=== PATIENT | male | born 1985 | race Caucasian/White ===

== ENCOUNTER 2022-04-02 19:27 | Emergency (ER) | payer MEDICARE, MEDICAID, SELFPAY ==
--- NOTE | ~2022-04-02 | XR_ITS ---
EXAMINATION: XR CHEST CLINICAL INFORMATION: Cough COMPARISON: None TECHNIQUE: 2 views of the chest were obtained. FINDINGS: No significant abnormality is noted involving the heart, lungs, mediastinum, bony thorax or soft tissues. XR/XR chest 2V IMPRESSION: Unremarkable examination.
[2022-04-02 19:56] VITALS: BP 114/71; BP 122/68; PULSE 102; PULSE 94; RESP 18; TEMP 37.6; O2SAT 18; O2SAT 97; BMI 21.6
[2022-04-02] MEDS: Acetaminophen 325 MG TABLET 975 MG PO (20:39)
[2022-04-02 21:24] LABS: Influenza A PCR NEGATIVE (Negative); Influenza B PCR NEGATIVE (Negative); Resp Syncy Virus RNA Qual PCR NEGATIVE (Negative); SARS COV2 PCR INHOUSE NEGATIVE (Negative)
[2022-04-02 22:37] LABS: Hemoglobin 14.8 g/dl (14.0-18.0); Imm Gran Abs Auto 0.01 X10*3/uL (0.00-0.03); Imm Gran Pct Auto 0.3 % (0.0-0.4); MANUAL DIFF FLAG SCAN; PLT CLUMP 1; SCAN SMEAR FLAG 1
[2022-04-02 22:38] LABS: Basophils Percent Auto 0.3 % (0-2); Hematocrit 40.9 % (42.0-52.0); Lymphocytes Percent Auto 28.1 % (20-40); Mean Corpuscular HGB Conc 36.2 g/dl (31.0-36.0); Mean Corpuscular Hemoglobin 28.1 pg (27.0-33.0); Mean Corpuscular Volume 77.6 fL (80.0-98.0); Monocytes Absolute Auto 0.2 X10*3/uL (0.1-1.2); Monocytes Percent Auto 6.9 % (2-11); Neutrophils Absolute Auto 2.3 x10*3/uL (2.0-8.3); Neutrophils Percent Auto 64.4 % (45-73); Red Blood Count 5.27 X10*6/uL (4.60-5.80); Red Cell Distribution Width 12.4 % (11.0-16.0)
[2022-04-02 22:45] LABS: Platelet Count 108 X10*3/uL (160-400); White Blood Count 3.5 X10*3/uL (4.8-10.8)
[2022-04-02 22:46] LABS: Lactic Acid 0.6 mmol/L (0.5-2.0)
[2022-04-02 22:48] VITALS: TEMP 37
[2022-04-02 22:55] LABS: Alanine Aminotransferase 54 U/L (0-40); Albumin Level 4.3 g/dL (3.5-5.0); Alkaline Phosphatase 61 U/L (39-117); Anion Gap 18 (12-20); Aspartate Amino Transferase 44 U/L (5-37); Bilirubin Total 0.4 mg/dL (0.0-1.0); Blood Urea Nitrogen 15 mg/dL (9-16); Calcium 8.8 mg/dL (8.4-10.2); Carbon Dioxide 26 mmol/L (22-29); Chloride 97 mmol/L (96-108); Creatinine Clr Calc Pharmacy 86.8; Estimated Glomerular Filt Rate > 60; Glucose Random 90 mg/dL (60-115); Potassium 4.7 mmol/L (3.3-5.1); Sodium 136 mmol/L (135-145); Total Protein 6.5 g/dL (6.5-8.0)
[2022-04-02 22:56] LABS: SLIDE REVIEW VERIFIED
--- NOTE | 2022-04-03 00:47 | ED.FEVER ---
HPI - Fever General Chief Complaint: Fever Stated Complaint: fever detoxing Time Seen by Provider: 04/02/22 20:04 Source: patient and sign language interpreter Mode of arrival: EMS History of Present Illness HPI Narrative: 36-year-old male who has recently arrived from [place] and is brought in by EMS from [facility] with a notable past medical history of depression (currently on sertraline/trazodone) as well as cannabis/crack cocaine abuse. Patient states he has not consumed alcohol in over 4 months and denies any injection drug use. Patient states he has received his TB vaccination in [place] and otherwise states that he has had waxing and waning episodes chills, nausea but otherwise denies vomiting, diarrhea, shortness of breath/chest pain/palpitations. Related Data Allergies Allergy/AdvReac Type Severity Reaction Status Date / Time aspirin Allergy Unknown Unknown Verified 04/02/22 19:55 seafood Allergy Unknown Unknown Verified 04/02/22 19:55 Review of Systems Review of Systems: Pertinent positives and negatives as stated in HPI 10 point review of systems is otherwise negative. PMFSH Past Medical History Source: nursing notes reviewed Social History Social History Advance Directives: No Advance Directives Information Provided: No Physical Exam Vital Signs: Vital Signs: Last Vital Signs Temp 98.8 F 04/03/22 02:20 Pulse 98 04/03/22 02:20 Resp 16 04/03/22 02:20 BP 110/72 04/03/22 02:20 Pulse Ox 96 04/03/22 02:20 O2 Del Method 04/03/22 02:20 BMI result Body Mass Index 21.6 VITAL SIGNS: Reviewed. GENERAL: Well developed, well nourished, in no acute distress. HEAD: Normocephalic/atraumatic EYES: PERRLA, EOMI EARS: Ext canals without abnormality, TMs non-bulging and non-erythematous NOSE: Nares patent bilateral OROPHARYNX: no oral lesions noted, posterior pharynx clear and non-erythematous without noted tonsillar enlargement/erythema/exudates NECK: Supple, no adenopathy LUNGS: Normal breath sounds. No adventitious sounds or accessory muscle use. SpO2<97> CARDIOVASCULAR: Regular rate and rhythm without noted murmurs ABDOMEN: Soft, non-tender, non-distended with bowel sounds. MUSCULOSKELETAL: No tenderness, deformities, or effusions noted on gross inspection. EXTREMITIES: No cyanosis, clubbing or edema. SKIN: Inspection of the skin reveals no rashes NEUROLOGIC: Alert and oriented x 4. Strength and sensation to light touch were grossly intact x 4. Course Course Course Narrative: 36-year-old male with history and clinical presentation consistent with possible viral illness although on review of SARS panel there are no acute findings. Chest x-ray is negative for any occult infection and abdominal exam is benign in nature. Patient denies any suicidal ideation. Review of all investigations negative for evidence of viral COVID/influenza/RSV and no evidence to suggest intra-abdominal pathology, chest x-ray is without acute findings patient is no longer febrile and is resting comfortably denying any SI/HI and is stable for discharge back to [facility]. Medications Administered Discontinued Medications Generic Name Dose Route Start Last Admin Trade Name Freq PRN Reason Stop Dose Admin Acetaminophen 975 mg 04/02/22 20:26 04/02/22 20:39 Acetaminophen 325 Mg Tablet PO 04/02/22 20:27 975 mg ONCE ONE Administration MDM - Fever Lab Data Result diagrams: 04/02/22 22:27 04/02/22 22:27 Labs: Lab Results 04/02/22 04/02/22 04/02/22 Range/Units 20:41 22:27 22:27 WBC 3.5 L (4.8-10.8) X10*3/uL RBC 5.27 (4.60-5.80) X10*6/uL Hgb 14.8 (14.0-18.0) g/dl Hct 40.9 L (42.0-52.0) % MCV 77.6 L (80.0-98.0) fL MCH 28.1 (27.0-33.0) pg MCHC 36.2 H (31.0-36.0) g/dl RDW 12.4 (11.0-16.0) % Plt Count 108 L (160-400) X10*3/uL MPV 10.0 (9.4-12.4) fL Immature Gran % (Auto) 0.3 (0.0-0.4) % Neut % (Auto) 64.4 (45-73) % Lymph % (Auto) 28.1 (20-40) % [place] % (Auto) 6.9 (2-11) % Eos % (Auto) 0.0 (0-4) % Baso % (Auto) 0.3 (0-2) % Lymph # (Auto) 1.0 L (1.2-4.9) X10*3/uL [place] # (Auto) 0.2 (0.1-1.2) X10*3/uL Eos # (Auto) 0.0 (0.0-0.4) X10*3/uL Baso # (Auto) 0.0 (0.0-0.2) X10*3/uL Abs Immat Gran (auto) 0.01 (0.00-0.03) X10*3/uL Absolute Neuts (auto) 2.3 (2.0-8.3) x10*3/uL Absolute Nucleated RBC 0.000 (0.0-0.012) X10*3/uL Nucleated RBC % (auto) 0.0 (0.0-0.2) /100WBC Smear Tech's Comments VERIFIED Sodium 136 (135-145) mmol/L Potassium 4.7 (3.3-5.1) mmol/L Chloride 97 (96-108) mmol/L Carbon Dioxide 26 (22-29) mmol/L Anion Gap 18 (12-20) BUN 15 (9-16) mg/dL Creatinine 1.03 (0.5-1.4) mg/dL Estim Creat Clear Calc 86.8 Estimated GFR > 60 Random Glucose 90 (60-115) mg/dL Lactic Acid (0.5-2.0) mmol/L Calcium 8.8 (8.4-10.2) mg/dL Total Bilirubin 0.4 (0.0-1.0) mg/dL AST 44 H (5-37) U/L ALT 54 H (0-40) U/L Alkaline Phosphatase 61 (39-117) U/L Total Protein 6.5 (6.5-8.0) g/dL Albumin 4.3 (3.5-5.0) g/dL Urine Color Urine Appearance Urine pH (5.0-9.0) Ur Specific [place] (1.005-1.025) Urine Protein (Neg-Trace) mg/dL Urine Glucose (UA) (Negative) mg/dL Urine Ketones (Negative) mg/dL Urine Blood (Negative) Urine Nitrite (Negative) Ur Leukocyte Esterase (Negative) Monoscreen (Negative) Influenza Type A (PCR) NEGATIVE (Negative) Influenza Type B (PCR) NEGATIVE (Negative) RSV RNA Qual (PCR) NEGATIVE (Negative) SARS-CoV-2 RNA (RT-PCR) NEGATIVE (Negative) 04/02/22 04/02/22 04/03/22 Range/Units 22:27 22:27 01:44 WBC (4.8-10.8) X10*3/uL RBC (4.60-5.80) X10*6/uL Hgb (14.0-18.0) g/dl Hct (42.0-52.0) % MCV (80.0-98.0) fL MCH (27.0-33.0) pg MCHC (31.0-36.0) g/dl RDW (11.0-16.0) % Plt Count (160-400) X10*3/uL MPV (9.4-12.4) fL Immature Gran % (Auto) (0.0-0.4) % Neut % (Auto) (45-73) % Lymph % (Auto) (20-40) % [place] % (Auto) (2-11) % Eos % (Auto) (0-4) % Baso % (Auto) (0-2) % Lymph # (Auto) (1.2-4.9) X10*3/uL [place] # (Auto) (0.1-1.2) X10*3/uL Eos # (Auto) (0.0-0.4) X10*3/uL Baso # (Auto) (0.0-0.2) X10*3/uL Abs Immat Gran (auto) (0.00-0.03) X10*3/uL Absolute Neuts (auto) (2.0-8.3) x10*3/uL Absolute Nucleated RBC (0.0-0.012) X10*3/uL Nucleated RBC % (auto) (0.0-0.2) /100WBC Smear Tech's Comments Sodium (135-145) mmol/L Potassium (3.3-5.1) mmol/L Chloride (96-108) mmol/L Carbon Dioxide (22-29) mmol/L Anion Gap (12-20) BUN (9-16) mg/dL Creatinine (0.5-1.4) mg/dL Estim Creat Clear Calc Estimated GFR Random Glucose (60-115) mg/dL Lactic Acid 0.6 (0.5-2.0) mmol/L Calcium (8.4-10.2) mg/dL Total Bilirubin (0.0-1.0) mg/dL AST (5-37) U/L ALT (0-40) U/L Alkaline Phosphatase (39-117) U/L Total Protein (6.5-8.0) g/dL Albumin (3.5-5.0) g/dL Urine Color Yellow Urine Appearance Clear Urine pH 5.5 (5.0-9.0) Ur Specific [place] 1.020 (1.005-1.025) Urine Protein Trace (Neg-Trace) mg/dL Urine Glucose (UA) Negative (Negative) mg/dL Urine Ketones Trace (Negative) mg/dL Urine Blood Negative (Negative) Urine Nitrite Negative (Negative) Ur Leukocyte Esterase Negative (Negative) Monoscreen Negative (Negative) Influenza Type A (PCR) (Negative) Influenza Type B (PCR) (Negative) RSV RNA Qual (PCR) (Negative) SARS-CoV-2 RNA (RT-PCR) (Negative) Discharge Plan Discharge Clinical Impression: Viral syndrome Patient Disposition: Xfer Other Instructions: Viral Syndrome (ED) Additional Instructions: 1. Reanudar todos los medicamentos caseros seg?n lo prescrito. 2. Trate los mahamed corporales y la fiebre de m?s de 100.4 con Tylenol de venta faina. 3. Seguimiento con el proveedor de atenci?n primaria para la reevaluaci?n. Regrese a la marvin de emergencias si los s?ntomas empeoran. Print Language: Ukrainian
[2022-04-03 01:11] LABS: Monotest Negative (Negative)
[2022-04-03 01:55] LABS: Appearance Urine Clear; Color Urine Yellow; Glucose Urine UA Negative (Negative); Leukocyte Esterase Urine Negative (Negative); Nitrite Urine Negative (Negative); PH 5.5 (5.0-9.0); Urine Blood Negative (Negative); Urine Ketones Trace mg/dL (Negative); Urine Protein Trace mg/dL (Neg-Trace)
[2022-04-03 02:20] VITALS: BP 110/72; PULSE 98; RESP 16; TEMP 37.1; O2SAT 96
[2022-04-03 04:03] LABS: Amphetamine Screen Urine Not Detected (Not Detect); Barbiturates, Urine Not Detected (Not Detect); Benzodiazepines Screen Urine Not Detected (Not Detect); Cannabinoid Screen Urine Not Detected (Not Detect); Cocaine Screen Urine Not Detected (Not Detect); Fentanyl, urine Not Detected (Not Detect); Opiate Screen Urine Not Detected (Not Detect); Phencyclidine Screen Urine Not Detected (Not Detect)
--- NOTE | 2022-04-03 08:54 | MHC.RECOVRN ---
Spoke with Susu at [facility], pts ED paperwork has been sent for review. Once reviewed by nursing at , pt will be able to return. Awaiting call back.
--- NOTE | 2022-04-03 08:59 | PC.NURSE ---
attempted to call sudhakar colby multiple times to give nurse to nurse report but the phone line was busy
== END 2022-04-03 09:02 | disposition other institution (70) ==
PROVIDERS: Student in an Organized Health Care Education/Training Program; Emergency Provider Internal Medicine
DX: B34.9 Viral infection, unspecified (principal); R50.9 Fever, unspecified; Z20.822 Contact with and (suspected) exposure to COVID-19; F14.10 Cocaine abuse, uncomplicated; F12.10 Cannabis abuse, uncomplicated
CPT/HCPCS: 0241U; 36415; 71046; 80053; 80307; 81003; 83605; 85025; 86308; 87040; 99283; 99284

== ENCOUNTER 2022-05-13 18:02 | Inpatient (IN) | payer MEDICARE, MEDICAID, SELFPAY ==
--- NOTE | ~2022-05-13 | XR_ITS ---
EXAMINATION: XR CHEST CLINICAL INFORMATION: Post-Covid. Continued shortness of breath. COMPARISON: 05/26/2022. TECHNIQUE: 2 views of the chest were obtained. FINDINGS: No significant abnormality is noted involving the heart, lungs, mediastinum, bony thorax or soft tissues. XR/XR chest 2V IMPRESSION: Unremarkable examination.
--- NOTE | ~2022-05-13 | XR_ITS ---
EXAMINATION: XR CHEST CLINICAL INFORMATION: Covid with question of pneumonia COMPARISON: 04/02/2022 TECHNIQUE: 2 views of the chest were obtained. FINDINGS: No significant abnormality is noted involving the heart, lungs, mediastinum, bony thorax or soft tissues. XR/XR chest 2V IMPRESSION: Unremarkable examination.
[2022-05-13 18:08] VITALS: BP 140/88; BP 144/80; PULSE 90; RESP 16; TEMP 37; O2SAT 98; O2SAT 99; BMI 23.3
--- NOTE | 2022-05-13 18:32 | ED.PSYCH ---
HPI - Psych General Chief Complaint: Psychiatric Symptoms Stated Complaint: SI/HI Time Seen by Provider: 05/13/22 18:08 Source: patient and EMS Mode of arrival: EMS Limitations: other (Patient appears to be manic) History of Present Illness HPI Narrative: This is a 37-year-old male history of schizophrenia, major depression coming from [facility] via ambulance for suicidal and homicidal ideation x1 day. According to EMS he was making SI and HI statements towards other staff members and peers at the facility. Patient denied SI and HI to the nurse in the Psychiatric pod however patient has intermittent suicidal thoughts with no particular plan. He denied HI to myself. Patient tells me he is having racing thoughts and is hearing things talking to him however unable to tell me what exactly his hearing. Patient appears paranoid and manic upon history taking. Denies medical complaints. Reports history of med compliance. Related Data Home Medications Medication Instructions Recorded Confirmed hydroxyzine HCl 50 mg tablet 50 mg PO TID 05/13/22 05/13/22 quetiapine 100 mg tablet 100 mg PO DAILY 05/13/22 05/13/22 quetiapine 200 mg tablet 200 mg PO BEDTIME 05/13/22 05/13/22 trazodone 100 mg tablet 100 mg PO BEDTIME 05/13/22 05/13/22 venlafaxine 75 mg capsule,extended 75 mg PO DAILY 05/13/22 05/13/22 release 24 hr Allergies Allergy/AdvReac Type Severity Reaction Status Date / Time aspirin Allergy Unknown Unknown Verified 04/02/22 19:55 seafood Allergy Unknown Unknown Verified 04/02/22 19:55 Review of Systems Review of Systems: Constitutional : No Weight loss, No Fever, No Chills, No Fatigue, No Malaise ENT/Mouth : No sore throat, No Rhinorrhea Eyes: No Eye Pain, No Swelling, No Redness Cardiovascular : No Chest Pain, No SOB, No Dyspnea on Exertion, No Orthopnea, No Edema, No Palpitations Respiratory : No Cough, No Sputum, No Wheezing Gastrointestinal : No Nausea, No Vomiting, No Diarrhea, No Constipation, No abdominal Pain, No Hematochezia, No Melena Genitourinary : No Dysuria, No Urinary Frequency, No Hematuria, Musculoskeletal : No joint pain, No Myalgias, No Joint Swelling Skin : No Skin Lesions, No rash Neuro : No Weakness, No Numbness, No Dizziness, No Headache Psych : + Anxiety/Panic, + , + Depression, + SI, No HI All other systems reviewed and are negative Yes all other systems are reviewed and are negative [facility] Past Medical History Attestation statement: The following information was validated with the patient. Source: old records reviewed and nursing notes reviewed Social History Social History Advance Directives: No Advance Directives Information Provided: Yes Physical Exam Vital Signs: Vital Signs: Last Vital Signs Temp 98.6 F 05/13/22 18:08 Pulse 90 05/13/22 18:08 Resp 16 05/13/22 18:08 BP 140/88 H 05/13/22 18:08 Pulse Ox 99 05/13/22 18:08 O2 Del Method 05/13/22 18:08 BMI result Body Mass Index 23.3 vss Appearance: Alert.? Oriented X3.? No acute distress.? Patient appears paranoid and very anxious upon history taking and physical exam Head: Normocephalic, atraumatic, no step-offs or deformities Eyes: Pupils equal, round and reactive to light.? ENT: Pharynx normal.? Neck: Normal inspection.? Neck supple.? CVS: Normal heart rate and rhythm.? Pulses normal.? Respiratory: No respiratory distress.? Breath sounds normal.? Abdomen: Soft and nontender.? Skin: Skin warm and dry.? Normal skin color.? Normal skin turgor.? Extremities: No lower extremity edema.? No calf ttp. 5/5 strength to bilateral upper and lower extremities Neuro: Oriented X 3.? No motor deficit.? No sensory deficit. CN 2-12 intact . Ambulating with steady gait normal coordination. Course Reevaluation(s) Reevaluation #1: CBC appears to be within normal limits. Chemistry with no acute findings requiring intervention. Transaminases elevated in the 2-1 fashion likely secondary to alcohol abuse. UA negative. Salicylates, acetaminophen, ethanol negative. COVID negative. At this time patient will be placed into physician observation to allow more time to be evaluated by the behavioral health team. At time observation was started patient common cooperative no acute distress will continue to monitor. Time: 19:38 Medical Decision Making Medical Decision Making [facility] Narrative: 1834 37-year-old male presents with acute paranoia, hallucinations coming from [place] also vague complaints of SI. No particular plan. Physical examination significant for patient appears anxious and paranoid. Regular rate and rhythm. Lungs clear. Abdomen soft nontender nondistended. Plan at this time medical clearance evaluation by the behavioral health team. Will place patient on a Section 12 for suicidal ideation, paranoia, manic behavior Lab Data Result Diagrams: 05/13/22 18:55 05/13/22 18:55 Labs: Lab Results 05/13/22 05/13/22 05/13/22 Range/Units 18:28 18:28 18:28 WBC (4.8-10.8) X10*3/uL RBC (4.60-5.80) X10*6/uL Hgb (14.0-18.0) g/dl Hct (42.0-52.0) % MCV (80.0-98.0) fL MCH (27.0-33.0) pg MCHC (31.0-36.0) g/dl RDW (11.0-16.0) % Plt Count (160-400) X10*3/uL MPV (9.4-12.4) fL Immature Gran % (Auto) (0.0-0.4) % Neut % (Auto) (45-73) % Lymph % (Auto) (20-40) % [place] % (Auto) (2-11) % Eos % (Auto) (0-4) % Baso % (Auto) (0-2) % Lymph # (Auto) (1.2-4.9) X10*3/uL [place] # (Auto) (0.1-1.2) X10*3/uL Eos # (Auto) (0.0-0.4) X10*3/uL Baso # (Auto) (0.0-0.2) X10*3/uL Abs Immat Gran (auto) (0.00-0.03) X10*3/uL Absolute Neuts (auto) (2.0-8.3) x10*3/uL Absolute Nucleated RBC (0.0-0.012) X10*3/uL Nucleated RBC % (auto) (0.0-0.2) /100WBC Sodium (135-145) mmol/L Potassium (3.3-5.1) mmol/L Chloride (96-108) mmol/L Carbon Dioxide (22-29) mmol/L Anion Gap (12-20) BUN (9-16) mg/dL Creatinine (0.5-1.4) mg/dL Estim Creat Clear Calc Estimated GFR Random Glucose (60-115) mg/dL Calcium (8.4-10.2) mg/dL Magnesium (1.6-2.6) mg/dL Total Bilirubin (0.0-1.0) mg/dL AST (5-37) U/L ALT (0-40) U/L Alkaline Phosphatase (39-117) U/L Total Protein (6.5-8.0) g/dL Albumin (3.5-5.0) g/dL Urine Color Yellow Urine Appearance Clear Urine pH 7.0 (5.0-9.0) Ur Specific [place] 1.020 (1.005-1.025) Urine Protein Negative (Neg-Trace) mg/dL Urine Glucose (UA) Negative (Negative) mg/dL Urine Ketones Negative (Negative) mg/dL Urine Blood Negative (Negative) Urine Nitrite Negative (Negative) Ur Leukocyte Esterase Negative (Negative) Salicylates (15-30) mg/dL Urine Opiates Screen Not Detected (Not Detect) Urine Fentanyl Screen Not Detected (Not Detect) Ur Barbiturates Screen Not Detected (Not Detect) Ur Phencyclidine Scrn Not Detected (Not Detect) Ur Amphetamines Screen Not Detected (Not Detect) U Benzodiazepines Scrn Not Detected (Not Detect) Urine Cocaine Screen Not Detected (Not Detect) U Marijuana (THC) Screen Not Detected (Not Detect) Ethyl Alcohol mg/dL COVID-19 ([facility]) Negative (Negative) COVID-19 Clin Com See Note 05/13/22 05/13/22 05/13/22 Range/Units 18:55 18:55 18:55 WBC 10.7 (4.8-10.8) X10*3/uL RBC 5.16 (4.60-5.80) X10*6/uL Hgb 14.8 (14.0-18.0) g/dl Hct 41.1 L (42.0-52.0) % MCV 79.7 L (80.0-98.0) fL MCH 28.7 (27.0-33.0) pg MCHC 36.0 (31.0-36.0) g/dl RDW 14.1 (11.0-16.0) % Plt Count 307 D (160-400) X10*3/uL MPV 9.4 (9.4-12.4) fL Immature Gran % (Auto) 0.4 (0.0-0.4) % Neut % (Auto) 61.0 (45-73) % Lymph % (Auto) 29.0 (20-40) % [place] % (Auto) 8.5 (2-11) % Eos % (Auto) 0.7 (0-4) % Baso % (Auto) 0.4 (0-2) % Lymph # (Auto) 3.1 (1.2-4.9) X10*3/uL [place] # (Auto) 0.9 (0.1-1.2) X10*3/uL Eos # (Auto) 0.1 (0.0-0.4) X10*3/uL Baso # (Auto) 0.0 (0.0-0.2) X10*3/uL Abs Immat Gran (auto) 0.04 H (0.00-0.03) X10*3/uL Absolute Neuts (auto) 6.5 (2.0-8.3) x10*3/uL Absolute Nucleated RBC 0.000 (0.0-0.012) X10*3/uL Nucleated RBC % (auto) 0.0 (0.0-0.2) /100WBC Sodium 140 (135-145) mmol/L Potassium 4.8 (3.3-5.1) mmol/L Chloride 100 (96-108) mmol/L Carbon Dioxide 31 H (22-29) mmol/L Anion Gap 14 (12-20) BUN 11 (9-16) mg/dL Creatinine 0.78 (0.5-1.4) mg/dL Estim Creat Clear Calc 119.2 Estimated GFR > 60 Random Glucose 99 (60-115) mg/dL Calcium 9.6 D (8.4-10.2) mg/dL Magnesium 2.1 (1.6-2.6) mg/dL Total Bilirubin 0.4 (0.0-1.0) mg/dL AST 52 H (5-37) U/L ALT 151 H (0-40) U/L Alkaline Phosphatase 73 (39-117) U/L Total Protein 7.1 (6.5-8.0) g/dL Albumin 4.6 (3.5-5.0) g/dL Urine Color Urine Appearance Urine pH (5.0-9.0) Ur Specific [place] (1.005-1.025) Urine Protein (Neg-Trace) mg/dL Urine Glucose (UA) (Negative) mg/dL Urine Ketones (Negative) mg/dL Urine Blood (Negative) Urine Nitrite (Negative) Ur Leukocyte Esterase (Negative) Salicylates < 5.0 L (15-30) mg/dL Urine Opiates Screen (Not Detect) Urine Fentanyl Screen (Not Detect) Ur Barbiturates Screen (Not Detect) Ur Phencyclidine Scrn (Not Detect) Ur Amphetamines Screen (Not Detect) U Benzodiazepines Scrn (Not Detect) Urine Cocaine Screen (Not Detect) U Marijuana (THC) Screen (Not Detect) Ethyl Alcohol < 10 mg/dL COVID-19 ([facility]) (Negative) COVID-19 Clin Com Critical Care Time Critical Care Time Critical Care Time: No Discharge Plan Discharge Clinical Impression: Depression, [place] Patient Disposition: Still a Patient Prescriptions: No Action venlafaxine 75 mg Capsule,Extended Release 24hr 75 mg PO DAILY trazodone 100 mg Tablet 100 mg PO BEDTIME quetiapine 200 mg Tablet 200 mg PO BEDTIME quetiapine 100 mg Tablet 100 mg PO DAILY hydroxyzine HCl 50 mg Tablet 50 mg PO TID
[2022-05-13 18:40] LABS: Appearance Urine Clear; Color Urine Yellow; Glucose Urine UA Negative (Negative); Leukocyte Esterase Urine Negative (Negative); Nitrite Urine Negative (Negative); Urine Blood Negative (Negative); Urine Ketones Negative (Negative); Urine Protein Negative (Neg-Trace)
[2022-05-13 18:52] LABS: COVID-19 Test Negative (Negative)
[2022-05-13 18:57] LABS: Amphetamine Screen Urine Not Detected (Not Detect); Barbiturates, Urine Not Detected (Not Detect); Benzodiazepines Screen Urine Not Detected (Not Detect); Cannabinoid Screen Urine Not Detected (Not Detect); Cocaine Screen Urine Not Detected (Not Detect); Fentanyl, urine Not Detected (Not Detect); Opiate Screen Urine Not Detected (Not Detect); Phencyclidine Screen Urine Not Detected (Not Detect)
[2022-05-13 19:02] LABS: MANUAL DIFF FLAG NO
[2022-05-13 19:15] LABS: Basophils Percent Auto 0.4 % (0-2); Eosinophils Absolute Auto 0.1 X10*3/uL (0.0-0.4); Eosinophils Percent Auto 0.7 % (0-4); Hematocrit 41.1 % (42.0-52.0); Hemoglobin 14.8 g/dl (14.0-18.0); Imm Gran Abs Auto 0.04 X10*3/uL (0.00-0.03); Imm Gran Pct Auto 0.4 % (0.0-0.4); Lymphocytes Absolute Auto 3.1 X10*3/uL (1.2-4.9); Mean Corpuscular Hemoglobin 28.7 pg (27.0-33.0); Mean Corpuscular Volume 79.7 fL (80.0-98.0); Mean Platelet Volume 9.4 fL (9.4-12.4); Monocytes Absolute Auto 0.9 X10*3/uL (0.1-1.2); Monocytes Percent Auto 8.5 % (2-11); Neutrophils Absolute Auto 6.5 x10*3/uL (2.0-8.3); Platelet Count 307 X10*3/uL (160-400); Red Blood Count 5.16 X10*6/uL (4.60-5.80); Red Cell Distribution Width 14.1 % (11.0-16.0); White Blood Count 10.7 X10*3/uL (4.8-10.8)
[2022-05-13 19:26] LABS: Ethanol < 10 mg/dL
[2022-05-13 19:30] LABS: Alanine Aminotransferase 151 U/L (0-40); Albumin Level 4.6 g/dL (3.5-5.0); Alkaline Phosphatase 73 U/L (39-117); Anion Gap 14 (12-20); Aspartate Amino Transferase 52 U/L (5-37); Bilirubin Total 0.4 mg/dL (0.0-1.0); Blood Urea Nitrogen 11 mg/dL (9-16); Calcium 9.6 mg/dL (8.4-10.2); Carbon Dioxide 31 mmol/L (22-29); Chloride 100 mmol/L (96-108); Creatinine Clr Calc Pharmacy 119.2; Estimated Glomerular Filt Rate > 60; Glucose Random 99 mg/dL (60-115); Magnesium 2.1 mg/dL (1.6-2.6); Potassium 4.8 mmol/L (3.3-5.1); Salicylate < 5.0 mg/dL (15-30); Sodium 140 mmol/L (135-145); Total Protein 7.1 g/dL (6.5-8.0)
[2022-05-13 19:40] LABS: Acetaminophen LAB 1 mcg/mL (<30)
--- NOTE | 2022-05-13 19:43 | PHA.MEDREC ---
Pharmacy Consult ? Medication Reconciliation Pharmacy has completed the medication reconciliation. Nikolas faxed up med list, entered by RN and reviewed by pharmacy.
--- NOTE | 2022-05-13 22:02 | MHC.CARE ---
CARE team met with Pt. and helper animal laboratory, [facility], in [facility]. Pt.'s hospital gown was unbuttoned and he appeared disheveled. Pt. had disorganized thoughts and was responding to internal stimuli. Pt. kept inquiring about his luggage and lab results. Pt. reported he moved here from [place] on 03/24/22 and is living at [facility]. He said she is planning on transitioning to [facility] in May. Pt. reported he has no family or friends in the area, one paternal uncle in [place]. Pt. reported SI/HI/AH/VH. Pt. reported he uses marijuana, cocaine, and crack. Per Pt. he has no PCP, therapist or psychiatrist. Pt will be evaluated by N.
--- NOTE | 2022-05-14 | ECG_ITS ---
Test Reason : MED CLEARANCE Blood Pressure : / mmHG Vent. Rate : 099 BPM Atrial Rate : 099 BPM P-R Int : 124 ms QRS Dur : 072 ms QT Int : 334 ms P-R-T Axes : 062 079 055 degrees QTc Int : 428 ms Normal sinus rhythm Normal ECG No previous ECGs available Referred By: Stanford Sahu Electronically Signed By:Anuj Pritchett
[2022-05-14 02:34] VITALS: BP 125/84; PULSE 82; RESP 15; TEMP 36.6; O2SAT 98
[2022-05-14] MEDS: traZODone HCL 100 MG TABLET PO ×2 (03:22→22:25)
[2022-05-14] MEDS: QUEtiapine Fumarate 200 MG TABLET PO ×2 (03:23→22:24)
[2022-05-14] MEDS: LORazepam 1 MG TABLET 2 MG PO (04:41)
[2022-05-14] MEDS: OLANZapine 5 MG TABLET PO (04:41)
--- NOTE | 2022-05-14 04:52 | PC.NURSE ---
Patient was up most part of the night, restlessness, unscheduled Seroquel 200 mg and Trazodone 100 mg administered at 0322 with no effect, patient engaged well with [facility], disposition per [facility] is section 12 inpatient bed search, patient continues exhibit restlessness Ativan 2 mg PO and Olanzapine 5 mg po administered 044 pending effect, VSS, patient is Icelandic speaking only, behavior appropriate and non concerning, appetite good, VSS, will continue to monitor.
--- NOTE | 2022-05-14 10:56 | PC.NURSE ---
pt accepted at [facility] for 1300 and transportation secured, pt has slept all morning and currently awaiting med delivery from the pharmacy
[2022-05-14] MEDS: hydrOXYzine HCL 50 MG TABLET PO ×3 (11:40→22:24)
[2022-05-14] MEDS: QUEtiapine Fumarate 100 MG TABLET PO (11:40)
--- NOTE | 2022-05-14 13:53 | PC.NURSE ---
Nurse to Nurse given to m5
[2022-05-14 18:00] VITALS: BP 125/78; PULSE 113; TEMP 36.5; O2SAT 95
--- NOTE | 2022-05-14 19:36 | PC.ADMIT ---
pt is a 37 year old dominican speaking only male who represent to [facility] after leaving [facility] before finishing treatment earlier this week, according to the patient. pt PMH includes ADHD, alcohol and cocaine use disorder, and schizophrenia. during admission, patient would go off on tangents or be worried about something not related to admission. pt repeated himself often. pt has poor impulse control. pt reports hearing AH( beeps and horns, people screaming) and seeing VH in the form of shadows. pt reports not being to sleep at night. pt wants to go to [email or web address] or back to his [facility] program. pt is easily angered when told not to do certain things. pt reports feeling sick, but no discharge or redness was there. start treatment plan and promote safety.
[2022-05-14] MEDS: Nicotine Polacrilex 2 MG GUM BUCCAL ×2 (22:34→23:51)
[2022-05-15 08:50] VITALS: BP 129/73; PULSE 97; TEMP 36.7
[2022-05-15 09:06] LABS: Estimated Average Glucose 94 mg/dL; Hemoglobin A1c % 4.9 %
[2022-05-15] MEDS: hydrOXYzine HCL 50 MG TABLET PO ×3 (09:40→22:48)
[2022-05-15] MEDS: Venlafaxine HCl ER 75 MG CAP.ER.24H PO (09:41)
[2022-05-15] MEDS: QUEtiapine Fumarate 100 MG TABLET PO (09:41)
[2022-05-15] MEDS: Nicotine Polacrilex 2 MG GUM BUCCAL (09:56)
[2022-05-15] MEDS: Nicotine 14 MG PATCH.TD24 TRANSDERMA (11:43)
[2022-05-15 12:18] LABS: Cholesterol 184 mg/dL; Free T4 (Free Thyroxine) 0.78 ng/dL (0.71-1.85); HDL Cholesterol 35 mg/dL; LDL Cholesterol Calculated 129 mg/dl; Magnesium 2.3 mg/dL (1.6-2.6); Thyroid Stimulating Hormone 2.17 uIU/mL (0.32-4.0); Triglycerides 101 mg/dL
[2022-05-15 12:36] LABS: Folate 17.4 ng/mL (> or = 4.0); Vitamin B12 275 pg/mL (200-900)
[2022-05-15 16:25] VITALS: BP 118/73; PULSE 99; TEMP 36.4
--- NOTE | 2022-05-15 16:27 | P.HPPS_ITS ---
HPI Date of Service: 05/15/22 Chief Complaint: Schizophrenia Sources of Information: patient interviewed, chart reviewed and crisis/core team assessment reviewed HPI Subjective Notes: Guerra Warning and Conditional Voluntary Healthcare Proxy: No Guardianship: No Medical Problems Affecting Mental Status: No Narrative: 36 yo Chinese speaking male, hx of schizophrenia and addiction, admitted to re- establish medication regime after decompensating in the community. Initially presents with lability, physical agitation, aggression to self. Denies SI, HI. Pt had been living at [facility]. Today, with forming machine adjuster, met with team and reviewed a reasonable plan to get back into treatment, have medication assessment and return to [facility] level of care. Able to review his history thoroughly and in organized detail. Past Psychiatric History: IP: Mar 2022-[facility] [place] OP: Hx of care in [place] [id number] Detox Mar 2022 [facility] [place] Trials: Not known ADHD diagnosed in childhood Schizophrenia diagnosed 2008 Medical Evaluation Reviewed: Yes [facility] Medical History (Updated 05/15/22 @ 17:35 by Betzaida Perales, SUPERVISOR PURIFICATION) Polysubstance use disorder Schizophrenia Family History: None known Social History: Born and raised in [place] by both parents One younger brother Completed High School 04/14. Moved to [place] Mar 2022-went into detox Substance History: Alcohol, Opiates, Cocaine, Cannabis, Nicotine Trauma History: Hx of bullying Diagnostics Vital Signs (24Hr): Vital Signs - 24 hr 05/14/22 18:00 05/15/22 08:50 Temperature 97.7 F 98.1 F Pulse Rate 113 H 97 Blood Pressure 125/78 129/73 Pulse Oximetry 95 Oxygen Delivery Method Room Air BMI result Body Mass Index 23.3 Labs Results: 05/13/22 18:55 05/13/22 18:55 Labs: Laboratory Results - last 48 hr 05/13/22 05/13/22 05/13/22 18:28 18:28 18:28 WBC RBC Hgb Hct MCV MCH MCHC RDW Plt Count MPV Immature Gran % (Auto) Neut % (Auto) Lymph % (Auto) [place] % (Auto) Eos % (Auto) Baso % (Auto) Lymph # (Auto) [place] # (Auto) Eos # (Auto) Baso # (Auto) Abs Immat Gran (auto) Absolute Neuts (auto) Absolute Nucleated RBC Nucleated RBC % (auto) Sodium Potassium Chloride Carbon Dioxide Anion Gap BUN Creatinine Estim Creat Clear Calc Estimated GFR Random Glucose Estimat Average Glucose Hemoglobin A1c % Calcium Magnesium Total Bilirubin AST ALT Alkaline Phosphatase Total Protein Albumin Triglycerides Cholesterol LDL Cholesterol, Calc HDL Cholesterol Vitamin B12 Folate TSH Free T4 Urine Color Yellow Urine Appearance Clear Urine pH 7.0 Ur Specific [place] 1.020 Urine Protein Negative Urine Glucose (UA) Negative Urine Ketones Negative Urine Blood Negative Urine Nitrite Negative Ur Leukocyte Esterase Negative Salicylates Urine Opiates Screen Not Detected Urine Fentanyl Screen Not Detected Acetaminophen Ur Barbiturates Screen Not Detected Ur Phencyclidine Scrn Not Detected Ur Amphetamines Screen Not Detected U Benzodiazepines Scrn Not Detected Urine Cocaine Screen Not Detected U Marijuana (THC) Screen Not Detected Ethyl Alcohol COVID-19 ([facility]) Negative COVID-19 Clin Com See Note 05/13/22 05/13/22 05/13/22 18:55 18:55 18:55 WBC 10.7 RBC 5.16 Hgb 14.8 Hct 41.1 L MCV 79.7 L MCH 28.7 MCHC 36.0 RDW 14.1 Plt Count 307 D MPV 9.4 Immature Gran % (Auto) 0.4 Neut % (Auto) 61.0 Lymph % (Auto) 29.0 [place] % (Auto) 8.5 Eos % (Auto) 0.7 Baso % (Auto) 0.4 Lymph # (Auto) 3.1 [place] # (Auto) 0.9 Eos # (Auto) 0.1 Baso # (Auto) 0.0 Abs Immat Gran (auto) 0.04 H Absolute Neuts (auto) 6.5 Absolute Nucleated RBC 0.000 Nucleated RBC % (auto) 0.0 Sodium 140 Potassium 4.8 Chloride 100 Carbon Dioxide 31 H Anion Gap 14 BUN 11 Creatinine 0.78 Estim Creat Clear Calc 119.2 Estimated GFR > 60 Random Glucose 99 Estimat Average Glucose Hemoglobin A1c % Calcium 9.6 D Magnesium 2.1 Total Bilirubin 0.4 AST 52 H ALT 151 H Alkaline Phosphatase 73 Total Protein 7.1 Albumin 4.6 Triglycerides Cholesterol LDL Cholesterol, Calc HDL Cholesterol Vitamin B12 Folate TSH Free T4 Urine Color Urine Appearance Urine pH Ur Specific [place] Urine Protein Urine Glucose (UA) Urine Ketones Urine Blood Urine Nitrite Ur Leukocyte Esterase Salicylates < 5.0 L Urine Opiates Screen Urine Fentanyl Screen Acetaminophen 1 Ur Barbiturates Screen Ur Phencyclidine Scrn Ur Amphetamines Screen U Benzodiazepines Scrn Urine Cocaine Screen U Marijuana (THC) Screen Ethyl Alcohol < 10 COVID-19 ([facility]) COVID-19 x.ai 05/15/22 05/15/22 05/15/22 08:21 08:21 08:21 WBC RBC Hgb Hct MCV MCH MCHC RDW Plt Count MPV Immature Gran % (Auto) Neut % (Auto) Lymph % (Auto) [place] % (Auto) Eos % (Auto) Baso % (Auto) Lymph # (Auto) [place] # (Auto) Eos # (Auto) Baso # (Auto) Abs Immat Gran (auto) Absolute Neuts (auto) Absolute Nucleated RBC Nucleated RBC % (auto) Sodium Potassium Chloride Carbon Dioxide Anion Gap BUN Creatinine Estim Creat Clear Calc Estimated GFR Random Glucose Estimat Average Glucose 94 Hemoglobin A1c % 4.9 Calcium Magnesium 2.3 Total Bilirubin AST ALT Alkaline Phosphatase Total Protein Albumin Triglycerides 101 Cholesterol 184 LDL Cholesterol, Calc 129 HDL Cholesterol 35 Vitamin B12 275 Folate 17.4 TSH 2.17 Free T4 0.78 Urine Color Urine Appearance Urine pH Ur Specific [place] Urine Protein Urine Glucose (UA) Urine Ketones Urine Blood Urine Nitrite Ur Leukocyte Esterase Salicylates Urine Opiates Screen Urine Fentanyl Screen Acetaminophen Ur Barbiturates Screen Ur Phencyclidine Scrn Ur Amphetamines Screen U Benzodiazepines Scrn Urine Cocaine Screen U Marijuana (THC) Screen Ethyl Alcohol COVID-19 ([facility]) COVID-19 x.ai Meds/Allergies Meds Home Medications Medication Instructions Recorded Confirmed Type hydroxyzine HCl 50 mg tablet 50 mg PO TID 05/13/22 05/13/22 History quetiapine 100 mg tablet 100 mg PO DAILY 05/13/22 05/13/22 History quetiapine 200 mg tablet 200 mg PO BEDTIME 05/13/22 05/13/22 History trazodone 100 mg tablet 100 mg PO BEDTIME 05/13/22 05/13/22 History venlafaxine 75 mg capsule,extended 75 mg PO DAILY 05/13/22 05/13/22 History release 24 hr Allergies Allergies Allergy/AdvReac Type Severity Reaction Status Date / Time aspirin Allergy Unknown Unknown Verified 04/02/22 19:55 seafood Allergy Unknown Unknown Verified 04/02/22 19:55 Mental Status Exam Mental Status Exam Patient Appearance: Appropriate Patient Orientation: Person, Place, Time and Situation Level of Consciousness: Alert Patient Behavior: Talkative and Good Eye Contact Mood Description: Appropriate Affect Description: Appropriate Patient Cognition Impaired: No Ability to Follow Directions: Good Speech Pattern: Spontaneous Speech Memory Description: Intact Hallucinations: None Delusions: Not Present Thought Process: Intact Thought Content: positive for Intact Judgement: Fair Assessment & Plan Assessment & Plan (1) Schizophrenia: Status: Acute Code(s): F20.9 - Schizophrenia, unspecified (2) Polysubstance use disorder: Status: Acute Code(s): F19.90 - Other psychoactive substance use, unspecified, uncomplicated Plan 37 yo male, history of schizophrenia, polysubstance use presents with request to re-stabilize on medications and return to addictions CSS treatment. Continue current regime. Monitor mood/behaviors Referrals for CSS placement. Patient educated on: medication risk/benefits, therapeutic strategies and medical condition Informed Consent: understands and further education needed Reason for continued inpatient stay Substantial Risk for: rapid decompensation Statement Statement: I have reviewed the history and physical and performed a pertinent examination on my patient. No changes have occurred unless specified. If the History and Physical was not performed prior to admission, the Hospitalist's service will be consulted for completing the admission physical. Time Spent With Patient Time: Total time managing care of this patient today __45__ minutes.
[2022-05-15] MEDS: Acetaminophen 325 MG TABLET 650 MG PO (16:47)
[2022-05-15] MEDS: traZODone HCL 100 MG TABLET PO (22:48)
[2022-05-15] MEDS: QUEtiapine Fumarate 200 MG TABLET PO (22:48)
[2022-05-16] MEDS: hydrOXYzine HCL 50 MG TABLET PO ×3 (08:09→22:06)
[2022-05-16] MEDS: QUEtiapine Fumarate 100 MG TABLET PO (08:09)
[2022-05-16] MEDS: Venlafaxine HCl ER 75 MG CAP.ER.24H PO (08:09)
[2022-05-16] MEDS: Nicotine Polacrilex 2 MG GUM BUCCAL (08:11)
[2022-05-16] MEDS: Nicotine 14 MG PATCH.TD24 TRANSDERMA (08:18)
[2022-05-16 09:05] VITALS: BP 138/85; PULSE 75; RESP 20; TEMP 36.4; O2SAT 99
--- NOTE | 2022-05-16 09:12 | HO.PSYCHPN ---
Subjective Subjective Date of Service: 05/16/22 Reason For Visit: Schizophrenia Subjective Notes: Conditional Voluntary Healthcare Proxy: No Guardianship: No Medical Problems Affecting Mental Status: No Interim History: Patient was seen and discussed in rounds today. Records and plans were reviewed. He was seen with the help of an filament tester. He has not been taking medications. Poor sleep. No safety concerns with no suicidal ideations. Moderate anxiety and pacing has been observed. He is mostly withdrawn and isolative. Medication Compliance: No Attending Groups: No Review of Systems Constitutional: Reports no additional constitutional complaints Eyes: Reports no additional eye complaints Reports Normal hearing present (asks for a hearing assessment to be scheduled) Cardiovascular: Reports no additional cardiovascular complaints Respiratory: Reports no additional respiratory complaints Gastrointestinal: Reports no additional gastrointestinal complaints Genitourinary: Reports no additional male genitourinary complaints Musculoskeletal: Reports no additional musculoskeletal complaints Skin/Breast: Reports system reviewed and no additional complaints, except as docu Reports Normal hearing present (asks for a hearing assessment to be scheduled) and Reports behavioral changes Psychiatric: Reports anxiety, Reports behavioral changes, Reports difficulty concentrating, Reports irritability, Reports anhedonia, Reports mood swings, Reports paranoia and Reports suicidal ideation (denies) Endocrine: Reports no additional endocrine complaints Hematologic/Lymphatic: Reports no additional hematologic/lymphatic complaints Allergic/Immunologic: Reports no additional allergic/immunologic complaints Mental Status Exam Mental Status Exam Narrative: In today's visit he is alert, mostly pleasant and interactive with the filament tester. Speech is pressured. Little to no eye contact. Affect is appropriate and tense. He denies any auditory or visual hallucinations. He denies any suicidal ideations. Cognitively he appears to be somewhat disorganized, tangential. He could not be tested formally. Judgment could not be assessed Diagnostics Vital Signs (24Hr): Vital Signs - 24 hr 05/15/22 16:25 05/16/22 09:05 Temperature 97.5 F 97.6 F Pulse Rate 99 75 Respiratory Rate 20 Blood Pressure 118/73 138/85 Pulse Oximetry 99 Oxygen Delivery Method Room Air BMI result Body Mass Index 23.3 Labs Results: 05/13/22 18:55 05/13/22 18:55 Labs: Laboratory Results - last 48 hr 05/15/22 05/15/22 05/15/22 08:21 08:21 08:21 Estimat Average Glucose 94 Hemoglobin A1c % 4.9 Magnesium 2.3 Triglycerides 101 Cholesterol 184 LDL Cholesterol, Calc 129 HDL Cholesterol 35 Vitamin B12 275 Folate 17.4 TSH 2.17 Free T4 0.78 Medications Medications Current Medications Acetaminophen (Acetaminophen 325 Mg Tablet) 650 mg PO Q6H PRN PRN Reason: Headache/Pain Mild Scale (1-3) Last Admin: 05/15/22 16:47 Dose: 650 mg Al Hydroxide/Mg Hydroxide (Magnesium Hydrox/Alum Hydrox 30 Ml Oral.Susp) 30 ml PO Q6H PRN PRN Reason: Heartburn/Nausea Hydroxyzine HCl (Hydroxyzine Hcl 50 Mg Tablet) 50 mg PO TID [facility] Last Admin: 05/16/22 08:09 Dose: 50 mg Magnesium Hydroxide (Milk Of Magnesia 30 Ml Oral.Susp) 30 ml PO DAILY PRN PRN Reason: Constipation Nicotine (Nicotine 14 Mg Patch.Td24) 14 mg TRANSDERMA DAILY [facility] Last Admin: 05/16/22 08:18 Dose: 14 mg Nicotine Polacrilex (Nicotine Polacrilex 2 Mg Gum) 2 mg BUCCAL Q2H PRN PRN Reason: Nicotine Cravings Last Admin: 05/16/22 08:11 Dose: 2 mg Quetiapine Fumarate (Quetiapine Fumarate 100 Mg Tablet) 100 mg PO DAILY [facility] Last Admin: 05/16/22 08:09 Dose: 100 mg Quetiapine Fumarate (Quetiapine Fumarate 200 Mg Tablet) 200 mg PO BEDTIME [facility] Last Admin: 05/15/22 22:48 Dose: 200 mg Trazodone HCl (Trazodone Hcl 100 Mg Tablet) 100 mg PO BEDTIME [facility] Last Admin: 05/15/22 22:48 Dose: 100 mg Venlafaxine HCl (Venlafaxine Hcl Er 75 Mg Cap.Er.24h) 75 mg PO DAILY [facility] Last Admin: 05/16/22 08:09 Dose: 75 mg Allergies Allergies Allergy/AdvReac Type Severity Reaction Status Date / Time aspirin Allergy Unknown Unknown Verified 04/02/22 19:55 seafood Allergy Unknown Unknown Verified 04/02/22 19:55 Assessment & Plan Assessment & Plan (1) Schizophrenia: Status: Acute Code(s): F20.9 - Schizophrenia, unspecified (2) Polysubstance use disorder: Status: Acute Code(s): F19.90 - Other psychoactive substance use, unspecified, uncomplicated Plan 37 yo male, history of schizophrenia, polysubstance use presents with request to re-stabilize on medications and return to addictions CSS treatment. Continue current regime. Monitor mood/behaviors Referrals for CSS placement. 05/15: Continue current regimen and encouraged to take medications. Nursing requested the p.r.n. in case he agrees to take something during the day and Seroquel 25 mg q.4 hours p.r.n. was ordered. Patient educated on: medication risk/benefits Reason for contiued inpatient stay Substantial Risk for: med/psych decompensation Time Spent With Patient Time: Total time managing care of this patient today ____ minutes.
[2022-05-16 21:54] VITALS: BP 141/84; PULSE 82; RESP 16; TEMP 36.8; O2SAT 97
[2022-05-16] MEDS: QUEtiapine Fumarate 200 MG TABLET PO (22:06)
[2022-05-16] MEDS: traZODone HCL 100 MG TABLET PO (22:06)
[2022-05-17] MEDS: Venlafaxine HCl ER 75 MG CAP.ER.24H PO (09:35)
[2022-05-17] MEDS: hydrOXYzine HCL 50 MG TABLET PO ×3 (09:35→21:32)
[2022-05-17] MEDS: QUEtiapine Fumarate 100 MG TABLET PO (09:35)
[2022-05-17] MEDS: Nicotine 14 MG PATCH.TD24 TRANSDERMA (09:36)
[2022-05-17 09:41] VITALS: BP 145/82; PULSE 96; RESP 18; TEMP 36.6; O2SAT 97
[2022-05-17] MEDS: Nicotine Polacrilex 2 MG GUM BUCCAL ×2 (09:55→14:20)
--- NOTE | 2022-05-17 10:24 | HO.PSYCHPN ---
Subjective Subjective Date of Service: 05/17/22 Reason For Visit: Schizophrenia Subjective Notes: Conditional Voluntary Healthcare Proxy: No Guardianship: No Medical Problems Affecting Mental Status: No Interim History: Patient was seen and discussed in rounds today. Records and plans were reviewed. He continues to be disorganized, having psychotic symptoms. He denies any auditory or visual hallucinations but appears to be responding to internal stimuli. He is compliant with treatment, meals. Sleeping adequately. No complaints. No changes were made today Medication Compliance: No Attending Groups: No Review of Systems Review of Systems Yes Unobtainable due to mental status Mental Status Exam Mental Status Exam Narrative: In today's visit he is alert, mostly pleasant and interactive with the embryology professor. Speech is pressured. Little to no eye contact. Affect is appropriate and tense. He denies any auditory or visual hallucinations. He denies any suicidal ideations. Cognitively he appears to be somewhat disorganized, tangential. He could not be tested formally. Judgment could not be assessed Diagnostics Vital Signs (24Hr): Vital Signs - 24 hr 05/16/22 21:54 05/17/22 09:41 Temperature 98.2 F 97.8 F Pulse Rate 82 96 Respiratory Rate 16 18 Blood Pressure 141/84 H 145/82 H Pulse Oximetry 97 97 Oxygen Delivery Method Room Air Room Air BMI result Body Mass Index 23.3 Labs Results: 05/13/22 18:55 05/13/22 18:55 Labs: Laboratory Results - last 48 hr 05/15/22 05/15/22 08:21 08:21 Magnesium 2.3 Triglycerides 101 Cholesterol 184 LDL Cholesterol, Calc 129 HDL Cholesterol 35 Vitamin B12 275 Folate 17.4 TSH 2.17 Free T4 0.78 Medications Medications Current Medications Acetaminophen (Acetaminophen 325 Mg Tablet) 650 mg PO Q6H PRN PRN Reason: Headache/Pain Mild Scale (1-3) Last Admin: 05/15/22 16:47 Dose: 650 mg Al Hydroxide/Mg Hydroxide (Magnesium Hydrox/Alum Hydrox 30 Ml Oral.Susp) 30 ml PO Q6H PRN PRN Reason: Heartburn/Nausea Hydroxyzine HCl (Hydroxyzine Hcl 50 Mg Tablet) 50 mg PO TID [facility] Last Admin: 05/17/22 09:35 Dose: 50 mg Magnesium Hydroxide (Milk Of Magnesia 30 Ml Oral.Susp) 30 ml PO DAILY PRN PRN Reason: Constipation Nicotine (Nicotine 14 Mg Patch.Td24) 14 mg TRANSDERMA DAILY [facility] Last Admin: 05/17/22 09:36 Dose: 14 mg Nicotine Polacrilex (Nicotine Polacrilex 2 Mg Gum) 2 mg BUCCAL Q2H PRN PRN Reason: Nicotine Cravings Last Admin: 05/17/22 09:55 Dose: 2 mg Quetiapine Fumarate (Quetiapine Fumarate 100 Mg Tablet) 100 mg PO DAILY [facility] Last Admin: 05/17/22 09:35 Dose: 100 mg Quetiapine Fumarate (Quetiapine Fumarate 200 Mg Tablet) 200 mg PO BEDTIME [facility] Last Admin: 05/16/22 22:06 Dose: 200 mg Quetiapine Fumarate (Quetiapine Fumarate 25 Mg Tablet) 25 mg PO Q4H PRN PRN Reason: Anxiety Trazodone HCl (Trazodone Hcl 100 Mg Tablet) 100 mg PO BEDTIME [facility] Last Admin: 05/16/22 22:06 Dose: 100 mg Venlafaxine HCl (Venlafaxine Hcl Er 75 Mg Cap.Er.24h) 75 mg PO DAILY [facility] Last Admin: 05/17/22 09:35 Dose: 75 mg Allergies Allergies Allergy/AdvReac Type Severity Reaction Status Date / Time aspirin Allergy Unknown Unknown Verified 04/02/22 19:55 seafood Allergy Unknown Unknown Verified 04/02/22 19:55 Assessment & Plan Assessment & Plan (1) Schizophrenia: Status: Acute Code(s): F20.9 - Schizophrenia, unspecified (2) Polysubstance use disorder: Status: Acute Code(s): F19.90 - Other psychoactive substance use, unspecified, uncomplicated Plan 37 yo male, history of schizophrenia, polysubstance use presents with request to re-stabilize on medications and return to addictions CSS treatment. Continue current regime. Monitor mood/behaviors Referrals for CSS placement. 05/15: Continue current regimen and encouraged to take medications. Nursing requested the p.r.n. in case he agrees to take something during the day and Seroquel 25 mg q.4 hours p.r.n. was ordered. 05/17: Continue current plans and regimen Reason for contiued inpatient stay Substantial Risk for: med/psych decompensation Time Spent With Patient Time: Total time managing care of this patient today ____ minutes.
[2022-05-17 17:15] VITALS: BP 132/69; PULSE 98; RESP 18; TEMP 36.9; O2SAT 98
[2022-05-17] MEDS: QUEtiapine Fumarate 200 MG TABLET PO (21:32)
[2022-05-17] MEDS: traZODone HCL 100 MG TABLET PO (21:32)
[2022-05-18 08:20] VITALS: BP 134/74; PULSE 109; RESP 18; TEMP 37.2; O2SAT 100
[2022-05-18] MEDS: Nicotine 14 MG PATCH.TD24 TRANSDERMA (08:22)
[2022-05-18] MEDS: QUEtiapine Fumarate 100 MG TABLET PO (08:23)
[2022-05-18] MEDS: hydrOXYzine HCL 50 MG TABLET PO ×2 (08:23→20:59)
[2022-05-18] MEDS: Venlafaxine HCl ER 75 MG CAP.ER.24H PO (08:23)
[2022-05-18] MEDS: Nicotine Polacrilex 2 MG GUM BUCCAL ×2 (08:38→13:54)
--- NOTE | 2022-05-18 11:09 | HO.PSYCHPN ---
Subjective Subjective Date of Service: 05/18/22 Reason For Visit: Schizophrenia Subjective Notes: Conditional Voluntary Healthcare Proxy: No Guardianship: No Medical Problems Affecting Mental Status: No Interim History: Patient was seen and discussed in rounds today. Records and plans were reviewed. He appears to be doing a little better but continues to be disorganized with thought blocking. He has been perseverative and mostly isolative. No complaints or side effects reported. No changes were made today. Eating and sleeping adequately Medication Compliance: No Attending Groups: No Review of Systems Review of Systems Yes Unobtainable due to mental status Mental Status Exam Mental Status Exam Narrative: In today's visit he is alert, mostly pleasant and interactive with the historical interpreter. Speech is pressured. Little to no eye contact. Affect is appropriate and tense. He denies any auditory or visual hallucinations. He denies any suicidal ideations. Cognitively he appears to be somewhat disorganized, tangential. He could not be tested formally. Judgment could not be assessed Diagnostics Vital Signs (24Hr): Vital Signs - 24 hr 05/17/22 17:15 05/18/22 08:20 Temperature 98.4 F 99 F Pulse Rate 98 109 H Respiratory Rate 18 18 Blood Pressure 132/69 134/74 Pulse Oximetry 98 100 Oxygen Delivery Method Room Air Room Air BMI result Body Mass Index 23.3 Labs Results: 05/13/22 18:55 05/13/22 18:55 Medications Medications Current Medications Acetaminophen (Acetaminophen 325 Mg Tablet) 650 mg PO Q6H PRN PRN Reason: Headache/Pain Mild Scale (1-3) Last Admin: 05/15/22 16:47 Dose: 650 mg Al Hydroxide/Mg Hydroxide (Magnesium Hydrox/Alum Hydrox 30 Ml Oral.Susp) 30 ml PO Q6H PRN PRN Reason: Heartburn/Nausea Hydroxyzine HCl (Hydroxyzine Hcl 50 Mg Tablet) 50 mg PO TID COUNTS INCLUDE 234 BEDS AT THE [facility] Last Admin: 05/18/22 08:23 Dose: 50 mg Magnesium Hydroxide (Milk Of Magnesia 30 Ml Oral.Susp) 30 ml PO DAILY PRN PRN Reason: Constipation Nicotine (Nicotine 14 Mg Patch.Td24) 14 mg TRANSDERMA DAILY COUNTS INCLUDE 234 BEDS AT THE [facility] Last Admin: 05/18/22 08:22 Dose: 14 mg Nicotine Polacrilex (Nicotine Polacrilex 2 Mg Gum) 2 mg BUCCAL Q2H PRN PRN Reason: Nicotine Cravings Last Admin: 05/18/22 08:38 Dose: 2 mg Quetiapine Fumarate (Quetiapine Fumarate 100 Mg Tablet) 100 mg PO DAILY COUNTS INCLUDE 234 BEDS AT THE [facility] Last Admin: 05/18/22 08:23 Dose: 100 mg Quetiapine Fumarate (Quetiapine Fumarate 200 Mg Tablet) 200 mg PO BEDTIME COUNTS INCLUDE 234 BEDS AT THE [facility] Last Admin: 05/17/22 21:32 Dose: 200 mg Quetiapine Fumarate (Quetiapine Fumarate 25 Mg Tablet) 25 mg PO Q4H PRN PRN Reason: Anxiety Trazodone HCl (Trazodone Hcl 100 Mg Tablet) 100 mg PO BEDTIME COUNTS INCLUDE 234 BEDS AT THE [facility] Last Admin: 05/17/22 21:32 Dose: 100 mg Venlafaxine HCl (Venlafaxine Hcl Er 75 Mg Cap.Er.24h) 75 mg PO DAILY COUNTS INCLUDE 234 BEDS AT THE [facility] Last Admin: 05/18/22 08:23 Dose: 75 mg Allergies Allergies Allergy/AdvReac Type Severity Reaction Status Date / Time aspirin Allergy Unknown Unknown Verified 04/02/22 19:55 seafood Allergy Unknown Unknown Verified 04/02/22 19:55 Assessment & Plan Assessment & Plan (1) Schizophrenia: Status: Acute Code(s): F20.9 - Schizophrenia, unspecified (2) Polysubstance use disorder: Status: Acute Code(s): F19.90 - Other psychoactive substance use, unspecified, uncomplicated Plan 37 yo male, history of schizophrenia, polysubstance use presents with request to re-stabilize on medications and return to addictions CSS treatment. Continue current regime. Monitor mood/behaviors Referrals for CSS placement. 05/15: Continue current regimen and encouraged to take medications. Nursing requested the p.r.n. in case he agrees to take something during the day and Seroquel 25 mg q.4 hours p.r.n. was ordered. 05/17: Continue current plans and regimen 05/18: Continue plans and regimen Reason for contiued inpatient stay Substantial Risk for: med/psych decompensation Time Spent With Patient Time: Total time managing care of this patient today ____ minutes.
[2022-05-18 16:56] VITALS: BP 150/70; PULSE 102; TEMP 36.6
[2022-05-18] MEDS: QUEtiapine Fumarate 200 MG TABLET PO (20:58)
[2022-05-18] MEDS: traZODone HCL 100 MG TABLET PO (20:58)
[2022-05-19] MEDS: Nicotine 14 MG PATCH.TD24 TRANSDERMA (08:58)
[2022-05-19] MEDS: hydrOXYzine HCL 50 MG TABLET PO ×3 (08:59→21:06)
[2022-05-19] MEDS: QUEtiapine Fumarate 100 MG TABLET PO (09:00)
[2022-05-19] MEDS: Venlafaxine HCl ER 75 MG CAP.ER.24H PO (09:00)
[2022-05-19] MEDS: Nicotine Polacrilex 2 MG GUM BUCCAL ×2 (09:38→21:18)
[2022-05-19 09:49] VITALS: BP 118/65; PULSE 114; RESP 18; TEMP 36.9; O2SAT 97
--- NOTE | 2022-05-19 12:37 | HO.PSYCHPN ---
Subjective Subjective Date of Service: 05/19/22 Reason For Visit: Schizophrenia Subjective Notes: Conditional Voluntary Healthcare Proxy: No Guardianship: No Medical Problems Affecting Mental Status: No Interim History: Anxious today. Reports he awoke sad, angry. Team reports hitting doors over the weekend to express frustration due to communication barriers. Rejected by [facility] due to language barrier. Team applying to [facility]. Declines mood stabilizer at this time-agrees to Venlafaxine and Quetiapine titration, however, pt may need more mood stabilization to manage current sx. Medication Compliance: Yes Side effects from medications: No Attending Groups: Intermittent Review of Systems Acute medical concerns: No Medical Review of Systems: unchanged Mental Status Exam Mental Status Exam Patient Appearance: Appropriate Patient Orientation: Person, Place, Time and Situation Level of Consciousness: Alert Patient Behavior: Talkative, Cooperative, Distractible, Isolative and Good Eye Contact Mood Description: Withdrawn, Labile, Angry, Nervous and Apprehensive Affect Description: Constricted Patient Cognition Impaired: No Ability to Follow Directions: Good Speech Pattern: Spontaneous Speech Memory Description: Intact Hallucinations: None Delusions: Not Present Perceptual Disturbances: Derealization Thought Process: Distracted Thought Content: positive for Perseveration and positive for Suicidal Ideation (denies) Depressive Symptoms: Increased Anxiety, Increased Irritability and Difficulty Concentrating Abnormal Motor Activity Signs and Symptoms: Restlessness Judgement: Fair Diagnostics Vital Signs (24Hr): Vital Signs - 24 hr 05/18/22 16:56 05/19/22 09:49 Temperature 98 F 98.5 F Pulse Rate 102 H 114 H Respiratory Rate 18 Blood Pressure 150/70 H 118/65 Pulse Oximetry 97 Oxygen Delivery Method Room Air BMI result Body Mass Index 23.3 Labs Results: 05/13/22 18:55 05/13/22 18:55 Medications Medications Current Medications Acetaminophen (Acetaminophen 325 Mg Tablet) 650 mg PO Q6H PRN PRN Reason: Headache/Pain Mild Scale (1-3) Last Admin: 05/15/22 16:47 Dose: 650 mg Al Hydroxide/Mg Hydroxide (Magnesium Hydrox/Alum Hydrox 30 Ml Oral.Susp) 30 ml PO Q6H PRN PRN Reason: Heartburn/Nausea Hydroxyzine HCl (Hydroxyzine Hcl 50 Mg Tablet) 50 mg PO TID [facility] Last Admin: 05/19/22 08:59 Dose: 50 mg Magnesium Hydroxide (Milk Of Magnesia 30 Ml Oral.Susp) 30 ml PO DAILY PRN PRN Reason: Constipation Nicotine (Nicotine 14 Mg Patch.Td24) 14 mg TRANSDERMA DAILY [facility] Last Admin: 05/19/22 08:58 Dose: 14 mg Nicotine Polacrilex (Nicotine Polacrilex 2 Mg Gum) 2 mg BUCCAL Q2H PRN PRN Reason: Nicotine Cravings Last Admin: 05/19/22 09:38 Dose: 2 mg Quetiapine Fumarate (Quetiapine Fumarate 100 Mg Tablet) 100 mg PO DAILY [facility] Last Admin: 05/19/22 09:00 Dose: 100 mg Quetiapine Fumarate (Quetiapine Fumarate 200 Mg Tablet) 200 mg PO BEDTIME [facility] Last Admin: 05/18/22 20:58 Dose: 200 mg Quetiapine Fumarate (Quetiapine Fumarate 25 Mg Tablet) 25 mg PO Q4H PRN PRN Reason: Anxiety Trazodone HCl (Trazodone Hcl 100 Mg Tablet) 100 mg PO BEDTIME [facility] Last Admin: 05/18/22 20:58 Dose: 100 mg Venlafaxine HCl (Venlafaxine Hcl Er 75 Mg Cap.Er.24h) 75 mg PO DAILY [facility] Last Admin: 05/19/22 09:00 Dose: 75 mg Allergies Allergies Allergy/AdvReac Type Severity Reaction Status Date / Time aspirin Allergy Unknown Unknown Verified 04/02/22 19:55 seafood Allergy Unknown Unknown Verified 04/02/22 19:55 Assessment & Plan Assessment & Plan (1) Schizophrenia: Status: Acute Code(s): F20.9 - Schizophrenia, unspecified (2) Polysubstance use disorder: Status: Acute Code(s): F19.90 - Other psychoactive substance use, unspecified, uncomplicated Plan 37 yo male, history of schizophrenia, polysubstance use presents with request to re-stabilize on medications and return to addictions CSS treatment. Continue current regime. Monitor mood/behaviors Referrals for CSS placement. 05/15: Continue current regimen and encouraged to take medications. Nursing requested the p.r.n. in case he agrees to take something during the day and Seroquel 25 mg q.4 hours p.r.n. was ordered. 05/17: Continue current plans and regimen 05/18: Continue plans and regimen 05/19/22: Increase Venlafaxine to 112.5 mg daily Increase Seroquel to 150 mg a.m. and 250 mg h.s., a total increase of 100 mg per day. Pt may need a mood stabilizer-he declines at this time. Patient educated on: medication risk/benefits and therapeutic strategies Informed Consent: understands and further education needed Reason for contiued inpatient stay Substantial Risk for: rapid decompensation Time Spent With Patient Time: Total time managing care of this patient today 20____ minutes.
[2022-05-19 18:00] VITALS: BP 135/82; PULSE 100; RESP 18; TEMP 36.5; O2SAT 96
[2022-05-19] MEDS: QUEtiapine Fumarate 50 MG TABLET 250 MG PO (21:06)
[2022-05-19] MEDS: traZODone HCL 100 MG TABLET PO (21:07)
[2022-05-20] MEDS: QUEtiapine Fumarate 50 MG TABLET 150 MG PO (08:48)
[2022-05-20] MEDS: Nicotine 14 MG PATCH.TD24 TRANSDERMA (08:48)
[2022-05-20] MEDS: Venlafaxine HCl ER 37.5 MG CAP.ER.24H 112.5 MG PO (08:49)
[2022-05-20] MEDS: hydrOXYzine HCL 50 MG TABLET PO ×3 (08:49→21:48)
[2022-05-20 10:05] VITALS: BP 116/79; PULSE 94; RESP 16; TEMP 36.2; O2SAT 98
[2022-05-20 14:21] LABS: COVID-19 Test Negative (Negative)
--- NOTE | 2022-05-20 17:25 | HO.PSYCHPN ---
Subjective Subjective Date of Service: 05/20/22 Reason For Visit: Schizophrenia Subjective Notes: Conditional Voluntary Healthcare Proxy: No Guardianship: No Medical Problems Affecting Mental Status: No Interim History: Reports not doing too well-feeling tired, with AH, VH, the enemy wants to destroy me . Reports a loss of interest in being alive, feels hatred against the people who have made fun of his feelings, (the enemy). States the enemy in his opinion has power and he is feeling offended. Anxious to meet with Luis Eduardo [facility] m[facility] rn on 05/21. Discussed making med changes-pt agrees this is appropriate. Medication Compliance: Yes Side effects from medications: No Attending Groups: No Review of Systems Acute medical concerns: No Medical Review of Systems: unchanged Mental Status Exam Mental Status Exam Patient Appearance: Appropriate Patient Orientation: Person, Place, Time and Situation Level of Consciousness: Alert Patient Behavior: Talkative, Cooperative, Distractible, Isolative and Good Eye Contact Mood Description: Withdrawn, Labile, Nervous and Apprehensive Affect Description: Constricted Patient Cognition Impaired: No Ability to Follow Directions: Good Speech Pattern: Spontaneous Speech Memory Description: Intact Hallucinations: None, Auditory and Visual Delusions: Not Present and Paranoid Ideation Perceptual Disturbances: Derealization Thought Process: Distracted Thought Content: positive for Perseveration and positive for Suicidal Ideation (denies) Depressive Symptoms: Increased Anxiety, Increased Irritability and Difficulty Concentrating Abnormal Motor Activity Signs and Symptoms: Restlessness Judgement: Fair Diagnostics Vital Signs (24Hr): Vital Signs - 24 hr 05/19/22 18:00 05/20/22 10:05 Temperature 97.7 F 97.2 F Pulse Rate 100 94 Respiratory Rate 18 16 Blood Pressure 135/82 116/79 Pulse Oximetry 96 98 Oxygen Delivery Method Room Air Room Air BMI result Body Mass Index 23.3 Labs Results: 05/13/22 18:55 05/13/22 18:55 Labs: Laboratory Results - last 48 hr 05/20/22 13:42 COVID-19 ([facility]) Negative COVID-19 Clin Com See Note Medications Medications Current Medications Acetaminophen (Acetaminophen 325 Mg Tablet) 650 mg PO Q6H PRN PRN Reason: Headache/Pain Mild Scale (1-3) Last Admin: 05/15/22 16:47 Dose: 650 mg Al Hydroxide/Mg Hydroxide (Magnesium Hydrox/Alum Hydrox 30 Ml Oral.Susp) 30 ml PO Q6H PRN PRN Reason: Heartburn/Nausea Hydroxyzine HCl (Hydroxyzine Hcl 50 Mg Tablet) 50 mg PO TID [facility] Last Admin: 05/20/22 14:18 Dose: 50 mg Magnesium Hydroxide (Milk Of Magnesia 30 Ml Oral.Susp) 30 ml PO DAILY PRN PRN Reason: Constipation Nicotine (Nicotine 14 Mg Patch.Td24) 14 mg TRANSDERMA DAILY [facility] Last Admin: 05/20/22 08:48 Dose: 14 mg Nicotine Polacrilex (Nicotine Polacrilex 2 Mg Gum) 2 mg BUCCAL Q2H PRN PRN Reason: Nicotine Cravings Last Admin: 05/19/22 21:18 Dose: 2 mg Quetiapine Fumarate (Quetiapine Fumarate 25 Mg Tablet) 25 mg PO Q4H PRN PRN Reason: Anxiety Quetiapine Fumarate (Quetiapine Fumarate 50 Mg Tablet) 150 mg PO DAILY [facility] Last Admin: 05/20/22 08:48 Dose: 150 mg Quetiapine Fumarate (Quetiapine Fumarate 50 Mg Tablet) 250 mg PO BEDTIME [facility] Last Admin: 05/19/22 21:06 Dose: 250 mg Trazodone HCl (Trazodone Hcl 100 Mg Tablet) 100 mg PO BEDTIME [facility] Last Admin: 05/19/22 21:07 Dose: 100 mg Venlafaxine HCl (Venlafaxine Hcl Er 37.5 Mg Cap.Er.24h) 112.5 mg PO DAILY [facility] Last Admin: 05/20/22 08:49 Dose: 112.5 mg Allergies Allergies Allergy/AdvReac Type Severity Reaction Status Date / Time aspirin Allergy Unknown Unknown Verified 04/02/22 19:55 seafood Allergy Unknown Unknown Verified 04/02/22 19:55 Assessment & Plan Assessment & Plan (1) Schizophrenia: Status: Acute Code(s): F20.9 - Schizophrenia, unspecified (2) Polysubstance use disorder: Status: Acute Code(s): F19.90 - Other psychoactive substance use, unspecified, uncomplicated Plan 37 yo male, history of schizophrenia, polysubstance use presents with request to re-stabilize on medications and return to addictions CSS treatment. Continue current regime. Monitor mood/behaviors Referrals for CSS placement. 05/15: Continue current regimen and encouraged to take medications. Nursing requested the p.r.n. in case he agrees to take something during the day and Seroquel 25 mg q.4 hours p.r.n. was ordered. 05/17: Continue current plans and regimen 05/18: Continue plans and regimen 05/19/22: Increase Venlafaxine to 112.5 mg daily Increase Seroquel to 150 mg a.m. and 250 mg h.s., a total increase of 100 mg per day. Pt may need a mood stabilizer-he declines at this time. 05/20/22: Decrease Venlafaxine to 75 mg daily Discontinue Seroquel Risperdal 2 mg hs. Patient educated on: therapeutic strategies Informed Consent: further education needed Reason for contiued inpatient stay Substantial Risk for: rapid decompensation Time Spent With Patient Time: Total time managing care of this patient today _20___ minutes.
[2022-05-20] MEDS: risperiDONE 2 MG TABLET PO (21:48)
[2022-05-20] MEDS: traZODone HCL 100 MG TABLET PO (21:48)
[2022-05-21 06:00] VITALS: BP 122/72; PULSE 97; RESP 14; TEMP 36.5; O2SAT 97
[2022-05-21 07:00] VITALS: BMI 23.8
[2022-05-21] MEDS: Nicotine 14 MG PATCH.TD24 TRANSDERMA (07:52)
[2022-05-21] MEDS: hydrOXYzine HCL 50 MG TABLET PO ×3 (07:52→20:45)
[2022-05-21] MEDS: Venlafaxine HCl ER 75 MG CAP.ER.24H PO (07:52)
[2022-05-21] MEDS: Nicotine Polacrilex 2 MG GUM BUCCAL (08:27)
[2022-05-21 17:04] VITALS: BP 144/85; PULSE 92; RESP 16; TEMP 36.6; O2SAT 97
--- NOTE | 2022-05-21 17:35 | HO.PSYCHPN ---
Subjective Subjective Date of Service: 05/21/22 Reason For Visit: Schizophrenia Subjective Notes: Conditional Voluntary Interim History: When awake, I have episodes of sadness and happiness. Discussed feeling improved with medicine change. Discussed plans for his discharge-[facility], hoping to feel well, have a clear mind and to go to [facility]. Reports Risperdal is helping with sleep and clarity. Review of B12 level. Will allow supplementation. Medication Compliance: Yes Side effects from medications: No Attending Groups: No Review of Systems Acute medical concerns: No Medical Review of Systems: unchanged Mental Status Exam Mental Status Exam Patient Appearance: Appropriate Patient Orientation: Person, Place, Time and Situation Level of Consciousness: Alert Patient Behavior: Talkative, Cooperative, Isolative and Good Eye Contact Mood Description: Constricted Affect Description: Constricted Patient Cognition Impaired: No Ability to Follow Directions: Good Speech Pattern: Spontaneous Speech Memory Description: Intact Hallucinations: None, Auditory and Visual Delusions: Not Present Thought Content: positive for Perseveration and positive for Suicidal Ideation (denies) Depressive Symptoms: Increased Anxiety and Difficulty Concentrating Judgement: Fair Diagnostics Vital Signs (24Hr): Vital Signs - 24 hr 05/21/22 06:00 05/21/22 17:04 Temperature 97.7 F 97.8 F Pulse Rate 97 92 Respiratory Rate 14 16 Blood Pressure 122/72 144/85 H Pulse Oximetry 97 97 Oxygen Delivery Method Room Air Room Air BMI result Body Mass Index 23.8 Labs Results: 05/13/22 18:55 05/13/22 18:55 Labs: Laboratory Results - last 48 hr 05/20/22 13:42 COVID-19 ([facility]) Negative COVID-19 Clin Com See Note Medications Medications Current Medications Acetaminophen (Acetaminophen 325 Mg Tablet) 650 mg PO Q6H PRN PRN Reason: Headache/Pain Mild Scale (1-3) Last Admin: 05/15/22 16:47 Dose: 650 mg Al Hydroxide/Mg Hydroxide (Magnesium Hydrox/Alum Hydrox 30 Ml Oral.Susp) 30 ml PO Q6H PRN PRN Reason: Heartburn/Nausea Hydroxyzine HCl (Hydroxyzine Hcl 50 Mg Tablet) 50 mg PO TID [facility] Last Admin: 05/21/22 14:15 Dose: 50 mg Magnesium Hydroxide (Milk Of Magnesia 30 Ml Oral.Susp) 30 ml PO DAILY PRN PRN Reason: Constipation Nicotine (Nicotine 14 Mg Patch.Td24) 14 mg TRANSDERMA DAILY [facility] Last Admin: 05/21/22 07:52 Dose: 14 mg Nicotine Polacrilex (Nicotine Polacrilex 2 Mg Gum) 2 mg BUCCAL Q2H PRN PRN Reason: Nicotine Cravings Last Admin: 05/21/22 08:27 Dose: 2 mg Quetiapine Fumarate (Quetiapine Fumarate 25 Mg Tablet) 25 mg PO Q4H PRN PRN Reason: Anxiety Risperidone (Risperidone 2 Mg Tablet) 2 mg PO BEDTIME [facility] Last Admin: 05/20/22 21:48 Dose: 2 mg Trazodone HCl (Trazodone Hcl 100 Mg Tablet) 100 mg PO BEDTIME [facility] Last Admin: 05/20/22 21:48 Dose: 100 mg Venlafaxine HCl (Venlafaxine Hcl Er 75 Mg Cap.Er.24h) 75 mg PO DAILY [facility] Last Admin: 05/21/22 07:52 Dose: 75 mg Allergies Allergies Allergy/AdvReac Type Severity Reaction Status Date / Time aspirin Allergy Unknown Unknown Verified 04/02/22 19:55 seafood Allergy Unknown Unknown Verified 04/02/22 19:55 Assessment & Plan Assessment & Plan (1) Schizophrenia: Status: Acute Code(s): F20.9 - Schizophrenia, unspecified (2) Polysubstance use disorder: Status: Acute Code(s): F19.90 - Other psychoactive substance use, unspecified, uncomplicated Plan 37 yo male, history of schizophrenia, polysubstance use presents with request to re-stabilize on medications and return to addictions CSS treatment. Continue current regime. Monitor mood/behaviors Referrals for CSS placement. 05/15: Continue current regimen and encouraged to take medications. Nursing requested the p.r.n. in case he agrees to take something during the day and Seroquel 25 mg q.4 hours p.r.n. was ordered. 05/17: Continue current plans and regimen 05/18: Continue plans and regimen 05/19/22: Increase Venlafaxine to 112.5 mg daily Increase Seroquel to 150 mg a.m. and 250 mg h.s., a total increase of 100 mg per day. Pt may need a mood stabilizer-he declines at this time. 05/20/22: Decrease Venlafaxine to 75 mg daily Discontinue Seroquel Risperdal 2 mg hs. 05/21/22 Continue current regime and plan. Patient educated on: therapeutic strategies Informed Consent: understands and further education needed Reason for contiued inpatient stay Substantial Risk for: rapid decompensation Time Spent With Patient Time: Total time managing care of this patient today 20____ minutes.
[2022-05-21] MEDS: traZODone HCL 100 MG TABLET PO (20:45)
[2022-05-21] MEDS: risperiDONE 2 MG TABLET PO (20:45)
[2022-05-22 06:00] VITALS: BP 130/77; PULSE 97; RESP 14; TEMP 36.6; O2SAT 97
[2022-05-22] MEDS: Venlafaxine HCl ER 75 MG CAP.ER.24H PO (08:23)
[2022-05-22] MEDS: Thiamine HCL 100 MG TABLET PO (08:23)
[2022-05-22] MEDS: hydrOXYzine HCL 50 MG TABLET PO ×3 (08:23→19:27)
[2022-05-22] MEDS: Nicotine 14 MG PATCH.TD24 TRANSDERMA (08:23)
[2022-05-22] MEDS: Nicotine Polacrilex 2 MG GUM BUCCAL ×2 (11:23→19:27)
[2022-05-22 13:15] LABS: COVID-19 Test Positive (Negative); IDNOW Serial# 55D5AD1C
--- NOTE | 2022-05-22 13:36 | PC.NURSE ---
pt positive for covid. md's/admin aware. pt moved into covid room.
[2022-05-22 18:00] VITALS: BP 126/74; PULSE 97; RESP 16; TEMP 37; O2SAT 98
[2022-05-22] MEDS: traZODone HCL 100 MG TABLET PO (19:27)
[2022-05-22] MEDS: risperiDONE 2 MG TABLET PO (19:27)
--- NOTE | 2022-05-22 21:01 | P.PNPSI_ITS ---
Subjective Subjective Date of Service: 05/22/22 Reason For Visit: Schizophrenia Subjective Notes: Conditional Voluntary Healthcare Proxy: No Guardianship: No Medical Problems Affecting Mental Status: No Interim History: Latrell has tested positive for COVID. He reports some sx of headache and back ache. Team reports he was found kissing another patient last evening. Discussed, boundaries education discussed. Discussed medical plan of care. Continues to report benefit from Risperdal use. Medication Compliance: Yes Side effects from medications: No Attending Groups: No Review of Systems Acute medical concerns: No Medical Review of Systems: changed Review of Systems: COVID+ Mental Status Exam Mental Status Exam Patient Appearance: Appropriate Patient Orientation: Person, Place, Time and Situation Level of Consciousness: Alert Patient Behavior: Talkative, Cooperative, Isolative and Good Eye Contact Mood Description: Constricted Affect Description: Constricted Patient Cognition Impaired: No Ability to Follow Directions: Good Speech Pattern: Spontaneous Speech Memory Description: Intact Hallucinations: None Delusions: Not Present Thought Content: positive for Perseveration and positive for Suicidal Ideation ( denies) Depressive Symptoms: Increased Anxiety, Increased Fatigue and Difficulty Concentrating Judgement: Fair Diagnostics Vital Signs (24Hr): Vital Signs - 24 hr 05/22/22 18:00 05/22/22 06:00 Temperature 98.6 F 98 F Pulse Rate 97 97 Respiratory Rate 16 14 Blood Pressure 126/74 130/77 Pulse Oximetry 98 97 Oxygen Delivery Method Room Air Room Air BMI result Body Mass Index 23.8 Labs Results: 05/13/22 18:55 05/13/22 18:55 Labs: Laboratory Results - last 48 hr 05/22/22 12:31 COVID-19 ([facility]) Positive A COVID-19 Clin Com See Note Medications Medications Current Medications Acetaminophen (Acetaminophen 325 Mg Tablet) 650 mg PO Q6H PRN PRN Reason: Headache/Pain Mild Scale (1-3) Last Admin: 05/15/22 16:47 Dose: 650 mg Al Hydroxide/Mg Hydroxide (Magnesium Hydrox/Alum Hydrox 30 Ml Oral.Susp) 30 ml PO Q6H PRN PRN Reason: Heartburn/Nausea Guaifenesin (Guaifenesin La 600 Mg Tab.Er.12h) 600 mg PO BID PRN PRN Reason: congestion Hydroxyzine HCl (Hydroxyzine Hcl 50 Mg Tablet) 50 mg PO TID [facility] Last Admin: 12/30/22 19:27 Dose: 50 mg Magnesium Hydroxide (Milk Of Magnesia 30 Ml Oral.Susp) 30 ml PO DAILY PRN PRN Reason: Constipation Nicotine (Nicotine 14 Mg Patch.Td24) 14 mg TRANSDERMA DAILY [facility] Last Admin: 05/22/22 08:23 Dose: 14 mg Nicotine Polacrilex (Nicotine Polacrilex 2 Mg Gum) 2 mg BUCCAL Q2H PRN PRN Reason: Nicotine Cravings Last Admin: 05/22/22 19:27 Dose: 2 mg Quetiapine Fumarate (Quetiapine Fumarate 25 Mg Tablet) 25 mg PO Q4H PRN PRN Reason: Anxiety Risperidone (Risperidone 2 Mg Tablet) 2 mg PO BEDTIME [facility] Last Admin: 05/22/22 19:27 Dose: 2 mg Thiamine HCl (Thiamine Hcl 100 Mg Tablet) 100 mg PO DAILY [facility] Last Admin: 05/22/22 08:23 Dose: 100 mg Trazodone HCl (Trazodone Hcl 100 Mg Tablet) 100 mg PO BEDTIME [facility] Last Admin: 05/22/22 19:27 Dose: 100 mg Venlafaxine HCl (Venlafaxine Hcl Er 75 Mg Cap.Er.24h) 75 mg PO DAILY [facility] Last Admin: 05/22/22 08:23 Dose: 75 mg Allergies Allergies Allergy/AdvReac Type Severity Reaction Status Date / Time aspirin Allergy Unknown Unknown Verified 04/02/22 19:55 seafood Allergy Unknown Unknown Verified 04/02/22 19:55 Assessment & Plan Assessment & Plan (1) Schizophrenia: Status: Acute Code(s): F20.9 - Schizophrenia, unspecified (2) Polysubstance use disorder: Status: Acute Code(s): F19.90 - Other psychoactive substance use, unspecified, uncomplicated Plan 37 yo male, history of schizophrenia, polysubstance use presents with request to re-stabilize on medications and return to addictions CSS treatment. Continue current regime. Monitor mood/behaviors Referrals for CSS placement. 05/15: Continue current regimen and encouraged to take medications. Nursing requested the p.r.n. in case he agrees to take something during the day and Seroquel 25 mg q.4 hours p.r.n. was ordered. 05/17: Continue current plans and regimen 05/18: Continue plans and regimen 05/19/22: Increase Venlafaxine to 112.5 mg daily Increase Seroquel to 150 mg a.m. and 250 mg h.s., a total increase of 100 mg per day. Pt may need a mood stabilizer-he declines at this time. 05/20/22: Decrease Venlafaxine to 75 mg daily Discontinue Seroquel Risperdal 2 mg hs. 05/21/22 Continue current regime and plan. 05/22/22 Monitor sx of COVID Monitor for increase sx as pt will be on isolation Patient educated on: therapeutic strategies and medical condition Informed Consent: understands Reason for contiued inpatient stay Substantial Risk for: med/psych decompensation Time Spent With Patient Time: Total time managing care of this patient today __20__ minutes.
[2022-05-23 09:00] VITALS: BP 113/74; PULSE 84; TEMP 36.8
[2022-05-23] MEDS: Thiamine HCL 100 MG TABLET PO (10:41)
[2022-05-23] MEDS: hydrOXYzine HCL 50 MG TABLET PO ×3 (10:41→21:24)
[2022-05-23] MEDS: Nicotine 14 MG PATCH.TD24 TRANSDERMA (10:42)
[2022-05-23] MEDS: Venlafaxine HCl ER 75 MG CAP.ER.24H PO (10:42)
[2022-05-23] MEDS: Nicotine Polacrilex 2 MG GUM BUCCAL (16:18)
[2022-05-23] MEDS: Acetaminophen 325 MG TABLET 650 MG PO (16:33)
[2022-05-23 18:00] VITALS: BP 140/70; PULSE 82; TEMP 36.8; O2SAT 97
--- NOTE | 2022-05-23 19:35 | P.PNPSI_ITS ---
Subjective Subjective Date of Service: 05/23/22 Reason For Visit: Schizophrenia Subjective Notes: Conditional Voluntary Healthcare Proxy: No Guardianship: No Medical Problems Affecting Mental Status: No Interim History: Uatsdin reports medications are helpful. Denies any new COVID sx of distress. Reports he is feeling well. No questions or concerns raised in our meeting today. Sleep and appetite are intact he reports. Medication Compliance: Yes Side effects from medications: No Attending Groups: No Review of Systems Acute medical concerns: No Medical Review of Systems: unchanged Mental Status Exam Mental Status Exam Patient Appearance: Appropriate Patient Orientation: Person, Place, Time and Situation Level of Consciousness: Alert Patient Behavior: Talkative, Cooperative, Isolative and Good Eye Contact Mood Description: Constricted Affect Description: Constricted Patient Cognition Impaired: No Ability to Follow Directions: Good Speech Pattern: Spontaneous Speech Memory Description: Intact Hallucinations: None Delusions: Not Present Thought Content: positive for Perseveration and positive for Suicidal Ideation (denies) Depressive Symptoms: Increased Anxiety, Increased Fatigue and Difficulty Concentrating Judgement: Fair Diagnostics Vital Signs (24Hr): Vital Signs - 24 hr 05/23/22 09:00 Temperature 98.2 F Pulse Rate 84 Blood Pressure 113/74 BMI result Body Mass Index 23.8 Labs Results: 05/13/22 18:55 05/13/22 18:55 Labs: Laboratory Results - last 48 hr 05/22/22 12:31 COVID-19 ([facility]) Positive A COVID-19 Clin Com See Note Medications Medications Current Medications Acetaminophen (Acetaminophen 325 Mg Tablet) 650 mg PO Q6H PRN PRN Reason: Headache/Pain Mild Scale (1-3) Last Admin: 05/23/22 16:33 Dose: 650 mg Al Hydroxide/Mg Hydroxide (Magnesium Hydrox/Alum Hydrox 30 Ml Oral.Susp) 30 ml PO Q6H PRN PRN Reason: Heartburn/Nausea Guaifenesin (Guaifenesin La 600 Mg Tab.Er.12h) 600 mg PO BID PRN PRN Reason: congestion Hydroxyzine HCl (Hydroxyzine Hcl 50 Mg Tablet) 50 mg PO TID [facility] Last Admin: 05/23/22 15:05 Dose: 50 mg Magnesium Hydroxide (Milk Of Magnesia 30 Ml Oral.Susp) 30 ml PO DAILY PRN PRN Reason: Constipation Nicotine (Nicotine 14 Mg Patch.Td24) 14 mg TRANSDERMA DAILY [facility] Last Admin: 05/23/22 10:42 Dose: 14 mg Nicotine Polacrilex (Nicotine Polacrilex 2 Mg Gum) 2 mg BUCCAL Q2H PRN PRN Reason: Nicotine Cravings Last Admin: 05/23/22 16:18 Dose: 2 mg Quetiapine Fumarate (Quetiapine Fumarate 25 Mg Tablet) 25 mg PO Q4H PRN PRN Reason: Anxiety Risperidone (Risperidone 2 Mg Tablet) 2 mg PO BEDTIME [facility] Last Admin: 05/22/22 19:27 Dose: 2 mg Thiamine HCl (Thiamine Hcl 100 Mg Tablet) 100 mg PO DAILY [facility] Last Admin: 05/23/22 10:41 Dose: 100 mg Trazodone HCl (Trazodone Hcl 100 Mg Tablet) 100 mg PO BEDTIME [facility] Last Admin: 05/22/22 19:27 Dose: 100 mg Venlafaxine HCl (Venlafaxine Hcl Er 75 Mg Cap.Er.24h) 75 mg PO DAILY [facility] Last Admin: 05/23/22 10:42 Dose: 75 mg Allergies Allergies Allergy/AdvReac Type Severity Reaction Status Date / Time aspirin Allergy Unknown Unknown Verified 04/02/22 19:55 seafood Allergy Unknown Unknown Verified 04/02/22 19:55 Assessment & Plan Assessment & Plan (1) Schizophrenia: Status: Acute Code(s): F20.9 - Schizophrenia, unspecified (2) Polysubstance use disorder: Status: Acute Code(s): F19.90 - Other psychoactive substance use, unspecified, uncomplicated Plan 37 yo male, history of schizophrenia, polysubstance use presents with request to re-stabilize on medications and return to addictions CSS treatment. Continue current regime. Monitor mood/behaviors Referrals for CSS placement. 05/15: Continue current regimen and encouraged to take medications. Nursing requested the p.r.n. in case he agrees to take something during the day and Seroquel 25 mg q.4 hours p.r.n. was ordered. 05/17: Continue current plans and regimen 05/18: Continue plans and regimen 05/19/22: Increase Venlafaxine to 112.5 mg daily Increase Seroquel to 150 mg a.m. and 250 mg h.s., a total increase of 100 mg per day. Pt may need a mood stabilizer-he declines at this time. 05/20/22: Decrease Venlafaxine to 75 mg daily Discontinue Seroquel Risperdal 2 mg hs. 05/21/22 Continue current regime and plan. 05/22/22 Monitor sx of COVID Monitor for increase sx as pt will be on isolation 05/23/22 Continue to monitor for sx of COVID No changes to current regime today Informed Consent: understands Reason for contiued inpatient stay Substantial Risk for: rapid decompensation Time Spent With Patient Time: Total time managing care of this patient today _15___ minutes.
[2022-05-23] MEDS: traZODone HCL 100 MG TABLET PO (21:24)
[2022-05-23] MEDS: risperiDONE 2 MG TABLET PO (21:24)
[2022-05-24 08:30] VITALS: BP 111/58; PULSE 97; TEMP 37.4
[2022-05-24] MEDS: Thiamine HCL 100 MG TABLET PO (09:00)
[2022-05-24] MEDS: Venlafaxine HCl ER 75 MG CAP.ER.24H PO (09:01)
[2022-05-24] MEDS: hydrOXYzine HCL 50 MG TABLET PO ×3 (09:01→20:47)
[2022-05-24] MEDS: Acetaminophen 325 MG TABLET 650 MG PO (09:02)
[2022-05-24] MEDS: Nicotine 14 MG PATCH.TD24 TRANSDERMA (09:31)
[2022-05-24 14:12] VITALS: TEMP 36.8
--- NOTE | 2022-05-24 15:16 | P.PNPSI_ITS ---
Subjective Subjective Date of Service: 05/24/22 Reason For Visit: Schizophrenia Subjective Notes: Conditional Voluntary Healthcare Proxy: No Guardianship: No Medical Problems Affecting Mental Status: No Interim History: Pt reports chills, head ache, back ache, body aches with COVID. T 99.3 Team notes an increase in OCD sx (handwashing) Discussed with pt making a change in Effexor to address this-he declines this as a sx at this time. Will continue with education as COVID sx decrease. Medication Compliance: Yes Side effects from medications: No Attending Groups: No Review of Systems Acute medical concerns: No covid sx Medical Review of Systems: unchanged Mental Status Exam Mental Status Exam Patient Appearance: Appropriate Patient Orientation: Person, Place, Time and Situation Level of Consciousness: Alert Patient Behavior: Talkative, Cooperative, Isolative and Good Eye Contact Mood Description: Constricted Affect Description: Constricted Patient Cognition Impaired: No Ability to Follow Directions: Good Speech Pattern: Spontaneous Speech Memory Description: Intact Hallucinations: None Delusions: Not Present Thought Content: positive for Perseveration and positive for Suicidal Ideation (denies) Depressive Symptoms: Increased Anxiety, Increased Fatigue and Difficulty Concentrating Judgement: Fair Diagnostics Vital Signs (24Hr): Vital Signs - 24 hr 05/23/22 18:00 05/24/22 08:30 05/24/22 14:12 Temperature 98.2 F 99.3 F 98.3 F Pulse Rate 82 97 Blood Pressure 140/70 H 111/58 L Pulse Oximetry 97 Oxygen Delivery Method Room Air BMI result Body Mass Index 23.8 Labs Results: 05/13/22 18:55 05/13/22 18:55 Medications Medications Current Medications Acetaminophen (Acetaminophen 325 Mg Tablet) 650 mg PO Q6H PRN PRN Reason: Headache/Pain Mild Scale (1-3) Last Admin: 05/24/22 09:02 Dose: 650 mg Al Hydroxide/Mg Hydroxide (Magnesium Hydrox/Alum Hydrox 30 Ml Oral.Susp) 30 ml PO Q6H PRN PRN Reason: Heartburn/Nausea Guaifenesin (Guaifenesin La 600 Mg Tab.Er.12h) 600 mg PO BID PRN PRN Reason: congestion Hydroxyzine HCl (Hydroxyzine Hcl 50 Mg Tablet) 50 mg PO TID [facility] Last Admin: 05/24/22 14:52 Dose: 50 mg Magnesium Hydroxide (Milk Of Magnesia 30 Ml Oral.Susp) 30 ml PO DAILY PRN PRN Reason: Constipation Nicotine (Nicotine 14 Mg Patch.Td24) 14 mg TRANSDERMA DAILY [facility] Last Admin: 05/24/22 09:31 Dose: 14 mg Nicotine Polacrilex (Nicotine Polacrilex 2 Mg Gum) 2 mg BUCCAL Q2H PRN PRN Reason: Nicotine Cravings Last Admin: 05/23/22 16:18 Dose: 2 mg Quetiapine Fumarate (Quetiapine Fumarate 25 Mg Tablet) 25 mg PO Q4H PRN PRN Reason: Anxiety Risperidone (Risperidone 2 Mg Tablet) 2 mg PO BEDTIME [facility] Last Admin: 05/23/22 21:24 Dose: 2 mg Thiamine HCl (Thiamine Hcl 100 Mg Tablet) 100 mg PO DAILY [facility] Last Admin: 05/24/22 09:00 Dose: 100 mg Trazodone HCl (Trazodone Hcl 100 Mg Tablet) 100 mg PO BEDTIME [facility] Last Admin: 05/23/22 21:24 Dose: 100 mg Venlafaxine HCl (Venlafaxine Hcl Er 75 Mg Cap.Er.24h) 75 mg PO DAILY [facility] Last Admin: 05/24/22 09:01 Dose: 75 mg Allergies Allergies Allergy/AdvReac Type Severity Reaction Status Date / Time aspirin Allergy Unknown Unknown Verified 04/02/22 19:55 seafood Allergy Unknown Unknown Verified 04/02/22 19:55 Assessment & Plan Assessment & Plan (1) Schizophrenia: Status: Acute Code(s): F20.9 - Schizophrenia, unspecified (2) Polysubstance use disorder: Status: Acute Code(s): F19.90 - Other psychoactive substance use, unspecified, uncomplicated Plan 37 yo male, history of schizophrenia, polysubstance use presents with request to re-stabilize on medications and return to addictions CSS treatment. Continue current regime. Monitor mood/behaviors Referrals for CSS placement. 05/15: Continue current regimen and encouraged to take medications. Nursing requested the p.r.n. in case he agrees to take something during the day and Seroquel 25 mg q.4 hours p.r.n. was ordered. 05/17: Continue current plans and regimen 05/18: Continue plans and regimen 05/19/22: Increase Venlafaxine to 112.5 mg daily Increase Seroquel to 150 mg a.m. and 250 mg h.s., a total increase of 100 mg per day. Pt may need a mood stabilizer-he declines at this time. 05/20/22: Decrease Venlafaxine to 75 mg daily Discontinue Seroquel Risperdal 2 mg hs. 05/21/22 Continue current regime and plan. 05/22/22 Monitor sx of COVID Monitor for increase sx as pt will be on isolation 05/23/22 Continue to monitor for sx of COVID No changes to current regime today 05/24/22: Team note an increase in OCD sx presentation. Pt at this time asks for no medication changes. Will continue to educate. Informed Consent: further education needed Reason for contiued inpatient stay Substantial Risk for: med/psych decompensation Time Spent With Patient Time: Total time managing care of this patient today _20___ minutes.
[2022-05-24 17:29] VITALS: BP 122/73; PULSE 97; RESP 16; TEMP 36.6; O2SAT 100
[2022-05-24] MEDS: Nicotine Polacrilex 2 MG GUM BUCCAL (18:22)
[2022-05-24] MEDS: traZODone HCL 100 MG TABLET PO (20:47)
[2022-05-24] MEDS: risperiDONE 2 MG TABLET PO (20:47)
[2022-05-25 08:30] VITALS: BP 129/63; PULSE 100
[2022-05-25] MEDS: Acetaminophen 325 MG TABLET 650 MG PO (09:49)
[2022-05-25] MEDS: Venlafaxine HCl ER 75 MG CAP.ER.24H PO (09:50)
[2022-05-25] MEDS: Thiamine HCL 100 MG TABLET PO (09:50)
[2022-05-25] MEDS: hydrOXYzine HCL 50 MG TABLET PO ×3 (09:50→23:00)
[2022-05-25] MEDS: Nicotine 14 MG PATCH.TD24 TRANSDERMA (09:50)
[2022-05-25] MEDS: Nicotine Polacrilex 2 MG GUM BUCCAL (10:01)
[2022-05-25 18:00] VITALS: BP 125/79; PULSE 72; TEMP 36.3; O2SAT 97
--- NOTE | 2022-05-25 19:30 | P.PNPSI_ITS ---
Subjective Subjective Date of Service: 05/25/22 Reason For Visit: Schizophrenia Subjective Notes: Conditional Voluntary Healthcare Proxy: No Guardianship: No Medical Problems Affecting Mental Status: No Interim History: Reports he is feeling better. Ready to increase Risperdal. Mild headache, some chest and mid back aching Will get chest xray. Discussed OP ENT referral, asks for a hearing eval Sleeping well he reports, Appetite is adequate. States he feels as if he is in a perea with God, however will not elaborate on this. Medication Compliance: Yes Side effects from medications: No Attending Groups: No Review of Systems Acute medical concerns: No Medical Review of Systems: unchanged Mental Status Exam Mental Status Exam Patient Appearance: Appropriate Patient Orientation: Person, Place, Time and Situation Level of Consciousness: Alert Patient Behavior: Talkative, Cooperative, Isolative and Good Eye Contact Mood Description: Constricted Affect Description: Constricted Patient Cognition Impaired: No Ability to Follow Directions: Good Speech Pattern: Spontaneous Speech Memory Description: Intact Hallucinations: Auditory Delusions: Not Present, Being Controlled, Paranoid Ideation and Present Thought Content: positive for Perseveration and positive for Suicidal Ideation (denies) Depressive Symptoms: Increased Anxiety, Increased Fatigue and Difficulty Concentrating Judgement: Fair Diagnostics Vital Signs (24Hr): Vital Signs - 24 hr 05/25/22 08:30 Pulse Rate 100 Blood Pressure 129/63 BMI result Body Mass Index 23.8 Labs Results: 05/13/22 18:55 05/13/22 18:55 Medications Medications Current Medications Acetaminophen (Acetaminophen 325 Mg Tablet) 650 mg PO Q6H PRN PRN Reason: Headache/Pain Mild Scale (1-3) Last Admin: 05/25/22 09:49 Dose: 650 mg Al Hydroxide/Mg Hydroxide (Magnesium Hydrox/Alum Hydrox 30 Ml Oral.Susp) 30 ml PO Q6H PRN PRN Reason: Heartburn/Nausea Guaifenesin (Guaifenesin La 600 Mg Tab.Er.12h) 600 mg PO BID PRN PRN Reason: congestion Hydroxyzine HCl (Hydroxyzine Hcl 50 Mg Tablet) 50 mg PO TID [facility] Last Admin: 05/25/22 14:47 Dose: 50 mg Magnesium Hydroxide (Milk Of Magnesia 30 Ml Oral.Susp) 30 ml PO DAILY PRN PRN Reason: Constipation Nicotine (Nicotine 14 Mg Patch.Td24) 14 mg TRANSDERMA DAILY [facility] Last Admin: 05/25/22 09:50 Dose: 14 mg Nicotine Polacrilex (Nicotine Polacrilex 2 Mg Gum) 2 mg BUCCAL Q2H PRN PRN Reason: Nicotine Cravings Last Admin: 05/25/22 10:01 Dose: 2 mg Quetiapine Fumarate (Quetiapine Fumarate 25 Mg Tablet) 25 mg PO Q4H PRN PRN Reason: Anxiety Risperidone (Risperidone 2 Mg Tablet) 2 mg PO BEDTIME [facility] Last Admin: 05/24/22 20:47 Dose: 2 mg Risperidone (Risperidone 0.5 Mg Tablet) 0.5 mg PO DAILY [facility] Thiamine HCl (Thiamine Hcl 100 Mg Tablet) 100 mg PO DAILY [facility] Last Admin: 05/25/22 09:50 Dose: 100 mg Trazodone HCl (Trazodone Hcl 100 Mg Tablet) 100 mg PO BEDTIME [facility] Last Admin: 05/24/22 20:47 Dose: 100 mg Venlafaxine HCl (Venlafaxine Hcl Er 75 Mg Cap.Er.24h) 75 mg PO DAILY [facility] Last Admin: 05/25/22 09:50 Dose: 75 mg Allergies Allergies Allergy/AdvReac Type Severity Reaction Status Date / Time aspirin Allergy Unknown Unknown Verified 04/02/22 19:55 seafood Allergy Unknown Unknown Verified 04/02/22 19:55 Assessment & Plan Assessment & Plan (1) Schizophrenia: Status: Acute Code(s): F20.9 - Schizophrenia, unspecified (2) Polysubstance use disorder: Status: Acute Code(s): F19.90 - Other psychoactive substance use, unspecified, uncomplicated Plan 37 yo male, history of schizophrenia, polysubstance use presents with request to re-stabilize on medications and return to addictions CSS treatment. Continue current regime. Monitor mood/behaviors Referrals for CSS placement. 05/15: Continue current regimen and encouraged to take medications. Nursing requested the p.r.n. in case he agrees to take something during the day and Seroquel 25 mg q.4 hours p.r.n. was ordered. 05/17: Continue current plans and regimen 05/18: Continue plans and regimen 05/19/22: Increase Venlafaxine to 112.5 mg daily Increase Seroquel to 150 mg a.m. and 250 mg h.s., a total increase of 100 mg per day. Pt may need a mood stabilizer-he declines at this time. 05/20/22: Decrease Venlafaxine to 75 mg daily Discontinue Seroquel Risperdal 2 mg hs. 05/21/22 Continue current regime and plan. 05/22/22 Monitor sx of COVID Monitor for increase sx as pt will be on isolation 05/23/22 Continue to monitor for sx of COVID No changes to current regime today 05/24/22: Team note an increase in OCD sx presentation. Pt at this time asks for no medication changes. Will continue to educate. 05/25/22: Risperdal 0.5 mg a.m. Chest xray Informed Consent: understands and further education needed Reason for contiued inpatient stay Substantial Risk for: med/psych decompensation Time Spent With Patient Time: Total time managing care of this patient today _25___ minutes.
[2022-05-25] MEDS: risperiDONE 2 MG TABLET PO (23:00)
[2022-05-25] MEDS: traZODone HCL 100 MG TABLET PO (23:00)
[2022-05-26 06:00] VITALS: BP 128/72; PULSE 70; RESP 16; TEMP 36.7; O2SAT 98
[2022-05-26] MEDS: Thiamine HCL 100 MG TABLET PO (10:10)
[2022-05-26] MEDS: Venlafaxine HCl ER 75 MG CAP.ER.24H PO (10:10)
[2022-05-26] MEDS: Nicotine 14 MG PATCH.TD24 TRANSDERMA (10:10)
[2022-05-26] MEDS: hydrOXYzine HCL 50 MG TABLET PO ×3 (10:10→20:53)
[2022-05-26] MEDS: risperiDONE 0.5 MG TABLET PO (10:10)
[2022-05-26] MEDS: Acetaminophen 325 MG TABLET 650 MG PO (10:10)
--- NOTE | 2022-05-26 12:18 | HO.PSYCHPN ---
Subjective Subjective Date of Service: 05/26/22 Reason For Visit: Schizophrenia Subjective Notes: Conditional Voluntary Healthcare Proxy: No Guardianship: No Medical Problems Affecting Mental Status: No Interim History: Pt has agreed to a referral to a program in [facility]. He reports using his time in quarantine to focus on 12 step reading. Reports ongoing sadness, finds Risperdal helpful, not ready to make antidepressant changes to help focus on OCD sx. Physically, reports some headache and back pain. Chest xray is negative per team. Medication Compliance: Yes Side effects from medications: No Attending Groups: No Review of Systems Acute medical concerns: No COVID-19 recovery Medical Review of Systems: unchanged Mental Status Exam Mental Status Exam Patient Appearance: Appropriate Patient Orientation: Person, Place, Time and Situation Level of Consciousness: Alert Patient Behavior: Talkative, Cooperative, Isolative and Good Eye Contact Mood Description: Constricted Affect Description: Constricted Patient Cognition Impaired: No Ability to Follow Directions: Good Speech Pattern: Spontaneous Speech Memory Description: Intact Hallucinations: Auditory Delusions: Not Present Thought Content: positive for Perseveration and positive for Suicidal Ideation (denies) Depressive Symptoms: Increased Anxiety, Increased Fatigue and Difficulty Concentrating Judgement: Fair Diagnostics Vital Signs (24Hr): Vital Signs - 24 hr 05/25/22 18:00 05/26/22 06:00 05/26/22 06:00 Temperature 97.4 F 98.1 F 98.1 F Pulse Rate 72 70 70 Respiratory Rate 16 16 Blood Pressure 125/79 128/72 128/72 Pulse Oximetry 97 98 98 Oxygen Delivery Method Room Air Room Air Room Air BMI result Body Mass Index 23.8 Labs Results: 05/27/22 08:21 05/27/22 08:21 Medications Medications Current Medications Acetaminophen (Acetaminophen 325 Mg Tablet) 650 mg PO Q6H PRN PRN Reason: Headache/Pain Mild Scale (1-3) Last Admin: 05/26/22 10:10 Dose: 650 mg Al Hydroxide/Mg Hydroxide (Magnesium Hydrox/Alum Hydrox 30 Ml Oral.Susp) 30 ml PO Q6H PRN PRN Reason: Heartburn/Nausea Guaifenesin (Guaifenesin La 600 Mg Tab.Er.12h) 600 mg PO BID PRN PRN Reason: congestion Hydroxyzine HCl (Hydroxyzine Hcl 50 Mg Tablet) 50 mg PO TID [facility] Last Admin: 05/26/22 10:10 Dose: 50 mg Magnesium Hydroxide (Milk Of Magnesia 30 Ml Oral.Susp) 30 ml PO DAILY PRN PRN Reason: Constipation Nicotine (Nicotine 14 Mg Patch.Td24) 14 mg TRANSDERMA DAILY [facility] Last Admin: 05/26/22 10:10 Dose: 14 mg Nicotine Polacrilex (Nicotine Polacrilex 2 Mg Gum) 2 mg BUCCAL Q2H PRN PRN Reason: Nicotine Cravings Last Admin: 05/25/22 10:01 Dose: 2 mg Quetiapine Fumarate (Quetiapine Fumarate 25 Mg Tablet) 25 mg PO Q4H PRN PRN Reason: Anxiety Risperidone (Risperidone 2 Mg Tablet) 2 mg PO BEDTIME [facility] Last Admin: 05/25/22 23:00 Dose: 2 mg Risperidone (Risperidone 0.5 Mg Tablet) 0.5 mg PO DAILY [facility] Last Admin: 05/26/22 10:10 Dose: 0.5 mg Thiamine HCl (Thiamine Hcl 100 Mg Tablet) 100 mg PO DAILY [facility] Last Admin: 05/26/22 10:10 Dose: 100 mg Trazodone HCl (Trazodone Hcl 100 Mg Tablet) 100 mg PO BEDTIME [facility] Last Admin: 05/25/22 23:00 Dose: 100 mg Venlafaxine HCl (Venlafaxine Hcl Er 75 Mg Cap.Er.24h) 75 mg PO DAILY [facility] Last Admin: 05/26/22 10:10 Dose: 75 mg Allergies Allergies Allergy/AdvReac Type Severity Reaction Status Date / Time aspirin Allergy Unknown Unknown Verified 04/02/22 19:55 seafood Allergy Unknown Unknown Verified 04/02/22 19:55 Assessment & Plan Assessment & Plan (1) Schizophrenia: Status: Acute Code(s): F20.9 - Schizophrenia, unspecified (2) Polysubstance use disorder: Status: Acute Code(s): F19.90 - Other psychoactive substance use, unspecified, uncomplicated Plan 37 yo male, history of schizophrenia, polysubstance use presents with request to re-stabilize on medications and return to addictions CSS treatment. Continue current regime. Monitor mood/behaviors Referrals for CSS placement. 05/15: Continue current regimen and encouraged to take medications. Nursing requested the p.r.n. in case he agrees to take something during the day and Seroquel 25 mg q.4 hours p.r.n. was ordered. 05/17: Continue current plans and regimen 05/18: Continue plans and regimen 05/19/22: Increase Venlafaxine to 112.5 mg daily Increase Seroquel to 150 mg a.m. and 250 mg h.s., a total increase of 100 mg per day. Pt may need a mood stabilizer-he declines at this time. 05/20/22: Decrease Venlafaxine to 75 mg daily Discontinue Seroquel Risperdal 2 mg hs. 05/21/22 Continue current regime and plan. 05/22/22 Monitor sx of COVID Monitor for increase sx as pt will be on isolation 05/23/22 Continue to monitor for sx of COVID No changes to current regime today 05/24/22: Team note an increase in OCD sx presentation. Pt at this time asks for no medication changes. Will continue to educate. 05/25/22: Risperdal 0.5 mg a.m. Chest xray 05/26/21: Chest xray negative. Continue current plan. Patient educated on: therapeutic strategies and other Informed Consent: further education needed Reason for contiued inpatient stay Substantial Risk for: rapid decompensation Time Spent With Patient Time: Total time managing care of this patient today _20___ minutes.
[2022-05-26 18:00] VITALS: BP 122/76; PULSE 68; RESP 16; TEMP 36.4; O2SAT 98
[2022-05-26] MEDS: traZODone HCL 100 MG TABLET PO (20:52)
[2022-05-26] MEDS: risperiDONE 2 MG TABLET PO (20:52)
[2022-05-26] MEDS: Nicotine Polacrilex 2 MG GUM BUCCAL (20:56)
[2022-05-27 06:00] VITALS: BP 141/67; PULSE 87; RESP 18; TEMP 36.9; O2SAT 99
[2022-05-27 09:08] LABS: MANUAL DIFF FLAG NO
[2022-05-27 09:20] LABS: Basophils Percent Auto 0.5 % (0-2); Eosinophils Absolute Auto 0.2 X10*3/uL (0.0-0.4); Eosinophils Percent Auto 2.8 % (0-4); Hematocrit 36.9 % (42.0-52.0); Hemoglobin 13.1 g/dl (14.0-18.0); Imm Gran Abs Auto 0.02 X10*3/uL (0.00-0.03); Imm Gran Pct Auto 0.3 % (0.0-0.4); Lymphocytes Absolute Auto 3.3 X10*3/uL (1.2-4.9); Lymphocytes Percent Auto 42.7 % (20-40); Mean Corpuscular HGB Conc 35.5 g/dl (31.0-36.0); Mean Corpuscular Hemoglobin 28.3 pg (27.0-33.0); Mean Corpuscular Volume 79.7 fL (80.0-98.0); Mean Platelet Volume 9.7 fL (9.4-12.4); Monocytes Absolute Auto 0.6 X10*3/uL (0.1-1.2); Monocytes Percent Auto 7.6 % (2-11); Neutrophils Absolute Auto 3.6 x10*3/uL (2.0-8.3); Neutrophils Percent Auto 46.1 % (45-73); Platelet Count 242 X10*3/uL (160-400); Red Blood Count 4.63 X10*6/uL (4.60-5.80); Red Cell Distribution Width 13.4 % (11.0-16.0); White Blood Count 7.8 X10*3/uL (4.8-10.8)
[2022-05-27 09:43] LABS: Alanine Aminotransferase 19 U/L (0-40); Alkaline Phosphatase 67 U/L (39-117); Anion Gap 9 (12-20); Aspartate Amino Transferase 20 U/L (5-37); Bilirubin Total 0.3 mg/dL (0.0-1.0); Blood Urea Nitrogen 12 mg/dL (9-16); Calcium 8.8 mg/dL (8.4-10.2); Carbon Dioxide 28 mmol/L (22-29); Chloride 105 mmol/L (96-108); Creatinine Clr Calc Pharmacy 125.7; Estimated Glomerular Filt Rate > 60; Glucose Random 77 mg/dL (60-115); Potassium 4.4 mmol/L (3.3-5.1); Sodium 138 mmol/L (135-145); Total Protein 6.1 g/dL (6.5-8.0)
[2022-05-27] MEDS: Nicotine 14 MG PATCH.TD24 TRANSDERMA (09:58)
[2022-05-27] MEDS: QUEtiapine Fumarate 25 MG TABLET PO (09:59)
[2022-05-27] MEDS: risperiDONE 0.5 MG TABLET PO (09:59)
[2022-05-27] MEDS: Venlafaxine HCl ER 75 MG CAP.ER.24H PO (09:59)
[2022-05-27] MEDS: Thiamine HCL 100 MG TABLET PO (09:59)
[2022-05-27] MEDS: Nicotine Polacrilex 2 MG GUM BUCCAL (09:59)
[2022-05-27] MEDS: hydrOXYzine HCL 50 MG TABLET PO ×3 (09:59→22:02)
[2022-05-27 10:06] LABS: Vitamin B12 174 pg/mL (200-900)
--- NOTE | 2022-05-27 17:30 | P.PNPSI_ITS ---
Subjective Subjective Date of Service: 05/27/22 Reason For Visit: Schizophrenia Subjective Notes: Conditional Voluntary Healthcare Proxy: No Guardianship: No Medical Problems Affecting Mental Status: No Interim History: Pt will end quarantine tomorrow. Reports mild back pain, no headache, no overt covid sx Reports regime to be working Medication Compliance: Yes Side effects from medications: No Attending Groups: No Review of Systems Acute medical concerns: No Medical Review of Systems: unchanged Mental Status Exam Mental Status Exam Patient Appearance: Appropriate Patient Orientation: Person, Place, Time and Situation Level of Consciousness: Alert Patient Behavior: Talkative, Cooperative, Isolative and Good Eye Contact Mood Description: Constricted Affect Description: Constricted Patient Cognition Impaired: No Ability to Follow Directions: Good Speech Pattern: Spontaneous Speech Memory Description: Intact Hallucinations: Auditory Delusions: Not Present Thought Content: positive for Perseveration and positive for Suicidal Ideation (denies) Depressive Symptoms: Increased Anxiety, Increased Fatigue and Difficulty Concentrating Judgement: Fair Diagnostics Vital Signs (24Hr): Vital Signs - 24 hr 05/26/22 18:00 05/27/22 06:00 Temperature 97.6 F 98.4 F Pulse Rate 68 87 Respiratory Rate 16 18 Blood Pressure 122/76 141/67 H Pulse Oximetry 98 99 Oxygen Delivery Method Room Air Room Air BMI result Body Mass Index 23.8 Labs Results: 05/27/22 08:21 05/27/22 08:21 Labs: Laboratory Results - last 48 hr 05/27/22 05/27/22 05/27/22 08:21 08:21 08:21 WBC 7.8 RBC 4.63 Hgb 13.1 L Hct 36.9 L MCV 79.7 L MCH 28.3 MCHC 35.5 RDW 13.4 Plt Count 242 MPV 9.7 Immature Gran % (Auto) 0.3 Neut % (Auto) 46.1 Lymph % (Auto) 42.7 H Braxton % (Auto) 7.6 Eos % (Auto) 2.8 Baso % (Auto) 0.5 Lymph # (Auto) 3.3 Braxton # (Auto) 0.6 Eos # (Auto) 0.2 Baso # (Auto) 0.0 Abs Immat Gran (auto) 0.02 Absolute Neuts (auto) 3.6 Absolute Nucleated RBC 0.000 Nucleated RBC % (auto) 0.0 Sodium 138 Potassium 4.4 Chloride 105 Carbon Dioxide 28 Anion Gap 9 L BUN 12 Creatinine 0.74 Estim Creat Clear Calc 125.7 Estimated GFR > 60 Random Glucose 77 Calcium 8.8 D Total Bilirubin 0.3 AST 20 ALT 19 Alkaline Phosphatase 67 Total Protein 6.1 L Albumin 4.0 Vitamin B12 174 L Imaging Radiology Impressions: ITS Impressions Chest X-Ray 05/26/22 09:40 IMPRESSION: Unremarkable examination. Medications Medications Current Medications Acetaminophen (Acetaminophen 325 Mg Tablet) 650 mg PO Q6H PRN PRN Reason: Headache/Pain Mild Scale (1-3) Last Admin: 05/26/22 10:10 Dose: 650 mg Al Hydroxide/Mg Hydroxide (Magnesium Hydrox/Alum Hydrox 30 Ml Oral.Susp) 30 ml PO Q6H PRN PRN Reason: Heartburn/Nausea Guaifenesin (Guaifenesin La 600 Mg Tab.Er.12h) 600 mg PO BID PRN PRN Reason: congestion Hydroxyzine HCl (Hydroxyzine Hcl 50 Mg Tablet) 50 mg PO TID [facility] Last Admin: 05/27/22 14:51 Dose: 50 mg Magnesium Hydroxide (Milk Of Magnesia 30 Ml Oral.Susp) 30 ml PO DAILY PRN PRN Reason: Constipation Nicotine (Nicotine 14 Mg Patch.Td24) 14 mg TRANSDERMA DAILY [facility] Last Admin: 05/27/22 09:58 Dose: 14 mg Nicotine Polacrilex (Nicotine Polacrilex 2 Mg Gum) 2 mg BUCCAL Q2H PRN PRN Reason: Nicotine Cravings Last Admin: 05/27/22 09:59 Dose: 2 mg Quetiapine Fumarate (Quetiapine Fumarate 25 Mg Tablet) 25 mg PO Q4H PRN PRN Reason: Anxiety Last Admin: 05/27/22 09:59 Dose: 25 mg Risperidone (Risperidone 2 Mg Tablet) 2 mg PO BEDTIME [facility] Last Admin: 05/26/22 20:52 Dose: 2 mg Risperidone (Risperidone 0.5 Mg Tablet) 0.5 mg PO DAILY [facility] Last Admin: 05/27/22 09:59 Dose: 0.5 mg Thiamine HCl (Thiamine Hcl 100 Mg Tablet) 100 mg PO DAILY [facility] Last Admin: 05/27/22 09:59 Dose: 100 mg Trazodone HCl (Trazodone Hcl 100 Mg Tablet) 100 mg PO BEDTIME [facility] Last Admin: 05/26/22 20:52 Dose: 100 mg Venlafaxine HCl (Venlafaxine Hcl Er 75 Mg Cap.Er.24h) 75 mg PO DAILY [facility] Last Admin: 05/27/22 09:59 Dose: 75 mg Allergies Allergies Allergy/AdvReac Type Severity Reaction Status Date / Time aspirin Allergy Unknown Unknown Verified 04/02/22 19:55 seafood Allergy Unknown Unknown Verified 04/02/22 19:55 Assessment & Plan Assessment & Plan (1) Schizophrenia: Status: Acute Code(s): F20.9 - Schizophrenia, unspecified (2) Polysubstance use disorder: Status: Acute Code(s): F19.90 - Other psychoactive substance use, unspecified, uncomplicated Plan 37 yo male, history of schizophrenia, polysubstance use presents with request to re-stabilize on medications and return to addictions CSS treatment. Continue current regime. Monitor mood/behaviors Referrals for CSS placement. 05/15: Continue current regimen and encouraged to take medications. Nursing requested the p.r.n. in case he agrees to take something during the day and Seroquel 25 mg q.4 hours p.r.n. was ordered. 05/17: Continue current plans and regimen 05/18: Continue plans and regimen 05/19/22: Increase Venlafaxine to 112.5 mg daily Increase Seroquel to 150 mg a.m. and 250 mg h.s., a total increase of 100 mg per day. Pt may need a mood stabilizer-he declines at this time. 05/20/22: Decrease Venlafaxine to 75 mg daily Discontinue Seroquel Risperdal 2 mg hs. 05/21/22 Continue current regime and plan. 05/22/22 Monitor sx of COVID Monitor for increase sx as pt will be on isolation 05/23/22 Continue to monitor for sx of COVID No changes to current regime today 05/24/22: Team note an increase in OCD sx presentation. Pt at this time asks for no medication changes. Will continue to educate. 05/25/22: Risperdal 0.5 mg a.m. Chest xray 05/26/22: Chest xray negative. Continue current plan. 05/27/22: Quarantine will end 05/28/22. Decrease of physical sx Pt not wanting to change Effexor to Luvox to address OCD sx at this time Continue to assess and encourage focus on target sx. Patient educated on: medication risk/benefits Informed Consent: further education needed Reason for contiued inpatient stay Substantial Risk for: inability to function and rapid decompensation Time Spent With Patient Time: Total time managing care of this patient today __15__ minutes.
[2022-05-27] MEDS: risperiDONE 2 MG TABLET PO (22:02)
[2022-05-27] MEDS: traZODone HCL 100 MG TABLET PO (22:02)
[2022-05-27 22:04] VITALS: BP 130/76; PULSE 78; RESP 16; TEMP 37.1; O2SAT 99
[2022-05-28 08:30] VITALS: BP 139/74; PULSE 114; TEMP 37.2
[2022-05-28] MEDS: Venlafaxine HCl ER 75 MG CAP.ER.24H PO (09:09)
[2022-05-28] MEDS: Thiamine HCL 100 MG TABLET PO (09:09)
[2022-05-28] MEDS: risperiDONE 0.5 MG TABLET PO (09:09)
[2022-05-28] MEDS: Nicotine 14 MG PATCH.TD24 TRANSDERMA (09:09)
[2022-05-28] MEDS: hydrOXYzine HCL 50 MG TABLET PO ×3 (09:09→20:54)
--- NOTE | 2022-05-28 14:35 | HO.PSYCHPN ---
Subjective Subjective Date of Service: 05/28/22 Reason For Visit: Schizophrenia Subjective Notes: Conditional Voluntary Interim History: Met with pt and KENZIE Suarez. Pt presents as future oriented in that he reports he is motivated to continue substance use treatment for cocaine and alcohol use. Pt reports intermittent suicidal ideation but denies any plan or intent. He reports he is better than when he came in. He reports he is sleeping and eating well. He reports seeing some black shadows at night. No voices. No concerns with current medications. Hopes he can go from unit to a residential program. Per nursing, no behavioral concerns. Pt does report some cravings to use but states these are manageable. Medication Compliance: Yes Side effects from medications: No Attending Groups: Intermittent Review of Systems Acute medical concerns: No Review of Systems Review of Systems Constitutional : No Weight loss, No Fever, No Chills, No Fatigue, No Malaise ENT/Mouth : No sore throat, No Rhinorrhea Eyes: No Eye Pain, No Swelling, No Redness Cardiovascular : No Chest Pain, No SOB, No Dyspnea on Exertion, No Orthopnea, No Edema, No Palpitations Respiratory : No Cough, No Sputum, No Wheezing Gastrointestinal : No Nausea, No Vomiting, No Diarrhea, No Constipation, No abdominal Pain, No Hematochezia, No Melena Genitourinary : No Dysuria, No Urinary Frequency, No Hematuria, Musculoskeletal : No joint pain, No Myalgias, No Joint Swelling Skin : No Skin Lesions, No rash Neuro : No Weakness, No Numbness, No Dizziness, No Headache Psych : + Anxiety/Panic, + , + Depression, + SI, No HI All other systems reviewed and are negative Yes all other systems are reviewed and are negative and Unobtainable due to mental status Constitutional: Reports no additional constitutional complaints Eyes: Reports no additional eye complaints Reports Normal hearing present (asks for a hearing assessment to be scheduled) Cardiovascular: Reports no additional cardiovascular complaints Respiratory: Reports no additional respiratory complaints Gastrointestinal: Reports no additional gastrointestinal complaints Genitourinary: Reports no additional male genitourinary complaints Musculoskeletal: Reports no additional musculoskeletal complaints Skin/Breast: Reports system reviewed and no additional complaints, except as docu Reports Normal hearing present (asks for a hearing assessment to be scheduled) and Reports behavioral changes Psychiatric: Reports anxiety, Reports behavioral changes, Reports difficulty concentrating, Reports irritability, Reports anhedonia, Reports mood swings, Reports paranoia and Reports suicidal ideation (denies) Endocrine: Reports no additional endocrine complaints Hematologic/Lymphatic: Reports no additional hematologic/lymphatic complaints Allergic/Immunologic: Reports no additional allergic/immunologic complaints Mental Status Exam Mental Status Exam Patient Appearance: Appropriate Patient Orientation: Person, Place, Time and Situation Level of Consciousness: Alert Patient Behavior: Talkative, Cooperative, Isolative and Good Eye Contact Mood Description: Constricted Affect Description: Constricted Patient Cognition Impaired: No Ability to Follow Directions: Good Speech Pattern: Spontaneous Speech Memory Description: Intact Diagnostics Vital Signs (24Hr): Vital Signs - 24 hr 05/27/22 22:04 05/28/22 08:30 Temperature 98.7 F 98.9 F Pulse Rate 78 114 H Respiratory Rate 16 Blood Pressure 130/76 139/74 Pulse Oximetry 99 Oxygen Delivery Method Room Air BMI result Body Mass Index 23.8 Labs Results: 05/27/22 08:21 05/27/22 08:21 Labs: Laboratory Results - last 48 hr 05/27/22 05/27/22 05/27/22 08:21 08:21 08:21 WBC 7.8 RBC 4.63 Hgb 13.1 L Hct 36.9 L MCV 79.7 L MCH 28.3 MCHC 35.5 RDW 13.4 Plt Count 242 MPV 9.7 Immature Gran % (Auto) 0.3 Neut % (Auto) 46.1 Lymph % (Auto) 42.7 H Levy % (Auto) 7.6 Eos % (Auto) 2.8 Baso % (Auto) 0.5 Lymph # (Auto) 3.3 Levy # (Auto) 0.6 Eos # (Auto) 0.2 Baso # (Auto) 0.0 Abs Immat Gran (auto) 0.02 Absolute Neuts (auto) 3.6 Absolute Nucleated RBC 0.000 Nucleated RBC % (auto) 0.0 Sodium 138 Potassium 4.4 Chloride 105 Carbon Dioxide 28 Anion Gap 9 L BUN 12 Creatinine 0.74 Estim Creat Clear Calc 125.7 Estimated GFR > 60 Random Glucose 77 Calcium 8.8 D Total Bilirubin 0.3 AST 20 ALT 19 Alkaline Phosphatase 67 Total Protein 6.1 L Albumin 4.0 Vitamin B12 174 L Imaging Radiology Impressions: ITS Impressions Chest X-Ray 05/26/22 09:40 IMPRESSION: Unremarkable examination. Medications Medications Current Medications Acetaminophen (Acetaminophen 325 Mg Tablet) 650 mg PO Q6H PRN PRN Reason: Headache/Pain Mild Scale (1-3) Last Admin: 05/26/22 10:10 Dose: 650 mg Al Hydroxide/Mg Hydroxide (Magnesium Hydrox/Alum Hydrox 30 Ml Oral.Susp) 30 ml PO Q6H PRN PRN Reason: Heartburn/Nausea Guaifenesin (Guaifenesin La 600 Mg Tab.Er.12h) 600 mg PO BID PRN PRN Reason: congestion Hydroxyzine HCl (Hydroxyzine Hcl 50 Mg Tablet) 50 mg PO TID [facility] Last Admin: 05/28/22 09:09 Dose: 50 mg Magnesium Hydroxide (Milk Of Magnesia 30 Ml Oral.Susp) 30 ml PO DAILY PRN PRN Reason: Constipation Nicotine (Nicotine 14 Mg Patch.Td24) 14 mg TRANSDERMA DAILY [facility] Last Admin: 05/28/22 09:09 Dose: 14 mg Nicotine Polacrilex (Nicotine Polacrilex 2 Mg Gum) 2 mg BUCCAL Q2H PRN PRN Reason: Nicotine Cravings Last Admin: 05/27/22 09:59 Dose: 2 mg Quetiapine Fumarate (Quetiapine Fumarate 25 Mg Tablet) 25 mg PO Q4H PRN PRN Reason: Anxiety Last Admin: 05/27/22 09:59 Dose: 25 mg Risperidone (Risperidone 2 Mg Tablet) 2 mg PO BEDTIME [facility] Last Admin: 05/27/22 22:02 Dose: 2 mg Risperidone (Risperidone 0.5 Mg Tablet) 0.5 mg PO DAILY [facility] Last Admin: 05/28/22 09:09 Dose: 0.5 mg Thiamine HCl (Thiamine Hcl 100 Mg Tablet) 100 mg PO DAILY [facility] Last Admin: 05/28/22 09:09 Dose: 100 mg Trazodone HCl (Trazodone Hcl 100 Mg Tablet) 100 mg PO BEDTIME [facility] Last Admin: 05/27/22 22:02 Dose: 100 mg Venlafaxine HCl (Venlafaxine Hcl Er 75 Mg Cap.Er.24h) 75 mg PO DAILY [facility] Last Admin: 05/28/22 09:09 Dose: 75 mg Allergies Allergies Allergy/AdvReac Type Severity Reaction Status Date / Time aspirin Allergy Unknown Unknown Verified 04/02/22 19:55 seafood Allergy Unknown Unknown Verified 04/02/22 19:55 Assessment & Plan Assessment & Plan (1) MDD (major depressive disorder), recurrent, severe, with psychosis: Status: Acute Code(s): F33.3 - Major depressive disorder, recurrent, severe with psychotic symptoms (2) Moderate cocaine use disorder: Status: Acute Code(s): F14.20 - Cocaine dependence, uncomplicated Plan 37 yo male, history of schizophrenia, polysubstance use presents with request to re-stabilize on medications and return to addictions CSS treatment. Continue current regime. Monitor mood/behaviors Referrals for CSS placement. 05/15: Continue current regimen and encouraged to take medications. Nursing requested the p.r.n. in case he agrees to take something during the day and Seroquel 25 mg q.4 hours p.r.n. was ordered. 05/17: Continue current plans and regimen 05/18: Continue plans and regimen 05/19/22: Increase Venlafaxine to 112.5 mg daily Increase Seroquel to 150 mg a.m. and 250 mg h.s., a total increase of 100 mg per day. Pt may need a mood stabilizer-he declines at this time. 05/20/22: Decrease Venlafaxine to 75 mg daily Discontinue Seroquel Risperdal 2 mg hs. 05/21/22 Continue current regime and plan. 05/22/22 Monitor sx of COVID Monitor for increase sx as pt will be on isolation 05/23/22 Continue to monitor for sx of COVID No changes to current regime today 05/24/22: Team note an increase in OCD sx presentation. Pt at this time asks for no medication changes. Will continue to educate. 05/25/22: Risperdal 0.5 mg a.m. Chest xray 05/26/22: Chest xray negative. Continue current plan. 05/27/22: Quarantine will end 05/28/22. Decrease of physical sx Pt not wanting to change Effexor to Luvox to address OCD sx at this time Continue to assess and encourage focus on target sx. 05/28/22 continue current medications. Reason for contiued inpatient stay Substantial Risk for: harm to self Time Spent With Patient Time: Total time managing care of this patient today ____ minutes.
[2022-05-28 19:45] VITALS: BP 136/84; PULSE 86; TEMP 37
[2022-05-28] MEDS: traZODone HCL 100 MG TABLET PO (20:54)
[2022-05-28] MEDS: risperiDONE 2 MG TABLET PO (20:54)
[2022-05-28] MEDS: Nicotine Polacrilex 2 MG GUM BUCCAL (20:58)
[2022-05-29 08:30] VITALS: BP 140/74; PULSE 87; TEMP 36.9
[2022-05-29] MEDS: Nicotine 14 MG PATCH.TD24 TRANSDERMA (09:50)
[2022-05-29] MEDS: hydrOXYzine HCL 50 MG TABLET PO ×3 (09:51→21:02)
[2022-05-29] MEDS: risperiDONE 0.5 MG TABLET PO (09:51)
[2022-05-29] MEDS: Thiamine HCL 100 MG TABLET PO (09:51)
[2022-05-29] MEDS: Venlafaxine HCl ER 75 MG CAP.ER.24H PO (09:51)
[2022-05-29] MEDS: Nicotine Polacrilex 2 MG GUM BUCCAL (09:55)
--- NOTE | 2022-05-29 10:36 | HO.PSYCHPN ---
Subjective Subjective Date of Service: 05/29/22 Reason For Visit: Schizophrenia Subjective Notes: Conditional Voluntary Interim History: Met with pt and KENZIE Suarez. Pt visibly sweating, which pt reports is new. It does seem to be related to venlafaxine. Pt reports sleeping and eating well. He is noted to have tangential TP, and easily loses track of what he wants to say. He denies SI/HI. He continues to be very motivated to continue substance use tx. We discussed dose of clonidine for hyperhidrosis s/s to antidepressant induced sweating, baclofen for muscle aches and some benefit in terms of cocaine cravings. Review of Systems Review of Systems Constitutional : No Weight loss, No Fever, No Chills, No Fatigue, No Malaise ENT/Mouth : No sore throat, No Rhinorrhea Eyes: No Eye Pain, No Swelling, No Redness Cardiovascular : No Chest Pain, No SOB, No Dyspnea on Exertion, No Orthopnea, No Edema, No Palpitations Respiratory : No Cough, No Sputum, No Wheezing Gastrointestinal : No Nausea, No Vomiting, No Diarrhea, No Constipation, No abdominal Pain, No Hematochezia, No Melena Genitourinary : No Dysuria, No Urinary Frequency, No Hematuria, Musculoskeletal : No joint pain, No Myalgias, No Joint Swelling Skin : No Skin Lesions, No rash Neuro : No Weakness, No Numbness, No Dizziness, No Headache Psych : + Anxiety/Panic, + , + Depression, + SI, No HI All other systems reviewed and are negative Yes all other systems are reviewed and are negative and Unobtainable due to mental status Constitutional: Reports no additional constitutional complaints Eyes: Reports no additional eye complaints Reports Normal hearing present (asks for a hearing assessment to be scheduled) Cardiovascular: Reports no additional cardiovascular complaints Respiratory: Reports no additional respiratory complaints Gastrointestinal: Reports no additional gastrointestinal complaints Genitourinary: Reports no additional male genitourinary complaints Musculoskeletal: Reports no additional musculoskeletal complaints Skin/Breast: Reports system reviewed and no additional complaints, except as docu Reports Normal hearing present (asks for a hearing assessment to be scheduled) and Reports behavioral changes Psychiatric: Reports anxiety, Reports behavioral changes, Reports difficulty concentrating, Reports irritability, Reports anhedonia, Reports mood swings, Reports paranoia and Reports suicidal ideation (denies) Endocrine: Reports no additional endocrine complaints Hematologic/Lymphatic: Reports no additional hematologic/lymphatic complaints Allergic/Immunologic: Reports no additional allergic/immunologic complaints Mental Status Exam Mental Status Exam Patient Appearance: Appropriate Patient Orientation: Person, Place, Time and Situation Level of Consciousness: Alert Patient Behavior: Talkative, Cooperative, Isolative and Good Eye Contact Mood Description: Constricted Affect Description: Constricted Patient Cognition Impaired: No Ability to Follow Directions: Good Speech Pattern: Spontaneous Speech Memory Description: Intact Diagnostics Vital Signs (24Hr): Vital Signs - 24 hr 05/29/22 18:40 05/30/22 08:10 Temperature 97.8 F 98.2 F Pulse Rate 91 70 Respiratory Rate 18 16 Blood Pressure 118/66 115/60 Pulse Oximetry 91 L 96 Oxygen Delivery Method Room Air Room Air BMI result Body Mass Index 23.8 Labs 05/27/22 08:21 05/27/22 08:21 Imaging Radiology Impressions: ITS Impressions Chest X-Ray 05/26/22 09:40 IMPRESSION: Unremarkable examination. Medications Medications Current Medications Acetaminophen (Acetaminophen 325 Mg Tablet) 650 mg PO Q6H PRN PRN Reason: Headache/Pain Mild Scale (1-3) Last Admin: 05/26/22 10:10 Dose: 650 mg Al Hydroxide/Mg Hydroxide (Magnesium Hydrox/Alum Hydrox 30 Ml Oral.Susp) 30 ml PO Q6H PRN PRN Reason: Heartburn/Nausea Baclofen (Baclofen 10 Mg Tablet) 10 mg PO BID [facility]S [facility] 234 BEDS AT [facility] Last Admin: 05/30/22 09:04 Dose: 10 mg Guaifenesin (Guaifenesin La 600 Mg Tab.Er.12h) 600 mg PO BID PRN PRN Reason: congestion Last Admin: 05/29/22 19:58 Dose: 600 mg Hydroxyzine HCl (Hydroxyzine Hcl 50 Mg Tablet) 50 mg PO TID [facility] 234 BEDS AT [facility] Last Admin: 05/30/22 09:04 Dose: 50 mg Magnesium Hydroxide (Milk Of Magnesia 30 Ml Oral.Susp) 30 ml PO DAILY PRN PRN Reason: Constipation Nicotine (Nicotine 14 Mg Patch.Td24) 14 mg TRANSDERMA DAILY [facility] 234 BEDS AT [facility] Last Admin: 05/30/22 09:04 Dose: 14 mg Nicotine Polacrilex (Nicotine Polacrilex 2 Mg Gum) 2 mg BUCCAL Q2H PRN PRN Reason: Nicotine Cravings Last Admin: 05/30/22 09:47 Dose: 2 mg Quetiapine Fumarate (Quetiapine Fumarate 25 Mg Tablet) 25 mg PO Q4H PRN PRN Reason: Anxiety Last Admin: 05/27/22 09:59 Dose: 25 mg Risperidone (Risperidone 2 Mg Tablet) 2 mg PO BEDTIME [facility] 234 BEDS [facility] Last Admin: 05/29/22 21:02 Dose: 2 mg Risperidone (Risperidone 0.5 Mg Tablet) 0.5 mg PO DAILY [facility] 234 BEDS AT [facility] Last Admin: 05/30/22 09:04 Dose: 0.5 mg Thiamine HCl (Thiamine Hcl 100 Mg Tablet) 100 mg PO DAILY [facility] 234 BEDS AT [facility] Last Admin: 05/30/22 09:04 Dose: 100 mg Trazodone HCl (Trazodone Hcl 100 Mg Tablet) 100 mg PO BEDTIME [facility]S [facility]CLUDE 234 BEDS AT [facility] Last Admin: 05/29/22 21:02 Dose: 100 mg Venlafaxine HCl (Venlafaxine Hcl Er 75 Mg Cap.Er.24h) 75 mg PO DAILY [facility] 234 BEDS AT [facility] Last Admin: 05/30/22 09:04 Dose: 75 mg Allergies Allergies Allergy/AdvReac Type Severity Reaction Status Date / Time aspirin Allergy Unknown Unknown Verified 04/02/22 19:55 seafood Allergy Unknown Unknown Verified 04/02/22 19:55 Assessment & Plan Assessment & Plan (1) MDD (major depressive disorder), recurrent, severe, with psychosis: Status: Acute Code(s): F33.3 - Major depressive disorder, recurrent, severe with psychotic symptoms (2) Moderate cocaine use disorder: Status: Acute Code(s): F14.20 - Cocaine dependence, uncomplicated Plan 37 yo male, history of schizophrenia, polysubstance use presents with request to re-stabilize on medications and return to addictions CSS treatment. Continue current regime. Monitor mood/behaviors Referrals for CSS placement. 05/15: Continue current regimen and encouraged to take medications. Nursing requested the p.r.n. in case he agrees to take something during the day and Seroquel 25 mg q.4 hours p.r.n. was ordered. 05/17: Continue current plans and regimen 05/18: Continue plans and regimen 05/19/22: Increase Venlafaxine to 112.5 mg daily Increase Seroquel to 150 mg a.m. and 250 mg h.s., a total increase of 100 mg per day. Pt may need a mood stabilizer-he declines at this time. 05/20/22: Decrease Venlafaxine to 75 mg daily Discontinue Seroquel Risperdal 2 mg hs. 05/21/22 Continue current regime and plan. 05/22/22 Monitor sx of COVID Monitor for increase sx as pt will be on isolation 05/23/22 Continue to monitor for sx of COVID No changes to current regime today 05/24/22: Team note an increase in OCD sx presentation. Pt at this time asks for no medication changes. Will continue to educate. 05/25/22: Risperdal 0.5 mg a.m. Chest xray 05/26/22: Chest xray negative. Continue current plan. 05/27/22: Quarantine will end 05/28/22. Decrease of physical sx Pt not wanting to change Effexor to Luvox to address OCD sx at this time Continue to assess and encourage focus on target sx. 05/28/22 continue current medications. 05/29 continue current medications. Noted hyperhydrosis with most likely s/s effexor- will try clonidine but may consider switching antidepressant to remeron. added baclofen for back pain and some degree of reduction of cocaine cravings. Reason for contiued inpatient stay Substantial Risk for: harm to self Time Spent With Patient Time: Total time managing care of this patient today ____ minutes.
[2022-05-29] MEDS: cloNIDine HCL 0.1 MG TABLET PO (14:45)
[2022-05-29 18:40] VITALS: BP 118/66; PULSE 91; RESP 18; TEMP 36.6; O2SAT 91
[2022-05-29] MEDS: guaiFENesin LA 600 MG TAB.ER.12H PO (19:58)
[2022-05-29] MEDS: risperiDONE 2 MG TABLET PO (21:02)
[2022-05-29] MEDS: Baclofen 10 MG TABLET PO (21:02)
[2022-05-29] MEDS: traZODone HCL 100 MG TABLET PO (21:02)
[2022-05-30 08:10] VITALS: BP 115/60; PULSE 70; RESP 16; TEMP 36.8; O2SAT 96
[2022-05-30] MEDS: risperiDONE 0.5 MG TABLET PO (09:04)
[2022-05-30] MEDS: Thiamine HCL 100 MG TABLET PO (09:04)
[2022-05-30] MEDS: Baclofen 10 MG TABLET PO ×2 (09:04→21:31)
[2022-05-30] MEDS: Venlafaxine HCl ER 75 MG CAP.ER.24H PO (09:04)
[2022-05-30] MEDS: hydrOXYzine HCL 50 MG TABLET PO ×3 (09:04→21:31)
[2022-05-30] MEDS: Nicotine 14 MG PATCH.TD24 TRANSDERMA (09:04)
[2022-05-30] MEDS: Nicotine Polacrilex 2 MG GUM BUCCAL (09:47)
--- NOTE | 2022-05-30 10:43 | P.PNPSI_ITS ---
Subjective Subjective Date of Service: 05/30/22 Reason For Visit: Schizophrenia Interim History: Patient seen with interpreter for the deaf.? Patient polite and cooperative.? Speech however is disorganized and he frequently goes off topic and talk about unrelated extraneous things, repeat him self or answer questions not asked; he is unaware of this. Patient frequently references hx of drug abuse.? Says his mood is a little better but not much.? He says sometimes a little SI but no plan or intent.? No HI.? He endorses auditory hallucinations but is vague about them.? Patient agrees to increase Risperdal dose.? Sugar Controller discussed hyperhidrosis and patient said he has had this for the past 6 months, that it has not been worsened by any medication or during that time of this admission. Mental Status Exam Mental Status Exam Narrative: Pt is alert and oriented; behavior is cooperative,polite; hyperhidrosis evident; dressed in casual attire, adeuqately groomed; mood is described as little better....not much and affect anxious; minimal eye contact; Speech is normal rate, volume and prosody and not pressured; no psychomotor agitation/retardation present; thought process can be goal oriented, but becomes tangential; thought content is on tx, hx of drug use, dealing with AH; not clear if any delusional content but none expressed; intermittent passive SI; no HI. AH present and pt internally preoccupied. Patients insight and judgment are impaired. Diagnostics Vital Signs (24Hr): Vital Signs - 24 hr 05/29/22 18:40 05/30/22 08:10 Temperature 97.8 F 98.2 F Pulse Rate 91 70 Respiratory Rate 18 16 Blood Pressure 118/66 115/60 Pulse Oximetry 91 L 96 Oxygen Delivery Method Room Air Room Air BMI result Body Mass Index 23.8 Labs 05/27/22 08:21 05/27/22 08:21 Imaging Radiology Impressions: ITS Impressions Chest X-Ray 05/26/22 09:40 IMPRESSION: Unremarkable examination. Medications Medications Current Medications Acetaminophen (Acetaminophen 325 Mg Tablet) 650 mg PO Q6H PRN PRN Reason: Headache/Pain Mild Scale (1-3) Last Admin: 05/26/22 10:10 Dose: 650 mg Al Hydroxide/Mg Hydroxide (Magnesium Hydrox/Alum Hydrox 30 Ml Oral.Susp) 30 ml PO Q6H PRN PRN Reason: Heartburn/Nausea Baclofen (Baclofen 10 Mg Tablet) 10 mg PO BID [facility] Last Admin: 05/30/22 09:04 Dose: 10 mg Guaifenesin (Guaifenesin La 600 Mg Tab.Er.12h) 600 mg PO BID PRN PRN Reason: congestion Last Admin: 05/29/22 19:58 Dose: 600 mg Hydroxyzine HCl (Hydroxyzine Hcl 50 Mg Tablet) 50 mg PO TID [facility] Last Admin: 05/30/22 09:04 Dose: 50 mg Magnesium Hydroxide (Milk Of Magnesia 30 Ml Oral.Susp) 30 ml PO DAILY PRN PRN Reason: Constipation Nicotine (Nicotine 14 Mg Patch.Td24) 14 mg TRANSDERMA DAILY [facility] Last Admin: 05/30/22 09:04 Dose: 14 mg Nicotine Polacrilex (Nicotine Polacrilex 2 Mg Gum) 2 mg BUCCAL Q2H PRN PRN Reason: Nicotine Cravings Last Admin: 05/30/22 09:47 Dose: 2 mg Quetiapine Fumarate (Quetiapine Fumarate 25 Mg Tablet) 25 mg PO Q4H PRN PRN Reason: Anxiety Last Admin: 05/27/22 09:59 Dose: 25 mg Risperidone (Risperidone 2 Mg Tablet) 2 mg PO BEDTIME [facility] Last Admin: 05/29/22 21:02 Dose: 2 mg Risperidone (Risperidone 0.5 Mg Tablet) 0.5 mg PO DAILY [facility] Last Admin: 05/30/22 09:04 Dose: 0.5 mg Thiamine HCl (Thiamine Hcl 100 Mg Tablet) 100 mg PO DAILY [facility] Last Admin: 05/30/22 09:04 Dose: 100 mg Trazodone HCl (Trazodone Hcl 100 Mg Tablet) 100 mg PO BEDTIME [facility] Last Admin: 05/29/22 21:02 Dose: 100 mg Venlafaxine HCl (Venlafaxine Hcl Er 75 Mg Cap.Er.24h) 75 mg PO DAILY [facility] Last Admin: 05/30/22 09:04 Dose: 75 mg Allergies Allergies Allergy/AdvReac Type Severity Reaction Status Date / Time aspirin Allergy Unknown Unknown Verified 04/02/22 19:55 seafood Allergy Unknown Unknown Verified 04/02/22 19:55 Assessment & Plan Assessment & Plan (1) MDD (major depressive disorder), recurrent, severe, with psychosis: Status: Acute Code(s): F33.3 - Major depressive disorder, recurrent, severe with psychotic symptoms (2) Moderate cocaine use disorder: Status: Acute Code(s): F14.20 - Cocaine dependence, uncomplicated (3) Psychotic disorder: Status: Acute Code(s): F29 - Unspecified psychosis not due to a substance or known physiological condition Plan 37 yo male, history of schizophrenia, polysubstance use presents with request to re-stabilize on medications and return to addictions CSS treatment. Continue current regime. Monitor mood/behaviors Referrals for CSS placement. 05/15: Continue current regimen and encouraged to take medications. Nursing requested the p.r.n. in case he agrees to take something during the day and Seroquel 25 mg q.4 hours p.r.n. was ordered. 05/17: Continue current plans and regimen 05/18: Continue plans and regimen 05/19/22: Increase Venlafaxine to 112.5 mg daily Increase Seroquel to 150 mg a.m. and 250 mg h.s., a total increase of 100 mg per day. Pt may need a mood stabilizer-he declines at this time. 05/20/22: Decrease Venlafaxine to 75 mg daily Discontinue Seroquel Risperdal 2 mg hs. 05/21/22 Continue current regime and plan. 05/22/22 Monitor sx of COVID Monitor for increase sx as pt will be on isolation 05/23/22 Continue to monitor for sx of COVID No changes to current regime today 05/24/22: Team note an increase in OCD sx presentation. Pt at this time asks for no medication changes. Will continue to educate. 05/25/22: Risperdal 0.5 mg a.m. Chest xray 05/26/22: Chest xray negative. Continue current plan. 05/27/22: Quarantine will end 05/28/22. Decrease of physical sx Pt not wanting to change Effexor to Luvox to address OCD sx at this time Continue to assess and encourage focus on target sx. 05/28/22 continue current medications. 05/29 continue current medications. Noted hyperhydrosis with most likely s/s effexor- will try clonidine but may consider switching antidepressant to remeron. added baclofen for back pain and some degree of reduction of cocaine cravings. 05/30/22 HPI/Impression says dx: Schizophrenia (however this is not listed in problem category, just MDD w/ psychosis) -will increase Risperdone due to continued AH and disorganzied thinking INCREASE Risperidone to 3mg qhs Continue Risperidone 0.5mg daily Says Hyperhidrosis present for months prior to this admission and that it has not worsened since he's been here; if accurate reporting, makes new medication Effexor less likely cause Patient educated on: diagnosis, medication risk/benefits and substance abuse Informed Consent: understands and further education needed Reason for contiued inpatient stay Substantial Risk for: rapid decompensation Time Spent With Patient Time: Total time managing care of this patient today ____ minutes.
[2022-05-30 18:42] VITALS: BP 136/76; PULSE 92; TEMP 36.6
[2022-05-30] MEDS: traZODone HCL 100 MG TABLET PO (21:31)
[2022-05-30] MEDS: risperiDONE 3 MG TABLET PO (21:31)
[2022-05-31 10:02] VITALS: BP 134/65; PULSE 99; RESP 18; TEMP 35.7; O2SAT 97
[2022-05-31] MEDS: Thiamine HCL 100 MG TABLET PO (10:04)
[2022-05-31] MEDS: Venlafaxine HCl ER 75 MG CAP.ER.24H PO (10:04)
[2022-05-31] MEDS: Baclofen 10 MG TABLET PO ×2 (10:04→21:12)
[2022-05-31] MEDS: Nicotine 14 MG PATCH.TD24 TRANSDERMA (10:04)
[2022-05-31] MEDS: hydrOXYzine HCL 50 MG TABLET PO ×3 (10:04→21:12)
[2022-05-31] MEDS: risperiDONE 0.5 MG TABLET PO (10:05)
--- NOTE | 2022-05-31 11:18 | P.PNPSI_ITS ---
Subjective Subjective Date of Service: 05/31/22 Reason For Visit: Schizophrenia Interim History: Seen with Recovery Unit Operator makenzie vega...i'm good...I'm motivated to go forward with my life...i want to go to a program when i get out of here...i'm doing my best... AH? everything is normal... does he have? yes, but i don't pay attention to it... asked about benefits at [facility] and aftercare for substance abuse but will discuss with Mental Status Exam Mental Status Exam Narrative: Pt is alert and oriented; behavior is cooperative,polite; hyperhidrosis evident; dressed in casual attire, adeuqately groomed; mood is described as good and affect a little less anxious; improved eye contact, but still avoidant; Speech is normal rate, volume and prosody and not pressured; no psychomotor agitation/retardation present; thought more goal oriented and not tangential; thought content is on tx, aftercare; coping with AH; no delusional content expressed; intermittent SI but passive and no plans/intent; no HI. AH present but pt says he can ignore. Patients insight and judgment are impaired but improving Diagnostics Vital Signs (24Hr): Vital Signs - 24 hr 05/30/22 18:42 05/31/22 10:02 Temperature 98 F 96.3 F L Pulse Rate 92 99 Respiratory Rate 18 Blood Pressure 136/76 134/65 Pulse Oximetry 97 Oxygen Delivery Method Room Air BMI result Body Mass Index 23.8 Labs 05/27/22 08:21 05/27/22 08:21 Imaging Radiology Impressions: ITS Impressions Chest X-Ray 05/26/22 09:40 IMPRESSION: Unremarkable examination. Medications Medications Current Medications Acetaminophen (Acetaminophen 325 Mg Tablet) 650 mg PO Q6H PRN PRN Reason: Headache/Pain Mild Scale (1-3) Last Admin: 05/26/22 10:10 Dose: 650 mg Al Hydroxide/Mg Hydroxide (Magnesium Hydrox/Alum Hydrox 30 Ml Oral.Susp) 30 ml PO Q6H PRN PRN Reason: Heartburn/Nausea Baclofen (Baclofen 10 Mg Tablet) 10 mg PO BID [facility] Last Admin: 05/31/22 10:04 Dose: 10 mg Guaifenesin (Guaifenesin La 600 Mg Tab.Er.12h) 600 mg PO BID PRN PRN Reason: congestion Last Admin: 05/29/22 19:58 Dose: 600 mg Hydroxyzine HCl (Hydroxyzine Hcl 50 Mg Tablet) 50 mg PO TID [facility] Last Admin: 05/31/22 10:04 Dose: 50 mg Magnesium Hydroxide (Milk Of Magnesia 30 Ml Oral.Susp) 30 ml PO DAILY PRN PRN Reason: Constipation Nicotine (Nicotine 14 Mg Patch.Td24) 14 mg TRANSDERMA DAILY [facility] Last Admin: 05/31/22 10:04 Dose: 14 mg Nicotine Polacrilex (Nicotine Polacrilex 2 Mg Gum) 2 mg BUCCAL Q2H PRN PRN Reason: Nicotine Cravings Last Admin: 05/30/22 09:47 Dose: 2 mg Quetiapine Fumarate (Quetiapine Fumarate 25 Mg Tablet) 25 mg PO Q4H PRN PRN Reason: Anxiety Last Admin: 05/27/22 09:59 Dose: 25 mg Risperidone (Risperidone 0.5 Mg Tablet) 0.5 mg PO DAILY [facility] Last Admin: 05/31/22 10:05 Dose: 0.5 mg Risperidone (Risperidone 3 Mg Tablet) 3 mg PO BEDTIME [facility] Last Admin: 05/30/22 21:31 Dose: 3 mg Thiamine HCl (Thiamine Hcl 100 Mg Tablet) 100 mg PO DAILY [facility] Last Admin: 05/31/22 10:04 Dose: 100 mg Trazodone HCl (Trazodone Hcl 100 Mg Tablet) 100 mg PO BEDTIME [facility] Last Admin: 05/30/22 21:31 Dose: 100 mg Venlafaxine HCl (Venlafaxine Hcl Er 75 Mg Cap.Er.24h) 75 mg PO DAILY [facility] Last Admin: 05/31/22 10:04 Dose: 75 mg Allergies Allergies Allergy/AdvReac Type Severity Reaction Status Date / Time aspirin Allergy Unknown Unknown Verified 04/02/22 19:55 seafood Allergy Unknown Unknown Verified 04/02/22 19:55 Assessment & Plan Assessment & Plan (1) MDD (major depressive disorder), recurrent, severe, with psychosis: Status: Acute Code(s): F33.3 - Major depressive disorder, recurrent, severe with psychotic symptoms (2) Moderate cocaine use disorder: Status: Acute Code(s): F14.20 - Cocaine dependence, uncomplicated (3) Psychotic disorder: Status: Acute Code(s): F29 - Unspecified psychosis not due to a substance or known physiological condition Plan 37 yo male, history of schizophrenia, polysubstance use presents with request to re-stabilize on medications and return to addictions CSS treatment. Continue current regime. Monitor mood/behaviors Referrals for CSS placement. 05/15: Continue current regimen and encouraged to take medications. Nursing requested the p.r.n. in case he agrees to take something during the day and Seroquel 25 mg q.4 hours p.r.n. was ordered. 05/17: Continue current plans and regimen 05/18: Continue plans and regimen 05/19/22: Increase Venlafaxine to 112.5 mg daily Increase Seroquel to 150 mg a.m. and 250 mg h.s., a total increase of 100 mg per day. Pt may need a mood stabilizer-he declines at this time. 05/20/22: Decrease Venlafaxine to 75 mg daily Discontinue Seroquel Risperdal 2 mg hs. 05/21/22 Continue current regime and plan. 05/22/22 Monitor sx of COVID Monitor for increase sx as pt will be on isolation 05/23/22 Continue to monitor for sx of COVID No changes to current regime today 05/24/22: Team note an increase in OCD sx presentation. Pt at this time asks for no medication changes. Will continue to educate. 05/25/22: Risperdal 0.5 mg a.m. Chest xray 05/26/22: Chest xray negative. Continue current plan. 05/27/22: Quarantine will end 05/28/22. Decrease of physical sx Pt not wanting to change Effexor to Luvox to address OCD sx at this time Continue to assess and encourage focus on target sx. 05/28/22 continue current medications. 05/29 continue current medications. Noted hyperhydrosis with most likely s/s effexor- will try clonidine but may consider switching antidepressant to remeron. added baclofen for back pain and some degree of reduction of cocaine cravings. 05/30/22 HPI/Impression says dx: Schizophrenia (however this is not listed in problem category, just MDD w/ psychosis) -will increase Risperdone due to continued AH and disorganzied thinking INCREASE Risperidone to 3mg qhs Continue Risperidone 0.5mg daily Says Hyperhidrosis present for months prior to this admission and that it has not worsened since he's been here; if accurate reporting, makes new medication Effexor less likely cause 05/31/22 says feeling good and a little more linear in thought process. Intermittent passive SI but no plans/intent still has AH, but says he can ignore Will continue current regimen Patient educated on: diagnosis, medication risk/benefits and substance abuse Informed Consent: understands Reason for contiued inpatient stay Substantial Risk for: stable for discharge Time Spent With Patient Time: Total time managing care of this patient today ____ minutes.
[2022-05-31 19:18] VITALS: BP 130/65; PULSE 80
[2022-05-31] MEDS: risperiDONE 3 MG TABLET PO (21:12)
[2022-05-31] MEDS: traZODone HCL 100 MG TABLET PO (21:12)
[2022-06-01 06:00] VITALS: BP 125/62; PULSE 90; RESP 18; O2SAT 97
[2022-06-01] MEDS: Venlafaxine HCl ER 75 MG CAP.ER.24H PO (08:24)
[2022-06-01] MEDS: hydrOXYzine HCL 50 MG TABLET PO ×3 (08:24→21:44)
[2022-06-01] MEDS: risperiDONE 0.5 MG TABLET PO (08:24)
[2022-06-01] MEDS: Baclofen 10 MG TABLET PO ×2 (08:24→21:44)
[2022-06-01] MEDS: Thiamine HCL 100 MG TABLET PO (08:24)
[2022-06-01] MEDS: Nicotine 14 MG PATCH.TD24 TRANSDERMA (08:24)
[2022-06-01] MEDS: Nicotine Polacrilex 2 MG GUM BUCCAL ×2 (09:12→14:01)
--- NOTE | 2022-06-01 13:20 | HO.PSYCHPN ---
Subjective Subjective Date of Service: 06/01/22 Reason For Visit: Schizophrenia Subjective Notes: Conditional Voluntary Interim History: Pt seen with KENZIE burns. Pt reports feeling better. He reports hearing some voices, at times thinks they are positive but also thinks some voices are related to something else. He denies SI/HI. He continues to be highly motivated to continue substance use treatment. He reports back pain- will start patch. No behavioral concerns. Medication Compliance: Yes Review of Systems Review of Systems Constitutional : No Weight loss, No Fever, No Chills, No Fatigue, No Malaise ENT/Mouth : No sore throat, No Rhinorrhea Eyes: No Eye Pain, No Swelling, No Redness Cardiovascular : No Chest Pain, No SOB, No Dyspnea on Exertion, No Orthopnea, No Edema, No Palpitations Respiratory : No Cough, No Sputum, No Wheezing Gastrointestinal : No Nausea, No Vomiting, No Diarrhea, No Constipation, No abdominal Pain, No Hematochezia, No Melena Genitourinary : No Dysuria, No Urinary Frequency, No Hematuria, Musculoskeletal : No joint pain, No Myalgias, No Joint Swelling Skin : No Skin Lesions, No rash Neuro : No Weakness, No Numbness, No Dizziness, No Headache Psych : + Anxiety/Panic, + , + Depression, + SI, No HI All other systems reviewed and are negative Yes all other systems are reviewed and are negative and Unobtainable due to mental status Constitutional: Reports no additional constitutional complaints Eyes: Reports no additional eye complaints Reports Normal hearing present (asks for a hearing assessment to be scheduled) Cardiovascular: Reports no additional cardiovascular complaints Respiratory: Reports no additional respiratory complaints Gastrointestinal: Reports no additional gastrointestinal complaints Genitourinary: Reports no additional male genitourinary complaints Musculoskeletal: Reports no additional musculoskeletal complaints Skin/Breast: Reports system reviewed and no additional complaints, except as docu Reports Normal hearing present (asks for a hearing assessment to be scheduled) and Reports behavioral changes Psychiatric: Reports anxiety, Reports behavioral changes, Reports difficulty concentrating, Reports irritability, Reports anhedonia, Reports mood swings, Reports paranoia and Reports suicidal ideation (denies) Endocrine: Reports no additional endocrine complaints Hematologic/Lymphatic: Reports no additional hematologic/lymphatic complaints Allergic/Immunologic: Reports no additional allergic/immunologic complaints Mental Status Exam Mental Status Exam Narrative: Pt is alert and oriented; behavior is cooperative,polite; hyperhidrosis evident; dressed in casual attire, adeuqately groomed; mood is described as good and affect a little less anxious; improved eye contact, but still avoidant; Speech is normal rate, volume and prosody and not pressured; no psychomotor agitation/retardation present; thought more goal oriented and not tangential; thought content is on tx, aftercare; coping with AH; no delusional content expressed; intermittent SI but passive and no plans/intent; no HI. AH present but pt says he can ignore. Patients insight and judgment are impaired but improving Diagnostics Vital Signs (24Hr): Vital Signs - 24 hr 06/01/22 16:23 Pulse Rate 100 Blood Pressure 153/70 H BMI result Body Mass Index 23.8 Labs 05/27/22 08:21 05/27/22 08:21 Imaging Radiology Impressions: ITS Impressions Chest X-Ray 05/26/22 09:40 IMPRESSION: Unremarkable examination. Medications Medications Current Medications Acetaminophen (Acetaminophen 325 Mg Tablet) 650 mg PO Q6H PRN PRN Reason: Headache/Pain Mild Scale (1-3) Last Admin: 05/26/22 10:10 Dose: 650 mg Al Hydroxide/Mg Hydroxide (Magnesium Hydrox/Alum Hydrox 30 Ml Oral.Susp) 30 ml PO Q6H PRN PRN Reason: Heartburn/Nausea Baclofen (Baclofen 10 Mg Tablet) 10 mg PO BID [facility] Last Admin: 06/01/22 21:44 Dose: 10 mg Guaifenesin (Guaifenesin La 600 Mg Tab.Er.12h) 600 mg PO BID PRN PRN Reason: congestion Last Admin: 05/29/22 19:58 Dose: 600 mg Hydroxyzine HCl (Hydroxyzine Hcl 50 Mg Tablet) 50 mg PO TID [facility] Last Admin: 06/01/22 21:44 Dose: 50 mg Magnesium Hydroxide (Milk Of Magnesia 30 Ml Oral.Susp) 30 ml PO DAILY PRN PRN Reason: Constipation Nicotine (Nicotine 14 Mg Patch.Td24) 14 mg TRANSDERMA DAILY [facility] Last Admin: 06/01/22 08:24 Dose: 14 mg Nicotine Polacrilex (Nicotine Polacrilex 2 Mg Gum) 2 mg BUCCAL Q2H PRN PRN Reason: Nicotine Cravings Last Admin: 06/01/22 14:01 Dose: 2 mg Quetiapine Fumarate (Quetiapine Fumarate 25 Mg Tablet) 25 mg PO Q4H PRN PRN Reason: Anxiety Last Admin: 05/27/22 09:59 Dose: 25 mg Risperidone (Risperidone 0.5 Mg Tablet) 0.5 mg PO DAILY [facility] Last Admin: 06/01/22 08:24 Dose: 0.5 mg Risperidone (Risperidone 3 Mg Tablet) 3 mg PO BEDTIME [facility] Last Admin: 06/01/22 21:44 Dose: 3 mg Thiamine HCl (Thiamine Hcl 100 Mg Tablet) 100 mg PO DAILY [facility] Last Admin: 06/01/22 08:24 Dose: 100 mg Trazodone HCl (Trazodone Hcl 100 Mg Tablet) 100 mg PO BEDTIME [facility] Last Admin: 06/01/22 21:44 Dose: 100 mg Venlafaxine HCl (Venlafaxine Hcl Er 75 Mg Cap.Er.24h) 75 mg PO DAILY [facility] Last Admin: 06/01/22 08:24 Dose: 75 mg Allergies Allergies Allergy/AdvReac Type Severity Reaction Status Date / Time aspirin Allergy Unknown Unknown Verified 04/02/22 19:55 seafood Allergy Unknown Unknown Verified 04/02/22 19:55 Assessment & Plan Assessment & Plan (1) MDD (major depressive disorder), recurrent, severe, with psychosis: Status: Acute Code(s): F33.3 - Major depressive disorder, recurrent, severe with psychotic symptoms (2) Moderate cocaine use disorder: Status: Acute Code(s): F14.20 - Cocaine dependence, uncomplicated (3) Psychotic disorder: Status: Acute Code(s): F29 - Unspecified psychosis not due to a substance or known physiological condition Plan 37 yo male, history of schizophrenia, polysubstance use presents with request to re-stabilize on medications and return to addictions CSS treatment. Continue current regime. Monitor mood/behaviors Referrals for CSS placement. 05/15: Continue current regimen and encouraged to take medications. Nursing requested the p.r.n. in case he agrees to take something during the day and Seroquel 25 mg q.4 hours p.r.n. was ordered. 05/17: Continue current plans and regimen 05/18: Continue plans and regimen 05/19/22: Increase Venlafaxine to 112.5 mg daily Increase Seroquel to 150 mg a.m. and 250 mg h.s., a total increase of 100 mg per day. Pt may need a mood stabilizer-he declines at this time. 05/20/22: Decrease Venlafaxine to 75 mg daily Discontinue Seroquel Risperdal 2 mg hs. 05/21/22 Continue current regime and plan. 05/22/22 Monitor sx of COVID Monitor for increase sx as pt will be on isolation 05/23/22 Continue to monitor for sx of COVID No changes to current regime today 05/24/22: Team note an increase in OCD sx presentation. Pt at this time asks for no medication changes. Will continue to educate. 05/25/22: Risperdal 0.5 mg a.m. Chest xray 05/26/22: Chest xray negative. Continue current plan. 05/27/22: Quarantine will end 05/28/22. Decrease of physical sx Pt not wanting to change Effexor to Luvox to address OCD sx at this time Continue to assess and encourage focus on target sx. 05/28/22 continue current medications. 05/29 continue current medications. Noted hyperhydrosis with most likely s/s effexor- will try clonidine but may consider switching antidepressant to remeron. added baclofen for back pain and some degree of reduction of cocaine cravings. 05/30/22 HPI/Impression says dx: Schizophrenia (however this is not listed in problem category, just MDD w/ psychosis) -will increase Risperdone due to continued AH and disorganzied thinking INCREASE Risperidone to 3mg qhs Continue Risperidone 0.5mg daily Says Hyperhidrosis present for months prior to this admission and that it has not worsened since he's been here; if accurate reporting, makes new medication Effexor less likely cause 05/31/22 says feeling good and a little more linear in thought process. Intermittent passive SI but no plans/intent still has AH, but says he can ignore Will continue current regimen 06/01 lower slightly venlafaxine due to hyperhidrosis, see if voices get better with risperidone. Reason for contiued inpatient stay Substantial Risk for: inability to function Time Spent With Patient Time: Total time managing care of this patient today ____ minutes.
[2022-06-01 16:23] VITALS: BP 153/70; PULSE 100
[2022-06-01] MEDS: risperiDONE 3 MG TABLET PO (21:44)
[2022-06-01] MEDS: traZODone HCL 100 MG TABLET PO (21:44)
[2022-06-02 09:15] VITALS: BP 134/72; PULSE 95; RESP 16; TEMP 36.9; O2SAT 98
[2022-06-02] MEDS: risperiDONE 0.5 MG TABLET PO (09:43)
[2022-06-02] MEDS: Thiamine HCL 100 MG TABLET PO (09:43)
[2022-06-02] MEDS: hydrOXYzine HCL 50 MG TABLET PO ×3 (09:43→19:53)
[2022-06-02] MEDS: Nicotine 14 MG PATCH.TD24 TRANSDERMA (09:43)
[2022-06-02] MEDS: Baclofen 10 MG TABLET PO ×2 (09:43→19:53)
[2022-06-02] MEDS: Lidocaine 4 % Patch ADH..PATCH 1 PATCH TRANSDERMA (11:58)
--- NOTE | 2022-06-02 13:23 | P.PNPSI_ITS ---
Subjective Subjective Date of Service: 06/02/22 Reason For Visit: Schizophrenia Interim History: Pt seen with KENZIE burns. Pt with vague reports of auditory hallucinations reports they may be from devil or from God but he is trying to ignore them. He continues to report that he wants to continue tx for both substance use and mental health. Pt continues to wash his hands several times and his clothes, when asked he states he is trying to stay clean. He denies SI/HI. Per nursing, pt appears guarded, paranoid. Review of Systems Review of Systems Constitutional : No Weight loss, No Fever, No Chills, No Fatigue, No Malaise ENT/Mouth : No sore throat, No Rhinorrhea Eyes: No Eye Pain, No Swelling, No Redness Cardiovascular : No Chest Pain, No SOB, No Dyspnea on Exertion, No Orthopnea, No Edema, No Palpitations Respiratory : No Cough, No Sputum, No Wheezing Gastrointestinal : No Nausea, No Vomiting, No Diarrhea, No Constipation, No abdominal Pain, No Hematochezia, No Melena Genitourinary : No Dysuria, No Urinary Frequency, No Hematuria, Musculoskeletal : No joint pain, No Myalgias, No Joint Swelling Skin : No Skin Lesions, No rash Neuro : No Weakness, No Numbness, No Dizziness, No Headache Psych : + Anxiety/Panic, + , + Depression, + SI, No HI All other systems reviewed and are negative Yes all other systems are reviewed and are negative and Unobtainable due to mental status Constitutional: Reports no additional constitutional complaints Eyes: Reports no additional eye complaints Reports Normal hearing present (asks for a hearing assessment to be scheduled) Cardiovascular: Reports no additional cardiovascular complaints Respiratory: Reports no additional respiratory complaints Gastrointestinal: Reports no additional gastrointestinal complaints Genitourinary: Reports no additional male genitourinary complaints Musculoskeletal: Reports no additional musculoskeletal complaints Skin/Breast: Reports system reviewed and no additional complaints, except as docu Reports Normal hearing present (asks for a hearing assessment to be scheduled) and Reports behavioral changes Psychiatric: Reports anxiety, Reports behavioral changes, Reports difficulty concentrating, Reports irritability, Reports anhedonia, Reports mood swings, Reports paranoia and Reports suicidal ideation (denies) Endocrine: Reports no additional endocrine complaints Hematologic/Lymphatic: Reports no additional hematologic/lymphatic complaints Allergic/Immunologic: Reports no additional allergic/immunologic complaints Mental Status Exam Mental Status Exam Narrative: Pt is alert and oriented; behavior is cooperative,polite; hyperhidrosis evident; dressed in casual attire, adeuqately groomed; mood is described as good and affect a little less anxious; improved eye contact, but still avoidant; Speech is normal rate, volume and prosody and not pressured; no psychomotor agitation/retardation present; thought more goal oriented and not tangential; thought content is on tx, aftercare; coping with AH; no delusional content expressed; intermittent SI but passive and no plans/intent; no HI. AH present but pt says he can ignore. Patients insight and judgment are impaired but improving Patient Appearance: Appropriate Patient Orientation: Person, Place, Time and Situation Level of Consciousness: Alert Patient Behavior: Talkative, Cooperative, Isolative and Good Eye Contact Mood Description: Constricted Affect Description: Constricted Patient Cognition Impaired: No Ability to Follow Directions: Good Speech Pattern: Spontaneous Speech Memory Description: Intact Diagnostics Vital Signs (24Hr): Vital Signs - 24 hr 06/02/22 18:00 06/03/22 09:22 Temperature 96.8 F 97.0 F Pulse Rate 82 96 Respiratory Rate 16 18 Blood Pressure 124/69 134/77 Pulse Oximetry 98 98 Oxygen Delivery Method Room Air Room Air BMI result Body Mass Index 23.8 Labs 05/27/22 08:21 05/27/22 08:21 Imaging Radiology Impressions: ITS Impressions Chest X-Ray 05/26/22 09:40 IMPRESSION: Unremarkable examination. Medications Medications Current Medications Acetaminophen (Acetaminophen 325 Mg Tablet) 650 mg PO Q6H PRN PRN Reason: Headache/Pain Mild Scale (1-3) Last Admin: 05/26/22 10:10 Dose: 650 mg Al Hydroxide/Mg Hydroxide (Magnesium Hydrox/Alum Hydrox 30 Ml Oral.Susp) 30 ml PO Q6H PRN PRN Reason: Heartburn/Nausea Baclofen (Baclofen 10 Mg Tablet) 10 mg PO BID [facility] Last Admin: 06/03/22 09:15 Dose: 10 mg Guaifenesin (Guaifenesin La 600 Mg Tab.Er.12h) 600 mg PO BID PRN PRN Reason: congestion Last Admin: 05/29/22 19:58 Dose: 600 mg Hydroxyzine HCl (Hydroxyzine Hcl 50 Mg Tablet) 50 mg PO TID [facility] Last Admin: 06/03/22 14:16 Dose: 50 mg Lidocaine (Lidocaine 4 % Patch Adh..Patch) 1 patch TRANSDERMA DAILY [facility]; Protocol Last Admin: 06/03/22 09:19 Dose: 1 patch Magnesium Hydroxide (Milk Of Magnesia 30 Ml Oral.Susp) 30 ml PO DAILY PRN PRN Reason: Constipation Nicotine (Nicotine 14 Mg Patch.Td24) 14 mg TRANSDERMA DAILY [facility] Last Admin: 06/03/22 09:16 Dose: 14 mg Nicotine Polacrilex (Nicotine Polacrilex 2 Mg Gum) 2 mg BUCCAL Q2H PRN PRN Reason: Nicotine Cravings Last Admin: 06/03/22 09:20 Dose: 2 mg Quetiapine Fumarate (Quetiapine Fumarate 25 Mg Tablet) 25 mg PO Q4H PRN PRN Reason: Anxiety Last Admin: 06/02/22 15:22 Dose: 25 mg Risperidone (Risperidone 0.5 Mg Tablet) 0.5 mg PO DAILY [facility] Last Admin: 06/03/22 09:19 Dose: 0.5 mg Risperidone (Risperidone 3 Mg Tablet) 3 mg PO BEDTIME [facility] Last Admin: 06/02/22 19:53 Dose: 3 mg Thiamine HCl (Thiamine Hcl 100 Mg Tablet) 100 mg PO DAILY [facility] Last Admin: 06/03/22 09:15 Dose: 100 mg Trazodone HCl (Trazodone Hcl 100 Mg Tablet) 100 mg PO BEDTIME [facility] Last Admin: 06/02/22 19:53 Dose: 100 mg Venlafaxine HCl (Venlafaxine Hcl Er 37.5 Mg Cap.Er.24h) 37.5 mg PO DAILY [facility] Last Admin: 06/03/22 09:15 Dose: 37.5 mg Allergies Allergies Allergy/AdvReac Type Severity Reaction Status Date / Time aspirin Allergy Unknown Unknown Verified 04/02/22 19:55 seafood Allergy Unknown Unknown Verified 04/02/22 19:55 Assessment & Plan Assessment & Plan (1) Schizophrenia: Status: Acute Code(s): F20.9 - Schizophrenia, unspecified (2) Moderate cocaine use disorder: Status: Acute Code(s): F14.20 - Cocaine dependence, uncomplicated (3) Psychotic disorder: Status: Acute Code(s): F29 - Unspecified psychosis not due to a substance or known physiological condition Plan 37 yo male, history of schizophrenia, polysubstance use presents with request to re-stabilize on medications and return to addictions CSS treatment. Continue current regime. Monitor mood/behaviors Referrals for CSS placement. 05/15: Continue current regimen and encouraged to take medications. Nursing requested the p.r.n. in case he agrees to take something during the day and Seroquel 25 mg q.4 hours p.r.n. was ordered. 05/17: Continue current plans and regimen 05/18: Continue plans and regimen 05/19/22: Increase Venlafaxine to 112.5 mg daily Increase Seroquel to 150 mg a.m. and 250 mg h.s., a total increase of 100 mg per day. Pt may need a mood stabilizer-he declines at this time. 05/20/22: Decrease Venlafaxine to 75 mg daily Discontinue Seroquel Risperdal 2 mg hs. 05/21/22 Continue current regime and plan. 05/22/22 Monitor sx of COVID Monitor for increase sx as pt will be on isolation 05/23/22 Continue to monitor for sx of COVID No changes to current regime today 05/24/22: Team note an increase in OCD sx presentation. Pt at this time asks for no medication changes. Will continue to educate. 05/25/22: Risperdal 0.5 mg a.m. Chest xray 05/26/22: Chest xray negative. Continue current plan. 05/27/22: Quarantine will end 05/28/22. Decrease of physical sx Pt not wanting to change Effexor to Luvox to address OCD sx at this time Continue to assess and encourage focus on target sx. 05/28/22 continue current medications. 05/29 continue current medications. Noted hyperhydrosis with most likely s/s effexor- will try clonidine but may consider switching antidepressant to remeron. added baclofen for back pain and some degree of reduction of cocaine cravings. 05/30/22 HPI/Impression says dx: Schizophrenia (however this is not listed in problem category, just MDD w/ psychosis) -will increase Risperdone due to continued AH and disorganzied thinking INCREASE Risperidone to 3mg qhs Continue Risperidone 0.5mg daily Says Hyperhidrosis present for months prior to this admission and that it has not worsened since he's been here; if accurate reporting, makes new medication Effexor less likely cause 05/31/22 says feeling good and a little more linear in thought process. Intermittent passive SI but no plans/intent still has AH, but says he can ignore Will continue current regimen 06/01 lower slightly venlafaxine due to hyperhidrosis, see if voices get better with risperidone. 06/02 continue tx but pt appears more psychotic than he is reporting. Reason for contiued inpatient stay Substantial Risk for: inability to function Time Spent With Patient Time: Total time managing care of this patient today ____ minutes.
[2022-06-02] MEDS: QUEtiapine Fumarate 25 MG TABLET PO (15:22)
[2022-06-02 18:00] VITALS: BP 124/69; PULSE 82; RESP 16; TEMP 36; O2SAT 98
[2022-06-02] MEDS: traZODone HCL 100 MG TABLET PO (19:53)
[2022-06-02] MEDS: risperiDONE 3 MG TABLET PO (19:53)
[2022-06-03] MEDS: hydrOXYzine HCL 50 MG TABLET PO ×3 (09:15→21:45)
[2022-06-03] MEDS: Venlafaxine HCl ER 37.5 MG CAP.ER.24H PO (09:15)
[2022-06-03] MEDS: Thiamine HCL 100 MG TABLET PO (09:15)
[2022-06-03] MEDS: Baclofen 10 MG TABLET PO ×2 (09:15→21:44)
[2022-06-03] MEDS: Nicotine 14 MG PATCH.TD24 TRANSDERMA (09:16)
[2022-06-03] MEDS: risperiDONE 0.5 MG TABLET PO (09:19)
[2022-06-03] MEDS: Lidocaine 4 % Patch ADH..PATCH 1 PATCH TRANSDERMA (09:19)
[2022-06-03] MEDS: Nicotine Polacrilex 2 MG GUM BUCCAL (09:20)
[2022-06-03 09:22] VITALS: BP 134/77; PULSE 96; RESP 18; TEMP 36.1; O2SAT 98
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
[2022-06-03 18:00] VITALS: BP 126/66; PULSE 82; TEMP 36.9; O2SAT 95
[2022-06-03] MEDS: traZODone HCL 100 MG TABLET PO (21:44)
[2022-06-03] MEDS: risperiDONE 3 MG TABLET PO (21:45)
[2022-06-04 07:00] VITALS: BMI 24.7
[2022-06-04] MEDS: Thiamine HCL 100 MG TABLET PO (09:48)
[2022-06-04] MEDS: risperiDONE 3 MG TABLET PO ×2 (09:48→19:55)
[2022-06-04] MEDS: Baclofen 10 MG TABLET PO ×2 (09:48→19:54)
[2022-06-04] MEDS: hydrOXYzine HCL 50 MG TABLET PO ×3 (09:48→19:56)
[2022-06-04] MEDS: Nicotine 14 MG PATCH.TD24 TRANSDERMA (09:50)
[2022-06-04 09:52] VITALS: BP 148/79; PULSE 88; RESP 18; TEMP 36.4; O2SAT 97
--- NOTE | 2022-06-04 12:01 | HO.PSYCHPN ---
Subjective Subjective Date of Service: 06/04/22 Reason For Visit: Schizophrenia Subjective Notes: Conditional Voluntary Interim History: Pt reports sleeping better. He continues to hear voices throughout the day, he started higher dose of risperidone today. He continues to report motivation to continue tx. He denies SI/HI. He appears much more future oriented. He has been visible. Continues with excessive sweating despite d/c of venlafaxine. He reports this is not new even without medications- will order some test to r/o other medical conditions- crp, cbc, HIV Review of Systems Review of Systems Constitutional : No Weight loss, No Fever, No Chills, No Fatigue, No Malaise ENT/Mouth : No sore throat, No Rhinorrhea Eyes: No Eye Pain, No Swelling, No Redness Cardiovascular : No Chest Pain, No SOB, No Dyspnea on Exertion, No Orthopnea, No Edema, No Palpitations Respiratory : No Cough, No Sputum, No Wheezing Gastrointestinal : No Nausea, No Vomiting, No Diarrhea, No Constipation, No abdominal Pain, No Hematochezia, No Melena Genitourinary : No Dysuria, No Urinary Frequency, No Hematuria, Musculoskeletal : No joint pain, No Myalgias, No Joint Swelling Skin : No Skin Lesions, No rash Neuro : No Weakness, No Numbness, No Dizziness, No Headache Psych : + Anxiety/Panic, + , + Depression, + SI, No HI All other systems reviewed and are negative Yes all other systems are reviewed and are negative and Unobtainable due to mental status Constitutional: Reports no additional constitutional complaints Eyes: Reports no additional eye complaints Reports Normal hearing present (asks for a hearing assessment to be scheduled) Cardiovascular: Reports no additional cardiovascular complaints Respiratory: Reports no additional respiratory complaints Gastrointestinal: Reports no additional gastrointestinal complaints Genitourinary: Reports no additional male genitourinary complaints Musculoskeletal: Reports no additional musculoskeletal complaints Skin/Breast: Reports system reviewed and no additional complaints, except as docu Reports Normal hearing present (asks for a hearing assessment to be scheduled) and Reports behavioral changes Psychiatric: Reports anxiety, Reports behavioral changes, Reports difficulty concentrating, Reports irritability, Reports anhedonia, Reports mood swings, Reports paranoia and Reports suicidal ideation (denies) Endocrine: Reports no additional endocrine complaints Hematologic/Lymphatic: Reports no additional hematologic/lymphatic complaints Allergic/Immunologic: Reports no additional allergic/immunologic complaints Mental Status Exam Mental Status Exam Narrative: Pt is alert and oriented; behavior is cooperative,polite; hyperhidrosis evident; dressed in casual attire, adeuqately groomed; mood is described as good and affect a little less anxious; improved eye contact, but still avoidant; Speech is normal rate, volume and prosody and not pressured; no psychomotor agitation/retardation present; thought more goal oriented and not tangential; thought content is on tx, aftercare; coping with AH; no delusional content expressed; intermittent SI but passive and no plans/intent; no HI. AH present but pt says he can ignore. Patients insight and judgment are impaired but improving Diagnostics Vital Signs (24Hr): Vital Signs - 24 hr 06/03/22 18:00 06/04/22 09:52 Temperature 98.5 F 97.6 F Pulse Rate 82 88 Respiratory Rate 18 Blood Pressure 126/66 148/79 H Pulse Oximetry 95 97 Oxygen Delivery Method Room Air Room Air BMI result Body Mass Index 24.7 Labs 05/27/22 08:21 05/27/22 08:21 Imaging Radiology Impressions: ITS Impressions Chest X-Ray 05/26/22 09:40 IMPRESSION: Unremarkable examination. Medications Medications Current Medications Acetaminophen (Acetaminophen 325 Mg Tablet) 650 mg PO Q6H PRN PRN Reason: Headache/Pain Mild Scale (1-3) Last Admin: 05/26/22 10:10 Dose: 650 mg Al Hydroxide/Mg Hydroxide (Magnesium Hydrox/Alum Hydrox 30 Ml Oral.Susp) 30 ml PO Q6H PRN PRN Reason: Heartburn/Nausea Baclofen (Baclofen 10 Mg Tablet) 10 mg PO BID [facility] Last Admin: 06/04/22 09:48 Dose: 10 mg Cyanocobalamin (Cyanocobalamin (Vitamin B-12) 100 Mcg Tablet) 100 mcg PO DAILY [facility] Guaifenesin (Guaifenesin La 600 Mg Tab.Er.12h) 600 mg PO BID PRN PRN Reason: congestion Last Admin: 05/29/22 19:58 Dose: 600 mg Hydroxyzine HCl (Hydroxyzine Hcl 50 Mg Tablet) 50 mg PO TID [facility] Last Admin: 06/04/22 14:05 Dose: 50 mg Lidocaine (Lidocaine 4 % Patch Adh..Patch) 1 patch TRANSDERMA DAILY [facility]; Protocol Last Admin: 06/04/22 10:43 Dose: Not Given Magnesium Hydroxide (Milk Of Magnesia 30 Ml Oral.Susp) 30 ml PO DAILY PRN PRN Reason: Constipation Nicotine (Nicotine 14 Mg Patch.Td24) 14 mg TRANSDERMA DAILY [facility] Last Admin: 06/04/22 09:50 Dose: 14 mg Nicotine Polacrilex (Nicotine Polacrilex 2 Mg Gum) 2 mg BUCCAL Q2H PRN PRN Reason: Nicotine Cravings Last Admin: 06/03/22 09:20 Dose: 2 mg Quetiapine Fumarate (Quetiapine Fumarate 25 Mg Tablet) 25 mg PO Q4H PRN PRN Reason: Anxiety Last Admin: 06/02/22 15:22 Dose: 25 mg Risperidone (Risperidone 3 Mg Tablet) 3 mg PO BID [facility] Last Admin: 06/04/22 09:48 Dose: 3 mg Thiamine HCl (Thiamine Hcl 100 Mg Tablet) 100 mg PO DAILY [facility] Last Admin: 06/04/22 09:48 Dose: 100 mg Trazodone HCl (Trazodone Hcl 100 Mg Tablet) 100 mg PO BEDTIME [facility] Last Admin: 06/03/22 21:44 Dose: 100 mg Allergies Allergies Allergy/AdvReac Type Severity Reaction Status Date / Time aspirin Allergy Unknown Unknown Verified 04/02/22 19:55 seafood Allergy Unknown Unknown Verified 04/02/22 19:55 Assessment & Plan Assessment & Plan (1) Schizophrenia: Status: Acute Code(s): F20.9 - Schizophrenia, unspecified (2) Moderate cocaine use disorder: Status: Acute Code(s): F14.20 - Cocaine dependence, uncomplicated Plan 37 yo male, history of schizophrenia, polysubstance use presents with request to re-stabilize on medications and return to addictions CSS treatment. Continue current regime. Monitor mood/behaviors Referrals for CSS placement. 05/15: Continue current regimen and encouraged to take medications. Nursing requested the p.r.n. in case he agrees to take something during the day and Seroquel 25 mg q.4 hours p.r.n. was ordered. 05/17: Continue current plans and regimen 05/18: Continue plans and regimen 05/19/22: Increase Venlafaxine to 112.5 mg daily Increase Seroquel to 150 mg a.m. and 250 mg h.s., a total increase of 100 mg per day. Pt may need a mood stabilizer-he declines at this time. 05/20/22: Decrease Venlafaxine to 75 mg daily Discontinue Seroquel Risperdal 2 mg hs. 05/21/22 Continue current regime and plan. 05/22/22 Monitor sx of [place] Monitor for increase sx as pt will be on isolation 05/23/22 Continue to monitor for sx of COVID No changes to current regime today 05/24/22: Team note an increase in OCD sx presentation. Pt at this time asks for no medication changes. Will continue to educate. 05/25/22: Risperdal 0.5 mg a.m. Chest xray 05/26/22: Chest xray negative. Continue current plan. 05/27/22: Quarantine will end 05/28/22. Decrease of physical sx Pt not wanting to change Effexor to Luvox to address OCD sx at this time Continue to assess and encourage focus on target sx. 05/28/22 continue current medications. 05/29 continue current medications. Noted hyperhydrosis with most likely s/s effexor- will try clonidine but may consider switching antidepressant to remeron. added baclofen for back pain and some degree of reduction of cocaine cravings. 05/30/22 HPI/Impression says dx: Schizophrenia (however this is not listed in problem category, just MDD w/ psychosis) -will increase Risperdone due to continued AH and disorganzied thinking INCREASE Risperidone to 3mg qhs Continue Risperidone 0.5mg daily Says Hyperhidrosis present for months prior to this admission and that it has not worsened since he's been here; if accurate reporting, makes new medication Effexor less likely cause 05/31/22 says feeling good and a little more linear in thought process. Intermittent passive SI but no plans/intent still has AH, but says he can ignore Will continue current regimen 06/01 lower slightly venlafaxine due to hyperhidrosis, see if voices get better with risperidone. 06/02 continue tx but pt appears more psychotic than he is reporting. 06/03 increase risperidone to 3mg po BID, d/c venlafaxine. 06/04 continue current medications. Patient educated on: diagnosis Reason for contiued inpatient stay Substantial Risk for: inability to function Time Spent With Patient Time: Total time managing care of this patient today ____ minutes.
[2022-06-04 16:08] LABS: MANUAL DIFF FLAG NO
[2022-06-04 16:10] LABS: Basophils Percent Auto 0.4 % (0-2); Eosinophils Absolute Auto 0.1 X10*3/uL (0.0-0.4); Eosinophils Percent Auto 1.1 % (0-4); Hematocrit 39.3 % (42.0-52.0); Hemoglobin 13.9 g/dl (14.0-18.0); Imm Gran Abs Auto 0.02 X10*3/uL (0.00-0.03); Imm Gran Pct Auto 0.2 % (0.0-0.4); Mean Corpuscular HGB Conc 35.4 g/dl (31.0-36.0); Mean Corpuscular Volume 79.1 fL (80.0-98.0); Mean Platelet Volume 9.2 fL (9.4-12.4); Monocytes Absolute Auto 0.5 X10*3/uL (0.1-1.2); Neutrophils Absolute Auto 4.7 x10*3/uL (2.0-8.3); Neutrophils Percent Auto 56.3 % (45-73); Platelet Count 245 X10*3/uL (160-400); Red Blood Count 4.97 X10*6/uL (4.60-5.80); Red Cell Distribution Width 13.2 % (11.0-16.0); White Blood Count 8.3 X10*3/uL (4.8-10.8)
[2022-06-04 16:27] LABS: Alanine Aminotransferase 16 U/L (0-40); Albumin Level 4.6 g/dL (3.5-5.0); Alkaline Phosphatase 71 U/L (39-117); Anion Gap 12 (12-20); Aspartate Amino Transferase 20 U/L (5-37); Bilirubin Total 0.4 mg/dL (0.0-1.0); Blood Urea Nitrogen 12 mg/dL (9-16); Calcium 9.5 mg/dL (8.4-10.2); Carbon Dioxide 28 mmol/L (22-29); Chloride 101 mmol/L (96-108); Creatinine Clr Calc Pharmacy 110.7; Estimated Glomerular Filt Rate > 60; Glucose Random 82 mg/dL (60-115); Potassium 4.3 mmol/L (3.3-5.1); Sodium 137 mmol/L (135-145); Total Protein 6.9 g/dL (6.5-8.0)
[2022-06-04 16:32] LABS: Iron 81 mcg/dL (45-160); Percent Iron Saturation 30 % (15-50); Total Iron Binding Capacity 274 mcg/dL (228-428); Unsaturated Iron Binding 193 ug/dL
[2022-06-04 16:48] LABS: TSH reflex Free T4 1.51 uIU/mL (0.32-4.0)
[2022-06-04 17:49] VITALS: BP 121/62; PULSE 88; RESP 18; TEMP 36.9; O2SAT 99
[2022-06-04] MEDS: traZODone HCL 100 MG TABLET PO (19:54)
[2022-06-05 08:47] LABS: HIV AB/AG Nonreactive (Nonreactive); HIV Num 1 0.07 S/CO (0.00-0.99)
[2022-06-05] MEDS: hydrOXYzine HCL 50 MG TABLET PO ×3 (09:20→21:33)
[2022-06-05] MEDS: Thiamine HCL 100 MG TABLET PO (09:20)
[2022-06-05] MEDS: Cyanocobalamin (Vitamin B-12) 100 MCG TABLET PO (09:20)
[2022-06-05] MEDS: risperiDONE 3 MG TABLET PO ×2 (09:20→21:33)
[2022-06-05] MEDS: Baclofen 10 MG TABLET PO ×2 (09:20→21:33)
[2022-06-05] MEDS: Nicotine 14 MG PATCH.TD24 TRANSDERMA (09:21)
[2022-06-05 09:25] VITALS: BP 134/75; PULSE 86; RESP 18; TEMP 36.7; O2SAT 98
--- NOTE | 2022-06-05 10:07 | P.PNPSI_ITS ---
Subjective Subjective Date of Service: 06/05/22 Reason For Visit: Schizophrenia Subjective Notes: Conditional Voluntary Interim History: Pt reports sleeping better. He continues to report hearing voices throughout the day. He continues to report motivation to continue tx. He denies SI/HI. He appears much more future oriented. He has been visible. Continues with excessive sweating despite d/c of venlafaxine. Obsessive washing hands and face, which pt reports has been doing since he was 19 y/o. Medication Compliance: Yes Side effects from medications: No Review of Systems Review of Systems Constitutional : No Weight loss, No Fever, No Chills, No Fatigue, No Malaise ENT/Mouth : No sore throat, No Rhinorrhea Eyes: No Eye Pain, No Swelling, No Redness Cardiovascular : No Chest Pain, No SOB, No Dyspnea on Exertion, No Orthopnea, No Edema, No Palpitations Respiratory : No Cough, No Sputum, No Wheezing Gastrointestinal : No Nausea, No Vomiting, No Diarrhea, No Constipation, No abdominal Pain, No Hematochezia, No Melena Genitourinary : No Dysuria, No Urinary Frequency, No Hematuria, Musculoskeletal : No joint pain, No Myalgias, No Joint Swelling Skin : No Skin Lesions, No rash Neuro : No Weakness, No Numbness, No Dizziness, No Headache Psych : + Anxiety/Panic, + , + Depression, + SI, No HI All other systems reviewed and are negative Yes all other systems are reviewed and are negative and Unobtainable due to mental status Constitutional: Reports no additional constitutional complaints Eyes: Reports no additional eye complaints Reports Normal hearing present (asks for a hearing assessment to be scheduled) Cardiovascular: Reports no additional cardiovascular complaints Respiratory: Reports no additional respiratory complaints Gastrointestinal: Reports no additional gastrointestinal complaints Genitourinary: Reports no additional male genitourinary complaints Musculoskeletal: Reports no additional musculoskeletal complaints Skin/Breast: Reports system reviewed and no additional complaints, except as docu Reports Normal hearing present (asks for a hearing assessment to be scheduled) and Reports behavioral changes Psychiatric: Reports anxiety, Reports behavioral changes, Reports difficulty concentrating, Reports irritability, Reports anhedonia, Reports mood swings, Reports paranoia and Reports suicidal ideation (denies) Endocrine: Reports no additional endocrine complaints Hematologic/Lymphatic: Reports no additional hematologic/lymphatic complaints Allergic/Immunologic: Reports no additional allergic/immunologic complaints Mental Status Exam Mental Status Exam Narrative: Pt is alert and oriented; behavior is cooperative,polite; hyperhidrosis evident; dressed in casual attire, adequately groomed; mood is described as good and affect a little less anxious; improved eye contact, but still avoidant; Speech is normal rate, volume and prosody and not pressured; no psychomotor agitation/retardation present; thought more goal oriented and not tangential; thought content is on tx, aftercare; coping with AH; sikh delusions of devil trying to destroy him; intermittent SI but passive and no plans/intent; no HI. AH present but pt says he can ignore. Patients insight and judgment are impaired but improving Diagnostics Vital Signs (24Hr): Vital Signs - 24 hr 06/04/22 17:49 06/05/22 09:25 Temperature 98.4 F 98.0 F Pulse Rate 88 86 Respiratory Rate 18 18 Blood Pressure 121/62 134/75 Pulse Oximetry 99 98 Oxygen Delivery Method Room Air Room Air BMI result Body Mass Index 24.7 Labs 06/04/22 15:54 06/04/22 15:54 Labs: Laboratory Results - last 48 hr 06/04/22 06/04/22 06/04/22 15:54 15:54 15:54 WBC 8.3 RBC 4.97 Hgb 13.9 L Hct 39.3 L MCV 79.1 L MCH 28.0 MCHC 35.4 RDW 13.2 Plt Count 245 MPV 9.2 L Immature Gran % (Auto) 0.2 Neut % (Auto) 56.3 Lymph % (Auto) 36.0 Stokes % (Auto) 6.0 Eos % (Auto) 1.1 Baso % (Auto) 0.4 Lymph # (Auto) 3.0 Stokes # (Auto) 0.5 Eos # (Auto) 0.1 Baso # (Auto) 0.0 Abs Immat Gran (auto) 0.02 Absolute Neuts (auto) 4.7 Absolute Nucleated RBC 0.000 Nucleated RBC % (auto) 0.0 Sodium 137 Potassium 4.3 Chloride 101 Carbon Dioxide 28 Anion Gap 12 BUN 12 Creatinine 0.84 Estim Creat Clear Calc 110.7 Estimated GFR > 60 Random Glucose 82 Calcium 9.5 D Iron 81 TIBC 274 % Saturation 30 Unsat Iron Binding 193 Total Bilirubin 0.4 AST 20 ALT 16 Alkaline Phosphatase 71 Total Protein 6.9 Albumin 4.6 TSH 1.51 HIV 1&2 Ab/P24 Ag 4thGn 06/04/22 15:54 WBC RBC Hgb Hct MCV MCH MCHC RDW Plt Count MPV Immature Gran % (Auto) Neut % (Auto) Lymph % (Auto) Stokes % (Auto) Eos % (Auto) Baso % (Auto) Lymph # (Auto) Stokes # (Auto) Eos # (Auto) Baso # (Auto) Abs Immat Gran (auto) Absolute Neuts (auto) Absolute Nucleated RBC Nucleated RBC % (auto) Sodium Potassium Chloride Carbon Dioxide Anion Gap BUN Creatinine Estim Creat Clear Calc Estimated GFR Random Glucose Calcium Iron TIBC % Saturation Unsat Iron Binding Total Bilirubin AST ALT Alkaline Phosphatase Total Protein Albumin TSH HIV 1&2 Ab/P24 Ag 4thGn Nonreactive Imaging Radiology Impressions: ITS Impressions Chest X-Ray 05/26/22 09:40 IMPRESSION: Unremarkable examination. Medications Medications Current Medications Acetaminophen (Acetaminophen 325 Mg Tablet) 650 mg PO Q6H PRN PRN Reason: Headache/Pain Mild Scale (1-3) Last Admin: 05/26/22 10:10 Dose: 650 mg Al Hydroxide/Mg Hydroxide (Magnesium Hydrox/Alum Hydrox 30 Ml Oral.Susp) 30 ml PO Q6H PRN PRN Reason: Heartburn/Nausea Baclofen (Baclofen 10 Mg Tablet) 10 mg PO BID [facility] Last Admin: 06/05/22 09:20 Dose: 10 mg Cyanocobalamin (Cyanocobalamin (Vitamin B-12) 100 Mcg Tablet) 100 mcg PO DAILY [facility] Last Admin: 06/05/22 09:20 Dose: 100 mcg Guaifenesin (Guaifenesin La 600 Mg Tab.Er.12h) 600 mg PO BID PRN PRN Reason: congestion Last Admin: 05/29/22 19:58 Dose: 600 mg Hydroxyzine HCl (Hydroxyzine Hcl 50 Mg Tablet) 50 mg PO TID [facility] Last Admin: 06/05/22 09:20 Dose: 50 mg Lidocaine (Lidocaine 4 % Patch Adh..Patch) 1 patch TRANSDERMA DAILY [facility]; Protocol Last Admin: 06/04/22 10:43 Dose: Not Given Magnesium Hydroxide (Milk Of Magnesia 30 Ml Oral.Susp) 30 ml PO DAILY PRN PRN Reason: Constipation Nicotine (Nicotine 14 Mg Patch.Td24) 14 mg TRANSDERMA DAILY [facility] Last Admin: 06/05/22 09:21 Dose: 14 mg Nicotine Polacrilex (Nicotine Polacrilex 2 Mg Gum) 2 mg BUCCAL Q2H PRN PRN Reason: Nicotine Cravings Last Admin: 06/03/22 09:20 Dose: 2 mg Quetiapine Fumarate (Quetiapine Fumarate 25 Mg Tablet) 25 mg PO Q4H PRN PRN Reason: Anxiety Last Admin: 06/02/22 15:22 Dose: 25 mg Risperidone (Risperidone 3 Mg Tablet) 3 mg PO BID [facility] Last Admin: 06/05/22 09:20 Dose: 3 mg Thiamine HCl (Thiamine Hcl 100 Mg Tablet) 100 mg PO DAILY [facility] Last Admin: 06/05/22 09:20 Dose: 100 mg Trazodone HCl (Trazodone Hcl 100 Mg Tablet) 100 mg PO BEDTIME [facility] Last Admin: 06/04/22 19:54 Dose: 100 mg Allergies Allergies Allergy/AdvReac Type Severity Reaction Status Date / Time aspirin Allergy Unknown Unknown Verified 04/02/22 19:55 seafood Allergy Unknown Unknown Verified 04/02/22 19:55 Assessment & Plan Assessment & Plan (1) Schizophrenia: Status: Acute Code(s): F20.9 - Schizophrenia, unspecified (2) Moderate cocaine use disorder: Status: Acute Code(s): F14.20 - Cocaine dependence, uncomplicated Plan 37 yo male, history of schizophrenia, polysubstance use presents with request to re-stabilize on medications and return to addictions CSS treatment. Continue current regime. Monitor mood/behaviors Referrals for CSS placement. 05/15: Continue current regimen and encouraged to take medications. Nursing requested the p.r.n. in case he agrees to take something during the day and Seroquel 25 mg q.4 hours p.r.n. was ordered. 05/17: Continue current plans and regimen 05/18: Continue plans and regimen 05/19/22: Increase Venlafaxine to 112.5 mg daily Increase Seroquel to 150 mg a.m. and 250 mg h.s., a total increase of 100 mg per day. Pt may need a mood stabilizer-he declines at this time. 05/20/22: Decrease Venlafaxine to 75 mg daily Discontinue Seroquel Risperdal 2 mg hs. 05/21/22 Continue current regime and plan. 05/22/22 Monitor sx of [place] Monitor for increase sx as pt will be on isolation 05/23/22 Continue to monitor for sx of COVID No changes to current regime today 05/24/22: Team note an increase in OCD sx presentation. Pt at this time asks for no medication changes. Will continue to educate. 05/25/22: Risperdal 0.5 mg a.m. Chest xray 05/26/22: Chest xray negative. Continue current plan. 05/27/22: Quarantine will end 05/28/22. Decrease of physical sx Pt not wanting to change Effexor to Luvox to address OCD sx at this time Continue to assess and encourage focus on target sx. 05/28/22 continue current medications. 05/29 continue current medications. Noted hyperhydrosis with most likely s/s effexor- will try clonidine but may consider switching antidepressant to remeron. added baclofen for back pain and some degree of reduction of cocaine cr avings. 05/30/22 HPI/Impression says dx: Schizophrenia (however this is not listed in problem category, just MDD w/ psychosis) -will increase Risperdone due to continued AH and disorganzied thinking INCREASE Risperidone to 3mg qhs Continue Risperidone 0.5mg daily Says Hyperhidrosis present for months prior to this admission and that it has not worsened since he's been here; if accurate reporting, makes new medication Effexor less likely cause 05/31/22 says feeling good and a little more linear in thought process. Intermittent passive SI but no plans/intent still has AH, but says he can ignore Will continue current regimen 06/01 lower slightly venlafaxine due to hyperhidrosis, see if voices get better with risperidone. 06/02 continue tx but pt appears more psychotic than he is reporting. 06/03 increase risperidone to 3mg po BID, d/c venlafaxine. 06/04 continue current medications. 06/05 continue tx. pending Saw referral that would like to see him with less psychosis or delusions. Patient educated on: diagnosis Informed Consent: understands Reason for contiued inpatient stay Substantial Risk for: inability to function Time Spent With Patient Time: Total time managing care of this patient today _30___ minutes.
[2022-06-05] MEDS: Lidocaine 4 % Patch ADH..PATCH 1 PATCH TRANSDERMA (13:34)
[2022-06-05] MEDS: Nicotine Polacrilex 2 MG GUM BUCCAL (13:36)
[2022-06-05 19:24] VITALS: BP 126/60; PULSE 101; RESP 18; TEMP 36.5; O2SAT 98
[2022-06-05] MEDS: traZODone HCL 100 MG TABLET PO (21:33)
[2022-06-06] MEDS: hydrOXYzine HCL 50 MG TABLET PO ×3 (08:48→20:14)
[2022-06-06] MEDS: Thiamine HCL 100 MG TABLET PO (08:48)
[2022-06-06] MEDS: risperiDONE 3 MG TABLET PO ×2 (08:48→20:13)
[2022-06-06] MEDS: Baclofen 10 MG TABLET PO ×2 (08:48→20:14)
[2022-06-06] MEDS: Cyanocobalamin (Vitamin B-12) 100 MCG TABLET PO (08:48)
[2022-06-06 09:28] VITALS: BP 132/74; PULSE 107; RESP 18; TEMP 36.4; O2SAT 98
--- NOTE | 2022-06-06 10:45 | HO.PSYCHPN ---
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 Regular... In progress. He says there is improvement but very little. Does have auditory hallucinations but he says much less which he attributes to Risperdal.. Patient talks about history of pot and crack cocaine and how did a lot of damage mentally. Mental Status Exam Mental Status Exam Narrative: Pt is alert and oriented; behavior is cooperative,polite; dressed in casual attire, adequately groomed; mood is described as good...regular and affect a little less anxious; improved eye contact, but still avoidant; Speech is normal rate, volume and prosody and not pressured; no psychomotor agitation/retardation present; thought process more goal oriented and not tangential but rambles some; thought content is on tx, aftercare; coping with AH; adventism delusions of devil; intermittent SI but passive and no plans/intent; no HI. AH present but pt says he can ignore. Patients insight and judgment are impaired but improving Diagnostics Vital Signs (24Hr): Vital Signs - 24 hr 06/05/22 19:24 06/06/22 09:28 Temperature 97.7 F 97.6 F Pulse Rate 101 H 107 H Respiratory Rate 18 18 Blood Pressure 126/60 132/74 Pulse Oximetry 98 98 Oxygen Delivery Method Room Air Room Air BMI result Body Mass Index 24.7 Labs 06/04/22 15:54 06/04/22 15:54 Labs: Laboratory Results - last 48 hr 06/04/22 06/04/22 06/04/22 15:54 15:54 15:54 WBC 8.3 RBC 4.97 Hgb 13.9 L Hct 39.3 L MCV 79.1 L MCH 28.0 MCHC 35.4 RDW 13.2 Plt Count 245 MPV 9.2 L Immature Gran % (Auto) 0.2 Neut % (Auto) 56.3 Lymph % (Auto) 36.0 [place] % (Auto) 6.0 Eos % (Auto) 1.1 Baso % (Auto) 0.4 Lymph # (Auto) 3.0 [place] # (Auto) 0.5 Eos # (Auto) 0.1 Baso # (Auto) 0.0 Abs Immat Gran (auto) 0.02 Absolute Neuts (auto) 4.7 Absolute Nucleated RBC 0.000 Nucleated RBC % (auto) 0.0 Sodium 137 Potassium 4.3 Chloride 101 Carbon Dioxide 28 Anion Gap 12 BUN 12 Creatinine 0.84 Estim Creat Clear Calc 110.7 Estimated GFR > 60 Random Glucose 82 Calcium 9.5 D Iron 81 TIBC 274 % Saturation 30 Unsat Iron Binding 193 Total Bilirubin 0.4 AST 20 ALT 16 Alkaline Phosphatase 71 Total Protein 6.9 Albumin 4.6 TSH 1.51 HIV 1&2 Ab/P24 Ag 4thGn 06/04/22 15:54 WBC RBC Hgb Hct MCV MCH MCHC RDW Plt Count MPV Immature Gran % (Auto) Neut % (Auto) Lymph % (Auto) [place] % (Auto) Eos % (Auto) Baso % (Auto) Lymph # (Auto) [place] # (Auto) Eos # (Auto) Baso # (Auto) Abs Immat Gran (auto) Absolute Neuts (auto) Absolute Nucleated RBC Nucleated RBC % (auto) Sodium Potassium Chloride Carbon Dioxide Anion Gap BUN Creatinine Estim Creat Clear Calc Estimated GFR Random Glucose Calcium Iron TIBC % Saturation Unsat Iron Binding Total Bilirubin AST ALT Alkaline Phosphatase Total Protein Albumin TSH HIV 1&2 Ab/P24 Ag 4thGn Nonreactive Imaging Radiology Impressions: ITS Impressions Chest X-Ray 05/26/22 09:40 IMPRESSION: Unremarkable examination. Medications Medications Current Medications Acetaminophen (Acetaminophen 325 Mg Tablet) 650 mg PO Q6H PRN PRN Reason: Headache/Pain Mild Scale (1-3) Last Admin: 05/26/22 10:10 Dose: 650 mg Al Hydroxide/Mg Hydroxide (Magnesium Hydrox/Alum Hydrox 30 Ml Oral.Susp) 30 ml PO Q6H PRN PRN Reason: Heartburn/Nausea Baclofen (Baclofen 10 Mg Tablet) 10 mg PO BID [facility] Last Admin: 06/06/22 08:48 Dose: 10 mg Cyanocobalamin (Cyanocobalamin (Vitamin B-12) 100 Mcg Tablet) 100 mcg PO DAILY [facility] Last Admin: 06/06/22 08:48 Dose: 100 mcg Guaifenesin (Guaifenesin La 600 Mg Tab.Er.12h) 600 mg PO BID PRN PRN Reason: congestion Last Admin: 05/29/22 19:58 Dose: 600 mg Hydroxyzine HCl (Hydroxyzine Hcl 50 Mg Tablet) 50 mg PO TID [facility] Last Admin: 06/06/22 08:48 Dose: 50 mg Lidocaine (Lidocaine 4 % Patch Adh..Patch) 1 patch TRANSDERMA DAILY [facility]; Protocol Last Admin: 06/05/22 13:34 Dose: 1 patch Magnesium Hydroxide (Milk Of Magnesia 30 Ml Oral.Susp) 30 ml PO DAILY PRN PRN Reason: Constipation Nicotine (Nicotine 14 Mg Patch.Td24) 14 mg TRANSDERMA DAILY [facility] Last Admin: 06/06/22 10:40 Dose: Not Given Nicotine Polacrilex (Nicotine Polacrilex 2 Mg Gum) 2 mg BUCCAL Q2H PRN PRN Reason: Nicotine Cravings Last Admin: 06/05/22 13:36 Dose: 2 mg Quetiapine Fumarate (Quetiapine Fumarate 25 Mg Tablet) 25 mg PO Q4H PRN PRN Reason: Anxiety Last Admin: 06/02/22 15:22 Dose: 25 mg Risperidone (Risperidone 3 Mg Tablet) 3 mg PO BID [facility] Last Admin: 06/06/22 08:48 Dose: 3 mg Thiamine HCl (Thiamine Hcl 100 Mg Tablet) 100 mg PO DAILY [facility] Last Admin: 06/06/22 08:48 Dose: 100 mg Trazodone HCl (Trazodone Hcl 100 Mg Tablet) 100 mg PO BEDTIME [facility] Last Admin: 06/05/22 21:33 Dose: 100 mg Allergies Allergies Allergy/AdvReac Type Severity Reaction Status Date / Time aspirin Allergy Unknown Unknown Verified 04/02/22 19:55 seafood Allergy Unknown Unknown Verified 04/02/22 19:55 Assessment & Plan Assessment & Plan (1) Schizophrenia: Status: Acute Code(s): F20.9 - Schizophrenia, unspecified (2) Moderate cocaine use disorder: Status: Acute Code(s): F14.20 - Cocaine dependence, uncomplicated Plan 37 yo male, history of schizophrenia, polysubstance use presents with request to re-stabilize on medications and return to addictions CSS treatment. Continue current regime. Monitor mood/behaviors Referrals for CSS placement. 05/15: Continue current regimen and encouraged to take medications. Nursing requested the p.r.n. in case he agrees to take something during the day and Seroquel 25 mg q.4 hours p.r.n. was ordered. 05/17: Continue current plans and regimen 05/18: Continue plans and regimen 05/19/22: Increase Venlafaxine to 112.5 mg daily Increase Seroquel to 150 mg a.m. and 250 mg h.s., a total increase of 100 mg per day. Pt may need a mood stabilizer-he declines at this time. 05/20/22: Decrease Venlafaxine to 75 mg daily Discontinue Seroquel Risperdal 2 mg hs. 05/21/22 Continue current regime and plan. 05/22/22 Monitor sx of COVID Monitor for increase sx as pt will be on isolation 05/23/22 Continue to monitor for sx of COVID No changes to current regime today 05/24/22: Team note an increase in OCD sx presentation. Pt at this time asks for no medication changes. Will continue to educate. 05/25/22: Risperdal 0.5 mg a.m. Chest xray 05/26/22: Chest xray negative. Continue current plan. 05/27/22: Quarantine will end 05/28/22. Decrease of physical sx Pt not wanting to change Effexor to Luvox to address OCD sx at this time Continue to assess and encourage focus on target sx. 05/28/22 continue current medications. 05/29 continue current medications. Noted hyperhydrosis with most likely s/s effexor- will try clonidine but may consider switching antidepressant to remeron. added baclofen for back pain and some degree of reduction of cocaine cravings. 05/30/22 HPI/Impression says dx: Schizophrenia (however this is not listed in problem category, just MDD w/ psychosis) -will increase Risperdone due to continued AH and disorganzied thinking INCREASE Risperidone to 3mg qhs Continue Risperidone 0.5mg daily Says Hyperhidrosis present for months prior to this admission and that it has not worsened since he's been here; if accurate reporting, makes new medication Effexor less likely cause 05/31/22 says feeling good and a little more linear in thought process. Intermittent passive SI but no plans/intent still has AH, but says he can ignore Will continue current regimen 06/01 lower slightly venlafaxine due to hyperhidrosis, see if voices get better with risperidone. 06/02 continue tx but pt appears more psychotic than he is reporting. 06/03 increase risperidone to 3mg po BID, d/c venlafaxine. 06/04 continue current medications. 06/05 continue tx. pending Saw referral that would like to see him with less psychosis or delusions. 06/06 continue current treatment plan -discussed with nursing; reviewed vitals and WNL; Patient educated on: diagnosis and medication risk/benefits Informed Consent: understands and further education needed Reason for contiued inpatient stay Substantial Risk for: med/psych decompensation Time Spent With Patient Time: Total time managing care of this patient today ____ minutes.
[2022-06-06] MEDS: Nicotine 14 MG PATCH.TD24 TRANSDERMA (13:23)
[2022-06-06] MEDS: Lidocaine 4 % Patch ADH..PATCH 1 PATCH TRANSDERMA (13:24)
[2022-06-06 14:53] LABS: CRP High Sensitivity 0.3 mg/L
[2022-06-06 18:00] VITALS: BP 128/71; PULSE 88; RESP 16; TEMP 36.8; O2SAT 100
[2022-06-06] MEDS: traZODone HCL 100 MG TABLET PO (20:14)
[2022-06-07 07:45] VITALS: BP 133/71; PULSE 96; RESP 16; TEMP 36.9; O2SAT 99
[2022-06-07] MEDS: Baclofen 10 MG TABLET PO ×2 (09:19→19:37)
[2022-06-07] MEDS: risperiDONE 3 MG TABLET PO ×2 (09:19→19:37)
[2022-06-07] MEDS: hydrOXYzine HCL 50 MG TABLET PO ×3 (09:19→19:37)
[2022-06-07] MEDS: Cyanocobalamin (Vitamin B-12) 100 MCG TABLET PO (09:19)
[2022-06-07] MEDS: Thiamine HCL 100 MG TABLET PO (09:20)
[2022-06-07] MEDS: Nicotine 14 MG PATCH.TD24 TRANSDERMA (12:22)
[2022-06-07] MEDS: Nicotine Polacrilex 2 MG GUM BUCCAL (12:22)
[2022-06-07] MEDS: Lidocaine 4 % Patch ADH..PATCH 1 PATCH TRANSDERMA (12:23)
--- NOTE | 2022-06-07 15:44 | P.PNPSI_ITS ---
Subjective Subjective Date of Service: 06/07/22 Reason For Visit: Schizophrenia Interim History: No change in presentation; polite on approach; asked about aftercare and agrees to discuss with primary team when they return on Wednesday. No complaints and no requests. Mental Status Exam Mental Status Exam Narrative: Pt is alert and oriented; behavior is cooperative,polite; dressed in casual attire, adequately groomed; mood is described as good...regular and affect a little less anxious; improved eye contact, but still avoidant; Speech is normal rate, volume and prosody and not pressured; no psychomotor agitation/retardation present; thought process more goal oriented and not tangential but rambles some; thought content is on tx, aftercare; coping with AH; presybeterian delusions of devil; intermittent SI but passive and no plans/intent; no HI. AH present but pt says he can ignore. Patients insight and judgment are impaired but improving Diagnostics Vital Signs (24Hr): Vital Signs - 24 hr 06/06/22 18:00 06/07/22 07:45 Temperature 98.2 F 98.4 F Pulse Rate 88 96 Respiratory Rate 16 16 Blood Pressure 128/71 133/71 Pulse Oximetry 100 99 Oxygen Delivery Method Room Air Room Air BMI result Body Mass Index 24.7 Labs 06/04/22 15:54 06/04/22 15:54 Labs: Laboratory Results - last 48 hr 06/04/22 15:54 C-React Prot High Sens 0.3 Imaging Radiology Impressions: ITS Impressions Chest X-Ray 05/26/22 09:40 IMPRESSION: Unremarkable examination. Medications Medications Current Medications Acetaminophen (Acetaminophen 325 Mg Tablet) 650 mg PO Q6H PRN PRN Reason: Headache/Pain Mild Scale (1-3) Last Admin: 05/26/22 10:10 Dose: 650 mg Al Hydroxide/Mg Hydroxide (Magnesium Hydrox/Alum Hydrox 30 Ml Oral.Susp) 30 ml PO Q6H PRN PRN Reason: Heartburn/Nausea Baclofen (Baclofen 10 Mg Tablet) 10 mg PO BID [facility] Last Admin: 06/07/22 09:19 Dose: 10 mg Cyanocobalamin (Cyanocobalamin (Vitamin B-12) 100 Mcg Tablet) 100 mcg PO DAILY [facility] Last Admin: 06/07/22 09:19 Dose: 100 mcg Guaifenesin (Guaifenesin La 600 Mg Tab.Er.12h) 600 mg PO BID PRN PRN Reason: congestion Last Admin: 05/29/22 19:58 Dose: 600 mg Hydroxyzine HCl (Hydroxyzine Hcl 50 Mg Tablet) 50 mg PO TID [facility] Last Admin: 06/07/22 14:56 Dose: 50 mg Lidocaine (Lidocaine 4 % Patch Adh..Patch) 1 patch TRANSDERMA DAILY [facility]; Protocol Last Admin: 06/07/22 12:23 Dose: 1 patch Magnesium Hydroxide (Milk Of Magnesia 30 Ml Oral.Susp) 30 ml PO DAILY PRN PRN Reason: Constipation Nicotine (Nicotine 14 Mg Patch.Td24) 14 mg TRANSDERMA DAILY [facility] Last Admin: 06/07/22 12:22 Dose: 14 mg Nicotine Polacrilex (Nicotine Polacrilex 2 Mg Gum) 2 mg BUCCAL Q2H PRN PRN Reason: Nicotine Cravings Last Admin: 06/07/22 12:22 Dose: 2 mg Quetiapine Fumarate (Quetiapine Fumarate 25 Mg Tablet) 25 mg PO Q4H PRN PRN Reason: Anxiety Last Admin: 06/02/22 15:22 Dose: 25 mg Risperidone (Risperidone 3 Mg Tablet) 3 mg PO BID [facility] Last Admin: 06/07/22 09:19 Dose: 3 mg Thiamine HCl (Thiamine Hcl 100 Mg Tablet) 100 mg PO DAILY [facility] Last Admin: 06/07/22 09:20 Dose: 100 mg Trazodone HCl (Trazodone Hcl 100 Mg Tablet) 100 mg PO BEDTIME [facility] Last Admin: 06/06/22 20:14 Dose: 100 mg Allergies Allergies Allergy/AdvReac Type Severity Reaction Status Date / Time aspirin Allergy Unknown Unknown Verified 04/02/22 19:55 seafood Allergy Unknown Unknown Verified 04/02/22 19:55 Assessment & Plan Assessment & Plan (1) Schizophrenia: Status: Acute Code(s): F20.9 - Schizophrenia, unspecified (2) Moderate cocaine use disorder: Status: Acute Code(s): F14.20 - Cocaine dependence, uncomplicated Plan 37 yo male, history of schizophrenia, polysubstance use presents with request to re-stabilize on medications and return to addictions CSS treatment. Continue current regime. Monitor mood/behaviors Referrals for CSS placement. 05/15: Continue current regimen and encouraged to take medications. Nursing requested the p.r.n. in case he agrees to take something during the day and Seroquel 25 mg q.4 hours p.r.n. was ordered. 05/17: Continue current plans and regimen 05/18: Continue plans and regimen 05/19/22: Increase Venlafaxine to 112.5 mg daily Increase Seroquel to 150 mg a.m. and 250 mg h.s., a total increase of 100 mg per day. Pt may need a mood stabilizer-he declines at this time. 05/20/22: Decrease Venlafaxine to 75 mg daily Discontinue Seroquel Risperdal 2 mg hs. 05/21/22 Continue current regime and plan. 05/22/22 Monitor sx of COVID Monitor for increase sx as pt will be on isolation 05/23/22 Continue to monitor for sx of COVID No changes to current regime today 05/24/22: Team note an increase in OCD sx presentation. Pt at this time asks for no medication changes. Will continue to educate. 05/25/22: Risperdal 0.5 mg a.m. Chest xray 05/26/22: Chest xray negative. Continue current plan. 05/27/22: Quarantine will end 05/28/22. Decrease of physical sx Pt not wanting to change Effexor to Luvox to address OCD sx at this time Continue to assess and encourage focus on target sx. 05/28/22 continue current medications. 05/29 continue current medications. Noted hyperhydrosis with most likely s/s effexor- will try clonidine but may consider switching antidepressant to remeron. added baclofen for back pain and some degree of reduction of cocaine cravings. 05/30/22 HPI/Impression says dx: Schizophrenia (however this is not listed in problem category, just MDD w/ psychosis) -will increase Risperdone due to continued AH and disorganzied thinking INCREASE Risperidone to 3mg qhs Continue Risperidone 0.5mg daily Says Hyperhidrosis present for months prior to this admission and that it has not worsened since he's been here; if accurate reporting, makes new medication Effexor less likely cause 05/31/22 says feeling good and a little more linear in thought process. Intermittent passive SI but no plans/intent still has AH, but says he can ignore Will continue current regimen 06/01 lower slightly venlafaxine due to hyperhidrosis, see if voices get better with risperidone. 06/02 continue tx but pt appears more psychotic than he is reporting. 06/03 increase risperidone to 3mg po BID, d/c venlafaxine. 06/04 continue current medications. 06/05 continue tx. pending Saw referral that would like to see him with less psychosis or delusions. 06/06 continue current treatment plan -discussed with nursing; reviewed vitals and WNL; 06/07 continue current treatment plan; Met with patient. Discussed with nursing; reviewed vitals and WNL Reason for contiued inpatient stay Substantial Risk for: med/psych decompensation Time Spent With Patient Time: Total time managing care of this patient today ____ minutes.
[2022-06-07 18:00] VITALS: BP 145/77; PULSE 105; RESP 16; TEMP 36.9; O2SAT 97
[2022-06-07] MEDS: traZODone HCL 100 MG TABLET PO (19:37)
[2022-06-08 06:00] VITALS: BP 124/66; PULSE 82; RESP 18
[2022-06-08] MEDS: Baclofen 10 MG TABLET PO ×2 (08:22→21:22)
[2022-06-08] MEDS: hydrOXYzine HCL 50 MG TABLET PO ×3 (08:22→21:20)
[2022-06-08] MEDS: Thiamine HCL 100 MG TABLET PO (08:22)
[2022-06-08] MEDS: risperiDONE 3 MG TABLET PO ×2 (08:22→21:23)
[2022-06-08] MEDS: Cyanocobalamin (Vitamin B-12) 100 MCG TABLET PO (08:22)
[2022-06-08] MEDS: Nicotine 14 MG PATCH.TD24 TRANSDERMA (08:23)
[2022-06-08] MEDS: Lidocaine 4 % Patch ADH..PATCH 1 PATCH TRANSDERMA (08:23)
[2022-06-08] MEDS: Nicotine Polacrilex 2 MG GUM BUCCAL (10:10)
[2022-06-08] MEDS: Benztropine Mesylate 1 MG TABLET PO ×2 (14:26→21:23)
--- NOTE | 2022-06-08 18:17 | HO.PSYCHPN ---
Subjective Subjective Date of Service: 06/08/22 Reason For Visit: Schizophrenia Subjective Notes: Conditional Voluntary Healthcare Proxy: No Guardianship: No Medical Problems Affecting Mental Status: No Interim History: Risperdal at 3 mg bid. Pt reports neck stiffness. Discussed benztropine and he is willing to trial. Overall reports feeling improved. Voices are still present, I live with them however states they have decreased. Asks for hearing eval which is ordered. Also reports poor memory. COVID sx are resolved except for mild headache which is decreasing. Medication Compliance: Yes Side effects from medications: Yes (neck stiffness) Attending Groups: Intermittent Review of Systems Acute medical concerns: No Medical Review of Systems: unchanged Mental Status Exam Mental Status Exam Patient Appearance: Appropriate Patient Orientation: Person, Place, Time and Situation Level of Consciousness: Alert Patient Behavior: Appropriate, Talkative, Cooperative, Anxious, Distractible and Good Eye Contact Mood Description: Suspicious, Withdrawn, Constricted, Anxious, Nervous and Apprehensive Affect Description: Blunted Patient Cognition Impaired: No Ability to Follow Directions: Good Speech Pattern: Perseverating, Spontaneous Speech and Soft-Spoken Memory Description: Remote Impaired and Episodic Impaired Hallucinations: Auditory Delusions: Paranoid Ideation and Present Thought Process: Rumination and Goal Oriented Thought Content: positive for Goal Oriented and positive for Suicidal Ideation (denies) Depressive Symptoms: Increased Anxiety and Thoughts of /Suicide (denies) Abnormal Motor Activity Signs and Symptoms: Restlessness Judgement: Fair Diagnostics Vital Signs (24Hr): Vital Signs - 24 hr 06/08/22 06:00 Pulse Rate 82 Respiratory Rate 18 Blood Pressure 124/66 BMI result Body Mass Index 24.7 Labs 06/04/22 15:54 06/04/22 15:54 Imaging Radiology Impressions: ITS Impressions Chest X-Ray 05/26/22 09:40 IMPRESSION: Unremarkable examination. Medications Medications Current Medications Acetaminophen (Acetaminophen 325 Mg Tablet) 650 mg PO Q6H PRN PRN Reason: Headache/Pain Mild Scale (1-3) Last Admin: 05/26/22 10:10 Dose: 650 mg Al Hydroxide/Mg Hydroxide (Magnesium Hydrox/Alum Hydrox 30 Ml Oral.Susp) 30 ml PO Q6H PRN PRN Reason: Heartburn/Nausea Baclofen (Baclofen 10 Mg Tablet) 10 mg PO BID [facility] Last Admin: 06/08/22 08:22 Dose: 10 mg Benztropine Mesylate (Benztropine Mesylate 1 Mg Tablet) 1 mg PO BID [facility] Cyanocobalamin (Cyanocobalamin (Vitamin B-12) 100 Mcg Tablet) 100 mcg PO DAILY [facility] Last Admin: 06/08/22 08:22 Dose: 100 mcg Guaifenesin (Guaifenesin La 600 Mg Tab.Er.12h) 600 mg PO BID PRN PRN Reason: congestion Last Admin: 05/29/22 19:58 Dose: 600 mg Hydroxyzine HCl (Hydroxyzine Hcl 50 Mg Tablet) 50 mg PO TID [facility] Last Admin: 06/08/22 14:26 Dose: 50 mg Lidocaine (Lidocaine 4 % Patch Adh..Patch) 1 patch TRANSDERMA DAILY [facility]; Protocol Last Admin: 06/08/22 08:23 Dose: 1 patch Magnesium Hydroxide (Milk Of Magnesia 30 Ml Oral.Susp) 30 ml PO DAILY PRN PRN Reason: Constipation Nicotine (Nicotine 14 Mg Patch.Td24) 14 mg TRANSDERMA DAILY [facility] Last Admin: 06/08/22 08:23 Dose: 14 mg Nicotine Polacrilex (Nicotine Polacrilex 2 Mg Gum) 2 mg BUCCAL Q2H PRN PRN Reason: Nicotine Cravings Last Admin: 06/08/22 10:10 Dose: 2 mg Quetiapine Fumarate (Quetiapine Fumarate 25 Mg Tablet) 25 mg PO Q4H PRN PRN Reason: Anxiety Last Admin: 06/02/22 15:22 Dose: 25 mg Risperidone (Risperidone 3 Mg Tablet) 3 mg PO BID [facility] Last Admin: 06/08/22 08:22 Dose: 3 mg Thiamine HCl (Thiamine Hcl 100 Mg Tablet) 100 mg PO DAILY [facility] Last Admin: 06/08/22 08:22 Dose: 100 mg Trazodone HCl (Trazodone Hcl 100 Mg Tablet) 100 mg PO BEDTIME [facility] Last Admin: 06/07/22 19:37 Dose: 100 mg Allergies Allergies Allergy/AdvReac Type Severity Reaction Status Date / Time aspirin Allergy Unknown Unknown Verified 04/02/22 19:55 seafood Allergy Unknown Unknown Verified 04/02/22 19:55 Assessment & Plan Assessment & Plan (1) Schizophrenia: Status: Acute Code(s): F20.9 - Schizophrenia, unspecified (2) Moderate cocaine use disorder: Status: Acute Code(s): F14.20 - Cocaine dependence, uncomplicated Plan 37 yo male, history of schizophrenia, polysubstance use presents with request to re-stabilize on medications and return to addictions CSS treatment. Continue current regime. Monitor mood/behaviors Referrals for CSS placement. 05/15: Continue current regimen and encouraged to take medications. Nursing requested the p.r.n. in case he agrees to take something during the day and Seroquel 25 mg q.4 hours p.r.n. was ordered. 05/17: Continue current plans and regimen 05/18: Continue plans and regimen 05/19/22: Increase Venlafaxine to 112.5 mg daily Increase Seroquel to 150 mg a.m. and 250 mg h.s., a total increase of 100 mg per day. Pt may need a mood stabilizer-he declines at this time. 05/20/22: Decrease Venlafaxine to 75 mg daily Discontinue Seroquel Risperdal 2 mg hs. 05/21/22 Continue current regime and plan. 05/22/22 Monitor sx of COVID Monitor for increase sx as pt will be on isolation 05/23/22 Continue to monitor for sx of COVID No changes to current regime today 05/24/22: Team note an increase in OCD sx presentation. Pt at this time asks for no medication changes. Will continue to educate. 05/25/22: Risperdal 0.5 mg a.m. Chest xray 05/26/22: Chest xray negative. Continue current plan. 05/27/22: Quarantine will end 05/28/22. Decrease of physical sx Pt not wanting to change Effexor to Luvox to address OCD sx at this time Continue to assess and encourage focus on target sx. 05/28/22 continue current medications. 05/29 continue current medications. Noted hyperhydrosis with most likely s/s effexor- will try clonidine but may consider switching antidepressant to remeron. added baclofen for back pain and some degree of reduction of cocaine cravings. 05/30/22 HPI/Impression says dx: Schizophrenia (however this is not listed in problem category, just MDD w/ psychosis) -will increase Risperdone due to continued AH and disorganzied thinking INCREASE Risperidone to 3mg qhs Continue Risperidone 0.5mg daily Says Hyperhidrosis present for months prior to this admission and that it has not worsened since he's been here; if accurate reporting, makes new medication Effexor less likely cause 05/31/22 says feeling good and a little more linear in thought process. Intermittent passive SI but no plans/intent still has AH, but says he can ignore Will continue current regimen 06/01 lower slightly venlafaxine due to hyperhidrosis, see if voices get better with risperidone. 06/02 continue tx but pt appears more psychotic than he is reporting. 06/03 increase risperidone to 3mg po BID, d/c venlafaxine. 06/04 continue current medications. 06/05 continue tx. pending Saw referral that would like to see him with less psychosis or delusions. 06/06 continue current treatment plan -discussed with nursing; reviewed vitals and WNL; 06/07 continue current treatment plan; Met with patient. Discussed with nursing; reviewed vitals and WNL 06/08/21- Benztropine 1 mg bid Patient educated on: medication risk/benefits and therapeutic strategies Informed Consent: further education needed Reason for contiued inpatient stay Substantial Risk for: rapid decompensation Time Spent With Patient Time: Total time managing care of this patient today _30___ minutes.
[2022-06-08 20:20] VITALS: BP 114/69; PULSE 105; TEMP 36.6; O2SAT 97
[2022-06-08] MEDS: traZODone HCL 100 MG TABLET PO (21:23)
[2022-06-09] MEDS: Baclofen 10 MG TABLET PO ×2 (08:17→21:13)
[2022-06-09] MEDS: Thiamine HCL 100 MG TABLET PO (08:17)
[2022-06-09] MEDS: hydrOXYzine HCL 50 MG TABLET PO ×3 (08:17→21:13)
[2022-06-09] MEDS: Cyanocobalamin (Vitamin B-12) 100 MCG TABLET PO (08:17)
[2022-06-09] MEDS: Benztropine Mesylate 1 MG TABLET PO ×2 (08:17→21:13)
[2022-06-09] MEDS: risperiDONE 3 MG TABLET PO ×2 (08:18→21:12)
[2022-06-09 09:35] VITALS: BP 112/66; PULSE 84; RESP 16; TEMP 36.4; O2SAT 98
--- NOTE | 2022-06-09 12:43 | P.PNPSI_ITS ---
Subjective Subjective Date of Service: 06/09/22 Reason For Visit: Schizophrenia Subjective Notes: Conditional Voluntary Healthcare Proxy: No Guardianship: No Medical Problems Affecting Mental Status: No Interim History: Pressured, persistent today-wanting a discharge date to [facility]. Asks for written information on schizophrenia-discussed some of the affective symptoms which may appear. Reports lonliness, discouragement about LOS, poor focus, voices, sx of anxiety, depression. States he is competing with the devil, the enemy, who comes to this world to destroy- It is hard to know who to trust. Reports being forgetful and having a poor memory (will do B12 on 06/11 for re- check as pt has been on thiamine for @ 3 weeks. Neck stiffness somewhat improved with Benztropine Medication Compliance: Yes Side effects from medications: Yes (neck stiffness) Attending Groups: Intermittent Review of Systems Acute medical concerns: No Medical Review of Systems: unchanged Mental Status Exam Mental Status Exam Patient Appearance: Appropriate Patient Orientation: Person, Place, Time and Situation Level of Consciousness: Alert Patient Behavior: Appropriate, Talkative, Cooperative, Anxious, Distractible and Good Eye Contact Mood Description: Suspicious, Withdrawn, Constricted, Anxious, Nervous and Apprehensive Affect Description: Blunted Patient Cognition Impaired: No Ability to Follow Directions: Good Speech Pattern: Perseverating, Spontaneous Speech and Soft-Spoken Memory Description: Remote Impaired and Episodic Impaired Hallucinations: Auditory Delusions: Paranoid Ideation and Present Thought Process: Rumination and Goal Oriented Thought Content: positive for Goal Oriented and positive for Suicidal Ideation (denies) Depressive Symptoms: Increased Anxiety and Thoughts of /Suicide (denies) Abnormal Motor Activity Signs and Symptoms: Restlessness Judgement: Fair Diagnostics Vital Signs (24Hr): Vital Signs - 24 hr 06/08/22 20:20 06/09/22 09:35 Temperature 97.9 F 97.5 F Pulse Rate 105 H 84 Respiratory Rate 16 Blood Pressure 114/69 112/66 Pulse Oximetry 97 98 Oxygen Delivery Method Room Air Room Air BMI result Body Mass Index 24.7 Labs 06/04/22 15:54 06/04/22 15:54 Imaging Radiology Impressions: ITS Impressions Chest X-Ray 05/26/22 09:40 IMPRESSION: Unremarkable examination. Medications Medications Current Medications Acetaminophen (Acetaminophen 325 Mg Tablet) 650 mg PO Q6H PRN PRN Reason: Headache/Pain Mild Scale (1-3) Last Admin: 05/26/22 10:10 Dose: 650 mg Al Hydroxide/Mg Hydroxide (Magnesium Hydrox/Alum Hydrox 30 Ml Oral.Susp) 30 ml PO Q6H PRN PRN Reason: Heartburn/Nausea Baclofen (Baclofen 10 Mg Tablet) 10 mg PO BID [facility] Last Admin: 06/09/22 08:17 Dose: 10 mg Benztropine Mesylate (Benztropine Mesylate 1 Mg Tablet) 1 mg PO BID [facility] Last Admin: 06/09/22 08:17 Dose: 1 mg Cyanocobalamin (Cyanocobalamin (Vitamin B-12) 100 Mcg Tablet) 100 mcg PO DAILY [facility] Last Admin: 06/09/22 08:17 Dose: 100 mcg Guaifenesin (Guaifenesin La 600 Mg Tab.Er.12h) 600 mg PO BID PRN PRN Reason: congestion Last Admin: 05/29/22 19:58 Dose: 600 mg Hydroxyzine HCl (Hydroxyzine Hcl 50 Mg Tablet) 50 mg PO TID [facility] Last Admin: 06/09/22 08:17 Dose: 50 mg Lidocaine (Lidocaine 4 % Patch Adh..Patch) 1 patch TRANSDERMA DAILY [facility]; Protocol Last Admin: 06/08/22 08:23 Dose: 1 patch Magnesium Hydroxide (Milk Of Magnesia 30 Ml Oral.Susp) 30 ml PO DAILY PRN PRN Reason: Constipation Nicotine (Nicotine 14 Mg Patch.Td24) 14 mg TRANSDERMA DAILY [facility] Last Admin: 06/08/22 08:23 Dose: 14 mg Nicotine Polacrilex (Nicotine Polacrilex 2 Mg Gum) 2 mg BUCCAL Q2H PRN PRN Reason: Nicotine Cravings Last Admin: 06/08/22 10:10 Dose: 2 mg Quetiapine Fumarate (Quetiapine Fumarate 25 Mg Tablet) 25 mg PO Q4H PRN PRN Reason: Anxiety Last Admin: 06/02/22 15:22 Dose: 25 mg Risperidone (Risperidone 3 Mg Tablet) 3 mg PO BID [facility] Last Admin: 06/09/22 08:18 Dose: 3 mg Thiamine HCl (Thiamine Hcl 100 Mg Tablet) 100 mg PO DAILY [facility] Last Admin: 06/09/22 08:17 Dose: 100 mg Trazodone HCl (Trazodone Hcl 100 Mg Tablet) 100 mg PO BEDTIME [facility] Last Admin: 01/16/23 21:23 Dose: 100 mg Allergies Allergies Allergy/AdvReac Type Severity Reaction Status Date / Time aspirin Allergy Unknown Unknown Verified 04/02/22 19:55 seafood Allergy Unknown Unknown Verified 04/02/22 19:55 Assessment & Plan Assessment & Plan (1) Schizophrenia: Status: Acute Code(s): F20.9 - Schizophrenia, unspecified (2) Moderate cocaine use disorder: Status: Acute Code(s): F14.20 - Cocaine dependence, uncomplicated Plan 37 yo male, history of schizophrenia, polysubstance use presents with request to re-stabilize on medications and return to addictions CSS treatment. Continue current regime. Monitor mood/behaviors Referrals for CSS placement. 05/15: Continue current regimen and encouraged to take medications. Nursing requested the p.r.n. in case he agrees to take something during the day and Seroquel 25 mg q.4 hours p.r.n. was ordered. 05/17: Continue current plans and regimen 05/18: Continue plans and regimen 05/19/22: Increase Venlafaxine to 112.5 mg daily Increase Seroquel to 150 mg a.m. and 250 mg h.s., a total increase of 100 mg per day. Pt may need a mood stabilizer-he declines at this time. 05/20/22: Decrease Venlafaxine to 75 mg daily Discontinue Seroquel Risperdal 2 mg hs. 05/21/22 Continue current regime and plan. 05/22/22 Monitor sx of COVID Monitor for increase sx as pt will be on isolation 05/23/22 Continue to monitor for sx of COVID No changes to current regime today 05/24/22: Team note an increase in OCD sx presentation. Pt at this time asks for no medication changes. Will continue to educate. 05/25/22: Risperdal 0.5 mg a.m. Chest xray 05/26/22: Chest xray negative. Continue current plan. 05/27/22: Quarantine will end 05/28/22. Decrease of physical sx Pt not wanting to change Effexor to Luvox to address OCD sx at this time Continue to assess and encourage focus on target sx. 05/28/22 continue current medications. 05/29 continue current medications. Noted hyperhydrosis with most likely s/s effexor- will try clonidine but may consider switching antidepressant to remeron. added baclofen for back pain and some degree of reduction of cocaine cravings. 05/30/22 HPI/Impression says dx: Schizophrenia (however this is not listed in problem category, just MDD w/ psychosis) -will increase Risperdone due to continued AH and disorganzied thinking INCREASE Risperidone to 3mg qhs Continue Risperidone 0.5mg daily Says Hyperhidrosis present for months prior to this admission and that it has not worsened since he's been here; if accurate reporting, makes new medication Effexor less likely cause 05/31/22 says feeling good and a little more linear in thought process. Intermittent passive SI but no plans/intent still has AH, but says he can ignore Will continue current regimen 06/01 lower slightly venlafaxine due to hyperhidrosis, see if voices get better with risperidone. 06/02 continue tx but pt appears more psychotic than he is reporting. 06/03 increase risperidone to 3mg po BID, d/c venlafaxine. 06/04 continue current medications. 06/05 continue tx. pending Saw referral that would like to see him with less psychosis or delusions. 06/06 continue current treatment plan -discussed with nursing; reviewed vitals and WNL; 06/07 continue current treatment plan; Met with patient. Discussed with nursing; reviewed vitals and WNL 06/09/22: Continue current plan of care Patient educated on: therapeutic strategies Informed Consent: further education needed Reason for contiued inpatient stay Substantial Risk for: rapid decompensation Time Spent With Patient Time: Total time managing care of this patient today ___30_ minutes.
[2022-06-09] MEDS: Nicotine 14 MG PATCH.TD24 TRANSDERMA (12:51)
[2022-06-09] MEDS: Lidocaine 4 % Patch ADH..PATCH 1 PATCH TRANSDERMA (12:52)
[2022-06-09 19:33] VITALS: BP 126/71; PULSE 86; RESP 18; TEMP 36.5; O2SAT 99
[2022-06-09] MEDS: traZODone HCL 100 MG TABLET PO (21:12)
[2022-06-10] MEDS: Baclofen 10 MG TABLET PO ×2 (09:29→22:13)
[2022-06-10] MEDS: risperiDONE 3 MG TABLET PO ×2 (09:29→22:11)
[2022-06-10] MEDS: Cyanocobalamin (Vitamin B-12) 100 MCG TABLET PO (09:29)
[2022-06-10] MEDS: Benztropine Mesylate 1 MG TABLET PO ×2 (09:29→22:11)
[2022-06-10] MEDS: hydrOXYzine HCL 50 MG TABLET PO ×3 (09:29→22:12)
[2022-06-10] MEDS: Thiamine HCL 100 MG TABLET PO (09:29)
[2022-06-10 09:34] VITALS: BP 120/56; PULSE 89; RESP 16; TEMP 36.7; O2SAT 97
[2022-06-10] MEDS: Nicotine 14 MG PATCH.TD24 TRANSDERMA (11:28)
[2022-06-10] MEDS: Lidocaine 4 % Patch ADH..PATCH 1 PATCH TRANSDERMA (11:28)
[2022-06-10 18:00] VITALS: BP 186/64; PULSE 91; TEMP 36.4; O2SAT 98
--- NOTE | 2022-06-10 18:01 | HO.PSYCHPN ---
Subjective Subjective Date of Service: 06/10/22 Reason For Visit: Schizophrenia Subjective Notes: Conditional Voluntary Healthcare Proxy: No Guardianship: No Medical Problems Affecting Mental Status: No Interim History: Reports adequate sleep. meds are effective. neck stiffness subsided. voices are in the a.m. but I am trying not to pay attention . Prepared to trial a new antidepressant for anxiety/depression. B12 level for 06/11 to review-?low level possibly causing memory sx. Medication Compliance: Yes Side effects from medications: No Attending Groups: Intermittent Review of Systems Acute medical concerns: No Medical Review of Systems: unchanged Mental Status Exam Mental Status Exam Patient Appearance: Appropriate Patient Orientation: Person, Place, Time and Situation Level of Consciousness: Alert Patient Behavior: Appropriate, Talkative, Cooperative, Anxious, Distractible and Good Eye Contact Mood Description: Suspicious, Withdrawn, Constricted, Anxious, Nervous and Apprehensive Affect Description: Blunted Patient Cognition Impaired: No Ability to Follow Directions: Good Speech Pattern: Perseverating, Spontaneous Speech and Soft-Spoken Memory Description: Remote Impaired and Episodic Impaired Hallucinations: Auditory Delusions: Paranoid Ideation and Present Thought Process: Rumination and Goal Oriented Thought Content: positive for Goal Oriented and positive for Suicidal Ideation (denies) Depressive Symptoms: Increased Anxiety and Thoughts of /Suicide (denies) Abnormal Motor Activity Signs and Symptoms: Restlessness Judgement: Fair Diagnostics Vital Signs (24Hr): Vital Signs - 24 hr 06/09/22 19:33 06/10/22 09:34 Temperature 97.7 F 98.1 F Pulse Rate 86 89 Respiratory Rate 18 16 Blood Pressure 126/71 120/56 L Pulse Oximetry 99 97 Oxygen Delivery Method Room Air Room Air BMI result Body Mass Index 24.7 Labs 06/04/22 15:54 06/04/22 15:54 Imaging Radiology Impressions: ITS Impressions Chest X-Ray 05/26/22 09:40 IMPRESSION: Unremarkable examination. Medications Medications Current Medications Acetaminophen (Acetaminophen 325 Mg Tablet) 650 mg PO Q6H PRN PRN Reason: Headache/Pain Mild Scale (1-3) Last Admin: 05/26/22 10:10 Dose: 650 mg Al Hydroxide/Mg Hydroxide (Magnesium Hydrox/Alum Hydrox 30 Ml Oral.Susp) 30 ml PO Q6H PRN PRN Reason: Heartburn/Nausea Baclofen (Baclofen 10 Mg Tablet) 10 mg PO BID [facility] Last Admin: 06/10/22 09:29 Dose: 10 mg Benztropine Mesylate (Benztropine Mesylate 1 Mg Tablet) 1 mg PO BID [facility] Last Admin: 06/10/22 09:29 Dose: 1 mg Cyanocobalamin (Cyanocobalamin (Vitamin B-12) 100 Mcg Tablet) 100 mcg PO DAILY [facility] Last Admin: 06/10/22 09:29 Dose: 100 mcg Guaifenesin (Guaifenesin La 600 Mg Tab.Er.12h) 600 mg PO BID PRN PRN Reason: congestion Last Admin: 05/29/22 19:58 Dose: 600 mg Hydroxyzine HCl (Hydroxyzine Hcl 50 Mg Tablet) 50 mg PO TID [facility] Last Admin: 06/10/22 14:11 Dose: 50 mg Lidocaine (Lidocaine 4 % Patch Adh..Patch) 1 patch TRANSDERMA DAILY [facility]; Protocol Last Admin: 06/10/22 11:28 Dose: 1 patch Magnesium Hydroxide (Milk Of Magnesia 30 Ml Oral.Susp) 30 ml PO DAILY PRN PRN Reason: Constipation Nicotine (Nicotine 14 Mg Patch.Td24) 14 mg TRANSDERMA DAILY [facility] Last Admin: 06/10/22 11:28 Dose: 14 mg Nicotine Polacrilex (Nicotine Polacrilex 2 Mg Gum) 2 mg BUCCAL Q2H PRN PRN Reason: Nicotine Cravings Last Admin: 06/08/22 10:10 Dose: 2 mg Quetiapine Fumarate (Quetiapine Fumarate 25 Mg Tablet) 25 mg PO Q4H PRN PRN Reason: Anxiety Last Admin: 06/02/22 15:22 Dose: 25 mg Risperidone (Risperidone 3 Mg Tablet) 3 mg PO BID [facility] Last Admin: 06/10/22 09:29 Dose: 3 mg Thiamine HCl (Thiamine Hcl 100 Mg Tablet) 100 mg PO DAILY [facility] Last Admin: 06/10/22 09:29 Dose: 100 mg Trazodone HCl (Trazodone Hcl 100 Mg Tablet) 100 mg PO BEDTIME [facility] Last Admin: 06/09/22 21:12 Dose: 100 mg Allergies Allergies Allergy/AdvReac Type Severity Reaction Status Date / Time aspirin Allergy Unknown Unknown Verified 04/02/22 19:55 seafood Allergy Unknown Unknown Verified 04/02/22 19:55 Assessment & Plan Assessment & Plan (1) Schizophrenia: Status: Acute Code(s): F20.9 - Schizophrenia, unspecified (2) Moderate cocaine use disorder: Status: Acute Code(s): F14.20 - Cocaine dependence, uncomplicated Plan 37 yo male, history of schizophrenia, polysubstance use presents with request to re-stabilize on medications and return to addictions CSS treatment. Continue current regime. Monitor mood/behaviors Referrals for CSS placement. 05/15: Continue current regimen and encouraged to take medications. Nursing requested the p.r.n. in case he agrees to take something during the day and Seroquel 25 mg q.4 hours p.r.n. was ordered. 05/17: Continue current plans and regimen 05/18: Continue plans and regimen 05/19/22: Increase Venlafaxine to 112.5 mg daily Increase Seroquel to 150 mg a.m. and 250 mg h.s., a total increase of 100 mg per day. Pt may need a mood stabilizer-he declines at this time. 05/20/22: Decrease Venlafaxine to 75 mg daily Discontinue Seroquel Risperdal 2 mg hs. 05/21/22 Continue current regime and plan. 05/22/22 Monitor sx of COVID Monitor for increase sx as pt will be on isolation 05/23/22 Continue to monitor for sx of COVID No changes to current regime today 05/24/22: Team note an increase in OCD sx presentation. Pt at this time asks for no medication changes. Will continue to educate. 05/25/22: Risperdal 0.5 mg a.m. Chest xray 05/26/22: Chest xray negative. Continue current plan. 05/27/22: Quarantine will end 05/28/22. Decrease of physical sx Pt not wanting to change Effexor to Luvox to address OCD sx at this time Continue to assess and encourage focus on target sx. 05/28/22 continue current medications. 05/29 continue current medications. Noted hyperhydrosis with most likely s/s effexor- will try clonidine but may consider switching antidepressant to remeron. added baclofen for back pain and some degree of reduction of cocaine cravings. 05/30/22 HPI/Impression says dx: Schizophrenia (however this is not listed in problem category, just MDD w/ psychosis) -will increase Risperdone due to continued AH and disorganzied thinking INCREASE Risperidone to 3mg qhs Continue Risperidone 0.5mg daily Says Hyperhidrosis present for months prior to this admission and that it has not worsened since he's been here; if accurate reporting, makes new medication Effexor less likely cause 05/31/22 says feeling good and a little more linear in thought process. Intermittent passive SI but no plans/intent still has AH, but says he can ignore Will continue current regimen 06/01 lower slightly venlafaxine due to hyperhidrosis, see if voices get better with risperidone. 06/02 continue tx but pt appears more psychotic than he is reporting. 06/03 increase risperidone to 3mg po BID, d/c venlafaxine. 06/04 continue current medications. 06/05 continue tx. pending Saw referral that would like to see him with less psychosis or delusions. 06/06 continue current treatment plan -discussed with nursing; reviewed vitals and WNL; 06/07 continue current treatment plan; Met with patient. Discussed with nursing; reviewed vitals and WNL 06/10/22: Mirtazapine 7.5 mg HS B12 level 06/11. Patient educated on: therapeutic strategies Informed Consent: further education needed Reason for contiued inpatient stay Substantial Risk for: rapid decompensation Time Spent With Patient Time: Total time managing care of this patient today 15____ minutes.
[2022-06-10] MEDS: traZODone HCL 100 MG TABLET PO (22:12)
[2022-06-10] MEDS: Mirtazapine 7.5 MG TABLET PO (22:13)
[2022-06-11 07:00] VITALS: BMI 25.3
[2022-06-11] MEDS: hydrOXYzine HCL 50 MG TABLET PO ×3 (08:41→21:52)
[2022-06-11] MEDS: risperiDONE 3 MG TABLET PO ×2 (08:41→21:52)
[2022-06-11] MEDS: Cyanocobalamin (Vitamin B-12) 100 MCG TABLET PO (08:41)
[2022-06-11] MEDS: Baclofen 10 MG TABLET PO ×2 (08:41→21:51)
[2022-06-11] MEDS: Benztropine Mesylate 1 MG TABLET PO ×2 (08:41→21:51)
[2022-06-11] MEDS: Thiamine HCL 100 MG TABLET PO (08:41)
[2022-06-11 10:07] LABS: Vitamin B12 228 pg/mL (200-900)
[2022-06-11 11:48] VITALS: BP 133/79; PULSE 99; RESP 18; TEMP 36.4; O2SAT 97
[2022-06-11] MEDS: Lidocaine 4 % Patch ADH..PATCH 1 PATCH TRANSDERMA (13:30)
[2022-06-11] MEDS: Nicotine 14 MG PATCH.TD24 TRANSDERMA (13:31)
--- NOTE | 2022-06-11 17:01 | P.PNPSI_ITS ---
Subjective Subjective Date of Service: 06/11/22 Reason For Visit: Schizophrenia Subjective Notes: Conditional Voluntary Healthcare Proxy: No Guardianship: No Medical Problems Affecting Mental Status: No Interim History: Tolerating Remeron. Continues to reports intermittent SOB. Interested in beginning a routine for his health. Reflective on his drug use and the potential damage done to his system. Congestion persists, reports a brief nosebleed on 06/10. Will order nasal spray, mucinex. Anxious and apprehensive about moving to his next residential setting. Encouraged to be consistent with treatment and work on symptom mgt to improve strength for his next setting. Medication Compliance: Yes Side effects from medications: No Attending Groups: Intermittent Review of Systems Acute medical concerns: No Medical Review of Systems: unchanged Mental Status Exam Mental Status Exam Patient Appearance: Appropriate Patient Orientation: Person, Place, Time and Situation Level of Consciousness: Alert Patient Behavior: Appropriate, Talkative, Cooperative, Anxious, Distractible and Good Eye Contact Mood Description: Suspicious, Withdrawn, Constricted, Anxious, Nervous and Apprehensive Affect Description: Blunted Patient Cognition Impaired: No Ability to Follow Directions: Good Speech Pattern: Perseverating, Spontaneous Speech and Soft-Spoken Memory Description: Remote Impaired and Episodic Impaired Hallucinations: Auditory Delusions: Paranoid Ideation and Present Thought Process: Rumination and Goal Oriented Thought Content: positive for Goal Oriented and positive for Suicidal Ideation (denies) Depressive Symptoms: Increased Anxiety and Thoughts of /Suicide (denies) Abnormal Motor Activity Signs and Symptoms: Restlessness Judgement: Fair Diagnostics Vital Signs (24Hr): Vital Signs - 24 hr 06/10/22 18:00 06/11/22 11:48 Temperature 97.6 F 97.5 F Pulse Rate 91 99 Respiratory Rate 18 Blood Pressure 186/64 H 133/79 Pulse Oximetry 98 97 Oxygen Delivery Method Room Air Room Air BMI result Body Mass Index 25.3 Labs 06/04/22 15:54 06/04/22 15:54 Labs: Laboratory Results - last 48 hr 06/11/22 08:40 Vitamin B12 228 Imaging Radiology Impressions: ITS Impressions Chest X-Ray 05/26/22 09:40 IMPRESSION: Unremarkable examination. Medications Medications Current Medications Acetaminophen (Acetaminophen 325 Mg Tablet) 650 mg PO Q6H PRN PRN Reason: Headache/Pain Mild Scale (1-3) Last Admin: 05/26/22 10:10 Dose: 650 mg Al Hydroxide/Mg Hydroxide (Magnesium Hydrox/Alum Hydrox 30 Ml Oral.Susp) 30 ml PO Q6H PRN PRN Reason: Heartburn/Nausea Baclofen (Baclofen 10 Mg Tablet) 10 mg PO BID [facility] Last Admin: 06/11/22 08:41 Dose: 10 mg Benztropine Mesylate (Benztropine Mesylate 1 Mg Tablet) 1 mg PO BID [facility] Last Admin: 06/11/22 08:41 Dose: 1 mg Cyanocobalamin (Cyanocobalamin (Vitamin B-12) 100 Mcg Tablet) 100 mcg PO DAILY [facility] Last Admin: 06/11/22 08:41 Dose: 100 mcg Guaifenesin (Guaifenesin La 600 Mg Tab.Er.12h) 600 mg PO BID PRN PRN Reason: congestion Last Admin: 05/29/22 19:58 Dose: 600 mg Hydroxyzine HCl (Hydroxyzine Hcl 50 Mg Tablet) 50 mg PO TID [facility] Last Admin: 06/11/22 14:07 Dose: 50 mg Lidocaine (Lidocaine 4 % Patch Adh..Patch) 1 patch TRANSDERMA DAILY [facility]; Protocol Last Admin: 06/11/22 13:30 Dose: 1 patch Magnesium Hydroxide (Milk Of Magnesia 30 Ml Oral.Susp) 30 ml PO DAILY PRN PRN Reason: Constipation Mirtazapine (Mirtazapine 7.5 Mg Tablet) 7.5 mg PO BEDTIME [facility] Last Admin: 06/10/22 22:13 Dose: 7.5 mg Nicotine (Nicotine 14 Mg Patch.Td24) 14 mg TRANSDERMA DAILY [facility] Last Admin: 06/11/22 13:31 Dose: 14 mg Nicotine Polacrilex (Nicotine Polacrilex 2 Mg Gum) 2 mg BUCCAL Q2H PRN PRN Reason: Nicotine Cravings Last Admin: 06/08/22 10:10 Dose: 2 mg Quetiapine Fumarate (Quetiapine Fumarate 25 Mg Tablet) 25 mg PO Q4H PRN PRN Reason: Anxiety Last Admin: 06/02/22 15:22 Dose: 25 mg Risperidone (Risperidone 3 Mg Tablet) 3 mg PO BID [facility] Last Admin: 06/11/22 08:41 Dose: 3 mg Thiamine HCl (Thiamine Hcl 100 Mg Tablet) 100 mg PO DAILY [facility] Last Admin: 06/11/22 08:41 Dose: 100 mg Trazodone HCl (Trazodone Hcl 100 Mg Tablet) 100 mg PO BEDTIME [facility] Last Admin: 06/10/22 22:12 Dose: 100 mg Allergies Allergies Allergy/AdvReac Type Severity Reaction Status Date / Time aspirin Allergy Unknown Unknown Verified 04/02/22 19:55 seafood Allergy Unknown Unknown Verified 04/02/22 19:55 Assessment & Plan Assessment & Plan (1) Schizophrenia: Status: Acute Code(s): F20.9 - Schizophrenia, unspecified (2) Moderate cocaine use disorder: Status: Acute Code(s): F14.20 - Cocaine dependence, uncomplicated Plan 37 yo male, history of schizophrenia, polysubstance use presents with request to re-stabilize on medications and return to addictions CSS treatment. Continue current regime. Monitor mood/behaviors Referrals for CSS placement. 05/15: Continue current regimen and encouraged to take medications. Nursing requested the p.r.n. in case he agrees to take something during the day and Seroquel 25 mg q.4 hours p.r.n. was ordered. 05/17: Continue current plans and regimen 05/18: Continue plans and regimen 05/19/22: Increase Venlafaxine to 112.5 mg daily Increase Seroquel to 150 mg a.m. and 250 mg h.s., a total increase of 100 mg per day. Pt may need a mood stabilizer-he declines at this time. 05/20/22: Decrease Venlafaxine to 75 mg daily Discontinue Seroquel Risperdal 2 mg hs. 05/21/22 Continue current regime and plan. 05/22/22 Monitor sx of COVID Monitor for increase sx as pt will be on isolation 05/23/22 Continue to monitor for sx of COVID No changes to current regime today 05/24/22: Team note an increase in OCD sx presentation. Pt at this time asks for no medication changes. Will continue to educate. 05/25/22: Risperdal 0.5 mg a.m. Chest xray 05/26/22: Chest xray negative. Continue current plan. 05/27/22: Quarantine will end 05/28/22. Decrease of physical sx Pt not wanting to change Effexor to Luvox to address OCD sx at this time Continue to assess and encourage focus on target sx. 05/28/22 continue current medications. 05/29 continue current medications. Noted hyperhydrosis with most likely s/s effexor- will try clonidine but may consider switching antidepressant to remeron. added baclofen for back pain and some degree of reduction of cocaine cravings. 05/30/22 HPI/Impression says dx: Schizophrenia (however this is not listed in problem category, just MDD w/ psychosis) -will increase Risperdone due to continued AH and disorganzied thinking INCREASE Risperidone to 3mg qhs Continue Risperidone 0.5mg daily Says Hyperhidrosis present for months prior to this admission and that it has not worsened since he's been here; if accurate reporting, makes new medication Effexor less likely cause 05/31/22 says feeling good and a little more linear in thought process. Intermittent passive SI but no plans/intent still has AH, but says he can ignore Will continue current regimen 06/01 lower slightly venlafaxine due to hyperhidrosis, see if voices get better with risperidone. 06/02 continue tx but pt appears more psychotic than he is reporting. 06/03 increase risperidone to 3mg po BID, d/c venlafaxine. 06/04 continue current medications. 06/05 continue tx. pending Saw referral that would like to see him with less psychosis or delusions. 06/06 continue current treatment plan -discussed with nursing; reviewed vitals and WNL; 06/07 continue current treatment plan; Met with patient. Discussed with nursing; reviewed vitals and WNL 06/10/22: Mirtazapine 7.5 mg HS B12 level 06/11. 06/11/22 Mucinex prn, [place] Nasal [place] prn Patient educated on: therapeutic strategies Informed Consent: further education needed Reason for contiued inpatient stay Substantial Risk for: rapid decompensation Time Spent With Patient Time: Total time managing care of this patient today __35__ minutes.
[2022-06-11 17:17] VITALS: BP 128/80; PULSE 94; RESP 20; TEMP 36.7; O2SAT 98
[2022-06-11 18:15] VITALS: BP 142/76; PULSE 97; TEMP 36.6
[2022-06-11] MEDS: Mirtazapine 7.5 MG TABLET PO (21:52)
[2022-06-11] MEDS: traZODone HCL 100 MG TABLET PO (21:52)
[2022-06-11] MEDS: QUEtiapine Fumarate 25 MG TABLET PO (21:52)
[2022-06-12] MEDS: Benztropine Mesylate 1 MG TABLET PO ×2 (09:19→21:49)
[2022-06-12] MEDS: hydrOXYzine HCL 50 MG TABLET PO ×3 (09:19→21:48)
[2022-06-12] MEDS: Baclofen 10 MG TABLET PO ×2 (09:19→21:49)
[2022-06-12] MEDS: risperiDONE 3 MG TABLET PO ×2 (09:19→21:48)
[2022-06-12] MEDS: Cyanocobalamin (Vitamin B-12) 100 MCG TABLET PO (09:20)
[2022-06-12 09:23] VITALS: BP 133/79; PULSE 89; RESP 16; TEMP 37.1; O2SAT 97
[2022-06-12] MEDS: Thiamine HCL 100 MG TABLET PO (10:34)
[2022-06-12] MEDS: Lidocaine 4 % Patch ADH..PATCH 1 PATCH TRANSDERMA (10:57)
[2022-06-12] MEDS: Nicotine 14 MG PATCH.TD24 TRANSDERMA (10:57)
--- NOTE | 2022-06-12 15:00 | P.PNPSI_ITS ---
Subjective Subjective Date of Service: 06/12/22 Reason For Visit: Schizophrenia Subjective Notes: Conditional Voluntary Healthcare Proxy: No Guardianship: No Medical Problems Affecting Mental Status: No Interim History: Focused on discharge Denies med SE Reports adequate sleep Discussed SOB sx-believes this is from heavy cocaine gavino CXR completed-negative Medication Compliance: Yes Side effects from medications: No Attending Groups: Intermittent Review of Systems Acute medical concerns: No Medical Review of Systems: unchanged Mental Status Exam Mental Status Exam Patient Appearance: Appropriate Patient Orientation: Person, Place, Time and Situation Level of Consciousness: Alert Patient Behavior: Appropriate, Talkative, Cooperative, Anxious, Distractible and Good Eye Contact Mood Description: Suspicious, Withdrawn, Constricted, Anxious, Nervous and Appre hensive Affect Description: Blunted Patient Cognition Impaired: No Ability to Follow Directions: Good Speech Pattern: Perseverating, Spontaneous Speech and Soft-Spoken Memory Description: Remote Impaired and Episodic Impaired Hallucinations: Auditory Delusions: Paranoid Ideation and Present Thought Process: Rumination and Goal Oriented Thought Content: positive for Goal Oriented and positive for Suicidal Ideation (denies) Depressive Symptoms: Increased Anxiety and Thoughts of /Suicide (denies) Abnormal Motor Activity Signs and Symptoms: Restlessness Judgement: Fair Diagnostics Vital Signs (24Hr): Vital Signs - 24 hr 06/11/22 17:17 06/11/22 18:15 06/12/22 09:23 Temperature 98.1 F 98 F 98.7 F Pulse Rate 94 97 89 Respiratory Rate 20 16 Blood Pressure 128/80 142/76 H 133/79 Pulse Oximetry 98 97 Oxygen Delivery Method Room Air Room Air BMI result Body Mass Index 25.3 Labs 06/04/22 15:54 06/04/22 15:54 Labs: Laboratory Results - last 48 hr 06/11/22 08:40 Vitamin B12 228 Imaging Radiology Impressions: ITS Impressions Chest X-Ray 05/26/22 09:40 IMPRESSION: Unremarkable examination. Medications Medications Current Medications Acetaminophen (Acetaminophen 325 Mg Tablet) 650 mg PO Q6H PRN PRN Reason: Headache/Pain Mild Scale (1-3) Last Admin: 05/26/22 10:10 Dose: 650 mg Al Hydroxide/Mg Hydroxide (Magnesium Hydrox/Alum Hydrox 30 Ml Oral.Susp) 30 ml PO Q6H PRN PRN Reason: Heartburn/Nausea Baclofen (Baclofen 10 Mg Tablet) 10 mg PO BID YARELY Last Admin: 06/12/22 09:19 Dose: 10 mg Benztropine Mesylate (Benztropine Mesylate 1 Mg Tablet) 1 mg PO BID [facility] Last Admin: 06/12/22 09:19 Dose: 1 mg Cyanocobalamin (Cyanocobalamin (Vitamin B-12) 100 Mcg Tablet) 100 mcg PO DAILY [facility] Last Admin: 06/12/22 09:20 Dose: 100 mcg Guaifenesin (Guaifenesin La 600 Mg Tab.Er.12h) 600 mg PO BID PRN PRN Reason: congestion Last Admin: 05/29/22 19:58 Dose: 600 mg Guaifenesin (Guaifenesin La 600 Mg Tab.Er.12h) 600 mg PO BID PRN PRN Reason: Congestion Hydroxyzine HCl (Hydroxyzine Hcl 50 Mg Tablet) 50 mg PO TID [facility] Last Admin: 06/12/22 14:04 Dose: 50 mg Lidocaine (Lidocaine 4 % Patch Adh..Patch) 1 patch TRANSDERMA DAILY [facility]; Protocol Last Admin: 06/12/22 10:57 Dose: 1 patch Magnesium Hydroxide (Milk Of Magnesia 30 Ml Oral.Susp) 30 ml PO DAILY PRN PRN Reason: Constipation Mirtazapine (Mirtazapine 7.5 Mg Tablet) 7.5 mg PO BEDTIME [facility] Last Admin: 06/11/22 21:52 Dose: 7.5 mg Nicotine (Nicotine 14 Mg Patch.Td24) 14 mg TRANSDERMA DAILY [facility] Last Admin: 06/12/22 10:57 Dose: 14 mg Nicotine Polacrilex (Nicotine Polacrilex 2 Mg Gum) 2 mg BUCCAL Q2H PRN PRN Reason: Nicotine Cravings Last Admin: 06/08/22 10:10 Dose: 2 mg Quetiapine Fumarate (Quetiapine Fumarate 25 Mg Tablet) 25 mg PO Q4H PRN PRN Reason: Anxiety Last Admin: 06/11/22 21:52 Dose: 25 mg Risperidone (Risperidone 3 Mg Tablet) 3 mg PO BID [facility] Last Admin: 06/12/22 09:19 Dose: 3 mg Sodium Chloride (Sodium Chloride 0.65 % Nasal 44 Ml Sprbtl) 1 spray NOSTRIL-B Q1H PRN PRN Reason: dryness, congestion Thiamine HCl (Thiamine Hcl 100 Mg Tablet) 100 mg PO DAILY [facility] Last Admin: 06/12/22 10:34 Dose: 100 mg Trazodone HCl (Trazodone Hcl 100 Mg Tablet) 100 mg PO BEDTIME [facility] Last Admin: 06/11/22 21:52 Dose: 100 mg Allergies Allergies Allergy/AdvReac Type Severity Reaction Status Date / Time aspirin Allergy Unknown Unknown Verified 04/02/22 19:55 seafood Allergy Unknown Unknown Verified 04/02/22 19:55 Assessment & Plan Assessment & Plan (1) Schizophrenia: Status: Acute Code(s): F20.9 - Schizophrenia, unspecified (2) Moderate cocaine use disorder: Status: Acute Code(s): F14.20 - Cocaine dependence, uncomplicated Plan 37 yo male, history of schizophrenia, polysubstance use presents with request to re-stabilize on medications and return to addictions CSS treatment. Continue current regime. Monitor mood/behaviors Referrals for CSS placement. 05/15: Continue current regimen and encouraged to take medications. Nursing requested the p.r.n. in case he agrees to take something during the day and Seroquel 25 mg q.4 hours p.r.n. was ordered. 05/17: Continue current plans and regimen 05/18: Continue plans and regimen 05/19/22: Increase Venlafaxine to 112.5 mg daily Increase Seroquel to 150 mg a.m. and 250 mg h.s., a total increase of 100 mg per day. Pt may need a mood stabilizer-he declines at this time. 05/20/22: Decrease Venlafaxine to 75 mg daily Discontinue Seroquel Risperdal 2 mg hs. 05/21/22 Continue current regime and plan. 05/22/22 Monitor sx of COVID Monitor for increase sx as pt will be on isolation 05/23/22 Continue to monitor for sx of COVID No changes to current regime today 05/24/22: Team note an increase in OCD sx presentation. Pt at this time asks for no medication changes. Will continue to educate. 05/25/22: Risperdal 0.5 mg a.m. Chest xray 05/26/22: Chest xray negative. Continue current plan. 05/27/22: Quarantine will end 05/28/22. Decrease of physical sx Pt not wanting to change Effexor to Luvox to address OCD sx at this time Continue to assess and encourage focus on target sx. 05/28/22 continue current medications. 05/29 continue current medications. Noted hyperhydrosis with most likely s/s effexor- will try clonidine but may consider switching antidepressant to remeron. added baclofen for back pain and some degree of reduction of cocaine cravings. 05/30/22 HPI/Impression says dx: Schizophrenia (however this is not listed in problem category, just MDD w/ psychosis) -will increase Risperdone due to continued AH and disorganzied thinking INCREASE Risperidone to 3mg qhs Continue Risperidone 0.5mg daily Says Hyperhidrosis present for months prior to this admission and that it has not worsened since he's been here; if accurate reporting, makes new medication Effexor less likely cause 05/31/22 says feeling good and a little more linear in thought process. Intermittent passive SI but no plans/intent still has AH, but says he can ignore Will continue current regimen 06/01 lower slightly venlafaxine due to hyperhidrosis, see if voices get better with risperidone. 06/02 continue tx but pt appears more psychotic than he is reporting. 06/03 increase risperidone to 3mg po BID, d/c venlafaxine. 06/04 continue current medications. 06/05 continue tx. pending Saw referral that would like to see him with less psychosis or delusions. 06/06 continue current treatment plan -discussed with nursing; reviewed vitals and WNL; 06/07 continue current treatment plan; Met with patient. Discussed with nursing; reviewed vitals and WNL 06/10/22: Mirtazapine 7.5 mg HS B12 level 06/11. 06/12/22 Continue current regime. Informed Consent: further education needed Reason for contiued inpatient stay Substantial Risk for: rapid decompensation Time Spent With Patient Time: Total time managing care of this patient today 25____ minutes.
[2022-06-12] MEDS: Nicotine Polacrilex 2 MG GUM BUCCAL (15:40)
[2022-06-12 21:45] VITALS: BP 130/57; PULSE 102; TEMP 36.8
[2022-06-12] MEDS: traZODone HCL 100 MG TABLET PO (21:48)
[2022-06-12] MEDS: Mirtazapine 7.5 MG TABLET PO (21:49)
[2022-06-13] MEDS: Benztropine Mesylate 1 MG TABLET PO ×2 (08:19→21:37)
[2022-06-13] MEDS: Cyanocobalamin (Vitamin B-12) 100 MCG TABLET PO (08:20)
[2022-06-13] MEDS: Baclofen 10 MG TABLET PO ×2 (08:20→21:37)
[2022-06-13] MEDS: risperiDONE 3 MG TABLET PO ×2 (08:20→21:37)
[2022-06-13] MEDS: Thiamine HCL 100 MG TABLET 200 MG PO (08:20)
[2022-06-13] MEDS: hydrOXYzine HCL 50 MG TABLET PO ×3 (08:20→21:37)
[2022-06-13 08:23] VITALS: BP 127/69; PULSE 91; RESP 16; TEMP 36.1; O2SAT 98
[2022-06-13] MEDS: Lidocaine 4 % Patch ADH..PATCH 1 PATCH TRANSDERMA (11:08)
[2022-06-13] MEDS: Nicotine 14 MG PATCH.TD24 TRANSDERMA (11:09)
[2022-06-13 17:36] VITALS: BP 127/69; PULSE 86; RESP 18; O2SAT 98
--- NOTE | 2022-06-13 20:06 | P.PNPSI_ITS ---
Subjective Subjective Date of Service: 06/13/22 Reason For Visit: Schizophrenia Subjective Notes: Conditional Voluntary Healthcare Proxy: No Guardianship: No Medical Problems Affecting Mental Status: No Interim History: Reports feeling well. Ready to discharge. Programs have not become available yet. States he will go anywhere in [place] for program admit Medication Compliance: Yes Side effects from medications: No Attending Groups: Intermittent Review of Systems Acute medical concerns: No Medical Review of Systems: unchanged Mental Status Exam Mental Status Exam Patient Appearance: Appropriate Patient Orientation: Person, Place, Time and Situation Level of Consciousness: Alert Patient Behavior: Appropriate, Talkative, Cooperative, Anxious, Distractible and Good Eye Contact Mood Description: Suspicious, Withdrawn, Constricted, Anxious, Nervous and Apprehensive Affect Description: Blunted Patient Cognition Impaired: No Ability to Follow Directions: Good Speech Pattern: Perseverating, Spontaneous Speech and Soft-Spoken Memory Description: Remote Impaired and Episodic Impaired Hallucinations: Auditory Delusions: Paranoid Ideation and Present Thought Process: Rumination and Goal Oriented Thought Content: positive for Goal Oriented and positive for Suicidal Ideation (denies) Depressive Symptoms: Increased Anxiety and Thoughts of /Suicide (denies) Abnormal Motor Activity Signs and Symptoms: Restlessness Judgement: Fair Diagnostics Vital Signs (24Hr): Vital Signs - 24 hr 06/12/22 21:45 06/13/22 08:23 06/13/22 17:36 Temperature 98.3 F 96.9 F Pulse Rate 102 H 91 86 Respiratory Rate 16 18 Blood Pressure 130/57 L 127/69 127/69 Pulse Oximetry 98 98 Oxygen Delivery Method Room Air Room Air BMI result Body Mass Index 25.3 Labs 06/04/22 15:54 06/04/22 15:54 Imaging Radiology Impressions: ITS Impressions Chest X-Ray 05/26/22 09:40 IMPRESSION: Unremarkable examination. Chest X-Ray 06/13/22 09:05 IMPRESSION: Unremarkable examination. Medications Medications Current Medications Acetaminophen (Acetaminophen 325 Mg Tablet) 650 mg PO Q6H PRN PRN Reason: Headache/Pain Mild Scale (1-3) Last Admin: 05/26/22 10:10 Dose: 650 mg Al Hydroxide/Mg Hydroxide (Magnesium Hydrox/Alum Hydrox 30 Ml Oral.Susp) 30 ml PO Q6H PRN PRN Reason: Heartburn/Nausea Baclofen (Baclofen 10 Mg Tablet) 10 mg PO BID YARELY Last Admin: 06/13/22 08:20 Dose: 10 mg Benztropine Mesylate (Benztropine Mesylate 1 Mg Tablet) 1 mg PO BID [facility] Last Admin: 06/13/22 08:19 Dose: 1 mg Cyanocobalamin (Cyanocobalamin (Vitamin B-12) 100 Mcg Tablet) 100 mcg PO DAILY [facility] Last Admin: 06/13/22 08:20 Dose: 100 mcg Guaifenesin (Guaifenesin La 600 Mg Tab.Er.12h) 600 mg PO BID PRN PRN Reason: congestion Last Admin: 05/29/22 19:58 Dose: 600 mg Guaifenesin (Guaifenesin La 600 Mg Tab.Er.12h) 600 mg PO BID PRN PRN Reason: Congestion Hydroxyzine HCl (Hydroxyzine Hcl 50 Mg Tablet) 50 mg PO TID [facility] Last Admin: 06/13/22 14:34 Dose: 50 mg Lidocaine (Lidocaine 4 % Patch Adh..Patch) 1 patch TRANSDERMA DAILY [facility]; Protocol Last Admin: 06/13/22 11:08 Dose: 1 patch Magnesium Hydroxide (Milk Of Magnesia 30 Ml Oral.Susp) 30 ml PO DAILY PRN PRN Reason: Constipation Mirtazapine (Mirtazapine 7.5 Mg Tablet) 7.5 mg PO BEDTIME [facility] Last Admin: 06/12/22 21:49 Dose: 7.5 mg Nicotine (Nicotine 14 Mg Patch.Td24) 14 mg TRANSDERMA DAILY [facility] Last Admin: 06/13/22 11:09 Dose: 14 mg Nicotine Polacrilex (Nicotine Polacrilex 2 Mg Gum) 2 mg BUCCAL Q2H PRN PRN Reason: Nicotine Cravings Last Admin: 06/12/22 15:40 Dose: 2 mg Pt Own Med (Super B (Complex 1 Tab)) 1 tab PO DAILY [facility] Quetiapine Fumarate (Quetiapine Fumarate 25 Mg Tablet) 25 mg PO Q4H PRN PRN Reason: Anxiety Last Admin: 06/11/22 21:52 Dose: 25 mg Risperidone (Risperidone 3 Mg Tablet) 3 mg PO BID [facility] Last Admin: 06/13/22 08:20 Dose: 3 mg Sodium Chloride (Sodium Chloride 0.65 % Nasal 44 Ml Sprbtl) 1 spray NOSTRIL-B Q1H PRN PRN Reason: dryness, congestion Thiamine HCl (Thiamine Hcl 100 Mg Tablet) 200 mg PO DAILY [facility] Last Admin: 06/13/22 08:20 Dose: 200 mg Trazodone HCl (Trazodone Hcl 100 Mg Tablet) 100 mg PO BEDTIME [facility] Last Admin: 06/12/22 21:48 Dose: 100 mg Allergies Allergies Allergy/AdvReac Type Severity Reaction Status Date / Time aspirin Allergy Unknown Unknown Verified 04/02/22 19:55 seafood Allergy Unknown Unknown Verified 04/02/22 19:55 Assessment & Plan Assessment & Plan (1) Schizophrenia: Status: Acute Code(s): F20.9 - Schizophrenia, unspecified (2) Moderate cocaine use disorder: Status: Acute Code(s): F14.20 - Cocaine dependence, uncomplicated Plan 37 yo male, history of schizophrenia, polysubstance use presents with request to re-stabilize on medications and return to addictions CSS treatment. Continue current regime. Monitor mood/behaviors Referrals for CSS placement. 05/15: Continue current regimen and encouraged to take medications. Nursing requested the p.r.n. in case he agrees to take something during the day and Seroquel 25 mg q.4 hours p.r.n. was ordered. 05/17: Continue current plans and regimen 05/18: Continue plans and regimen 05/19/22: Increase Venlafaxine to 112.5 mg daily Increase Seroquel to 150 mg a.m. and 250 mg h.s., a total increase of 100 mg per day. Pt may need a mood stabilizer-he declines at this time. 05/20/22: Decrease Venlafaxine to 75 mg daily Discontinue Seroquel Risperdal 2 mg hs. 05/21/22 Continue current regime and plan. 05/22/22 Monitor sx of COVID Monitor for increase sx as pt will be on isolation 05/23/22 Continue to monitor for sx of COVID No changes to current regime today 05/24/22: Team note an increase in OCD sx presentation. Pt at this time asks for no medication changes. Will continue to educate. 05/25/22: Risperdal 0.5 mg a.m. Chest xray 05/26/22: Chest xray negative. Continue current plan. 05/27/22: Quarantine will end 05/28/22. Decrease of physical sx Pt not wanting to change Effexor to Luvox to address OCD sx at this time Continue to assess and encourage focus on target sx. 05/28/22 continue current medications. 05/29 continue current medications. Noted hyperhydrosis with most likely s/s effexor- will try clonidine but may consider switching antidepressant to remeron. added baclofen for back pain and some degree of reduction of cocaine cravings. 05/30/22 HPI/Impression says dx: Schizophrenia (however this is not listed in problem category, just MDD w/ psychosis) -will increase Risperdone due to continued AH and disorganzied thinking INCREASE Risperidone to 3mg qhs Continue Risperidone 0.5mg daily Says Hyperhidrosis present for months prior to this admission and that it has not worsened since he's been here; if accurate reporting, makes new medication Effexor less likely cause 05/31/22 says feeling good and a little more linear in thought process. Intermittent passive SI but no plans/intent still has AH, but says he can ignore Will continue current regimen 06/01 lower slightly venlafaxine due to hyperhidrosis, see if voices get better with risperidone. 06/02 continue tx but pt appears more psychotic than he is reporting. 06/03 increase risperidone to 3mg po BID, d/c venlafaxine. 06/04 continue current medications. 06/05 continue tx. pending [facility] referral that would like to see him with less psychosis or delusions. 06/06 continue current treatment plan -discussed with nursing; reviewed vitals and WNL; 06/07 continue current treatment plan; Met with patient. Discussed with nursing; reviewed vitals and WNL 06/10/22: Mirtazapine 7.5 mg HS B12 level 06/11. 06/11/22 Mucinex prn, [place] Nasal [place] prn 06/13/22: Add B Complex, 1 tab daily Pt feeling ready for discharge Patient educated on: medication risk/benefits and therapeutic strategies Informed Consent: understands and further education needed Reason for contiued inpatient stay Substantial Risk for: rapid decompensation Time Spent With Patient Time: Total time managing care of this patient today _20___ minutes.
[2022-06-13] MEDS: Mirtazapine 7.5 MG TABLET PO (21:37)
[2022-06-13] MEDS: traZODone HCL 100 MG TABLET PO (21:37)
[2022-06-13] MEDS: Nicotine Polacrilex 2 MG GUM BUCCAL (21:40)
[2022-06-14] MEDS: Thiamine HCL 100 MG TABLET 200 MG PO (08:47)
[2022-06-14] MEDS: risperiDONE 3 MG TABLET PO ×2 (08:48→22:06)
[2022-06-14] MEDS: Baclofen 10 MG TABLET PO ×2 (08:48→22:06)
[2022-06-14] MEDS: Benztropine Mesylate 1 MG TABLET PO ×2 (08:48→22:07)
[2022-06-14] MEDS: Cyanocobalamin (Vitamin B-12) 100 MCG TABLET PO (08:48)
[2022-06-14] MEDS: hydrOXYzine HCL 50 MG TABLET PO ×3 (08:48→22:07)
[2022-06-14 08:51] VITALS: BP 115/74; PULSE 76; RESP 16; TEMP 36.4; O2SAT 100
[2022-06-14] MEDS: Lidocaine 4 % Patch ADH..PATCH 1 PATCH TRANSDERMA (11:04)
[2022-06-14] MEDS: Nicotine 14 MG PATCH.TD24 TRANSDERMA (11:04)
--- NOTE | 2022-06-14 19:32 | HO.PSYCHPN ---
Subjective Subjective Date of Service: 06/14/22 Reason For Visit: Schizophrenia Subjective Notes: Conditional Voluntary Interim History: Care review with team who report pt reports missing some belongings and having misplaced some belongings. Intrusive when entering the closet to look for these team notes. 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 Pt is reporting feeling well, denies med SE, states that he has no current concerns. Asks appropriate questions regarding transition to a program and why he needs to wait. Discussed program availability and consideration of their processes regarding acceptance of admissions. Medication Compliance: Yes Side effects from medications: No Attending Groups: Intermittent Review of Systems Acute medical concerns: No Medical Review of Systems: unchanged Mental Status Exam Mental Status Exam Patient Appearance: Appropriate Patient Orientation: Person, Place, Time and Situation Level of Consciousness: Alert Patient Behavior: Appropriate, Talkative, Cooperative, Anxious, Distractible and Good Eye Contact Mood Description: Suspicious, Withdrawn, Constricted, Anxious, Nervous and Apprehensive Affect Description: Blunted Patient Cognition Impaired: No Ability to Follow Directions: Good Speech Pattern: Perseverating, Spontaneous Speech and Soft-Spoken Memory Description: Remote Impaired and Episodic Impaired Hallucinations: Auditory Delusions: Paranoid Ideation and Present Thought Process: Rumination and Goal Oriented Thought Content: positive for Goal Oriented and positive for Suicidal Ideation (denies) Depressive Symptoms: Increased Anxiety and Thoughts of /Suicide (denies) Abnormal Motor Activity Signs and Symptoms: Restlessness Judgement: Fair Diagnostics Vital Signs (24Hr): Vital Signs - 24 hr 06/14/22 08:51 Temperature 97.5 F Pulse Rate 76 Respiratory Rate 16 Blood Pressure 115/74 Pulse Oximetry 100 Oxygen Delivery Method Room Air BMI result Body Mass Index 25.3 Labs 06/04/22 15:54 06/04/22 15:54 Imaging Radiology Impressions: ITS Impressions Chest X-Ray 05/26/22 09:40 IMPRESSION: Unremarkable examination. Chest X-Ray 06/13/22 09:05 IMPRESSION: Unremarkable examination. Medications Medications Current Medications Acetaminophen (Acetaminophen 325 Mg Tablet) 650 mg PO Q6H PRN PRN Reason: Headache/Pain Mild Scale (1-3) Last Admin: 05/26/22 10:10 Dose: 650 mg Al Hydroxide/Mg Hydroxide (Magnesium Hydrox/Alum Hydrox 30 Ml Oral.Susp) 30 ml PO Q6H PRN PRN Reason: Heartburn/Nausea Baclofen (Baclofen 10 Mg Tablet) 10 mg PO BID [facility] Last Admin: 06/14/22 08:48 Dose: 10 mg Benztropine Mesylate (Benztropine Mesylate 1 Mg Tablet) 1 mg PO BID [facility] Last Admin: 06/14/22 08:48 Dose: 1 mg Cyanocobalamin (Cyanocobalamin (Vitamin B-12) 100 Mcg Tablet) 100 mcg PO DAILY [facility] Last Admin: 06/14/22 08:48 Dose: 100 mcg Guaifenesin (Guaifenesin La 600 Mg Tab.Er.12h) 600 mg PO BID PRN PRN Reason: congestion Last Admin: 05/29/22 19:58 Dose: 600 mg Guaifenesin (Guaifenesin La 600 Mg Tab.Er.12h) 600 mg PO BID PRN PRN Reason: Congestion Hydroxyzine HCl (Hydroxyzine Hcl 50 Mg Tablet) 50 mg PO TID [facility] Last Admin: 06/14/22 14:06 Dose: 50 mg Lidocaine (Lidocaine 4 % Patch Adh..Patch) 1 patch TRANSDERMA DAILY [facility]; Protocol Last Admin: 06/14/22 11:04 Dose: 1 patch Magnesium Hydroxide (Milk Of Magnesia 30 Ml Oral.Susp) 30 ml PO DAILY PRN PRN Reason: Constipation Mirtazapine (Mirtazapine 7.5 Mg Tablet) 7.5 mg PO BEDTIME [facility] Last Admin: 06/13/22 21:37 Dose: 7.5 mg Nicotine (Nicotine 14 Mg Patch.Td24) 14 mg TRANSDERMA DAILY [facility] Last Admin: 06/14/22 11:04 Dose: 14 mg Nicotine Polacrilex (Nicotine Polacrilex 2 Mg Gum) 2 mg BUCCAL Q2H PRN PRN Reason: Nicotine Cravings Last Admin: 06/13/22 21:40 Dose: 2 mg Pt Own Med (Super B (Complex 1 Tab)) 1 tab PO DAILY [facility] Last Admin: 06/14/22 08:49 Dose: 1 tab Quetiapine Fumarate (Quetiapine Fumarate 25 Mg Tablet) 25 mg PO Q4H PRN PRN Reason: Anxiety Last Admin: 06/11/22 21:52 Dose: 25 mg Risperidone (Risperidone 3 Mg Tablet) 3 mg PO BID [facility] Last Admin: 06/14/22 08:48 Dose: 3 mg Sodium Chloride (Sodium Chloride 0.65 % Nasal 44 Ml Sprbtl) 1 spray NOSTRIL-B Q1H PRN PRN Reason: dryness, congestion Thiamine HCl (Thiamine Hcl 100 Mg Tablet) 200 mg PO DAILY [facility] Last Admin: 06/14/22 08:47 Dose: 200 mg Trazodone HCl (Trazodone Hcl 100 Mg Tablet) 100 mg PO BEDTIME [facility] Last Admin: 06/13/22 21:37 Dose: 100 mg Allergies Allergies Allergy/AdvReac Type Severity Reaction Status Date / Time aspirin Allergy Unknown Unknown Verified 04/02/22 19:55 seafood Allergy Unknown Unknown Verified 04/02/22 19:55 Assessment & Plan Assessment & Plan (1) Schizophrenia: Status: Acute Code(s): F20.9 - Schizophrenia, unspecified (2) Moderate cocaine use disorder: Status: Acute Code(s): F14.20 - Cocaine dependence, uncomplicated Plan 37 yo male, history of schizophrenia, polysubstance use presents with request to re-stabilize on medications and return to addictions CSS treatment. Continue current regime. Monitor mood/behaviors Referrals for CSS placement. 05/15: Continue current regimen and encouraged to take medications. Nursing requested the p.r.n. in case he agrees to take something during the day and Seroquel 25 mg q.4 hours p.r.n. was ordered. 05/17: Continue current plans and regimen 05/18: Continue plans and regimen 05/19/22: Increase Venlafaxine to 112.5 mg daily Increase Seroquel to 150 mg a.m. and 250 mg h.s., a total increase of 100 mg per day. Pt may need a mood stabilizer-he declines at this time. 05/20/22: Decrease Venlafaxine to 75 mg daily Discontinue Seroquel Risperdal 2 mg hs. 05/21/22 Continue current regime and plan. 05/22/22 Monitor sx of COVID Monitor for increase sx as pt will be on isolation 05/23/22 Continue to monitor for sx of COVID No changes to current regime today 05/24/22: Team note an increase in OCD sx presentation. Pt at this time asks for no medication changes. Will continue to educate. 05/25/22: Risperdal 0.5 mg a.m. Chest xray 05/26/22: Chest xray negative. Continue current plan. 05/27/22: Quarantine will end 05/28/22. Decrease of physical sx Pt not wanting to change Effexor to Luvox to address OCD sx at this time Continue to assess and encourage focus on target sx. 05/28/22 continue current medications. 05/29 continue current medications. Noted hyperhydrosis with most likely s/s effexor- will try clonidine but may consider switching antidepressant to remeron. added baclofen for back pain and some degree of reduction of cocaine cravings. 05/30/22 HPI/Impression says dx: Schizophrenia (however this is not listed in problem category, just MDD w/ psychosis) -will increase Risperdone due to continued AH and disorganzied thinking INCREASE Risperidone to 3mg qhs Continue Risperidone 0.5mg daily Says Hyperhidrosis present for months prior to this admission and that it has not worsened since he's been here; if accurate reporting, makes new medication Effexor less likely cause 05/31/22 says feeling good and a little more linear in thought process. Intermittent passive SI but no plans/intent still has AH, but says he can ignore Will continue current regimen 06/01 lower slightly venlafaxine due to hyperhidrosis, see if voices get better with risperidone. 06/02 continue tx but pt appears more psychotic than he is reporting. 06/03 increase risperidone to 3mg po BID, d/c venlafaxine. 06/04 continue current medications. 06/05 continue tx. pending Saw referral that would like to see him with less psychosis or delusions. 06/06 continue current treatment plan -discussed with nursing; reviewed vitals and WNL; 06/07 continue current treatment plan; Met with patient. Discussed with nursing; reviewed vitals and WNL 06/10/22: Mirtazapine 7.5 mg HS B12 level 06/11. 06/11/22 Mucinex prn, [place] Nasal [place] prn 06/13/22: Add B Complex, 1 tab daily Pt feeling ready for discharge 06/14/22: Continue current plan of care/treatment Patient educated on: medication risk/benefits and therapeutic strategies Informed Consent: understands and further education needed Reason for contiued inpatient stay Substantial Risk for: rapid decompensation Time Spent With Patient Time: Total time managing care of this patient today _25___ minutes.
[2022-06-14 20:15] VITALS: BP 122/59; PULSE 91; TEMP 36.4
[2022-06-14] MEDS: Mirtazapine 7.5 MG TABLET PO (22:06)
[2022-06-14] MEDS: traZODone HCL 100 MG TABLET PO (22:07)
[2022-06-15] MEDS: Benztropine Mesylate 1 MG TABLET PO ×2 (08:51→20:58)
[2022-06-15] MEDS: hydrOXYzine HCL 50 MG TABLET PO ×2 (08:52→20:58)
[2022-06-15] MEDS: Baclofen 10 MG TABLET PO ×2 (08:52→20:58)
[2022-06-15] MEDS: Thiamine HCL 100 MG TABLET 200 MG PO (08:52)
[2022-06-15] MEDS: risperiDONE 3 MG TABLET PO ×2 (08:52→20:58)
[2022-06-15] MEDS: Cyanocobalamin (Vitamin B-12) 100 MCG TABLET PO (08:52)
[2022-06-15 08:55] VITALS: BP 120/69; PULSE 81; RESP 18; TEMP 36.2; O2SAT 98
[2022-06-15] MEDS: Nicotine 14 MG PATCH.TD24 TRANSDERMA (11:26)
[2022-06-15] MEDS: Lidocaine 4 % Patch ADH..PATCH 1 PATCH TRANSDERMA (11:27)
--- NOTE | 2022-06-15 14:12 | HO.PSYCHPN ---
Subjective Subjective Date of Service: 06/15/22 Reason For Visit: Schizophrenia Subjective Notes: Conditional Voluntary Healthcare Proxy: No Guardianship: No Medical Problems Affecting Mental Status: No Interim History: Pt reports doing well. No formal meeting today as he is engaged in his requested consultation for hearing evaluation on campus. Medication Compliance: Yes Side effects from medications: No Attending Groups: Intermittent Review of Systems Acute medical concerns: No Medical Review of Systems: unchanged Mental Status Exam Mental Status Exam Patient Appearance: Appropriate Patient Orientation: Person, Place, Time and Situation Level of Consciousness: Alert Patient Behavior: Appropriate, Talkative, Cooperative, Anxious, Distractible and Good Eye Contact Mood Description: Suspicious, Withdrawn, Constricted, Anxious, Nervous and Apprehensive Affect Description: Blunted Patient Cognition Impaired: No Ability to Follow Directions: Good Speech Pattern: Perseverating, Spontaneous Speech and Soft-Spoken Memory Description: Remote Impaired and Episodic Impaired Hallucinations: Auditory Delusions: Paranoid Ideation and Present Thought Process: Rumination and Goal Oriented Thought Content: positive for Goal Oriented and positive for Suicidal Ideation (denies) Depressive Symptoms: Increased Anxiety and Thoughts of /Suicide (denies) Abnormal Motor Activity Signs and Symptoms: Restlessness Judgement: Fair Diagnostics Vital Signs (24Hr): Vital Signs - 24 hr 06/14/22 20:15 06/15/22 08:55 Temperature 97.5 F 97.1 F Pulse Rate 91 81 Respiratory Rate 18 Blood Pressure 122/59 L 120/69 Pulse Oximetry 98 Oxygen Delivery Method Room Air BMI result Body Mass Index 25.3 Labs 06/04/22 15:54 06/04/22 15:54 Imaging Radiology Impressions: ITS Impressions Chest X-Ray 05/26/22 09:40 IMPRESSION: Unremarkable examination. Chest X-Ray 06/13/22 09:05 IMPRESSION: Unremarkable examination. Medications Medications Current Medications Acetaminophen (Acetaminophen 325 Mg Tablet) 650 mg PO Q6H PRN PRN Reason: Headache/Pain Mild Scale (1-3) Last Admin: 05/26/22 10:10 Dose: 650 mg Al Hydroxide/Mg Hydroxide (Magnesium Hydrox/Alum Hydrox 30 Ml Oral.Susp) 30 ml PO Q6H PRN PRN Reason: Heartburn/Nausea Baclofen (Baclofen 10 Mg Tablet) 10 mg PO BID [facility] Last Admin: 06/15/22 08:52 Dose: 10 mg Benztropine Mesylate (Benztropine Mesylate 1 Mg Tablet) 1 mg PO BID [facility] Last Admin: 06/15/22 08:51 Dose: 1 mg Cyanocobalamin (Cyanocobalamin (Vitamin B-12) 100 Mcg Tablet) 100 mcg PO DAILY [facility] Last Admin: 06/15/22 08:52 Dose: 100 mcg Guaifenesin (Guaifenesin La 600 Mg Tab.Er.12h) 600 mg PO BID PRN PRN Reason: congestion Last Admin: 05/29/22 19:58 Dose: 600 mg Guaifenesin (Guaifenesin La 600 Mg Tab.Er.12h) 600 mg PO BID PRN PRN Reason: Congestion Hydroxyzine HCl (Hydroxyzine Hcl 50 Mg Tablet) 50 mg PO TID [facility] Last Admin: 06/15/22 08:52 Dose: 50 mg Lidocaine (Lidocaine 4 % Patch Adh..Patch) 1 patch TRANSDERMA DAILY [facility]; Protocol Last Admin: 06/15/22 11:27 Dose: 1 patch Magnesium Hydroxide (Milk Of Magnesia 30 Ml Oral.Susp) 30 ml PO DAILY PRN PRN Reason: Constipation Mirtazapine (Mirtazapine 7.5 Mg Tablet) 7.5 mg PO BEDTIME [facility] Last Admin: 06/14/22 22:06 Dose: 7.5 mg Nicotine (Nicotine 14 Mg Patch.Td24) 14 mg TRANSDERMA DAILY [facility] Last Admin: 06/15/22 11:26 Dose: 14 mg Nicotine Polacrilex (Nicotine Polacrilex 2 Mg Gum) 2 mg BUCCAL Q2H PRN PRN Reason: Nicotine Cravings Last Admin: 06/13/22 21:40 Dose: 2 mg Pt Own Med (Super B (Complex 1 Tab)) 1 tab PO DAILY [facility] Last Admin: 06/15/22 11:38 Dose: 1 tab Quetiapine Fumarate (Quetiapine Fumarate 25 Mg Tablet) 25 mg PO Q4H PRN PRN Reason: Anxiety Last Admin: 06/11/22 21:52 Dose: 25 mg Risperidone (Risperidone 3 Mg Tablet) 3 mg PO BID [facility] Last Admin: 06/15/22 08:52 Dose: 3 mg Sodium Chloride (Sodium Chloride 0.65 % Nasal 44 Ml Sprbtl) 1 spray NOSTRIL-B Q1H PRN PRN Reason: dryness, congestion Thiamine HCl (Thiamine Hcl 100 Mg Tablet) 200 mg PO DAILY [facility] Last Admin: 06/15/22 08:52 Dose: 200 mg Trazodone HCl (Trazodone Hcl 100 Mg Tablet) 100 mg PO BEDTIME [facility] Last Admin: 06/14/22 22:07 Dose: 100 mg Allergies Allergies Allergy/AdvReac Type Severity Reaction Status Date / Time aspirin Allergy Unknown Unknown Verified 04/02/22 19:55 seafood Allergy Unknown Unknown Verified 04/02/22 19:55 Assessment & Plan Assessment & Plan (1) Schizophrenia: Status: Acute Code(s): F20.9 - Schizophrenia, unspecified (2) Moderate cocaine use disorder: Status: Acute Code(s): F14.20 - Cocaine dependence, uncomplicated Plan 37 yo male, history of schizophrenia, polysubstance use presents with request to re-stabilize on medications and return to addictions CSS treatment. Continue current regime. Monitor mood/behaviors Referrals for CSS placement. 05/15: Continue current regimen and encouraged to take medications. Nursing requested the p.r.n. in case he agrees to take something during the day and Seroquel 25 mg q.4 hours p.r.n. was ordered. 05/17: Continue current plans and regimen 05/18: Continue plans and regimen 05/19/22: Increase Venlafaxine to 112.5 mg daily Increase Seroquel to 150 mg a.m. and 250 mg h.s., a total increase of 100 mg per day. Pt may need a mood stabilizer-he declines at this time. 05/20/22: Decrease Venlafaxine to 75 mg daily Discontinue Seroquel Risperdal 2 mg hs. 05/21/22 Continue current regime and plan. 05/22/22 Monitor sx of COVID Monitor for increase sx as pt will be on isolation 05/23/22 Continue to monitor for sx of COVID No changes to current regime today 05/24/22: Team note an increase in OCD sx presentation. Pt at this time asks for no medication changes. Will continue to educate. 05/25/22: Risperdal 0.5 mg a.m. Chest xray 05/26/22: Chest xray negative. Continue current plan. 05/27/22: Quarantine will end 05/28/22. Decrease of physical sx Pt not wanting to change Effexor to Luvox to address OCD sx at this time Continue to assess and encourage focus on target sx. 05/28/22 continue current medications. 05/29 continue current medications. Noted hyperhydrosis with most likely s/s effexor- will try clonidine but may consider switching antidepressant to remeron. added baclofen for back pain and some degree of reduction of cocaine cravings. 05/30/22 HPI/Impression says dx: Schizophrenia (however this is not listed in problem category, just MDD w/ psychosis) -will increase Risperdone due to continued AH and disorganzied thinking INCREASE Risperidone to 3mg qhs Continue Risperidone 0.5mg daily Says Hyperhidrosis present for months prior to this admission and that it has not worsened since he's been here; if accurate reporting, makes new medication Effexor less likely cause 05/31/22 says feeling good and a little more linear in thought process. Intermittent passive SI but no plans/intent still has AH, but says he can ignore Will continue current regimen 06/01 lower slightly venlafaxine due to hyperhidrosis, see if voices get better with risperidone. 06/02 continue tx but pt appears more psychotic than he is reporting. 06/03 increase risperidone to 3mg po BID, d/c venlafaxine. 06/04 continue current medications. 06/05 continue tx. pending Saw referral that would like to see him with less psychosis or delusions. 06/06 continue current treatment plan -discussed with nursing; reviewed vitals and WNL; 06/07 continue current treatment plan; Met with patient. Discussed with nursing; reviewed vitals and WNL 06/10/22: Mirtazapine 7.5 mg HS B12 level 06/11. 06/11/22 Mucinex prn, [place] Nasal [place] prn 06/13/22: Add B Complex, 1 tab daily Pt feeling ready for discharge 06/15/22: Continue current plan of care Informed Consent: understands Reason for contiued inpatient stay Substantial Risk for: rapid decompensation Time Spent With Patient Time: Total time managing care of this patient today 10____ minutes.
[2022-06-15 18:03] VITALS: BP 136/77; PULSE 95; TEMP 36.9
[2022-06-15] MEDS: Mirtazapine 7.5 MG TABLET PO (20:58)
[2022-06-15] MEDS: traZODone HCL 100 MG TABLET PO (20:58)
[2022-06-16] MEDS: Thiamine HCL 100 MG TABLET 200 MG PO (09:03)
[2022-06-16] MEDS: hydrOXYzine HCL 50 MG TABLET PO ×2 (09:03→22:13)
[2022-06-16] MEDS: Benztropine Mesylate 1 MG TABLET PO ×2 (09:04→22:12)
[2022-06-16] MEDS: Baclofen 10 MG TABLET PO ×2 (09:04→22:12)
[2022-06-16] MEDS: Cyanocobalamin (Vitamin B-12) 100 MCG TABLET PO (09:04)
[2022-06-16] MEDS: risperiDONE 3 MG TABLET PO ×2 (09:04→22:12)
[2022-06-16] MEDS: Nicotine 14 MG PATCH.TD24 TRANSDERMA (10:31)
[2022-06-16] MEDS: Lidocaine 4 % Patch ADH..PATCH 1 PATCH TRANSDERMA (10:32)
[2022-06-16 10:48] VITALS: BP 128/63; PULSE 104; RESP 18; TEMP 36.4; O2SAT 99
--- NOTE | 2022-06-16 15:55 | HO.PSYCHPN ---
Subjective Subjective Date of Service: 06/16/22 Reason For Visit: Schizophrenia Subjective Notes: Conditional Voluntary Healthcare Proxy: No Guardianship: No Medical Problems Affecting Mental Status: No Interim History: Pt's hearing eval appears to be without issue at this time. Reports he is regular to good. Sleep is improved. Asks about Saw. Denies medication SE or breakthrough sx. Medication Compliance: Yes Side effects from medications: No Attending Groups: Intermittent Review of Systems Acute medical concerns: No Medical Review of Systems: unchanged Mental Status Exam Mental Status Exam Patient Appearance: Appropriate Patient Orientation: Person, Place, Time and Situation Level of Consciousness: Alert Patient Behavior: Appropriate, Talkative, Cooperative, Anxious, Distractible and Good Eye Contact Mood Description: Suspicious, Withdrawn, Constricted, Anxious, Nervous and Apprehensive Affect Description: Blunted Patient Cognition Impaired: No Ability to Follow Directions: Good Speech Pattern: Perseverating, Spontaneous Speech and Soft-Spoken Memory Description: Remote Impaired and Episodic Impaired Hallucinations: Auditory Delusions: Paranoid Ideation and Present Thought Process: Rumination and Goal Oriented Thought Content: positive for Goal Oriented and positive for Suicidal Ideation (denies) Depressive Symptoms: Increased Anxiety and Thoughts of /Suicide (denies) Abnormal Motor Activity Signs and Symptoms: Restlessness Judgement: Fair Diagnostics Vital Signs (24Hr): Vital Signs - 24 hr 06/15/22 18:03 06/16/22 10:48 Temperature 98.5 F 97.6 F Pulse Rate 95 104 H Respiratory Rate 18 Blood Pressure 136/77 128/63 Pulse Oximetry 99 Oxygen Delivery Method Room Air BMI result Body Mass Index 25.3 Labs 06/04/22 15:54 06/04/22 15:54 Imaging Radiology Impressions: ITS Impressions Chest X-Ray 05/26/22 09:40 IMPRESSION: Unremarkable examination. Chest X-Ray 06/13/22 09:05 IMPRESSION: Unremarkable examination. Medications Medications Current Medications Acetaminophen (Acetaminophen 325 Mg Tablet) 650 mg PO Q6H PRN PRN Reason: Headache/Pain Mild Scale (1-3) Last Admin: 05/26/22 10:10 Dose: 650 mg Al Hydroxide/Mg Hydroxide (Magnesium Hydrox/Alum Hydrox 30 Ml Oral.Susp) 30 ml PO Q6H PRN PRN Reason: Heartburn/Nausea Baclofen (Baclofen 10 Mg Tablet) 10 mg PO BID [facility] Last Admin: 06/16/22 09:04 Dose: 10 mg Benztropine Mesylate (Benztropine Mesylate 1 Mg Tablet) 1 mg PO BID [facility] Last Admin: 06/16/22 09:04 Dose: 1 mg Cyanocobalamin (Cyanocobalamin (Vitamin B-12) 100 Mcg Tablet) 100 mcg PO DAILY [facility] Last Admin: 06/16/22 09:04 Dose: 100 mcg Cyclobenzaprine HCl (Cyclobenzaprine Hcl 10 Mg Tablet) 10 mg PO TID PRN PRN Reason: Pain, Mild (Pain Scale 1-3) Guaifenesin (Guaifenesin La 600 Mg Tab.Er.12h) 600 mg PO BID PRN PRN Reason: congestion Last Admin: 05/29/22 19:58 Dose: 600 mg Guaifenesin (Guaifenesin La 600 Mg Tab.Er.12h) 600 mg PO BID PRN PRN Reason: Congestion Hydroxyzine HCl (Hydroxyzine Hcl 50 Mg Tablet) 50 mg PO TID [facility] Last Admin: 06/16/22 09:03 Dose: 50 mg Lidocaine (Lidocaine 4 % Patch Adh..Patch) 1 patch TRANSDERMA DAILY [facility]; Protocol Last Admin: 06/16/22 10:32 Dose: 1 patch Magnesium Hydroxide (Milk Of Magnesia 30 Ml Oral.Susp) 30 ml PO DAILY PRN PRN Reason: Constipation Mirtazapine (Mirtazapine 7.5 Mg Tablet) 7.5 mg PO BEDTIME [facility] Last Admin: 06/15/22 20:58 Dose: 7.5 mg Nicotine (Nicotine 14 Mg Patch.Td24) 14 mg TRANSDERMA DAILY [facility] Last Admin: 06/16/22 10:31 Dose: 14 mg Nicotine Polacrilex (Nicotine Polacrilex 2 Mg Gum) 2 mg BUCCAL Q2H PRN PRN Reason: Nicotine Cravings Last Admin: 06/13/22 21:40 Dose: 2 mg Pt Own Med (Super B (Complex 1 Tab)) 1 tab PO DAILY [facility] Last Admin: 06/16/22 09:07 Dose: 1 tab Quetiapine Fumarate (Quetiapine Fumarate 25 Mg Tablet) 25 mg PO Q4H PRN PRN Reason: Anxiety Last Admin: 06/11/22 21:52 Dose: 25 mg Risperidone (Risperidone 3 Mg Tablet) 3 mg PO BID [facility] Last Admin: 06/16/22 09:04 Dose: 3 mg Sodium Chloride (Sodium Chloride 0.65 % Nasal 44 Ml Sprbtl) 1 spray NOSTRIL-B Q1H PRN PRN Reason: dryness, congestion Thiamine HCl (Thiamine Hcl 100 Mg Tablet) 200 mg PO DAILY [facility] Last Admin: 06/16/22 09:03 Dose: 200 mg Trazodone HCl (Trazodone Hcl 100 Mg Tablet) 100 mg PO BEDTIME [facility] Last Admin: 06/15/22 20:58 Dose: 100 mg Allergies Allergies Allergy/AdvReac Type Severity Reaction Status Date / Time aspirin Allergy Unknown Unknown Verified 04/02/22 19:55 seafood Allergy Unknown Unknown Verified 04/02/22 19:55 Assessment & Plan Assessment & Plan (1) Schizophrenia: Status: Acute Code(s): F20.9 - Schizophrenia, unspecified (2) Moderate cocaine use disorder: Status: Acute Code(s): F14.20 - Cocaine dependence, uncomplicated Plan 37 yo male, history of schizophrenia, polysubstance use presents with request to re-stabilize on medications and return to addictions CSS treatment. Continue current regime. Monitor mood/behaviors Referrals for CSS placement. 05/15: Continue current regimen and encouraged to take medications. Nursing requested the p.r.n. in case he agrees to take something during the day and Seroquel 25 mg q.4 hours p.r.n. was ordered. 05/17: Continue current plans and regimen 05/18: Continue plans and regimen 05/19/22: Increase Venlafaxine to 112.5 mg daily Increase Seroquel to 150 mg a.m. and 250 mg h.s., a total increase of 100 mg per day. Pt may need a mood stabilizer-he declines at this time. 05/20/22: Decrease Venlafaxine to 75 mg daily Discontinue Seroquel Risperdal 2 mg hs. 05/21/22 Continue current regime and plan. 05/22/22 Monitor sx of COVID Monitor for increase sx as pt will be on isolation 05/23/22 Continue to monitor for sx of COVID No changes to current regime today 05/24/22: Team note an increase in OCD sx presentation. Pt at this time asks for no medication changes. Will continue to educate. 05/25/22: Risperdal 0.5 mg a.m. Chest xray 05/26/22: Chest xray negative. Continue current plan. 05/27/22: Quarantine will end 05/28/22. Decrease of physical sx Pt not wanting to change Effexor to Luvox to address OCD sx at this time Continue to assess and encourage focus on target sx. 05/28/22 continue current medications. 05/29 continue current medications. Noted hyperhydrosis with most likely s/s effexor- will try clonidine but may consider switching antidepressant to remeron. added baclofen for back pain and some degree of reduction of cocaine cravings. 05/30/22 HPI/Impression says dx: Schizophrenia (however this is not listed in problem category, just MDD w/ psychosis) -will increase Risperdone due to continued AH and disorganzied thinking INCREASE Risperidone to 3mg qhs Continue Risperidone 0.5mg daily Says Hyperhidrosis present for months prior to this admission and that it has not worsened since he's been here; if accurate reporting, makes new medication Effexor less likely cause 05/31/22 says feeling good and a little more linear in thought process. Intermittent passive SI but no plans/intent still has AH, but says he can ignore Will continue current regimen 06/01 lower slightly venlafaxine due to hyperhidrosis, see if voices get better with risperidone. 06/02 continue tx but pt appears more psychotic than he is reporting. 06/03 increase risperidone to 3mg po BID, d/c venlafaxine. 06/04 continue current medications. 06/05 continue tx. pending Saw referral that would like to see him with less psychosis or delusions. 06/06 continue current treatment plan -discussed with nursing; reviewed vitals and WNL; 06/07 continue current treatment plan; Met with patient. Discussed with nursing; reviewed vitals and WNL 06/10/22: Mirtazapine 7.5 mg HS B12 level 06/11. 06/11/22 Mucinex prn, [place] Nasal [place] prn 06/13/22: Add B Complex, 1 tab daily Pt feeling ready for discharge 06/15/22: Continue current plan of care 06/16/22: Discharge planning Informed Consent: understands Reason for contiued inpatient stay Substantial Risk for: stable for discharge Time Spent With Patient Time: Total time managing care of this patient today ____ minutes.
[2022-06-16] MEDS: Cyclobenzaprine HCl 10 MG TABLET PO (16:20)
[2022-06-16 19:08] VITALS: BP 133/75; PULSE 93; RESP 16; TEMP 37.1; O2SAT 97
[2022-06-16] MEDS: Mirtazapine 7.5 MG TABLET PO (22:12)
[2022-06-16] MEDS: traZODone HCL 100 MG TABLET PO (22:13)
[2022-06-17] MEDS: Baclofen 10 MG TABLET PO ×2 (08:07→22:00)
[2022-06-17] MEDS: Thiamine HCL 100 MG TABLET 200 MG PO (08:07)
[2022-06-17] MEDS: Cyanocobalamin (Vitamin B-12) 100 MCG TABLET PO (08:08)
[2022-06-17] MEDS: Benztropine Mesylate 1 MG TABLET PO ×2 (08:08→22:01)
[2022-06-17] MEDS: hydrOXYzine HCL 50 MG TABLET PO ×3 (08:08→22:02)
[2022-06-17] MEDS: risperiDONE 3 MG TABLET PO ×2 (08:08→22:02)
--- NOTE | 2022-06-17 08:56 | P.PNPSI_ITS ---
Subjective Subjective Date of Service: 06/17/22 Reason For Visit: Schizophrenia Subjective Notes: Conditional Voluntary Healthcare Proxy: No Guardianship: No Medical Problems Affecting Mental Status: No Interim History: Pt presents with report of no med SE, sx are improving. Tells team he receives SSDI and parents, pt's guardians, receive the funds monthly. Reports hx of SPED since first grade. Program applications continue with team. Saw reports a 3-6 month wait list, other programs over 4 months waiting Medication Compliance: Yes Side effects from medications: No Attending Groups: Yes Review of Systems Acute medical concerns: No Medical Review of Systems: unchanged Mental Status Exam Mental Status Exam Patient Appearance: Appropriate Patient Orientation: Person, Place, Time and Situation Level of Consciousness: Alert Patient Behavior: Appropriate, Talkative, Cooperative, Anxious, Distractible and Good Eye Contact Mood Description: Suspicious, Withdrawn, Constricted, Anxious, Nervous and Apprehensive Affect Description: Blunted Patient Cognition Impaired: No Ability to Follow Directions: Good Speech Pattern: Perseverating, Spontaneous Speech and Soft-Spoken Memory Description: Remote Impaired and Episodic Impaired Hallucinations: Auditory Delusions: Paranoid Ideation and Present Thought Process: Rumination and Goal Oriented Thought Content: positive for Goal Oriented and positive for Suicidal Ideation (denies) Depressive Symptoms: Increased Anxiety and Thoughts of /Suicide (denies) Abnormal Motor Activity Signs and Symptoms: Restlessness Judgement: Fair Diagnostics Vital Signs (24Hr): Vital Signs - 24 hr 06/16/22 10:48 06/16/22 19:08 Temperature 97.6 F 98.8 F Pulse Rate 104 H 93 Respiratory Rate 18 16 Blood Pressure 128/63 133/75 Pulse Oximetry 99 97 Oxygen Delivery Method Room Air Room Air BMI result Body Mass Index 25.3 Labs 06/04/22 15:54 06/04/22 15:54 Imaging Radiology Impressions: ITS Impressions Chest X-Ray 05/26/22 09:40 IMPRESSION: Unremarkable examination. Chest X-Ray 06/13/22 09:05 IMPRESSION: Unremarkable examination. Medications Medications Current Medications Acetaminophen (Acetaminophen 325 Mg Tablet) 650 mg PO Q6H PRN PRN Reason: Headache/Pain Mild Scale (1-3) Last Admin: 05/26/22 10:10 Dose: 650 mg Al Hydroxide/Mg Hydroxide (Magnesium Hydrox/Alum Hydrox 30 Ml Oral.Susp) 30 ml PO Q6H PRN PRN Reason: Heartburn/Nausea Baclofen (Baclofen 10 Mg Tablet) 10 mg PO BID [facility] [place] Last Admin: 06/17/22 08:07 Dose: 10 mg Benztropine Mesylate (Benztropine Mesylate 1 Mg Tablet) 1 mg PO BID [facility] [place] Last Admin: 06/17/22 08:08 Dose: 1 mg Cyanocobalamin (Cyanocobalamin (Vitamin B-12) 100 Mcg Tablet) 100 mcg PO DAILY [facility] [place] Last Admin: 06/17/22 08:08 Dose: 100 mcg Cyclobenzaprine HCl (Cyclobenzaprine Hcl 10 Mg Tablet) 10 mg PO TID PRN PRN Reason: Pain, Mild (Pain Scale 1-3) Last Admin: 06/16/22 16:20 Dose: 10 mg Guaifenesin (Guaifenesin La 600 Mg Tab.Er.12h) 600 mg PO BID PRN PRN Reason: congestion Last Admin: 05/29/22 19:58 Dose: 600 mg Guaifenesin (Guaifenesin La 600 Mg Tab.Er.12h) 600 mg PO BID PRN PRN Reason: Congestion Hydroxyzine HCl (Hydroxyzine Hcl 50 Mg Tablet) 50 mg PO TID [facility] [place] Last Admin: 06/17/22 08:08 Dose: 50 mg Lidocaine (Lidocaine 4 % Patch Adh..Patch) 1 patch TRANSDERMA DAILY [facility]; Protocol Last Admin: 06/16/22 10:32 Dose: 1 patch Magnesium Hydroxide (Milk Of Magnesia 30 Ml Oral.Susp) 30 ml PO DAILY PRN PRN Reason: Constipation Mirtazapine (Mirtazapine 7.5 Mg Tablet) 7.5 mg PO BEDTIME [facility] [place] Last Admin: 06/16/22 22:12 Dose: 7.5 mg Nicotine (Nicotine 14 Mg Patch.Td24) 14 mg TRANSDERMA DAILY [facility] [place] Last Admin: 06/16/22 10:31 Dose: 14 mg Nicotine Polacrilex (Nicotine Polacrilex 2 Mg Gum) 2 mg BUCCAL Q2H PRN PRN Reason: Nicotine Cravings Last Admin: 06/13/22 21:40 Dose: 2 mg Pt Own Med (Super B (Complex 1 Tab)) 1 tab PO DAILY [facility] [place] Last Admin: 06/17/22 08:08 Dose: 1 tab Quetiapine Fumarate (Quetiapine Fumarate 25 Mg Tablet) 25 mg PO Q4H PRN PRN Reason: Anxiety Last Admin: 06/11/22 21:52 Dose: 25 mg Risperidone (Risperidone 3 Mg Tablet) 3 mg PO BID [facility] [place] Last Admin: 06/17/22 08:08 Dose: 3 mg Sodium Chloride (Sodium Chloride 0.65 % Nasal 44 Ml Sprbtl) 1 spray NOSTRIL-B Q1H PRN PRN Reason: dryness, congestion Thiamine HCl (Thiamine Hcl 100 Mg Tablet) 200 mg PO DAILY [facility] [place] Last Admin: 06/17/22 08:07 Dose: 200 mg Trazodone HCl (Trazodone Hcl 100 Mg Tablet) 100 mg PO BEDTIME [facility] Last Admin: 06/16/22 22:13 Dose: 100 mg Allergies Allergies Allergy/AdvReac Type Severity Reaction Status Date / Time aspirin Allergy Unknown Unknown Verified 04/02/22 19:55 seafood Allergy Unknown Unknown Verified 04/02/22 19:55 Assessment & Plan Assessment & Plan (1) Schizophrenia: Status: Acute Code(s): F20.9 - Schizophrenia, unspecified (2) Moderate cocaine use disorder: Status: Acute Code(s): F14.20 - Cocaine dependence, uncomplicated Plan 37 yo male, history of schizophrenia, polysubstance use presents with request to re-stabilize on medications and return to addictions CSS treatment. Continue current regime. Monitor mood/behaviors Referrals for CSS placement. 05/15: Continue current regimen and encouraged to take medications. Nursing requested the p.r.n. in case he agrees to take something during the day and Seroquel 25 mg q.4 hours p.r.n. was ordered. 05/17: Continue current plans and regimen 05/18: Continue plans and regimen 05/19/22: Increase Venlafaxine to 112.5 mg daily Increase Seroquel to 150 mg a.m. and 250 mg h.s., a total increase of 100 mg per day. Pt may need a mood stabilizer-he declines at this time. 05/20/22: Decrease Venlafaxine to 75 mg daily Discontinue Seroquel Risperdal 2 mg hs. 05/21/22 Continue current regime and plan. 05/22/22 Monitor sx of COVID Monitor for increase sx as pt will be on isolation 05/23/22 Continue to monitor for sx of COVID No changes to current regime today 05/24/22: Team note an increase in OCD sx presentation. Pt at this time asks for no medication changes. Will continue to educate. 05/25/22: Risperdal 0.5 mg a.m. Chest xray 05/26/22: Chest xray negative. Continue current plan. 05/27/22: Quarantine will end 05/28/22. Decrease of physical sx Pt not wanting to change Effexor to Luvox to address OCD sx at this time Continue to assess and encourage focus on target sx. 05/28/22 continue current medications. 05/29 continue current medications. Noted hyperhydrosis with most likely s/s effexor- will try clonidine but may consider switching antidepressant to remer on. added baclofen for back pain and some degree of reduction of cocaine cravings. 05/30/22 HPI/Impression says dx: Schizophrenia (however this is not listed in problem category, just MDD w/ psychosis) -will increase Risperdone due to continued AH and disorganzied thinking INCREASE Risperidone to 3mg qhs Continue Risperidone 0.5mg daily Says Hyperhidrosis present for months prior to this admission and that it has not worsened since he's been here; if accurate reporting, makes new medication Effexor less likely cause 05/31/22 says feeling good and a little more linear in thought process. Intermittent passive SI but no plans/intent still has AH, but says he can ignore Will continue current regimen 06/01 lower slightly venlafaxine due to hyperhidrosis, see if voices get better with risperidone. 06/02 continue tx but pt appears more psychotic than he is reporting. 06/03 increase risperidone to 3mg po BID, d/c venlafaxine. 06/04 continue current medications. 06/05 continue tx. pending Saw referral that would like to see him with less psychosis or delusions. 06/06 continue current treatment plan -discussed with nursing; reviewed vitals and WNL; 06/07 continue current treatment plan; Met with patient. Discussed with nursing; reviewed vitals and WNL 06/10/22: Mirtazapine 7.5 mg HS B12 level 06/11. 06/11/22 Mucinex prn, [place] Nasal [place] prn 06/13/22: Add B Complex, 1 tab daily Pt feeling ready for discharge 06/15/22: Continue current plan of care 06/16/22: Discharge planning 06/17/22: Continue current plan of care, discharge planning Patient educated on: therapeutic strategies Informed Consent: further education needed Reason for contiued inpatient stay Substantial Risk for: rapid decompensation Time Spent With Patient Time: Total time managing care of this patient today 20 minutes.
[2022-06-17 09:47] VITALS: BP 132/77; PULSE 88; RESP 16; TEMP 36.2; O2SAT 98
[2022-06-17] MEDS: Lidocaine 4 % Patch ADH..PATCH 1 PATCH TRANSDERMA (11:19)
[2022-06-17] MEDS: Nicotine 14 MG PATCH.TD24 TRANSDERMA (11:20)
[2022-06-17 17:10] VITALS: BP 146/77; PULSE 77; TEMP 36.1
[2022-06-17] MEDS: Mirtazapine 7.5 MG TABLET PO (22:01)
[2022-06-17] MEDS: traZODone HCL 100 MG TABLET PO (22:01)
[2022-06-18 07:00] VITALS: BMI 25.7
[2022-06-18] MEDS: risperiDONE 3 MG TABLET PO ×2 (08:25→21:44)
[2022-06-18] MEDS: Cyanocobalamin (Vitamin B-12) 100 MCG TABLET PO (08:25)
[2022-06-18] MEDS: Baclofen 10 MG TABLET PO ×2 (08:25→21:44)
[2022-06-18] MEDS: Benztropine Mesylate 1 MG TABLET PO ×2 (08:25→21:44)
[2022-06-18] MEDS: Thiamine HCL 100 MG TABLET 200 MG PO (08:25)
[2022-06-18] MEDS: hydrOXYzine HCL 50 MG TABLET PO ×3 (08:25→21:44)
[2022-06-18 08:28] VITALS: BP 131/77; PULSE 81; RESP 16; TEMP 36.4; O2SAT 98
[2022-06-18] MEDS: Nicotine 14 MG PATCH.TD24 TRANSDERMA (10:57)
[2022-06-18] MEDS: Lidocaine 4 % Patch ADH..PATCH 1 PATCH TRANSDERMA (10:57)
[2022-06-18] MEDS: Nicotine Polacrilex 2 MG GUM BUCCAL ×2 (10:57→21:50)
--- NOTE | 2022-06-18 14:49 | HO.PSYCHPN ---
Subjective Subjective Date of Service: 06/18/22 Reason For Visit: Schizophrenia Subjective Notes: Conditional Voluntary Healthcare Proxy: No Guardianship: No Medical Problems Affecting Mental Status: No Interim History: Pt reports he has slept well, denies med SE. Reporting regime efficacy. Continues to discuss his preference of [facility] per his friend's recommendation, Johnathon Chatman. Asks that we try to convince them to allow his admission. Medication Compliance: Yes Side effects from medications: No Attending Groups: Yes Review of Systems Acute medical concerns: No Medical Review of Systems: unchanged Mental Status Exam Mental Status Exam Patient Appearance: Appropriate Patient Orientation: Person, Place, Time and Situation Level of Consciousness: Alert Patient Behavior: Appropriate, Talkative, Cooperative, Anxious, Distractible and Good Eye Contact Mood Description: Suspicious, Withdrawn, Constricted, Anxious, Nervous and Apprehensive Affect Description: Blunted Patient Cognition Impaired: No Ability to Follow Directions: Good Speech Pattern: Perseverating, Spontaneous Speech and Soft-Spoken Memory Description: Remote Impaired and Episodic Impaired Hallucinations: Auditory Delusions: Paranoid Ideation and Present Thought Process: Rumination and Goal Oriented Thought Content: positive for Goal Oriented and positive for Suicidal Ideation (denies) Depressive Symptoms: Increased Anxiety and Thoughts of /Suicide (denies) Abnormal Motor Activity Signs and Symptoms: Restlessness Judgement: Fair Diagnostics Vital Signs (24Hr): Vital Signs - 24 hr 06/17/22 17:10 06/18/22 08:28 Temperature 97.0 F 97.6 F Pulse Rate 77 81 Respiratory Rate 16 Blood Pressure 146/77 H 131/77 Pulse Oximetry 98 Oxygen Delivery Method Room Air BMI result Body Mass Index 25.7 Labs 06/04/22 15:54 06/04/22 15:54 Imaging Radiology Impressions: ITS Impressions Chest X-Ray 05/26/22 09:40 IMPRESSION: Unremarkable examination. Chest X-Ray 06/13/22 09:05 IMPRESSION: Unremarkable examination. Medications Medications Current Medications Acetaminophen (Acetaminophen 325 Mg Tablet) 650 mg PO Q6H PRN PRN Reason: Headache/Pain Mild Scale (1-3) Last Admin: 05/26/22 10:10 Dose: 650 mg Al Hydroxide/Mg Hydroxide (Magnesium Hydrox/Alum Hydrox 30 Ml Oral.Susp) 30 ml PO Q6H PRN PRN Reason: Heartburn/Nausea Baclofen (Baclofen 10 Mg Tablet) 10 mg PO BID [facility] Last Admin: 06/18/22 08:25 Dose: 10 mg Benztropine Mesylate (Benztropine Mesylate 1 Mg Tablet) 1 mg PO BID [facility] Last Admin: 06/18/22 08:25 Dose: 1 mg Cyanocobalamin (Cyanocobalamin (Vitamin B-12) 100 Mcg Tablet) 100 mcg PO DAILY [facility] Last Admin: 06/18/22 08:25 Dose: 100 mcg Cyclobenzaprine HCl (Cyclobenzaprine Hcl 10 Mg Tablet) 10 mg PO TID PRN PRN Reason: Pain, Mild (Pain Scale 1-3) Last Admin: 06/16/22 16:20 Dose: 10 mg Guaifenesin (Guaifenesin La 600 Mg Tab.Er.12h) 600 mg PO BID PRN PRN Reason: congestion Last Admin: 05/29/22 19:58 Dose: 600 mg Guaifenesin (Guaifenesin La 600 Mg Tab.Er.12h) 600 mg PO BID PRN PRN Reason: Congestion Hydroxyzine HCl (Hydroxyzine Hcl 50 Mg Tablet) 50 mg PO TID [facility] Last Admin: 06/18/22 14:09 Dose: 50 mg Lidocaine (Lidocaine 4 % Patch Adh..Patch) 1 patch TRANSDERMA DAILY [facility]; Protocol Last Admin: 06/18/22 10:57 Dose: 1 patch Magnesium Hydroxide (Milk Of Magnesia 30 Ml Oral.Susp) 30 ml PO DAILY PRN PRN Reason: Constipation Mirtazapine (Mirtazapine 7.5 Mg Tablet) 7.5 mg PO BEDTIME [facility] Last Admin: 06/17/22 22:01 Dose: 7.5 mg Nicotine (Nicotine 14 Mg Patch.Td24) 14 mg TRANSDERMA DAILY [facility] Last Admin: 06/18/22 10:57 Dose: 14 mg Nicotine Polacrilex (Nicotine Polacrilex 2 Mg Gum) 2 mg BUCCAL Q2H PRN PRN Reason: Nicotine Cravings Last Admin: 06/18/22 10:57 Dose: 2 mg Pt Own Med (Super B (Complex 1 Tab)) 1 tab PO DAILY [facility] Last Admin: 06/18/22 08:25 Dose: 1 tab Quetiapine Fumarate (Quetiapine Fumarate 25 Mg Tablet) 25 mg PO Q4H PRN PRN Reason: Anxiety Last Admin: 06/11/22 21:52 Dose: 25 mg Risperidone (Risperidone 3 Mg Tablet) 3 mg PO BID [facility] Last Admin: 06/18/22 08:25 Dose: 3 mg Sodium Chloride (Sodium Chloride 0.65 % Nasal 44 Ml Sprbtl) 1 spray NOSTRIL-B Q1H PRN PRN Reason: dryness, congestion Thiamine HCl (Thiamine Hcl 100 Mg Tablet) 200 mg PO DAILY [facility] Last Admin: 06/18/22 08:25 Dose: 200 mg Trazodone HCl (Trazodone Hcl 100 Mg Tablet) 100 mg PO BEDTIME [facility] Last Admin: 06/17/22 22:01 Dose: 100 mg Allergies Allergies Allergy/AdvReac Type Severity Reaction Status Date / Time aspirin Allergy Unknown Unknown Verified 04/02/22 19:55 seafood Allergy Unknown Unknown Verified 04/02/22 19:55 Assessment & Plan Assessment & Plan (1) Schizophrenia: Status: Acute Code(s): F20.9 - Schizophrenia, unspecified (2) Moderate cocaine use disorder: Status: Acute Code(s): F14.20 - Cocaine dependence, uncomplicated Plan 37 yo male, history of schizophrenia, polysubstance use presents with request to re-stabilize on medications and return to addictions CSS treatment. Continue current regime. Monitor mood/behaviors Referrals for CSS placement. 05/15: Continue current regimen and encouraged to take medications. Nursing requested the p.r.n. in case he agrees to take something during the day and Seroquel 25 mg q.4 hours p.r.n. was ordered. 05/17: Continue current plans and regimen 05/18: Continue plans and regimen 05/19/22: Increase Venlafaxine to 112.5 mg daily Increase Seroquel to 150 mg a.m. and 250 mg h.s., a total increase of 100 mg per day. Pt may need a mood stabilizer-he declines at this time. 05/20/22: Decrease Venlafaxine to 75 mg daily Discontinue Seroquel Risperdal 2 mg hs. 05/21/22 Continue current regime and plan. 05/22/22 Monitor sx of COVID Monitor for increase sx as pt will be on isolation 05/23/22 Continue to monitor for sx of COVID No changes to current regime today 05/24/22: Team note an increase in OCD sx presentation. Pt at this time asks for no medication changes. Will continue to educate. 05/25/22: Risperdal 0.5 mg a.m. Chest xray 05/26/22: Chest xray negative. Continue current plan. 05/27/22: Quarantine will end 05/28/22. Decrease of physical sx Pt not wanting to change Effexor to Luvox to address OCD sx at this time Continue to assess and encourage focus on target sx. 05/28/22 continue current medications. 05/29 continue current medications. Noted hyperhydrosis with most likely s/s effexor- will try clonidine but may consider switching antidepressant to remeron. added baclofen for back pain and some degree of reduction of cocaine cravings. 05/30/22 HPI/Impression says dx: Schizophrenia (however this is not listed in problem category, just MDD w/ psychosis) -will increase Risperdone due to continued AH and disorganzied thinking INCREASE Risperidone to 3mg qhs Continue Risperidone 0.5mg daily Says Hyperhidrosis present for months prior to this admission and that it has not worsened since he's been here; if accurate reporting, makes new medication Effexor less likely cause 05/31/22 says feeling good and a little more linear in thought process. Intermittent passive SI but no plans/intent still has AH, but says he can ignore Will continue current regimen 06/01 lower slightly venlafaxine due to hyperhidrosis, see if voices get better with risperidone. 06/02 continue tx but pt appears more psychotic than he is reporting. 06/03 increase risperidone to 3mg po BID, d/c venlafaxine. 06/04 continue current medications. 06/05 continue tx. pending [facility] referral that would like to see him with less psychosis or delusions. 06/06 continue current treatment plan -discussed with nursing; reviewed vitals and WNL; 06/07 continue current treatment plan; Met with patient. Discussed with nursing; reviewed vitals and WNL 06/10/22: Mirtazapine 7.5 mg HS B12 level 06/11. 06/11/22 Mucinex prn, [place] Nasal [place] prn 06/13/22: Add B Complex, 1 tab daily Pt feeling ready for discharge 06/15/22: Continue current plan of care 06/16/22: Discharge planning 06/18/22: Continue current plan of care. Team is very active in looking for placement for pt. Discharge planning. Informed Consent: further education needed Reason for contiued inpatient stay Substantial Risk for: inability to function and rapid decompensation Time Spent With Patient Time: Total time managing care of this patient today 15 minutes.
[2022-06-18 18:06] VITALS: BP 125/71; PULSE 86; RESP 15; TEMP 37; O2SAT 99
[2022-06-18] MEDS: Mirtazapine 7.5 MG TABLET PO (21:44)
[2022-06-18] MEDS: traZODone HCL 100 MG TABLET PO (21:44)
[2022-06-19] MEDS: Thiamine HCL 100 MG TABLET 200 MG PO (08:27)
[2022-06-19] MEDS: hydrOXYzine HCL 50 MG TABLET PO ×3 (08:28→21:24)
[2022-06-19] MEDS: Benztropine Mesylate 1 MG TABLET PO ×2 (08:28→21:24)
[2022-06-19] MEDS: risperiDONE 3 MG TABLET PO ×2 (08:28→21:24)
[2022-06-19] MEDS: Baclofen 10 MG TABLET PO ×2 (08:28→21:24)
[2022-06-19] MEDS: Cyanocobalamin (Vitamin B-12) 100 MCG TABLET PO (08:28)
[2022-06-19 08:33] VITALS: BP 110/62; PULSE 89; RESP 16; TEMP 36.3; O2SAT 98
[2022-06-19] MEDS: Nicotine 14 MG PATCH.TD24 TRANSDERMA (10:22)
[2022-06-19] MEDS: Lidocaine 4 % Patch ADH..PATCH 1 PATCH TRANSDERMA (10:22)
[2022-06-19] MEDS: Nicotine Polacrilex 2 MG GUM BUCCAL ×2 (12:17→15:43)
[2022-06-19] MEDS: Acetaminophen 325 MG TABLET 650 MG PO (15:34)
--- NOTE | 2022-06-19 16:39 | P.PNPSI_ITS ---
Subjective Subjective Date of Service: 06/19/22 Reason For Visit: Schizophrenia Subjective Notes: Conditional Voluntary Healthcare Proxy: No Guardianship: No Medical Problems Affecting Mental Status: No Interim History: Met with pt and Erick BARRY. Reports well rested with Trazodone, meds are effective, sx are in control, voices are decreasing and he is learning to manage sx. Denies SE, neck is feeling improved. Treatment options were discussed, [facility], [facility], [facility] and the long waits. [facility] will come in to meet with pt on 06/22/22 and assess/discuss for services. [facility] concept was described by the painter ordnance. Pt asked appropriate questions-discussion of what services they could help with, daytime structure, out patient therapy and psychiatry and community resources. Pt's painter ordnance believes he does not have a solid understanding of the process as it is thought he was sent [place] his [place] the [place] with a promise for all to be in place and available for him. He is saddened by these limits of the system, wonders where he will get money for food and if he will be safe in the community. Medication Compliance: Yes Side effects from medications: No Attending Groups: Yes Review of Systems Acute medical concerns: No Medical Review of Systems: unchanged Mental Status Exam Mental Status Exam Patient Appearance: Appropriate Patient Orientation: Person, Place, Time and Situation Level of Consciousness: Alert Patient Behavior: Appropriate, Talkative, Cooperative, Anxious, Distractible and Good Eye Contact Mood Description: Suspicious, Withdrawn, Constricted, Anxious, Nervous and Apprehensive Affect Description: Blunted Patient Cognition Impaired: No Ability to Follow Directions: Good Speech Pattern: Perseverating, Spontaneous Speech and Soft-Spoken Memory Description: Remote Impaired and Episodic Impaired Hallucinations: Auditory Delusions: Paranoid Ideation and Present Thought Process: Rumination and Goal Oriented Thought Content: positive for Goal Oriented and positive for Suicidal Ideation (denies) Depressive Symptoms: Increased Anxiety and Thoughts of /Suicide (denies) Abnormal Motor Activity Signs and Symptoms: Restlessness Judgement: Fair Diagnostics Vital Signs (24Hr): Vital Signs - 24 hr 06/18/22 18:06 06/19/22 08:33 Temperature 98.6 F 97.4 F Pulse Rate 86 89 Respiratory Rate 15 16 Blood Pressure 125/71 110/62 Pulse Oximetry 99 98 Oxygen Delivery Method Room Air Room Air BMI result Body Mass Index 25.7 Labs 06/04/22 15:54 06/04/22 15:54 Imaging Radiology Impressions: ITS Impressions Chest X-Ray 05/26/22 09:40 IMPRESSION: Unremarkable examination. Chest X-Ray 06/13/22 09:05 IMPRESSION: Unremarkable examination. Medications Medications Current Medications Acetaminophen (Acetaminophen 325 Mg Tablet) 650 mg PO Q6H PRN PRN Reason: Headache/Pain Mild Scale (1-3) Last Admin: 06/19/22 15:34 Dose: 650 mg Al Hydroxide/Mg Hydroxide (Magnesium Hydrox/Alum Hydrox 30 Ml Oral.Susp) 30 ml PO Q6H PRN PRN Reason: Heartburn/Nausea Baclofen (Baclofen 10 Mg Tablet) 10 mg PO BID [facility] Last Admin: 06/19/22 08:28 Dose: 10 mg Benztropine Mesylate (Benztropine Mesylate 1 Mg Tablet) 1 mg PO BID [facility] Last Admin: 06/19/22 08:28 Dose: 1 mg Cyanocobalamin (Cyanocobalamin (Vitamin B-12) 100 Mcg Tablet) 100 mcg PO DAILY [facility] Last Admin: 06/19/22 08:28 Dose: 100 mcg Cyclobenzaprine HCl (Cyclobenzaprine Hcl 10 Mg Tablet) 10 mg PO TID PRN PRN Reason: Pain, Mild (Pain Scale 1-3) Last Admin: 06/16/22 16:20 Dose: 10 mg Guaifenesin (Guaifenesin La 600 Mg Tab.Er.12h) 600 mg PO BID PRN PRN Reason: congestion Last Admin: 05/29/22 19:58 Dose: 600 mg Guaifenesin (Guaifenesin La 600 Mg Tab.Er.12h) 600 mg PO BID PRN PRN Reason: Congestion Hydroxyzine HCl (Hydroxyzine Hcl 50 Mg Tablet) 50 mg PO TID [facility] Last Admin: 06/19/22 14:20 Dose: 50 mg Lidocaine (Lidocaine 4 % Patch Adh..Patch) 1 patch TRANSDERMA DAILY [facility]; Protocol Last Admin: 06/19/22 10:22 Dose: 1 patch Magnesium Hydroxide (Milk Of Magnesia 30 Ml Oral.Susp) 30 ml PO DAILY PRN PRN Reason: Constipation Mirtazapine (Mirtazapine 7.5 Mg Tablet) 7.5 mg PO BEDTIME [facility] Last Admin: 06/18/22 21:44 Dose: 7.5 mg Nicotine (Nicotine 14 Mg Patch.Td24) 14 mg TRANSDERMA DAILY [facility] Last Admin: 06/19/22 10:22 Dose: 14 mg Nicotine Polacrilex (Nicotine Polacrilex 2 Mg Gum) 2 mg BUCCAL Q2H PRN PRN Reason: Nicotine Cravings Last Admin: 06/19/22 15:43 Dose: 2 mg Pt Own Med (Super B (Complex 1 Tab)) 1 tab PO DAILY [facility] Last Admin: 06/19/22 08:28 Dose: 1 tab Quetiapine Fumarate (Quetiapine Fumarate 25 Mg Tablet) 25 mg PO Q4H PRN PRN Reason: Anxiety Last Admin: 06/11/22 21:52 Dose: 25 mg Risperidone (Risperidone 3 Mg Tablet) 3 mg PO BID [facility] Last Admin: 06/19/22 08:28 Dose: 3 mg Sodium Chloride (Sodium Chloride 0.65 % Nasal 44 Ml Sprbtl) 1 spray NOSTRIL-B Q1H PRN PRN Reason: dryness, congestion Thiamine HCl (Thiamine Hcl 100 Mg Tablet) 200 mg PO DAILY [facility] Last Admin: 06/19/22 08:27 Dose: 200 mg Trazodone HCl (Trazodone Hcl 100 Mg Tablet) 100 mg PO BEDTIME [facility] Last Admin: 06/18/22 21:44 Dose: 100 mg Allergies Allergies Allergy/AdvReac Type Severity Reaction Status Date / Time aspirin Allergy Unknown Unknown Verified 04/02/22 19:55 seafood Allergy Unknown Unknown Verified 04/02/22 19:55 Assessment & Plan Assessment & Plan (1) Schizophrenia: Status: Acute Code(s): F20.9 - Schizophrenia, unspecified (2) Moderate cocaine use disorder: Status: Acute Code(s): F14.20 - Cocaine dependence, uncomplicated Plan 37 yo male, history of schizophrenia, polysubstance use presents with request to re-stabilize on medications and return to addictions CSS treatment. Continue current regime. Monitor mood/behaviors Referrals for CSS placement. 05/15: Continue current regimen and encouraged to take medications. Nursing requested the p.r.n. in case he agrees to take something during the day and Seroquel 25 mg q.4 hours p.r.n. was ordered. 05/17: Continue current plans and regimen 05/18: Continue plans and regimen 05/19/22: Increase Venlafaxine to 112.5 mg daily Increase Seroquel to 150 mg a.m. and 250 mg h.s., a total increase of 100 mg per day. Pt may need a mood stabilizer-he declines at this time. 05/20/22: Decrease Venlafaxine to 75 mg daily Discontinue Seroquel Risperdal 2 mg hs. 05/21/22 Continue current regime and plan. 05/22/22 Monitor sx of COVID Monitor for increase sx as pt will be on isolation 05/23/22 Continue to monitor for sx of COVID No changes to current regime today 05/24/22: Team note an increase in OCD sx presentation. Pt at this time asks for no medication changes. Will continue to educate. 05/25/22: Risperdal 0.5 mg a.m. Chest xray 05/26/22: Chest xray negative. Continue current plan. 05/27/22: Quarantine will end 05/28/22. Decrease of physical sx Pt not wanting to change Effexor to Luvox to address OCD sx at this time Continue to assess and encourage focus on target sx. 05/28/22 continue current medications. 05/29 continue current medications. Noted hyperhydrosis with most likely s/s effexor- will try clonidine but may consider switching antidepressant to remeron. added baclofen for back pain and some degree of reduction of cocaine cravings. 05/30/22 HPI/Impression says dx: Schizophrenia (however this is not listed in problem category, just MDD w/ psychosis) -will increase Risperdone due to continued AH and disorganzied thinking INCREASE Risperidone to 3mg qhs Continue Risperidone 0.5mg daily Says Hyperhidrosis present for months prior to this admission and that it has not worsened since he's been here; if accurate reporting, makes new medication Effexor less likely cause 05/31/22 says feeling good and a little more linear in thought process. Intermittent passive SI but no plans/intent still has AH, but says he can ignore Will continue current regimen 06/01 lower slightly venlafaxine due to hyperhidrosis, see if voices get better with risperidone. 06/02 continue tx but pt appears more psychotic than he is reporting. 06/03 increase risperidone to 3mg po BID, d/c venlafaxine. 06/04 continue current medications. 06/05 continue tx. pending [facility] referral that would like to see him with less psychosis or delusions. 06/06 continue current treatment plan -discussed with nursing; reviewed vitals and WNL; 06/07 continue current treatment plan; Met with patient. Discussed with nursing; reviewed vitals and WNL 06/10/22: Mirtazapine 7.5 mg HS B12 level 06/11. 06/11/22 Mucinex prn, [place] Nasal [place] prn 06/13/22: Add B Complex, 1 tab daily Pt feeling ready for discharge 06/15/22: Continue current plan of care 06/16/22: Discharge planning 06/18/22: Continue current plan of care. Team is very active in looking for placement for pt. Discharge planning. 06/19/22: Continue current regime. Pt will meet with [facility] on 06/22/22. Patient educated on: other Informed Consent: further education needed Reason for contiued inpatient stay Substantial Risk for: inability to function and med/psych decompensation Time Spent With Patient Time: Total time managing care of this patient today 30 minutes.
[2022-06-19 20:38] VITALS: BP 128/64; PULSE 87; TEMP 36.1
[2022-06-19] MEDS: Mirtazapine 7.5 MG TABLET PO (21:24)
[2022-06-19] MEDS: traZODone HCL 100 MG TABLET PO (21:24)
[2022-06-20] MEDS: Benztropine Mesylate 1 MG TABLET PO ×2 (07:53→19:38)
[2022-06-20] MEDS: Baclofen 10 MG TABLET PO ×2 (07:53→19:38)
[2022-06-20] MEDS: hydrOXYzine HCL 50 MG TABLET PO ×3 (07:53→19:38)
[2022-06-20] MEDS: Cyanocobalamin (Vitamin B-12) 100 MCG TABLET PO (07:53)
[2022-06-20] MEDS: Thiamine HCL 100 MG TABLET 200 MG PO (07:53)
[2022-06-20] MEDS: risperiDONE 3 MG TABLET PO ×2 (07:53→19:38)
[2022-06-20 07:55] VITALS: BP 123/70; PULSE 87; RESP 18; TEMP 36.2; O2SAT 98
[2022-06-20] MEDS: Lidocaine 4 % Patch ADH..PATCH 1 PATCH TRANSDERMA (11:25)
[2022-06-20] MEDS: Nicotine 14 MG PATCH.TD24 TRANSDERMA (11:25)
--- NOTE | 2022-06-20 12:25 | P.PNPSI_ITS ---
Subjective Subjective Date of Service: 06/20/22 Reason For Visit: Schizophrenia Interim History: Met with pt and discussed with RN Patient reports he is feeling well today. He reports no more AH. He denies side effects with medications. Says he has some worries about next steps for housing and discharge. He denies SI. Review of Systems Review of Systems Constitutional : No Weight loss, No Fever, No Chills, No Fatigue, No Malaise ENT/Mouth : No sore throat, No Rhinorrhea Eyes: No Eye Pain, No Swelling, No Redness Cardiovascular : No Chest Pain, No SOB, No Dyspnea on Exertion, No Orthopnea, No Edema, No Palpitations Respiratory : No Cough, No Sputum, No Wheezing Gastrointestinal : No Nausea, No Vomiting, No Diarrhea, No Constipation, No abdominal Pain, No Hematochezia, No Melena Genitourinary : No Dysuria, No Urinary Frequency, No Hematuria, Musculoskeletal : No joint pain, No Myalgias, No Joint Swelling Skin : No Skin Lesions, No rash Neuro : No Weakness, No Numbness, No Dizziness, No Headache Psych : + Anxiety/Panic, + , + Depression, + SI, No HI All other systems reviewed and are negative Yes all other systems are reviewed and are negative and Unobtainable due to mental status Constitutional: Reports no additional constitutional complaints Eyes: Reports no additional eye complaints Reports Normal hearing present (asks for a hearing assessment to be scheduled) Cardiovascular: Reports no additional cardiovascular complaints Respiratory: Reports no additional respiratory complaints Gastrointestinal: Reports no additional gastrointestinal complaints Genitourinary: Reports no additional male genitourinary complaints Musculoskeletal: Reports no additional musculoskeletal complaints Skin/Breast: Reports system reviewed and no additional complaints, except as docu Reports Normal hearing present (asks for a hearing assessment to be scheduled) and Reports behavioral changes Psychiatric: Reports anxiety, Reports behavioral changes, Reports difficulty concentrating, Reports irritability, Reports anhedonia, Reports mood swings, Reports paranoia and Reports suicidal ideation (denies) Endocrine: Reports no additional endocrine complaints Hematologic/Lymphatic: Reports no additional hematologic/lymphatic complaints Allergic/Immunologic: Reports no additional allergic/immunologic complaints Mental Status Exam Mental Status Exam Narrative: Pt is alert and oriented; behavior is cooperative,polite; dressed in casual attire, adequately groomed; mood is described as good...regular and affect a little less anxious; improved eye contact, but still avoidant; Speech is normal rate, volume and prosody and not pressured; no psychomotor agitation/retardation present; thought process more goal oriented and not tangential but rambles some; thought content is on tx, aftercare; coping with AH; restorationist delusions of devil; intermittent SI but passive and no plans/intent; no HI. AH present but pt says he can ignore. Patients insight and judgment are impaired but improving Patient Appearance: Appropriate Patient Orientation: Person, Place, Time and Situation Level of Consciousness: Alert Patient Behavior: Appropriate, Talkative, Cooperative, Anxious, Distractible and Good Eye Contact Mood Description: Suspicious, Withdrawn, Constricted, Anxious, Nervous and Apprehensive Affect Description: Blunted Patient Cognition Impaired: No Ability to Follow Directions: Good Speech Pattern: Perseverating, Spontaneous Speech and Soft-Spoken Memory Description: Remote Impaired and Episodic Impaired Diagnostics Vital Signs (24Hr): Vital Signs - 24 hr 06/20/22 07:55 06/20/22 18:00 Temperature 97.2 F 97.5 F Pulse Rate 87 87 Respiratory Rate 18 16 Blood Pressure 123/70 125/63 Pulse Oximetry 98 98 Oxygen Delivery Method Room Air Room Air BMI result Body Mass Index 25.7 Labs 06/04/22 15:54 06/04/22 15:54 Imaging Radiology Impressions: ITS Impressions Chest X-Ray 05/26/22 09:40 IMPRESSION: Unremarkable examination. Chest X-Ray 06/13/22 09:05 IMPRESSION: Unremarkable examination. Medications Medications Current Medications Acetaminophen (Acetaminophen 325 Mg Tablet) 650 mg PO Q6H PRN PRN Reason: Headache/Pain Mild Scale (1-3) Last Admin: 06/19/22 15:34 Dose: 650 mg Al Hydroxide/Mg Hydroxide (Magnesium Hydrox/Alum Hydrox 30 Ml Oral.Susp) 30 ml PO Q6H PRN PRN Reason: Heartburn/Nausea Baclofen (Baclofen 10 Mg Tablet) 10 mg PO BID [facility] Last Admin: 06/20/22 19:38 Dose: 10 mg Benztropine Mesylate (Benztropine Mesylate 1 Mg Tablet) 1 mg PO BID [facility] Last Admin: 06/20/22 19:38 Dose: 1 mg Cyanocobalamin (Cyanocobalamin (Vitamin B-12) 100 Mcg Tablet) 100 mcg PO DAILY [facility] Last Admin: 06/20/22 07:53 Dose: 100 mcg Cyclobenzaprine HCl (Cyclobenzaprine Hcl 10 Mg Tablet) 10 mg PO TID PRN PRN Reason: Pain, Mild (Pain Scale 1-3) Last Admin: 06/16/22 16:20 Dose: 10 mg Guaifenesin (Guaifenesin La 600 Mg Tab.Er.12h) 600 mg PO BID PRN PRN Reason: congestion Last Admin: 05/29/22 19:58 Dose: 600 mg Guaifenesin (Guaifenesin La 600 Mg Tab.Er.12h) 600 mg PO BID PRN PRN Reason: Congestion Hydroxyzine HCl (Hydroxyzine Hcl 50 Mg Tablet) 50 mg PO TID [facility] Last Admin: 06/20/22 19:38 Dose: 50 mg Lidocaine (Lidocaine 4 % Patch Adh..Patch) 1 patch TRANSDERMA DAILY [facility]; Protocol Last Admin: 06/20/22 11:25 Dose: 1 patch Magnesium Hydroxide (Milk Of Magnesia 30 Ml Oral.Susp) 30 ml PO DAILY PRN PRN Reason: Constipation Mirtazapine (Mirtazapine 7.5 Mg Tablet) 7.5 mg PO BEDTIME [facility] Last Admin: 06/20/22 19:39 Dose: 7.5 mg Nicotine (Nicotine 14 Mg Patch.Td24) 14 mg TRANSDERMA DAILY [facility] Last Admin: 06/20/22 11:25 Dose: 14 mg Nicotine Polacrilex (Nicotine Polacrilex 2 Mg Gum) 2 mg BUCCAL Q2H PRN PRN Reason: Nicotine Cravings Last Admin: 06/19/22 15:43 Dose: 2 mg Pt Own Med (Super B (Complex 1 Tab)) 1 tab PO DAILY [facility] Last Admin: 06/20/22 07:53 Dose: 1 tab Quetiapine Fumarate (Quetiapine Fumarate 25 Mg Tablet) 25 mg PO Q4H PRN PRN Reason: Anxiety Last Admin: 06/11/22 21:52 Dose: 25 mg Risperidone (Risperidone 3 Mg Tablet) 3 mg PO BID [facility] Last Admin: 06/20/22 19:38 Dose: 3 mg Sodium Chloride (Sodium Chloride 0.65 % Nasal 44 Ml Sprbtl) 1 spray NOSTRIL-B Q1H PRN PRN Reason: dryness, congestion Thiamine HCl (Thiamine Hcl 100 Mg Tablet) 200 mg PO DAILY [facility] Last Admin: 06/20/22 07:53 Dose: 200 mg Trazodone HCl (Trazodone Hcl 100 Mg Tablet) 100 mg PO BEDTIME [facility] Last Admin: 06/20/22 19:39 Dose: 100 mg Allergies Allergies Allergy/AdvReac Type Severity Reaction Status Date / Time aspirin Allergy Unknown Unknown Verified 04/02/22 19:55 seafood Allergy Unknown Unknown Verified 04/02/22 19:55 Assessment & Plan Assessment & Plan (1) Schizophrenia: Status: Acute Code(s): F20.9 - Schizophrenia, unspecified (2) Moderate cocaine use disorder: Status: Acute Code(s): F14.20 - Cocaine dependence, uncomplicated Plan 37 yo male, history of schizophrenia, polysubstance use presents with request to re-stabilize on medications and return to addictions CSS treatment. Continue current regime. Monitor mood/behaviors Referrals for CSS placement. 05/15: Continue current regimen and encouraged to take medications. Nursing requested the p.r.n. in case he agrees to take something during the day and Seroquel 25 mg q.4 hours p.r.n. was ordered. 05/17: Continue current plans and regimen 05/18: Continue plans and regimen 05/19/22: Increase Venlafaxine to 112.5 mg daily Increase Seroquel to 150 mg a.m. and 250 mg h.s., a total increase of 100 mg per day. Pt may need a mood stabilizer-he declines at this time. 05/20/22: Decrease Venlafaxine to 75 mg daily Discontinue Seroquel Risperdal 2 mg hs. 05/21/22 Continue current regime and plan. 05/22/22 Monitor sx of COVID Monitor for increase sx as pt will be on isolation 05/23/22 Continue to monitor for sx of COVID No changes to current regime today 05/24/22: Team note an increase in OCD sx presentation. Pt at this time asks for no medication changes. Will continue to educate. 05/25/22: Risperdal 0.5 mg a.m. Chest xray 05/26/22: Chest xray negative. Continue current plan. 05/27/22: Quarantine will end 05/28/22. Decrease of physical sx Pt not wanting to change Effexor to Luvox to address OCD sx at this time Continue to assess and encourage focus on target sx. 05/28/22 continue current medications. 05/29 continue current medications. Noted hyperhydrosis with most likely s/s effexor- will try clonidine but may consider switching antidepressant to remeron. added baclofen for back pain and some degree of reduction of cocaine cravings. 05/30/22 HPI/Impression says dx: Schizophrenia (however this is not listed in problem category, just MDD w/ psychosis) -will increase Risperdone due to continued AH and disorganzied thinking INCREASE Risperidone to 3mg qhs Continue Risperidone 0.5mg daily Says Hyperhidrosis present for months prior to this admission and that it has not worsened since he's been here; if accurate reporting, makes new medication Effexor less likely cause 05/31/22 says feeling good and a little more linear in thought process. Intermittent passive SI but no plans/intent still has AH, but says he can ignore Will continue current regimen 06/01 lower slightly venlafaxine due to hyperhidrosis, see if voices get better with risperidone. 06/02 continue tx but pt appears more psychotic than he is reporting. 06/03 increase risperidone to 3mg po BID, d/c venlafaxine. 06/04 continue current medications. 06/05 continue tx. pending Saw referral that would like to see him with less psychosis or delusions. 06/06 continue current treatment plan -discussed with nursing; reviewed vitals and WNL; 06/07 continue current treatment plan; Met with patient. Discussed with nursing; reviewed vitals and WNL 06/10/22: Mirtazapine 7.5 mg HS B12 level 06/11. 06/11/22 Mucinex prn, [place] Nasal [place] prn 06/13/22: Add B Complex, 1 tab daily Pt feeling ready for discharge 06/15/22: Continue current plan of care 06/16/22: Discharge planning 06/18/22: Continue current plan of care. Team is very active in looking for placement for pt. Discharge planning. 06/19/22: Continue current regime. Pt will meet with [facility] on 06/22/22. 06/20: Continue tx plan. Reason for contiued inpatient stay Substantial Risk for: inability to function and rapid decompensation Time Spent With Patient Time: Total time managing care of this patient today ____ minutes.
[2022-06-20 18:00] VITALS: BP 125/63; PULSE 87; RESP 16; TEMP 36.4; O2SAT 98
[2022-06-20] MEDS: traZODone HCL 100 MG TABLET PO (19:39)
[2022-06-20] MEDS: Mirtazapine 7.5 MG TABLET PO (19:39)
[2022-06-21 08:12] VITALS: BP 123/57; PULSE 81; RESP 16; TEMP 36.7; O2SAT 98
[2022-06-21] MEDS: Baclofen 10 MG TABLET PO ×2 (08:43→21:46)
[2022-06-21] MEDS: Benztropine Mesylate 1 MG TABLET PO ×2 (08:43→21:46)
[2022-06-21] MEDS: hydrOXYzine HCL 50 MG TABLET PO ×3 (08:43→21:46)
[2022-06-21] MEDS: Thiamine HCL 100 MG TABLET 200 MG PO (08:43)
[2022-06-21] MEDS: risperiDONE 3 MG TABLET PO ×2 (08:43→21:46)
[2022-06-21] MEDS: Cyanocobalamin (Vitamin B-12) 100 MCG TABLET PO (08:43)
[2022-06-21] MEDS: Nicotine 14 MG PATCH.TD24 TRANSDERMA (11:13)
[2022-06-21] MEDS: Lidocaine 4 % Patch ADH..PATCH 1 PATCH TRANSDERMA (11:14)
--- NOTE | 2022-06-21 11:20 | PC.NURSE ---
pt had nicotine patch and lidocaine patch at 11:15am on 06/21/22
--- NOTE | 2022-06-21 15:30 | P.PNPSI_ITS ---
Subjective Subjective Date of Service: 06/21/22 Reason For Visit: Schizophrenia Interim History: Met with pt and discussed with RN Patient reports he is feeling well today. He reports no more AH. He denies side effects with medications. Says he has some worries about next steps for housing and discharge. He denies SI. Review of Systems Review of Systems Constitutional : No Weight loss, No Fever, No Chills, No Fatigue, No Malaise ENT/Mouth : No sore throat, No Rhinorrhea Eyes: No Eye Pain, No Swelling, No Redness Cardiovascular : No Chest Pain, No SOB, No Dyspnea on Exertion, No Orthopnea, No Edema, No Palpitations Respiratory : No Cough, No Sputum, No Wheezing Gastrointestinal : No Nausea, No Vomiting, No Diarrhea, No Constipation, No abdominal Pain, No Hematochezia, No Melena Genitourinary : No Dysuria, No Urinary Frequency, No Hematuria, Musculoskeletal : No joint pain, No Myalgias, No Joint Swelling Skin : No Skin Lesions, No rash Neuro : No Weakness, No Numbness, No Dizziness, No Headache Psych : + Anxiety/Panic, + , + Depression, + SI, No HI All other systems reviewed and are negative Yes all other systems are reviewed and are negative and Unobtainable due to mental status Constitutional: Reports no additional constitutional complaints Eyes: Reports no additional eye complaints Reports Normal hearing present (asks for a hearing assessment to be scheduled) Cardiovascular: Reports no additional cardiovascular complaints Respiratory: Reports no additional respiratory complaints Gastrointestinal: Reports no additional gastrointestinal complaints Genitourinary: Reports no additional male genitourinary complaints Musculoskeletal: Reports no additional musculoskeletal complaints Skin/Breast: Reports system reviewed and no additional complaints, except as docu Reports Normal hearing present (asks for a hearing assessment to be scheduled) and Reports behavioral changes Psychiatric: Reports anxiety, Reports behavioral changes, Reports difficulty concentrating, Reports irritability, Reports anhedonia, Reports mood swings, Reports paranoia and Reports suicidal ideation (denies) Endocrine: Reports no additional endocrine complaints Hematologic/Lymphatic: Reports no additional hematologic/lymphatic complaints Allergic/Immunologic: Reports no additional allergic/immunologic complaints Mental Status Exam Mental Status Exam Narrative: Pt is alert and oriented; behavior is cooperative,polite; dressed in casual attire, adequately groomed; mood is described as good...regular and affect a little less anxious; improved eye contact, but still avoidant; Speech is normal rate, volume and prosody and not pressured; no psychomotor agitation/retardation present; thought process more goal oriented and not tangential but rambles some; thought content is on tx, aftercare; coping with AH; alevism delusions of devil; intermittent SI but passive and no plans/intent; no HI. AH present but pt says he can ignore. Patients insight and judgment are impaired but improving Patient Appearance: Appropriate Patient Orientation: Person, Place, Time and Situation Level of Consciousness: Alert Patient Behavior: Appropriate, Talkative, Cooperative, Anxious, Distractible and Good Eye Contact Mood Description: Suspicious, Withdrawn, Constricted, Anxious, Nervous and Apprehensive Affect Description: Blunted Patient Cognition Impaired: No Ability to Follow Directions: Good Speech Pattern: Perseverating, Spontaneous Speech and Soft-Spoken Memory Description: Remote Impaired and Episodic Impaired Diagnostics Vital Signs (24Hr): Vital Signs - 24 hr 06/21/22 08:12 06/21/22 17:30 Temperature 98.1 F 98.4 F Pulse Rate 81 89 Respiratory Rate 16 Blood Pressure 123/57 L 116/65 Pulse Oximetry 98 99 Oxygen Delivery Method Room Air Room Air BMI result Body Mass Index 25.7 Labs 06/04/22 15:54 06/04/22 15:54 Imaging Radiology Impressions: ITS Impressions Chest X-Ray 05/26/22 09:40 IMPRESSION: Unremarkable examination. Chest X-Ray 06/13/22 09:05 IMPRESSION: Unremarkable examination. Medications Medications Current Medications Acetaminophen (Acetaminophen 325 Mg Tablet) 650 mg PO Q6H PRN PRN Reason: Headache/Pain Mild Scale (1-3) Last Admin: 06/21/22 17:07 Dose: 650 mg Al Hydroxide/Mg Hydroxide (Magnesium Hydrox/Alum Hydrox 30 Ml Oral.Susp) 30 ml PO Q6H PRN PRN Reason: Heartburn/Nausea Baclofen (Baclofen 10 Mg Tablet) 10 mg PO BID [facility] Last Admin: 06/21/22 21:46 Dose: 10 mg Benztropine Mesylate (Benztropine Mesylate 1 Mg Tablet) 1 mg PO BID [facility] Last Admin: 06/21/22 21:46 Dose: 1 mg Cyanocobalamin (Cyanocobalamin (Vitamin B-12) 100 Mcg Tablet) 100 mcg PO DAILY [facility] Last Admin: 06/21/22 08:43 Dose: 100 mcg Cyclobenzaprine HCl (Cyclobenzaprine Hcl 10 Mg Tablet) 10 mg PO TID PRN PRN Reason: Pain, Mild (Pain Scale 1-3) Last Admin: 06/16/22 16:20 Dose: 10 mg Guaifenesin (Guaifenesin La 600 Mg Tab.Er.12h) 600 mg PO BID PRN PRN Reason: congestion Last Admin: 05/29/22 19:58 Dose: 600 mg Guaifenesin (Guaifenesin La 600 Mg Tab.Er.12h) 600 mg PO BID PRN PRN Reason: Congestion Hydroxyzine HCl (Hydroxyzine Hcl 50 Mg Tablet) 50 mg PO TID [facility] Last Admin: 06/21/22 21:46 Dose: 50 mg Lidocaine (Lidocaine 4 % Patch Adh..Patch) 1 patch TRANSDERMA DAILY [facility]; Protocol Last Admin: 06/21/22 11:14 Dose: 1 patch Magnesium Hydroxide (Milk Of Magnesia 30 Ml Oral.Susp) 30 ml PO DAILY PRN PRN Reason: Constipation Mirtazapine (Mirtazapine 7.5 Mg Tablet) 7.5 mg PO BEDTIME [facility] Last Admin: 06/21/22 21:46 Dose: 7.5 mg Nicotine (Nicotine 14 Mg Patch.Td24) 14 mg TRANSDERMA DAILY [facility] Last Admin: 06/21/22 11:13 Dose: 14 mg Nicotine Polacrilex (Nicotine Polacrilex 2 Mg Gum) 2 mg BUCCAL Q2H PRN PRN Reason: Nicotine Cravings Last Admin: 06/19/22 15:43 Dose: 2 mg Pt Own Med (Super B (Complex 1 Tab)) 1 tab PO DAILY [facility] Last Admin: 06/21/22 08:44 Dose: 1 tab Quetiapine Fumarate (Quetiapine Fumarate 25 Mg Tablet) 25 mg PO Q4H PRN PRN Reason: Anxiety Last Admin: 06/11/22 21:52 Dose: 25 mg Risperidone (Risperidone 3 Mg Tablet) 3 mg PO BID [facility] Last Admin: 06/21/22 21:46 Dose: 3 mg Sodium Chloride (Sodium Chloride 0.65 % Nasal 44 Ml Sprbtl) 1 spray NOSTRIL-B Q1H PRN PRN Reason: dryness, congestion Thiamine HCl (Thiamine Hcl 100 Mg Tablet) 200 mg PO DAILY [facility] Last Admin: 06/21/22 08:43 Dose: 200 mg Trazodone HCl (Trazodone Hcl 100 Mg Tablet) 100 mg PO BEDTIME [facility] Last Admin: 06/21/22 21:46 Dose: 100 mg Allergies Allergies Allergy/AdvReac Type Severity Reaction Status Date / Time aspirin Allergy Unknown Unknown Verified 04/02/22 19:55 seafood Allergy Unknown Unknown Verified 04/02/22 19:55 Assessment & Plan Assessment & Plan (1) Schizophrenia: Status: Acute Code(s): F20.9 - Schizophrenia, unspecified (2) Moderate cocaine use disorder: Status: Acute Code(s): F14.20 - Cocaine dependence, uncomplicated Plan 37 yo male, history of schizophrenia, polysubstance use presents with request to re-stabilize on medications and return to addictions CSS treatment. Continue current regime. Monitor mood/behaviors Referrals for CSS placement. 05/15: Continue current regimen and encouraged to take medications. Nursing requested the p.r.n. in case he agrees to take something during the day and Seroquel 25 mg q.4 hours p.r.n. was ordered. 05/17: Continue current plans and regimen 05/18: Continue plans and regimen 05/19/22: Increase Venlafaxine to 112.5 mg daily Increase Seroquel to 150 mg a.m. and 250 mg h.s., a total increase of 100 mg per day. Pt may need a mood stabilizer-he declines at this time. 05/20/22: Decrease Venlafaxine to 75 mg daily Discontinue Seroquel Risperdal 2 mg hs. 05/21/22 Continue current regime and plan. 05/22/22 Monitor sx of COVID Monitor for increase sx as pt will be on isolation 05/23/22 Continue to monitor for sx of COVID No changes to current regime today 05/24/22: Team note an increase in OCD sx presentation. Pt at this time asks for no medication changes. Will continue to educate. 05/25/22: Risperdal 0.5 mg a.m. Chest xray 05/26/22: Chest xray negative. Continue current plan. 05/27/22: Quarantine will end 05/28/22. Decrease of physical sx Pt not wanting to change Effexor to Luvox to address OCD sx at this time Continue to assess and encourage focus on target sx. 05/28/22 continue current medications. 05/29 continue current medications. Noted hyperhydrosis with most likely s/s effexor- will try clonidine but may consider switching antidepressant to remeron. added baclofen for back pain and some degree of reduction of cocaine cravings. 05/30/22 HPI/Impression says dx: Schizophrenia (however this is not listed in problem category, just MDD w/ psychosis) -will increase Risperdone due to continued AH and disorganzied thinking INCREASE Risperidone to 3mg qhs Continue Risperidone 0.5mg daily Says Hyperhidrosis present for months prior to this admission and that it has not worsened since he's been here; if accurate reporting, makes new medication Effexor less likely cause 05/31/22 says feeling good and a little more linear in thought process. Intermittent passive SI but no plans/intent still has AH, but says he can ignore Will continue current regimen 06/01 lower slightly venlafaxine due to hyperhidrosis, see if voices get better with risperidone. 06/02 continue tx but pt appears more psychotic than he is reporting. 06/03 increase risperidone to 3mg po BID, d/c venlafaxine. 06/04 continue current medications. 06/05 continue tx. pending Saw referral that would like to see him with less psychosis or delusions. 06/06 continue current treatment plan -discussed with nursing; reviewed vitals and WNL; 06/07 continue current treatment plan; Met with patient. Discussed with nursing; reviewed vitals and WNL 06/10/22: Mirtazapine 7.5 mg HS B12 level 06/11. 06/11/22 Mucinex prn, [place] Nasal [place] prn 06/13/22: Add B Complex, 1 tab daily Pt feeling ready for discharge 06/15/22: Continue current plan of care 06/16/22: Discharge planning 06/18/22: Continue current plan of care. Team is very active in looking for placement for pt. Discharge planning. 06/19/22: Continue current regime. Pt will meet with [facility] on 06/22/22. 06/20: Continue tx plan. 06/21: Continue tx plan Reason for contiued inpatient stay Substantial Risk for: inability to function and rapid decompensation Time Spent With Patient Time: Total time managing care of this patient today ____ minutes.
[2022-06-21] MEDS: Acetaminophen 325 MG TABLET 650 MG PO (17:07)
[2022-06-21 17:30] VITALS: BP 116/65; PULSE 89; TEMP 36.9; O2SAT 99
[2022-06-21] MEDS: traZODone HCL 100 MG TABLET PO (21:46)
[2022-06-21] MEDS: Mirtazapine 7.5 MG TABLET PO (21:46)
[2022-06-22 08:30] VITALS: BP 134/74; PULSE 76; RESP 16; TEMP 36.5; O2SAT 98
[2022-06-22] MEDS: hydrOXYzine HCL 50 MG TABLET PO ×3 (08:54→21:55)
[2022-06-22] MEDS: Thiamine HCL 100 MG TABLET 200 MG PO (08:54)
[2022-06-22] MEDS: Cyanocobalamin (Vitamin B-12) 100 MCG TABLET PO (08:54)
[2022-06-22] MEDS: risperiDONE 3 MG TABLET PO ×2 (08:54→21:56)
[2022-06-22] MEDS: Baclofen 10 MG TABLET PO ×2 (08:56→21:55)
[2022-06-22] MEDS: Benztropine Mesylate 1 MG TABLET PO ×2 (08:59→21:56)
--- NOTE | 2022-06-22 11:44 | HO.PSYCHPN ---
Subjective Subjective Date of Service: 06/22/22 Reason For Visit: Schizophrenia Subjective Notes: Conditional Voluntary Healthcare Proxy: No Guardianship: No Medical Problems Affecting Mental Status: No Interim History: Pt met with [facility]. Met with pt, Erick BARRY, freelance interpreter/translator. Discussed that currently there are no programs with beds available. Discussed long term placement. Discharge will be on 06/25/22. Pt resistant, refusing long term referrals. Asking about CSS (not eligible as he has been sober since ) Reports meds are effective and without SE. Pt to call his uncle in [place] today to see if housing is an option for him with extended family. Medication Compliance: Yes Side effects from medications: No Attending Groups: Intermittent Review of Systems Acute medical concerns: No Medical Review of Systems: unchanged Mental Status Exam Mental Status Exam Patient Appearance: Appropriate Patient Orientation: Person, Place, Time and Situation Level of Consciousness: Alert Patient Behavior: Appropriate, Talkative, Cooperative, Anxious, Distractible and Good Eye Contact Mood Description: Constricted, Anxious, Nervous and Apprehensive Affect Description: Apprehensive Patient Cognition Impaired: No Ability to Follow Directions: Good Speech Pattern: Perseverating, Spontaneous Speech and Soft-Spoken Memory Description: Remote Impaired and Episodic Impaired Thought Process: Rumination and Goal Oriented Thought Content: positive for Goal Oriented and positive for Suicidal Ideation (denies) Depressive Symptoms: Increased Anxiety and Thoughts of /Suicide (denies) Judgement: Good Diagnostics Vital Signs (24Hr): Vital Signs - 24 hr 06/21/22 17:30 06/22/22 08:30 Temperature 98.4 F 97.7 F Pulse Rate 89 76 Respiratory Rate 16 Blood Pressure 116/65 134/74 Pulse Oximetry 99 98 Oxygen Delivery Method Room Air BMI result Body Mass Index 25.7 Labs 06/04/22 15:54 06/04/22 15:54 Imaging Radiology Impressions: ITS Impressions Chest X-Ray 05/26/22 09:40 IMPRESSION: Unremarkable examination. Chest X-Ray 06/13/22 09:05 IMPRESSION: Unremarkable examination. Medications Medications Current Medications Acetaminophen (Acetaminophen 325 Mg Tablet) 650 mg PO Q6H PRN PRN Reason: Headache/Pain Mild Scale (1-3) Last Admin: 06/21/22 17:07 Dose: 650 mg Al Hydroxide/Mg Hydroxide (Magnesium Hydrox/Alum Hydrox 30 Ml Oral.Susp) 30 ml PO Q6H PRN PRN Reason: Heartburn/Nausea Baclofen (Baclofen 10 Mg Tablet) 10 mg PO BID [facility] Last Admin: 06/22/22 08:56 Dose: 10 mg Benztropine Mesylate (Benztropine Mesylate 1 Mg Tablet) 1 mg PO BID [facility] Last Admin: 06/22/22 08:59 Dose: 1 mg Cyanocobalamin (Cyanocobalamin (Vitamin B-12) 100 Mcg Tablet) 100 mcg PO DAILY [facility] Last Admin: 06/22/22 08:54 Dose: 100 mcg Cyclobenzaprine HCl (Cyclobenzaprine Hcl 10 Mg Tablet) 10 mg PO TID PRN PRN Reason: Pain, Mild (Pain Scale 1-3) Last Admin: 06/16/22 16:20 Dose: 10 mg Guaifenesin (Guaifenesin La 600 Mg Tab.Er.12h) 600 mg PO BID PRN PRN Reason: congestion Last Admin: 05/29/22 19:58 Dose: 600 mg Guaifenesin (Guaifenesin La 600 Mg Tab.Er.12h) 600 mg PO BID PRN PRN Reason: Congestion Hydroxyzine HCl (Hydroxyzine Hcl 50 Mg Tablet) 50 mg PO TID [facility] Last Admin: 06/22/22 08:54 Dose: 50 mg Lidocaine (Lidocaine 4 % Patch Adh..Patch) 1 patch TRANSDERMA DAILY [facility]; Protocol Last Admin: 06/21/22 11:14 Dose: 1 patch Magnesium Hydroxide (Milk Of Magnesia 30 Ml Oral.Susp) 30 ml PO DAILY PRN PRN Reason: Constipation Mirtazapine (Mirtazapine 7.5 Mg Tablet) 7.5 mg PO BEDTIME [facility] Last Admin: 06/21/22 21:46 Dose: 7.5 mg Nicotine (Nicotine 14 Mg Patch.Td24) 14 mg TRANSDERMA DAILY [facility] Last Admin: 06/21/22 11:13 Dose: 14 mg Nicotine Polacrilex (Nicotine Polacrilex 2 Mg Gum) 2 mg BUCCAL Q2H PRN PRN Reason: Nicotine Cravings Last Admin: 06/19/22 15:43 Dose: 2 mg Pt Own Med (Super B (Complex 1 Tab)) 1 tab PO DAILY [facility] Last Admin: 06/22/22 10:45 Dose: 1 tab Quetiapine Fumarate (Quetiapine Fumarate 25 Mg Tablet) 25 mg PO Q4H PRN PRN Reason: Anxiety Last Admin: 06/11/22 21:52 Dose: 25 mg Risperidone (Risperidone 3 Mg Tablet) 3 mg PO BID [facility] Last Admin: 06/22/22 08:54 Dose: 3 mg Sodium Chloride (Sodium Chloride 0.65 % Nasal 44 Ml Sprbtl) 1 spray NOSTRIL-B Q1H PRN PRN Reason: dryness, congestion Thiamine HCl (Thiamine Hcl 100 Mg Tablet) 200 mg PO DAILY [facility] Last Admin: 06/22/22 08:54 Dose: 200 mg Trazodone HCl (Trazodone Hcl 100 Mg Tablet) 100 mg PO BEDTIME [facility] Last Admin: 06/21/22 21:46 Dose: 100 mg Allergies Allergies Allergy/AdvReac Type Severity Reaction Status Date / Time aspirin Allergy Unknown Unknown Verified 04/02/22 19:55 seafood Allergy Unknown Unknown Verified 04/02/22 19:55 Assessment & Plan Assessment & Plan (1) Schizophrenia: Status: Acute Code(s): F20.9 - Schizophrenia, unspecified (2) Moderate cocaine use disorder: Status: Acute Code(s): F14.20 - Cocaine dependence, uncomplicated Plan 37 yo male, history of schizophrenia, polysubstance use presents with request to re-stabilize on medications and return to addictions CSS treatment. Continue current regime. Monitor mood/behaviors Referrals for CSS placement. 05/15: Continue current regimen and encouraged to take medications. Nursing requested the p.r.n. in case he agrees to take something during the day and Seroquel 25 mg q.4 hours p.r.n. was ordered. 05/17: Continue current plans and regimen 05/18: Continue plans and regimen 05/19/22: Increase Venlafaxine to 112.5 mg daily Increase Seroquel to 150 mg a.m. and 250 mg h.s., a total increase of 100 mg per day. Pt may need a mood stabilizer-he declines at this time. 05/20/22: Decrease Venlafaxine to 75 mg daily Discontinue Seroquel Risperdal 2 mg hs. 05/21/22 Continue current regime and plan. 05/22/22 Monitor sx of COVID Monitor for increase sx as pt will be on isolation 05/23/22 Continue to monitor for sx of COVID No changes to current regime today 05/24/22: Team note an increase in OCD sx presentation. Pt at this time asks for no medication changes. Will continue to educate. 05/25/22: Risperdal 0.5 mg a.m. Chest xray 05/26/22: Chest xray negative. Continue current plan. 05/27/22: Quarantine will end 05/28/22. Decrease of physical sx Pt not wanting to change Effexor to Luvox to address OCD sx at this time Continue to assess and encourage focus on target sx. 05/28/22 continue current medications. 05/29 continue current medications. Noted hyperhydrosis with most likely s/s effexor- will try clonidine but may consider switching antidepressant to remeron. added baclofen for back pain and some degree of reduction of cocaine cravings. 05/30/22 HPI/Impression says dx: Schizophrenia (however this is not listed in problem category, just MDD w/ psychosis) -will increase Risperdone due to continued AH and disorganzied thinking INCREASE Risperidone to 3mg qhs Continue Risperidone 0.5mg daily Says Hyperhidrosis present for months prior to this admission and that it has not worsened since he's been here; if accurate reporting, makes new medication Effexor less likely cause 05/31/22 says feeling good and a little more linear in thought process. Intermittent passive SI but no plans/intent still has AH, but says he can ignore Will continue current regimen 06/01 lower slightly venlafaxine due to hyperhidrosis, see if voices get better with risperidone. 06/02 continue tx but pt appears more psychotic than he is reporting. 06/03 increase risperidone to 3mg po BID, d/c venlafaxine. 06/04 continue current medications. 06/05 continue tx. pending Saw referral that would like to see him with less psychosis or delusions. 06/06 continue current treatment plan -discussed with nursing; reviewed vitals and WNL; 06/07 continue current treatment plan; Met with patient. Discussed with nursing; reviewed vitals and WNL 06/10/22: Mirtazapine 7.5 mg HS B12 level 06/11. 06/11/22 Mucinex prn, [facility] Nasal [place] prn 06/13/22: Add B Complex, 1 tab daily Pt feeling ready for discharge 06/15/22: Continue current plan of care 06/16/22: Discharge planning 06/18/22: Continue current plan of care. Team is very active in looking for placement for pt. Discharge planning. 06/19/22: Continue current regime. Pt will meet with [facility] on 06/22/22. 06/20: Continue tx plan. 06/21: Continue tx plan 06/22/22: Currently no beds in programs applied for Discharge 06/25/22-pt calling his uncle in [place] to see if staying with him is a possibility. Refusing shelters at this time. Patient educated on: therapeutic strategies Informed Consent: understands Reason for contiued inpatient stay Substantial Risk for: stable for discharge Time Spent With Patient Time: Total time managing care of this patient today 25 minutes.
[2022-06-22] MEDS: Nicotine 14 MG PATCH.TD24 TRANSDERMA (12:05)
[2022-06-22] MEDS: Lidocaine 4 % Patch ADH..PATCH 1 PATCH TRANSDERMA (15:13)
[2022-06-22 20:10] VITALS: BP 123/71; PULSE 89; TEMP 36.4; O2SAT 97
[2022-06-22] MEDS: Mirtazapine 7.5 MG TABLET PO (21:55)
[2022-06-22] MEDS: traZODone HCL 100 MG TABLET PO (21:55)
[2022-06-23 06:00] VITALS: BP 131/78; PULSE 84; RESP 16; TEMP 37.1; O2SAT 97
[2022-06-23] MEDS: Baclofen 10 MG TABLET PO ×2 (09:50→21:17)
[2022-06-23] MEDS: Nicotine 14 MG PATCH.TD24 TRANSDERMA (09:50)
[2022-06-23] MEDS: Benztropine Mesylate 1 MG TABLET PO ×2 (09:51→21:17)
[2022-06-23] MEDS: Cyanocobalamin (Vitamin B-12) 100 MCG TABLET PO (09:51)
[2022-06-23] MEDS: hydrOXYzine HCL 50 MG TABLET PO ×3 (09:51→21:17)
[2022-06-23] MEDS: Thiamine HCL 100 MG TABLET 200 MG PO (09:51)
[2022-06-23] MEDS: risperiDONE 3 MG TABLET PO ×2 (09:51→21:17)
--- NOTE | 2022-06-23 10:42 | HO.PSYCHPN ---
Subjective Subjective Date of Service: 06/23/22 Reason For Visit: Schizophrenia Subjective Notes: Conditional Voluntary Healthcare Proxy: No Guardianship: No Medical Problems Affecting Mental Status: No Interim History: Pt continues to look at housing options as programs are full at this time-talking with extended family in [place], parents in [place]. Pt talking with his friend, Johnathon Chatman. Currently no CSS, TSS available for him- he is on waiting lists. At this time he declines a skilled nursing. Medication Compliance: Yes Side effects from medications: No Attending Groups: Yes Review of Systems Acute medical concerns: No Medical Review of Systems: unchanged Mental Status Exam Mental Status Exam Patient Appearance: Appropriate Patient Orientation: Person, Place, Time and Situation Level of Consciousness: Alert Patient Behavior: Appropriate, Talkative, Cooperative, Anxious, Distractible and Good Eye Contact Mood Description: Constricted, Anxious, Nervous and Apprehensive Affect Description: Apprehensive Patient Cognition Impaired: No Ability to Follow Directions: Good Speech Pattern: Perseverating, Spontaneous Speech and Soft-Spoken Memory Description: Remote Impaired and Episodic Impaired Thought Process: Rumination and Goal Oriented Thought Content: positive for Goal Oriented and positive for Suicidal Ideation (denies) Depressive Symptoms: Increased Anxiety and Thoughts of /Suicide (denies) Judgement: Good Diagnostics Vital Signs (24Hr): Vital Signs - 24 hr 06/22/22 20:10 06/23/22 06:00 Temperature 97.6 F 98.8 F Pulse Rate 89 84 Respiratory Rate 16 Blood Pressure 123/71 131/78 Pulse Oximetry 97 97 Oxygen Delivery Method Room Air Room Air BMI result Body Mass Index 25.7 Labs 06/04/22 15:54 06/04/22 15:54 Imaging Radiology Impressions: ITS Impressions Chest X-Ray 05/26/22 09:40 IMPRESSION: Unremarkable examination. Chest X-Ray 06/13/22 09:05 IMPRESSION: Unremarkable examination. Medications Medications Current Medications Acetaminophen (Acetaminophen 325 Mg Tablet) 650 mg PO Q6H PRN PRN Reason: Headache/Pain Mild Scale (1-3) Last Admin: 06/21/22 17:07 Dose: 650 mg Al Hydroxide/Mg Hydroxide (Magnesium Hydrox/Alum Hydrox 30 Ml Oral.Susp) 30 ml PO Q6H PRN PRN Reason: Heartburn/Nausea Baclofen (Baclofen 10 Mg Tablet) 10 mg PO BID [facility] Last Admin: 06/23/22 09:50 Dose: 10 mg Benztropine Mesylate (Benztropine Mesylate 1 Mg Tablet) 1 mg PO BID [facility] Last Admin: 06/23/22 09:51 Dose: 1 mg Cyanocobalamin (Cyanocobalamin (Vitamin B-12) 100 Mcg Tablet) 100 mcg PO DAILY [facility] Last Admin: 06/23/22 09:51 Dose: 100 mcg Cyclobenzaprine HCl (Cyclobenzaprine Hcl 10 Mg Tablet) 10 mg PO TID PRN PRN Reason: Pain, Mild (Pain Scale 1-3) Last Admin: 06/16/22 16:20 Dose: 10 mg Guaifenesin (Guaifenesin La 600 Mg Tab.Er.12h) 600 mg PO BID PRN PRN Reason: congestion Last Admin: 05/29/22 19:58 Dose: 600 mg Guaifenesin (Guaifenesin La 600 Mg Tab.Er.12h) 600 mg PO BID PRN PRN Reason: Congestion Hydroxyzine HCl (Hydroxyzine Hcl 50 Mg Tablet) 50 mg PO TID [facility] Last Admin: 06/23/22 09:51 Dose: 50 mg Lidocaine (Lidocaine 4 % Patch Adh..Patch) 1 patch TRANSDERMA DAILY [facility]; Protocol Last Admin: 06/22/22 15:13 Dose: 1 patch Magnesium Hydroxide (Milk Of Magnesia 30 Ml Oral.Susp) 30 ml PO DAILY PRN PRN Reason: Constipation Mirtazapine (Mirtazapine 7.5 Mg Tablet) 7.5 mg PO BEDTIME [facility] Last Admin: 06/22/22 21:55 Dose: 7.5 mg Nicotine (Nicotine 14 Mg Patch.Td24) 14 mg TRANSDERMA DAILY [facility] Last Admin: 06/23/22 09:50 Dose: 14 mg Nicotine Polacrilex (Nicotine Polacrilex 2 Mg Gum) 2 mg BUCCAL Q2H PRN PRN Reason: Nicotine Cravings Last Admin: 06/19/22 15:43 Dose: 2 mg Pt Own Med (Super B (Complex 1 Tab)) 1 tab PO DAILY [facility] Last Admin: 06/23/22 10:08 Dose: 1 tab Quetiapine Fumarate (Quetiapine Fumarate 25 Mg Tablet) 25 mg PO Q4H PRN PRN Reason: Anxiety Last Admin: 06/11/22 21:52 Dose: 25 mg Risperidone (Risperidone 3 Mg Tablet) 3 mg PO BID [facility] Last Admin: 06/23/22 09:51 Dose: 3 mg Sodium Chloride (Sodium Chloride 0.65 % Nasal 44 Ml Sprbtl) 1 spray NOSTRIL-B Q1H PRN PRN Reason: dryness, congestion Thiamine HCl (Thiamine Hcl 100 Mg Tablet) 200 mg PO DAILY [facility] Last Admin: 06/23/22 09:51 Dose: 200 mg Trazodone HCl (Trazodone Hcl 100 Mg Tablet) 100 mg PO BEDTIME [facility] Last Admin: 06/22/22 21:55 Dose: 100 mg Allergies Allergies Allergy/AdvReac Type Severity Reaction Status Date / Time aspirin Allergy Unknown Unknown Verified 04/02/22 19:55 seafood Allergy Unknown Unknown Verified 04/02/22 19:55 Assessment & Plan Assessment & Plan (1) Schizophrenia: Status: Acute Code(s): F20.9 - Schizophrenia, unspecified (2) Moderate cocaine use disorder: Status: Acute Code(s): F14.20 - Cocaine dependence, uncomplicated Plan 37 yo male, history of schizophrenia, polysubstance use presents with request to re-stabilize on medications and return to addictions CSS treatment. Continue current regime. Monitor mood/behaviors Referrals for CSS placement. 05/15: Continue current regimen and encouraged to take medications. Nursing requested the p.r.n. in case he agrees to take something during the day and Seroquel 25 mg q.4 hours p.r.n. was ordered. 05/17: Continue current plans and regimen 05/18: Continue plans and regimen 05/19/22: Increase Venlafaxine to 112.5 mg daily Increase Seroquel to 150 mg a.m. and 250 mg h.s., a total increase of 100 mg per day. Pt may need a mood stabilizer-he declines at this time. 05/20/22: Decrease Venlafaxine to 75 mg daily Discontinue Seroquel Risperdal 2 mg hs. 05/21/22 Continue current regime and plan. 05/22/22 Monitor sx of COVID Monitor for increase sx as pt will be on isolation 05/23/22 Continue to monitor for sx of COVID No changes to current regime today 05/24/22: Team note an increase in OCD sx presentation. Pt at this time asks for no medication changes. Will continue to educate. 05/25/22: Risperdal 0.5 mg a.m. Chest xray 05/26/22: Chest xray negative. Continue current plan. 05/27/22: Quarantine will end 05/28/22. Decrease of physical sx Pt not wanting to change Effexor to Luvox to address OCD sx at this time Continue to assess and encourage focus on target sx. 05/28/22 continue current medications. 05/29 continue current medications. Noted hyperhydrosis with most likely s/s effexor- will try clonidine but may consider switching antidepressant to remeron. added baclofen for back pain and some degree of reduction of cocaine cravings. 05/30/22 HPI/Impression says dx: Schizophrenia (however this is not listed in problem category, just MDD w/ psychosis) -will increase Risperdone due to continued AH and disorganzied thinking INCREASE Risperidone to 3mg qhs Continue Risperidone 0.5mg daily Says Hyperhidrosis present for months prior to this admission and that it has not worsened since he's been here; if accurate reporting, makes new medication Effexor less likely cause 05/31/22 says feeling good and a little more linear in thought process. Intermittent passive SI but no plans/intent still has AH, but says he can ignore Will continue current regimen 06/01 lower slightly venlafaxine due to hyperhidrosis, see if voices get better with risperidone. 06/02 continue tx but pt appears more psychotic than he is reporting. 06/03 increase risperidone to 3mg po BID, d/c venlafaxine. 06/04 continue current medications. 06/05 continue tx. pending [facility] referral that would like to see him with less psychosis or delusions. 06/06 continue current treatment plan -discussed with nursing; reviewed vitals and WNL; 06/07 continue current treatment plan; Met with patient. Discussed with nursing; reviewed vitals and WNL 06/10/22: Mirtazapine 7.5 mg HS B12 level 06/11. 06/11/22 Mucinex prn, [place] Nasal [place] prn 06/13/22: Add B Complex, 1 tab daily Pt feeling ready for discharge 06/15/22: Continue current plan of care 06/16/22: Discharge planning 06/18/22: Continue current plan of care. Team is very active in looking for placement for pt. Discharge planning. 06/19/22: Continue current regime. Pt will meet with [facility] on 06/22/22. 06/20: Continue tx plan. 06/21: Continue tx plan 06/22/22: Currently no beds in programs applied for Discharge 06/25/22-pt calling his uncle in [place] to see if staying with him is a possibility. Refusing shelters at this time. 06/23/22: Discharge planning. Patient educated on: therapeutic strategies Informed Consent: further education needed Reason for contiued inpatient stay Substantial Risk for: stable for discharge Time Spent With Patient Time: Total time managing care of this patient today 30 minutes.
[2022-06-23] MEDS: Lidocaine 4 % Patch ADH..PATCH 1 PATCH TRANSDERMA (12:09)
[2022-06-23 16:20] VITALS: BP 114/71; PULSE 86; TEMP 36.6
[2022-06-23] MEDS: Mirtazapine 7.5 MG TABLET PO (21:17)
[2022-06-23] MEDS: traZODone HCL 100 MG TABLET PO (21:17)
[2022-06-24] MEDS: risperiDONE 3 MG TABLET PO ×2 (08:29→19:22)
[2022-06-24] MEDS: Thiamine HCL 100 MG TABLET 200 MG PO (08:29)
[2022-06-24] MEDS: hydrOXYzine HCL 50 MG TABLET PO ×3 (08:29→19:21)
[2022-06-24] MEDS: Cyanocobalamin (Vitamin B-12) 100 MCG TABLET PO (08:29)
[2022-06-24] MEDS: Baclofen 10 MG TABLET PO ×2 (08:29→19:22)
[2022-06-24] MEDS: Benztropine Mesylate 1 MG TABLET PO ×2 (08:30→19:22)
[2022-06-24 08:33] VITALS: BP 128/70; PULSE 72; RESP 16; TEMP 36.7; O2SAT 98
[2022-06-24] MEDS: Lidocaine 4 % Patch ADH..PATCH 1 PATCH TRANSDERMA (10:29)
[2022-06-24] MEDS: Nicotine 14 MG PATCH.TD24 TRANSDERMA (10:29)
[2022-06-24 18:00] VITALS: BP 122/82; PULSE 82; RESP 16; TEMP 36.4; O2SAT 97
[2022-06-24] MEDS: traZODone HCL 100 MG TABLET PO (19:21)
[2022-06-24] MEDS: Mirtazapine 7.5 MG TABLET PO (19:22)
--- NOTE | 2022-06-24 20:14 | P.PNPSI_ITS ---
Subjective Subjective Date of Service: 06/24/22 Reason For Visit: Schizophrenia Subjective Notes: Conditional Voluntary Healthcare Proxy: No Guardianship: No Medical Problems Affecting Mental Status: No Interim History: Pt has decided to return home to [place]. He has scheduled a flight for 06/25/22 evening Review of discharge planning process and will send pt with written prescriptions to fill at his pharmacy. Medication Compliance: Yes Side effects from medications: No Attending Groups: No Review of Systems Medical Review of Systems: unchanged Mental Status Exam Mental Status Exam Patient Appearance: Appropriate Patient Orientation: Person, Place, Time and Situation Level of Consciousness: Alert Patient Behavior: Appropriate, Talkative, Cooperative, Anxious, Distractible and Good Eye Contact Mood Description: Constricted, Anxious, Nervous and Apprehensive Affect Description: Apprehensive Patient Cognition Impaired: No Ability to Follow Directions: Good Speech Pattern: Perseverating, Spontaneous Speech and Soft-Spoken Memory Description: Remote Impaired and Episodic Impaired Thought Process: Rumination and Goal Oriented Thought Content: positive for Goal Oriented and positive for Suicidal Ideation ( denies) Depressive Symptoms: Increased Anxiety and Thoughts of /Suicide (denies) Judgement: Good Diagnostics Vital Signs (24Hr): Vital Signs - 24 hr 06/24/22 08:33 Temperature 98.1 F Pulse Rate 72 Respiratory Rate 16 Blood Pressure 128/70 Pulse Oximetry 98 Oxygen Delivery Method Room Air BMI result Body Mass Index 25.7 Labs 06/04/22 15:54 06/04/22 15:54 Imaging Radiology Impressions: ITS Impressions Chest X-Ray 05/26/22 09:40 IMPRESSION: Unremarkable examination. Chest X-Ray 06/13/22 09:05 IMPRESSION: Unremarkable examination. Medications Medications Current Medications Acetaminophen (Acetaminophen 325 Mg Tablet) 650 mg PO Q6H PRN PRN Reason: Headache/Pain Mild Scale (1-3) Last Admin: 06/21/22 17:07 Dose: 650 mg Al Hydroxide/Mg Hydroxide (Magnesium Hydrox/Alum Hydrox 30 Ml Oral.Susp) 30 ml PO Q6H PRN PRN Reason: Heartburn/Nausea Baclofen (Baclofen 10 Mg Tablet) 10 mg PO BID [facility] Last Admin: 06/24/22 19:22 Dose: 10 mg Benztropine Mesylate (Benztropine Mesylate 1 Mg Tablet) 1 mg PO BID [facility] Last Admin: 06/24/22 19:22 Dose: 1 mg Cyanocobalamin (Cyanocobalamin (Vitamin B-12) 100 Mcg Tablet) 100 mcg PO DAILY [facility] Last Admin: 06/24/22 08:29 Dose: 100 mcg Cyclobenzaprine HCl (Cyclobenzaprine Hcl 10 Mg Tablet) 10 mg PO TID PRN PRN Reason: Pain, Mild (Pain Scale 1-3) Last Admin: 06/16/22 16:20 Dose: 10 mg Guaifenesin (Guaifenesin La 600 Mg Tab.Er.12h) 600 mg PO BID PRN PRN Reason: congestion Last Admin: 05/29/22 19:58 Dose: 600 mg Guaifenesin (Guaifenesin La 600 Mg Tab.Er.12h) 600 mg PO BID PRN PRN Reason: Congestion Hydroxyzine HCl (Hydroxyzine Hcl 50 Mg Tablet) 50 mg PO TID [facility] Last Admin: 06/24/22 19:21 Dose: 50 mg Lidocaine (Lidocaine 4 % Patch Adh..Patch) 1 patch TRANSDERMA DAILY [facility]; Protocol Last Admin: 06/24/22 10:29 Dose: 1 patch Magnesium Hydroxide (Milk Of Magnesia 30 Ml Oral.Susp) 30 ml PO DAILY PRN PRN Reason: Constipation Mirtazapine (Mirtazapine 7.5 Mg Tablet) 7.5 mg PO BEDTIME [facility] Last Admin: 06/24/22 19:22 Dose: 7.5 mg Nicotine (Nicotine 14 Mg Patch.Td24) 14 mg TRANSDERMA DAILY [facility] Last Admin: 06/24/22 10:29 Dose: 14 mg Nicotine Polacrilex (Nicotine Polacrilex 2 Mg Gum) 2 mg BUCCAL Q2H PRN PRN Reason: Nicotine Cravings Last Admin: 06/19/22 15:43 Dose: 2 mg Pt Own Med (Super B (Complex 1 Tab)) 1 tab PO DAILY [facility] Last Admin: 06/24/22 08:28 Dose: 1 tab Quetiapine Fumarate (Quetiapine Fumarate 25 Mg Tablet) 25 mg PO Q4H PRN PRN Reason: Anxiety Last Admin: 06/11/22 21:52 Dose: 25 mg Risperidone (Risperidone 3 Mg Tablet) 3 mg PO BID [facility] Last Admin: 06/24/22 19:22 Dose: 3 mg Sodium Chloride (Sodium Chloride 0.65 % Nasal 44 Ml Sprbtl) 1 spray NOSTRIL-B Q1H PRN PRN Reason: dryness, congestion Thiamine HCl (Thiamine Hcl 100 Mg Tablet) 200 mg PO DAILY [facility] Last Admin: 06/24/22 08:29 Dose: 200 mg Trazodone HCl (Trazodone Hcl 100 Mg Tablet) 100 mg PO BEDTIME [facility] Last Admin: 06/24/22 19:21 Dose: 100 mg Allergies Allergies Allergy/AdvReac Type Severity Reaction Status Date / Time aspirin Allergy Unknown Unknown Verified 04/02/22 19:55 seafood Allergy Unknown Unknown Verified 04/02/22 19:55 Assessment & Plan Assessment & Plan (1) Schizophrenia: Status: Acute Code(s): F20.9 - Schizophrenia, unspecified (2) Moderate cocaine use disorder: Status: Acute Code(s): F14.20 - Cocaine dependence, uncomplicated Plan 37 yo male, history of schizophrenia, polysubstance use presents with request to re-stabilize on medications and return to addictions [facility] treatment. Continue current regime. Monitor mood/behaviors Referrals for [facility] placement. 05/15: Continue current regimen and encouraged to take medications. Nursing requested the p.r.n. in case he agrees to take something during the day and Seroquel 25 mg q.4 hours p.r.n. was ordered. 05/17: Continue current plans and regimen 05/18: Continue plans and regimen 05/19/22: Increase Venlafaxine to 112.5 mg daily Increase Seroquel to 150 mg a.m. and 250 mg h.s., a total increase of 100 mg per day. Pt may need a mood stabilizer-he declines at this time. 05/20/22: Decrease Venlafaxine to 75 mg daily Discontinue Seroquel Risperdal 2 mg hs. 05/21/22 Continue current regime and plan. 05/22/22 Monitor sx of COVID Monitor for increase sx as pt will be on isolation 05/23/22 Continue to monitor for sx of COVID No changes to current regime today 05/24/22: Team note an increase in OCD sx presentation. Pt at this time asks for no medication changes. Will continue to educate. 05/25/22: Risperdal 0.5 mg a.m. Chest xray 05/26/22: Chest xray negative. Continue current plan. 05/27/22: Quarantine will end 05/28/22. Decrease of physical sx Pt not wanting to change Effexor to Luvox to address OCD sx at this time Continue to assess and encourage focus on target sx. 05/28/22 continue current medications. 05/29 continue current medications. Noted hyperhydrosis with most likely s/s effexor- will try clonidine but may consider switching antidepressant to remeron. added baclofen for back pain and some degree of reduction of cocaine cravings. 05/30/22 HPI/Impression says dx: Schizophrenia (however this is not listed in problem category, just MDD w/ psychosis) -will increase Risperdone due to continued AH and disorganzied thinking INCREASE Risperidone to 3mg qhs Continue Risperidone 0.5mg daily Says Hyperhidrosis present for months prior to this admission and that it has not worsened since he's been here; if accurate reporting, makes new medication Effexor less likely cause 05/31/22 says feeling good and a little more linear in thought process. Intermittent passive SI but no plans/intent still has AH, but says he can ignore Will continue current regimen 06/01 lower slightly venlafaxine due to hyperhidrosis, see if voices get better with risperidone. 06/02 continue tx but pt appears more psychotic than he is reporting. 06/03 increase risperidone to 3mg po BID, d/c venlafaxine. 06/04 continue current medications. 06/05 continue tx. pending Saw referral that would like to see him with less psychosis or delusions. 06/06 continue current treatment plan -discussed with nursing; reviewed vitals and WNL; 06/07 continue current treatment plan; Met with patient. Discussed with nursing; reviewed vitals and WNL 06/10/22: Mirtazapine 7.5 mg HS B12 level 06/11. 06/11/22 Mucinex prn, [place] Nasal [place] prn 06/13/22: Add B Complex, 1 tab daily Pt feeling ready for discharge 06/15/22: Continue current plan of care 06/16/22: Discharge planning 06/18/22: Continue current plan of care. Team is very active in looking for placement for pt. Discharge planning. 06/19/22: Continue current regime. Pt will meet with [facility] on 06/22/22. 06/20: Continue tx plan. 06/21: Continue tx plan 06/22/22: Currently no beds in programs applied for Discharge 06/25/22-pt calling his uncle in [place] to see if staying with him is a possibility. Refusing shelters at this time. 06/24/22: Discharge 06/25/22. Pt to return to [place]. He will continue to call programs that he is on the wait list for from family home. Patient educated on: therapeutic strategies Informed Consent: understands Reason for contiued inpatient stay Substantial Risk for: stable for discharge Time Spent With Patient Time: Total time managing care of this patient today 20 minutes.
[2022-06-25] MEDS: Baclofen 10 MG TABLET PO (08:39)
[2022-06-25] MEDS: hydrOXYzine HCL 50 MG TABLET PO ×2 (08:39→14:03)
[2022-06-25] MEDS: Benztropine Mesylate 1 MG TABLET PO (08:39)
[2022-06-25] MEDS: Thiamine HCL 100 MG TABLET 200 MG PO (08:39)
[2022-06-25] MEDS: Cyanocobalamin (Vitamin B-12) 100 MCG TABLET PO (08:39)
[2022-06-25] MEDS: risperiDONE 3 MG TABLET PO (08:39)
[2022-06-25] MEDS: Nicotine 14 MG PATCH.TD24 TRANSDERMA (11:08)
[2022-06-25] MEDS: Lidocaine 4 % Patch ADH..PATCH 1 PATCH TRANSDERMA (11:08)
[2022-06-25 11:17] VITALS: BP 137/63; PULSE 111; RESP 16; TEMP 36.4; O2SAT 96
[2022-06-25 11:18] VITALS: BMI 25.7
--- NOTE | 2022-06-25 12:24 | PM.PSYDC ---
DS: Providers Provider Date of Service: 06/25/22 Date of admission: 05/14/22 14:04 Date of discharge: 06/25/22 Primary care physician: Unknown Physician Admitting clinician: Betzaida Perales Attending physician on admission: Doyle Shields Attending physician on discharge: Doyle Shields Discharging clinician: Betzaida Perales DS: Diagnosis Discharge Diagnosis (1) Schizophrenia: Status: Acute (2) Moderate cocaine use disorder: Status: Deleted DS: Medications Discharge Medications Home Medications: Previous Rx's Medication Instructions Recorded benztropine 1 mg tablet 1 mg PO BID #60 tabs 06/25/22 hydroxyzine HCl 50 mg tablet 50 mg PO TID #90 tabs 06/25/22 mirtazapine 7.5 mg tablet 7.5 mg PO BEDTIME #30 tabs 06/25/22 nicotine (polacrilex) 2 mg gum 2 mg buccal Q2H PRN Nicotine 06/25/22 Cravings #60 ea nicotine 14 mg/24 hr daily 14 mg transdermal DAILY #30 ea 06/25/22 transdermal patch risperidone 3 mg tablet 3 mg PO BID #60 tabs 06/25/22 trazodone 100 mg tablet 100 mg PO BEDTIME #30 tabs 06/25/22 Mental Status Exam Mental Status Exam Patient Appearance: Appropriate Patient Orientation: Person, Place, Time and Situation Level of Consciousness: Alert Patient Behavior: Appropriate, Talkative, Cooperative, Anxious, Distractible and Good Eye Contact Mood Description: Constricted, Anxious, Nervous and Apprehensive Affect Description: Apprehensive Patient Cognition Impaired: No Ability to Follow Directions: Good Speech Pattern: Perseverating, Spontaneous Speech and Soft-Spoken Memory Description: Remote Impaired and Episodic Impaired Thought Process: Rumination and Goal Oriented Thought Content: positive for Goal Oriented and positive for Suicidal Ideation (denies) Depressive Symptoms: Increased Anxiety and Thoughts of /Suicide (denies) Judgement: Good Data Imaging Diagnostic Imaging Impressions Chest X-Ray 05/26/22 09:40 IMPRESSION: Unremarkable examination. Chest X-Ray 06/13/22 09:05 IMPRESSION: Unremarkable examination. DS: Summary Hospital Course Hospital Course: Admission to adult psychiatry for exacerbation of polysubstance use disorder and schizoaffective disorder, depressed. Pt diagnosed with COVID during this admission. Symptoms resolved without complications. Risperdal, Mirtazapine and Benztropine were initiated. Venlafaxine and Quetiapine were discontinued. Trazodone and Hydroxyzine were continued. Pt had hoped for [facility] admission, however during his admission no beds were available. As a result, he will return to his parents home in [place] and continue to work on admission to [facility] from their home. He is on waiting lists. Time spent discussing smoking cessation with patient: 3 to 10 minutes Status at Discharge Functional status at discharge: independent ambulation Overall status at discharge: patient is back to baseline Time Spent with Patient Time attestation: Total time managing care of this patient today 35 minutes. Time spent: Greater than 30 minutes Discharge Plan Discharge Anticipated Discharge Date/Time: 06/25/22 16:48 Patient Disposition: Home, Self-Care Discharge Diagnosis: Schizoaffective Disorder, Depressed Polysubstance Use Disorder Referrals: [facility] [Other] (Walk in if needed.) [facility] [Other] - 1 Week (Referral for [facility] services) [facility] [Other] - 1 Week (Referral for residential substance abuse treatment program Patient may follow-up on referral after discharge from [facility] ) [facility] [Other] - 1 Week (Referral for [facility] program for substance abuse treatment ) [facility] [Other] - 1 Week (Referral for [facility] program for substance abuse treatment ) [facility] [Other] - 1 Week (Referral for [facility] substance abuse treatment ) [facility] [Other] - 1 Week (Referral for residential substance abuse treatment Patient may follow-up on referrals after discharge ) [facility] [Other] - 1 Week (Referral for residential substance abuse treatment program Patient may follow-up on referral after discharge to determine if placement is available for treatment.) [facility] [Other] - 1 Week (Referral for substance abuse treatment at [facility] Patient is on wait list for placement. Wait list is approximately four months. Continue to follow-up with [facility] after discharge from [facility].) Discharge Medications: New nicotine 14 mg/24 hr Patch 24 Hour 14 mg transdermal DAILY Qty: 30 0RF nicotine (polacrilex) 2 mg Gum 2 mg buccal Q2H PRN (Reason: Nicotine Cravings) Qty: 60 0RF risperidone 3 mg Tablet 3 mg PO BID Qty: 60 0RF benztropine 1 mg Tablet 1 mg PO BID Qty: 60 0RF mirtazapine 7.5 mg Tablet 7.5 mg PO BEDTIME Qty: 30 0RF Continued hydroxyzine HCl 50 mg Tablet 50 mg PO TID Qty: 90 0RF trazodone 100 mg Tablet 100 mg PO BEDTIME Qty: 30 0RF Discontinued venlafaxine 75 mg Capsule,Extended Release 24hr 75 mg PO DAILY quetiapine 200 mg Tablet 200 mg PO BEDTIME quetiapine 100 mg Tablet 100 mg PO DAILY Discharge Orders: Discharge Order (Routine); Ordered 06/25/22 Ordered By: Betzaida Perales Diet: Advance to usual diet Activity on Discharge: As tolerated Stand Alone Forms: Patient Portal Discharge page, Community Support Print Language: [place] Care Plan Goals: Maintain mood and safe behaviors Take medicines as directed Practice coping skills Connect with out patient providers Health Concerns: Stable mood and behaviors Plan of Treatment: Follow up with out patient care Take medications as directed Assessment: Pt interviewed prior to discharge and found to be fully oriented and without any SI/HI. Pt has insight and demonstrates good judgment in terms of wanting to pursue treatment Pt is not in imminent risk of harm to self or others and has a safety plan that includes presenting to the closest ER or calling 911 if feeling unsafe. Pt has been observed closely by nursing team throughout his admission Pt has not engaged in any behaviors that suggest dangerousness to self or others and has demonstrated appropriate behaviors and impulse control Discharge Date/Time: 06/25/22 15:16
== END 2022-06-25 15:16 | disposition home or self-care (01) | DRG 885 ==
LOC: HO.ED 05-14 13:53 → HO.PM5 05-14 14:07
PROVIDERS: Physician Assistant; Social Worker; Admitting Provider Psychiatry & Neurology Psychiatry; Emergency Provider Emergency Medicine Emergency Medical Services; Visit Provider Clinical Nurse Specialist Psychiatric/Mental Health, Adult
DX: F25.1 Schizoaffective disorder, depressive type (principal); U07.1 COVID-19; F14.20 Cocaine dependence, uncomplicated; R45.851 Suicidal ideations; R45.850 Homicidal ideations; F17.210 Nicotine dependence, cigarettes, uncomplicated; Z71.6 Tobacco abuse counseling; Z88.6 Allergy status to analgesic agent; Z59.02 Unsheltered homelessness; Z79.899 Other long term (current) drug therapy
CPT/HCPCS: 36415; 71046; 80053; 80061; 80143; 80179; 80307; 81003; 82077; 82607; 82746; 83036; 83540; 83735; 84439; 84443; 85025; 86141; 87389; 87635; 93005; 99285

== ENCOUNTER 2022-06-15 13:38 | Outpatient (REF) | payer MEDICARE, MEDICAID, SELFPAY ==
--- NOTE | 2022-06-22 08:23 | MHC.AU.ANO ---
Adult Audiological Evaluation Date of Visit: 06/15/22 Sports Medicine [facility] Used: Phone conference interpreter #[id number] and [id number] Reason for Appointment: Referred for an audiologic evaluation due increasing difficulties understanding speech. Latrell is currently an inpatient at the [facility] unit. He has a history of drug use, psychotic disorder, schizophrenia, and depression. He also has some history of work-related noise exposure. Latrell notes he is very concerned his previous drug use may have caused decreased hearing. Does patient feel they have a hearing loss?: Yes If Yes, Which Ear?: Both Ears When Was Hearing Difficulty First Noticed?: Approximately 6 months ago Has hearing been tested previously?: No Ear History: History of occupational noise exposure?: Yes History: No Medical History: Medication List: Lioresal, Cogentin, Flexeril, Atarax, Remeron, Seroquel, Resperdal, Trazadone, Magnesium, Vit B complex, Mucinex Otoscopy: Right Ear: Unremarkable Left Ear: Unremarkable Tympanometry: Tympanometry performed due to: To assess integrity of the middle ear system Right Ear: Normal Middle Ear System (Type A) Left Ear: Normal Middle Ear System (Type A) Otoacoustic Emissions Frequency Range Used: 1.6-8 kHz Right Ear Results: Present [id number] & 9710-1957 Hz Reduced 7336-0788 Hz Analysis: Present emissions suggest normal cochlear function Reduced/Absent emissions suggest cochlear dysfunction Results are consistent with degree and configuration of hearing loss Left Ear Results: Present [id number] & 2704-7419 Hz Reduced 0694-1715 Hz Analysis: Present emissions suggest normal cochlear function Reduced/Absent emissions suggest cochlear dysfunction Results are consistent with degree and configuration of hearing loss Hearing Evaluation: Transducer(s) Used: Insert Earphones, Bone Conduction Method: Conventional Audiometry Stimuli Used: Pure Tones Right Ear: Description of Hearing: Normal hearing thresholds 250-8000 Hz with 100% speech understanding at 55 dB HL in a quiet environment Speech understanding with a +8 dB lbomrd-ua-enkko ratio with background noise is 100% in this controlled test environment Left Ear: Description of Hearing: Normal hearing thresholds 250-8000 Hz with 100% speech understanding at 50 dB HL in a quiet environment Speech understanding with a +8 dB rliigl-ko-kzorl ratio with background noise is 100% in this controlled test environment Interpretation of Results: Hearing thresholds and speech understanding in this controlled test environment fall within the normal range for both ears. Real world situations are likely to be more difficult for Latrell. There is a slight notch at 8491-8244 Hz which may relate to Latrell's past noise exposure; however, levels still fall within the normal range. The increasing speech understanding difficulties may relate to Latrell's current health status. Several medications Latrell is taking (Seroquel, Resperdal, Trazadone) slow down the response of the auditory system which may cause delayed auditory processing ability. Also, an individual's emotional state can reduce the ability to perceive speech adequately. Provided Latrell with a list of Communication Strategies to share with his inpatient care team. Recommendations: No further audiological action is indicated at this time. Diagnosis: Primary Diagnosis: H93.293 Abnormal Auditory Perception Services Performed: Comprehensive Audiological Evaluation (CPT 60207) Diagnostic Otoacoustic Emissions (CPT 08285, 26+TC) Tympanometry (CPT 19749) Signature: Provider: Otoniel Crowell, KEATON-A
== END 2022-06-15 13:39 | disposition home or self-care (01) ==
LOC: HO.SH 13:38
PROVIDERS: Visit Provider Clinical Nurse Specialist Psychiatric/Mental Health, Adult
DX: Z01.118 Encounter for examination of ears and hearing with other abnormal findings (principal); H93.293 Other abnormal auditory perceptions, bilateral
CPT/HCPCS: 92557; 92567; 92588